=== PATIENT | male | born 1940 | race Caucasian/White ===

== ENCOUNTER → 2017-10-23 15:32 | Outpatient (CLI) | payer MEDICARE, SELFPAY ==
--- NOTE | 2017-10-23 15:35 | MRI_ITS ---
STUDY: MRI RIGHT FOREFOOT WITHOUT CONTRAST REASON FOR EXAM: Male, 77 years old. Pain. TECHNIQUE: Standardized fat and water weighted pulse sequences were obtained in all 3 orthogonal planes. COMPARISON: None. FINDINGS: There is degenerative arthrosis of the metatarsophalangeal joint of the hallux. Normal tibial and fibular sesamoids, with normal sesamoids-first metatarsal articulations. Normal interphalangeal joint of the hallux. Normal proximal and distal phalanges of the great toe. Normal medial and lateral heads of the flexor hallucis brevis tendons. Normal flexor and extensor hallucis longus tendons. Normal second through fifth metatarsophalangeal (MTP) joints. Normal interphalangeal joints of the second through fifth toes. Normal proximal, middle and distal phalanges of the second through fifth toes. Normal first through fourth intermetatarsal spaces. Normal flexor and extensor tendons of the second through fifth toes. Normal visualized metatarsi. Normal intrinsic muscles of the forefoot. There is no demonstrated soft tissue abnormality. There is no demonstrated fracture. MRI/Lower Ext/No Jt/w/o IMPRESSION: No fracture. Degenerative change at the first MTP joint. Electronically Signed: Sabino Carty MD at 10:00 EDT , Service support ,
--- NOTE | 2017-10-23 15:35 | MRI_ITS ---
STUDY: MRI LEFT FOREFOOT WITHOUT CONTRAST REASON FOR EXAM: Male, 77 years old. Pain. TECHNIQUE: Standardized fat and water weighted pulse sequences were obtained in all 3 orthogonal planes. COMPARISON: None. FINDINGS: There is mild degenerative arthrosis with a joint of effusion of the metatarsophalangeal joint of the hallux. Normal tibial and fibular sesamoids, with normal sesamoids-first metatarsal articulations. Normal interphalangeal joint of the hallux. Normal proximal and distal phalanges of the great toe. Normal medial and lateral heads of the flexor hallucis brevis tendons. Normal flexor and extensor hallucis longus tendons. Normal second through fifth metatarsophalangeal (MTP) joints. Normal interphalangeal joints of the second through fifth toes. Normal proximal, middle and distal phalanges of the second through fifth toes. Normal first through fourth intermetatarsal spaces. Normal flexor and extensor tendons of the second through fifth toes. Normal visualized metatarsi. Normal intrinsic muscles of the forefoot. There is no demonstrated soft tissue abnormality. There is no demonstrated fracture. 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 No fracture. Electronically Signed: Sabino Carty MD at 10:04 EDT , Service support ,
== END ==
PROVIDERS: Family Provider Family Medicine; PCP Family Medicine; Visit Provider Podiatrist
DX: M19.071 Primary osteoarthritis, right ankle and foot (principal); M19.072 Primary osteoarthritis, left ankle and foot; M20.5X1 Other deformities of toe(s) (acquired), right foot; M20.5X2 Other deformities of toe(s) (acquired), left foot; G57.83 Other specified mononeuropathies of bilateral lower limbs
CPT/HCPCS: 73718

== ENCOUNTER → 2017-12-01 11:48 | Outpatient (CLI) | payer MEDICARE, SELFPAY ==
--- NOTE | 2017-12-01 11:51 | RAD_ITS ---
STUDY: X-RAY - LUMBAR SPINE REASON FOR EXAM: Male, 77 years old. Lower back pain TECHNIQUE: 2 view(s) of the lumbar spine were obtained. COMPARISON: None FINDINGS: Normal lumbar lordosis. There is a mild levoscoliosis of the lumbar spine. There is a normal alignment of the vertebrae. Normal vertebral bodies and endplates. There is multi-level degenerative disc disease with multi-level disc space narrowing. There is posterior fusion at L3-4. There is atherosclerotic calcification of the abdominal aorta without a demonstrated aneurysm. RAD/Lumbar Spine 2 or 3 Views IMPRESSION: Degenerative changes of the spine, as detailed above. Electronically Signed: Armin Bonilla MD at 8:16 EDT Tel , Service support ,
== END ==
PROVIDERS: Family Provider Family Medicine; PCP Family Medicine
DX: M54.16 Radiculopathy, lumbar region (principal)
CPT/HCPCS: 72100

== ENCOUNTER 2018-05-18 10:00 | Outpatient (RCR) | payer MEDICARE, SELFPAY ==
--- NOTE | 2018-03-26 14:57 | HP.PTEVAL_ITS ---
Patient's Visit Information ADALBERTO SANCHEZ is a 77 year old M referred to Physical Therapy by Coy Barnard MD with a diagnosis of dysequilibrium. Date of Evaluation: 03/26/18 Physical Therapist: Hunter Torres DPT, OC - Visit Plan Frequency: 2x /Week Duration: 4-6 Weeks Plan: Neurocom balance test then 2x/week x 2-4 for ex for HEP of VOR, foam stance and general ex if patient wishes as well as per results of neurocom. - Subjective Subjective: Had had 3 back surgeries including L45 laminectomy, then pain returned adn had therapy which did not help and then had surgery Apr 2017 again L34 discectomy. Was doing well but shovelled snow a month later and got cyst in LB surgical site and had that removed this July. Pain went away and now has been healing 90% healed with slight LBP at times intermittently. Current problem is related more to balance being not good. Veers to side or LOB with bending over. No spinning, just off balance. Slowly worsening progressively. Doesn't need cane or walker yet but is noticeably worsening and causing concern. Does own property with trees and does climb ladder now and then, is very careful. No falls recently but may have come close a few times. Therefore, doctor ran some test to clear brain and blood pressure. Now sent for PT. Lying down is fine. Activity at home is normal for now as his back is still weak. Limited in what he can lift from that. Steps at home and he doesn' t need to use them much but can go up and down them. Has railing and uses it. Was at football game for grandson last night and climbing bleachers, stopping on bleachers was more challenging. People stared at him. - Objective Walks into PT and transfers I with firm flat surface. Sensation LE in feet diminished to gross light touch. reflexes 1/3 patella and achilles. Strength LE 4+/5, motor control for ankle ev/inv at deficit. coordination to reciprocal toe and heel tap at minimal deficit. felxibility gastroc and HS mild deficits. AROM ankles , knees WFL, hip ext to 10 degreees otherwise WFL. VOR walking is challenging as is foam stance with ec. - Balance Scores Functional Gait Assessment Score: 27 % Disability: 10.0000 CATSIB Score (Max score 120 seconds): 98 - Goals Goal 1:: PAtioent ambulate with VOR without deficits and score 30 on foam ec romberg stance. Goal Time Frame: 4-6 Weeks Goal 2:: Patient feel 75% improved balance overall Goal Time Frame: 4-6 Weeks Goal 3:: I approp HEP to minimize future problems. 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 For Medicare and Medicare HMO plans, please review the plan of care and approve it. It will need to be FAXED BACK to us at [phone] for Medicare purposes. Please let me know if there are questions or concerns regarding this plan of care. Physician Signature: Date:
--- NOTE | 2018-04-07 09:50 | HP.PTCOM ---
PT Communication Note 04/07/[address] Coy Barnard MD , Thank you for the referral of Dell to [facility] for balance assessment. I have enclosed a copy of the results for yur review. in summation, he scored well on the whole battery of tests. He only had some slight dificits on forward weight shift excursion on the Limtis of Stability Test. With these results in mind, I plan to see him 2x/week for 2-4 weeks to instruct in a HEP for VOR, forward weight shift and foam exercises as well as general lower extremity strengthening and progression. Sincerely, Hunter Torres, BARBARAT, OC Contact Information
--- NOTE | 2018-04-07 09:53 | HP.PTCOM_ITS ---
PT Communication Note 04/07/[address] Coy Barnard MD , Thank you for the referral of Dell to [facility] for balance assessment. I have enclosed a copy of the results for yur review. in summation, he scored well on the whole battery of tests. He only had some slight dificits on forward weight shift excursion on the Limtis of Stability Test. With these results in mind, I plan to see him 2x/week for 2-4 weeks to instruct in a HEP for VOR, forward weight shift and foam exercises as well as general lower extremity strengthening and progression. Sincerely, Hunter Torres, BARBARAT, OC Contact Information
--- NOTE | 2018-04-27 11:01 | HP.PTREVAL ---
Coy Barnard MD, It has been my pleasure to treat ADALBERTO SANCHEZ over the last 6 visits for dysequilibrium. Please see the progress note below for an update on the physical therapy plan of care! Subjective: Pt reports that he had a great trip to [place]. Still having the same trouble with balance but no worse. Objective/Function: Progressed exercises today with good tolerance. Some challenge and fatigue evident. CGA necessary for stability at times. Balance does improve with consecutive repitition though. Plan Plan: x1 more appt before f/u with supervising PT. 2x/week x 2 to teach VOR progression with balance, foam ex and FW weight shift as well as general LE sink ex with dumbbells and give list for HEP. Pt to vacation f[place] through, make sure he has some to do while gone as safety allows. Goals Goal 1:: PAtioent ambulate with VOR without deficits and score 30 on foam ec romberg stance. Goal Time Frame: 4-6 Weeks Goal 2:: Patient feel 75% improved balance overall Goal Time Frame: 4-6 Weeks Goal Progress: Not Progressing Goal 3:: I approp HEP to minimize future problems. 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 Goal Time Frame: 4-6 Weeks Anticipated Interventions Patient/Client Instruction: Educate patient on: Condition, Plan of Care For the Purpose of:: To improve safety with gait Therapeutic Exercise to Include: Strength training, Balance training For the Purpose of:: To improve ability of physical actions for home/community/work/leisure, To improve safety with gait, To improve safety Please do not hesitate to contact me at [phone] by phone or if you have questions or concerns regarding this new plan of care! Sincerely, Hunter Torres, BARBARAT, OC
--- NOTE | 2018-05-18 10:33 | HP.PTEVAL ---
Patient's Visit Information ADALBERTO SANCHEZ is a 77 year old M referred to Physical Therapy by Coy Barnard MD with a diagnosis of dysequilibrium. Date of Evaluation: 03/26/18 Physical Therapist: Hunter Torres DPT, OC - Visit Plan Frequency: 2x /Week Duration: 4-6 Weeks Plan: D/C - Subjective Subjective: Had had 3 back surgeries including L45 laminectomy, then pain returned adn had therapy which did not help and then had surgery Apr 2017 again L34 discectomy. Was doing well but shovelled snow a month later and got cyst in LB surgical site and had that removed this July. Pain went away and now has been healing 90% healed with slight LBP at times intermittently. Current problem is related more to balance being not good. Veers to side or LOB with bending over. No spinning, just off balance. Slowly worsening progressively. Doesn't need cane or walker yet but is noticeably worsening and causing concern. Does own property with trees and does climb ladder now and then, is very careful. No falls recently but may have come close a few times. Therefore, doctor ran some test to clear brain and blood pressure. Now sent for PT. Lying down is fine. Activity at home is normal for now as his back is still weak. Limited in what he can lift from that. Steps at home and he doesn't need to use them much but can go up and down them. Has railing and uses it. Was at football game for grandson last night and climbing bleachers, stopping on bleachers was more challenging. People stared at him. - Objective Walks into PT and transfers I with firm flat surface. Sensation LE in feet diminished to gross light touch. reflexes 1/3 patella and achilles. Strength LE 4+/5, motor control for ankle ev/inv at deficit. coordination to reciprocal toe and heel tap at minimal deficit. felxibility gastroc and HS mild deficits. AROM ankles , knees WFL, hip ext to 10 degreees otherwise WFL. VOR walking is challenging as is foam stance with ec. - Balance Scores Functional Gait Assessment Score: 28 % Disability: 6.6700 CATSIB Score (Max score 120 seconds): 100 - Goals Goal 1:: PAtioent ambulate with VOR without deficits and score 30 on foam ec romberg stance. Goal Time Frame: 4-6 Weeks Goal 2:: Patient feel 75% improved balance overall Goal Time Frame: 4-6 Weeks Goal 3:: I approp HEP to minimize future problems. 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 For Medicare and Medicare HMO plans, please review the plan of care and approve it. It will need to be FAXED BACK to us at [phone] for Medicare purposes. Please let me know if there are questions or concerns regarding this plan of care. Physician Signature: Date:
--- NOTE | 2018-05-18 10:34 | HP.PTDCSUM_ITS ---
HP - PT D/C Summary It has been my pleasure to treat ADALBERTO SANCHEZ under orders from Coy Barnard MD, for the diagnosis of dysequilibrium for a total of 7 visit(s). Discharge Date: Please see the following information for a summary of their discharge status. - Subjective Subjective: Doing pretty good. Exercised 4x/week, Skipped a few due to some mild back pain that he got from lifting something. That is good. Not seeing huge improvements in the balance, still staggers at times. felt uncomfortable on step ladder. - Overall Improvement % Improvement: 10 - Objective Objective/Function: FGA+3. romberg better. tandem walk real well but uses arms. Better Forward weight shift without overextending self. OVERALL TESTING BETTER BUT NOT FEELING BETTER FAR BALANCE GOES. REVIEWED REALISTIC EXPECTATIONS WITH PATIENT AND NEED TO USE CAUTION AND LOWER EXPECTATIONS WHILE CONTINUING EX. - Goals Goal 1:: PAtioent ambulate with VOR without deficits and score 30 on foam ec romberg stance. Goal Progress: Goal Met Goal 2:: Patient feel 75% improved balance overall Goal Progress: Goal Met Goal 3:: I approp HEP to minimize future problems. 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 Goal Progress: still a challenge. - Plan Plan: D/C - D/C Information If there are questions or concerns regarding this patient's physical therapy, please feel free to call me at [phone]. Thank you for the referral of this patient. Sincerely, Hunter Torres, DPT, OC
== END 2018-05-18 19:00 | disposition home or self-care (01) ==
LOC: PT 10:00
PROVIDERS: Family Provider Family Medicine; PCP Family Medicine; Visit Provider Family Medicine
DX: R42 Dizziness and giddiness (principal); G62.9 Polyneuropathy, unspecified; M51.9 Unspecified thoracic, thoracolumbar and lumbosacral intervertebral disc disorder; R26.89 Other abnormalities of gait and mobility; M48.00 Spinal stenosis, site unspecified
CPT/HCPCS: 97110; 97162; 97530; 97750

== ENCOUNTER → 2018-07-02 15:13 | Outpatient (CLI) | payer MEDICARE, SELFPAY ==
[2018-07-02 17:58] LABS: Rheumatoid Factor < 10.0 IU/mL (<15); Thyroid Stim Hormone (TSH) 0.89 uIU/mL (0.358-3.74); Uric Acid 5.8 mg/dL (3.5-7.2)
[2018-07-02 18:00] LABS: Hemoglobin A1c 5.5 % (4.2-6.3)
[2018-07-02 18:10] LABS: Erythrocyte Sedimentation Rate 5 mm/hr (0-20)
[2018-07-02 18:35] LABS: HIV - WCH Non-Reactive (Nonreactive); Vitamin B12 1835 pg/mL (211-911)
[2018-07-05 20:11] LABS: Immunoglobulin A 395 mg/dL (61-437); Immunoglobulin G 858 mg/dL (700-1600); PROEL- A/G Ratio 1.8 (0.7-1.7); PROEL- Albumin 4.2 g/dL (2.9-4.4); PROEL- Alpha-1 Globulin 0.2 g/dL (0.0-0.4); PROEL- Alpha-2 Globulin 0.5 g/dL (0.4-1.0); PROEL- Beta Globulin 1.1 g/dL (0.7-1.3); PROEL- Gamma Globulin 0.7 g/dL (0.4-1.8); PROEL- Globulin, Total 2.4 g/dL (2.2-3.9); PROEL- TOTAL PROTEIN 6.6 g/dL (6.0-8.5); RNP Ab <0.2 AI (0.0-0.9); Smith Ab <0.2 AI (0.0-0.9)
[2018-07-06 09:09] LABS: ANTINUCLEAR ANTIBODIES DIRECT Negative (Negative)
[2018-07-06 10:07] LABS: Immunoglobulin M 44 mg/dL (15-143)
== END ==
PROVIDERS: Family Provider Family Medicine; PCP Family Medicine; Visit Provider Psychiatry & Neurology Neurology
DX: R73.9 Hyperglycemia, unspecified (principal); G62.9 Polyneuropathy, unspecified; M10.9 Gout, unspecified; R53.83 Other fatigue
CPT/HCPCS: 36415; 82607; 82746; 82784; 83036; 84165; 84443; 84550; 85652; 86038; 86235; 86334; 86431; 86703

== ENCOUNTER → 2018-07-28 09:49 | Outpatient (CLI) | payer MEDICARE, SELFPAY ==
[2018-07-28 12:38] LABS: Absolute Lymphocyte Count 1.88 X10^3/ul (0.83-4.51); Absolute Neutrophil Count 5.2 X10^3/uL (2.0-7.7); Basophil# 0.07 X10^3/uL; Basophil% 0.8 % (0-1); Eosinophil# 0.56 X10^3/uL; Eosinophils% 6.6 % (0-5); Hematocrit 41.9 % (40-54); Hemoglobin 13.6 g/dl (13.0-16.5); Lymphocyte # 1.88 X10^3/ul (4.0); Lymphocyte % 22.1 % (19-41); Mean Corp Hgb Conc 32.5 g/gl (32-36); Mean Corpuscular Hgb 29.7 pg (27.0-32.0); Mean Corpuscular Volume 91.5 fL (80-94); Mean Platelet Vol. 10.5 fl (6.2-12.0); Monocyte# 0.74 X10^3/uL; Monocyte% 8.7 % (0-10); Neutrophil # 5.23 X10^3/uL (2.7-7.7); Neutrophil % 61.7 % (47-70); Platelet Count 188 K/mm3 (150-450); RBC Distribution Width CV 13.1 % (11.6-14.6); RBC Distribution Width SD 43.6 fl (35.1-43.9); Red Blood Count 4.58 M/mm3 (4.6-6.2); White Blood Count 8.5 K/mm3 (4.4-11.0)
[2018-07-28 12:41] LABS: POSITIVE COUNT NO; POSITIVE DIFFERENTIAL NO; POSITIVE MORPHOLOGY NO
[2018-07-28 12:56] LABS: Anion Gap 8 (5-15); BUN 15 mg/dL (7-18); Calcium,Total 8.3 mg/dL (8.5-10.1); Chloride 107 mmol/L (98-107); Creatinine, Serum 1.07 mg/dL (0.70-1.30); EST Glomerular Filtration Rate 72 mL/min (>60); Est Glom Filt Rate - Afr Amer 87 mL/min (>60); Glucose 95 mg/dL (74-106); Potassium 4.3 mmol/L (3.5-5.1); Sodium Level 142 mmol/L (136-145); Thyroid Stim Hormone (TSH) 1.99 uIU/mL (0.358-3.74)
== END ==
PROVIDERS: Family Provider Family Medicine; PCP Family Medicine; Visit Provider Family Medicine
DX: F41.9 Anxiety disorder, unspecified (principal); Z85.820 Personal history of malignant melanoma of skin
CPT/HCPCS: 36415; 80048; 84443; 85025

== ENCOUNTER → 2019-12-30 11:49 | Outpatient (CLI) | payer MEDICARE, SELFPAY ==
[2019-12-30 15:54] LABS: Absolute Lymphocyte Count 1.51 X10^3/uL (0.83-4.51); Absolute Neutrophil Count 4.2 X10^3/uL (2.0-7.7); Basophil# 0.07 X10^3/uL; Eosinophil# 0.43 X10^3/uL; Eosinophils% 6.4 % (0-5); Hematocrit 42.4 % (40-54); Hemoglobin 14.1 g/dL (13.0-16.5); Lymphocyte # 1.51 X10^3/ul (4.0); Lymphocyte % 22.3 % (19-41); Mean Corp Hgb Conc 33.3 g/dL (32-36); Mean Corpuscular Hgb 31.1 pg (27.0-32.0); Mean Corpuscular Volume 93.4 fL (80-94); Mean Platelet Vol. 11.4 fl (6.2-12.0); Monocyte% 7.4 % (0-10); NRBC Flagged by Analyzer 0 % (0-5); Neutrophil # 4.24 X10^3/uL (2.7-7.7); Neutrophil % 62.6 % (47-70); Platelet Count 177 K/mm3 (150-450); RBC Distribution Width CV 12.6 % (11.6-14.6); RBC Distribution Width SD 43.8 fl (35.1-43.9); Red Blood Count 4.54 M/mm3 (4.6-6.2); White Blood Count 6.8 K/mm3 (4.4-11.0)
[2019-12-30 16:21] LABS: Vitamin B12 646 pg/mL (211-911)
[2019-12-30 16:45] LABS: ALB/GLOB Ratio 1.1 RATIO (0.9-2.4); AST(SGOT) 17 U/L (15-37); Alanine Aminotransfer ALT/SGPT 21 U/L (16-61); Albumin, Serum 3.6 g/dL (3.2-5.0); Alkaline Phosphatase 53 U/L (45-117); Anion Gap 6 (5-15); BUN 16 mg/dL (7-18); BUN/Creat Ratio 15.2 RATIO (10-20); Calcium,Total 8.5 mg/dL (8.5-10.1); Chloride 106 mmol/L (98-107); Creatinine, Serum 1.05 mg/dL (0.70-1.30); EST Glomerular Filtration Rate 73 mL/min (>60); Est Glom Filt Rate - Afr Amer 88 mL/min (>60); Globulin 3.3 g/dL (2.2-4.2); Glucose 114 mg/dL (74-106); Potassium 3.9 mmol/L (3.5-5.1); Protein, Total 6.9 g/dL (6.4-8.2); Sodium Level 140 mmol/L (136-145); T4 Free Direct 1.07 ng/dL (0.76-1.46); Thyroid Stim Hormone (TSH) 1.42 uIU/mL (0.358-3.74)
== END ==
PROVIDERS: PCP Family Medicine; Visit Provider Family Medicine
DX: R20.2 Paresthesia of skin (principal); R53.83 Other fatigue
CPT/HCPCS: 36415; 80053; 82607; 84439; 84443; 85025

== ENCOUNTER 2020-01-23 16:40 | Observation (INO) | payer MEDICARE, SELFPAY ==
[2020-01-23] VITALS (12 sets, daily range): BP systolic 127–141; BP diastolic 64–77; PULSE 62–758; RESP 14–18; TEMP 36.4–37.2; O2SAT 96–99; BMI 17.9; BMI 29.7; BMI 29.8; BMI 29.4
--- NOTE | 2020-01-23 16:50 | CM.ED ---
SOCIAL WORK Responded to Stroke Alert. Patient out of room. This worker to remain available for needs/support.
[2020-01-23 16:51] LABS: Bedside Glucose 93 mg/dL (70-110)
--- NOTE | 2020-01-23 16:54 | CT_ITS ---
We are attempting to reach an attending provider to discuss findings. An addendum with communication details will be sent when the communication is complete. STUDY: CT BRAIN WITHOUT CONTRAST REASON FOR EXAM: Male, 79 years old. SPEECH RADIATION DOSAGE (If Supplied By Facility): CTDIvol = ( 60.81 ) mGy, DLP = ( 1067.08 ) mGycm TECHNIQUE: Transaxial CT imaging of the brain was performed without administration of intravenous contrast material. Individualized dose optimization techniques were used for this CT. COMPARISON: No relevant priors. FINDINGS: Normal soft tissue structures. Normal calvarium. Calcification of cavernous carotids Mild atrophy and moderate periventricular white matter ischemic changes.. 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 Normal brainstem. Normal cerebellum. There is no intracranial hemorrhage. There are no findings of an acute ischemic infarction. Moderate to severe bilateral maxillary and ethmoid sinus disease CT/Brain/Head without Contrast IMPRESSION: Atrophy and moderate periventricular white matter ischemic changes with 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 No evidence for acute bleed. If concern for acute infarct MRI recommended Electronically Signed: Lucian Jay MD at 17:10 EDT , Service support ,
--- NOTE | 2020-01-23 16:54 | EKG12_ITS ---
Test Reason : NEURO Blood Pressure : / mmHG Vent. Rate : 069 BPM Atrial Rate : 069 BPM P-R Int : 176 ms QRS Dur : 084 ms QT Int : 394 ms P-R-T Axes : 031 -19 021 degrees QTc Int : 422 ms Sinus rhythm with occasional Premature ventricular complexes Otherwise normal ECG When compared with ECG of 23-JAN-2020 17:26, MANUAL COMPARISON REQUIRED, DATA IS UNCONFIRMED Confirmed by MARLY JUSTIN ([id number]), rewrite editor VANESSA HALL ([id number]) on 01/26/2020 12:14:00 PM Referred By: MAURO Confirmed By:MARLY JUSTIN
--- NOTE | 2020-01-23 16:55 | CT_ITS ---
We are attempting to reach an attending provider to discuss findings. An addendum with communication details will be sent when the communication is complete. STUDY: CTA HEAD AND NECK WITH CONTRAST REASON FOR EXAM: Male, 79 years old. POSS STROKE RADIATION DOSAGE (If Supplied By Facility): CTDIvol = ( 15.16 ) mGy, DLP = ( 601.13 ) mGycm TECHNIQUE: CT angiography was performed with a multi-detector CT scanner. Data acquisition was obtained from the skull base through the vertex following intravenous administration of IV 100 ML ISOVUE 370. MIP images were reconstructed from the axial data set. Post-processing of the angiographic images was performed, with multiplanar reformation and 3D reconstruction. Individualized dose optimization techniques were used for this CT. COMPARISON: No relevant priors. FINDINGS: Normal bilateral petrous carotid arteries. Minor calcific plaquing of the right cavernous carotid artery with a normal supraclinoid bifurcation. Minor calcific plaquing of the left cavernous carotid artery with a normal supraclinoid bifurcation. Normal right A1 segments of the anterior cerebral artery. Normal left A1 segments of the anterior cerebral artery. Anterior communicating artery not visualized consistent with normal variant). Normal bilateral A2 segments of the anterior cerebral arteries. Normal right M1 and M2 segments of the middle cerebral arteries, with a normal M1 bifurcation. Normal left M1 and M2 segments of the middle cerebral arteries, with a normal M1 bifurcation. Normal right posterior communicating artery (PCOM). Normal left posterior communicating artery (PCOM). Normal bilateral vertebral arteries. Normal basilar artery with a normal basilar bifurcation. The visualized bilateral superior cerebellar (SCA) arteries are normal. Normal bilateral P1, P2 and visualized P3 segments of the posterior cerebral arteries. There is no demonstrated aneurysm of the [place]. There is no demonstrated abnormality of the visualized brain. AORTIC ARCH: Normal visualized aortic arch. Normal origins of the brachiocephalic, left common carotid, and left subclavian arteries. RIGHT CAROTID ARTERIES: Normal right common carotid artery (CCA). Minor calcific plaquing of the right common carotid bulb. Normal origin of the right internal carotid (ICA) artery without a hemodynamically significant stenosis. Normal visualized cervical portion of the right internal carotid artery. Normal origin of the right external carotid artery (ECA). LEFT CAROTID ARTERIES: Normal left common carotid artery (CCA). Minor calcific plaquing of the left common carotid bulb. Normal origin of the left internal carotid (ICA) artery without a hemodynamically significant stenosis. Normal visualized cervical portion of the left internal carotid artery. Normal origin of the left external carotid artery (ECA). VERTEBRAL ARTERIES: Normal bilateral vertebral arteries. CT/CTA Head AND Neck W/ Contrast IMPRESSION: Mild atherosclerotic disease. No evidence for hemodynamically significant stenosis or occlusive thrombus. Electronically Signed: Lucian Jay MD at 17:23 EDT , Service support ,
--- NOTE | 2020-01-23 16:59 | ED.VIS.STROK ---
History of Present Illness Chief Complaint: Neuro S/Sx Informant: Patient, Family Onset: Today Narrative: Patient presents the emergency department with his for the evaluation of expressive aphasia. The tells me that this morning he bought a new car when he was signed the paperwork he was shaking but explained that he was nervous about spending a lot of money. Seemed fine afterwards. About 2 hours prior to arrival he was trying to read some numbers on a piece of paper and states it seemed blurry to him. She states that that seemed to get better as well. They were in a store shopping he was on one side of the store and she was on the other when they met up to check out he had some difficulty putting the items in bags. When they got back in the car they needed to go get gas and she noticed he was having a significant difficulty finding appropriate words. (This Was approximately 20 to 30 minutes prior to evaluation.) He informed her that they needed to go fill up the shoe when they were trying to get gas. She states that his word choices seem better here in the department. He denies any arm or leg symptoms. No current visual changes. They state he is not on any blood thinners. Past Medical History - Allergies and Home Meds Allergies/Adverse Reactions: Allergies propoxyphene napsylate [From Darvocet-N 100] Adverse Reaction (Verified 05/28/13 15:53) Vomiting Primary Care Physician: Coy Barnard MD [Primary Care Provider] - Smoking Status: Never smoker Review of Systems General: Denies: Chills, Fever, Sweats Eyes: Reports: Blurred Vision - bilaterally. Denies: Visual changes - bilaterally, Diplopia ENT: Denies: Rhinorrhea, Sore throat Cardiovascular: Denies: Chest pain, Palpitations Respiratory: Denies: Dyspnea, Cough, Dyspnea on exertion Gastrointestinal: Denies: Abdominal pain, Nausea, Vomiting, Diarrhea, Melena, Hematochezia Genitourinary: Denies: Dysuria, Hematuria, Frequency Musculoskeletal: Denies: Back pain, Extremity Pain Skin: Denies: Rash, Wounds Neurological: Reports: - - Expressive aphasia. Denies: Headache, Weakness, Parasthesia, Numbness STROKE Vital Signs/Narrative: Vital Signs Temp Pulse Resp BP Pulse Ox 01/23/20 16:41 98.9 F 758 H 15 134/77 H 96 Inital Vital Signs reviewed: Yes - NIHSS Initial 1a Level of Consciousness: 0 1b LOC Questions (Score 2 if aphasic/stupor): 0 1c LOC Commands (Only score 1st attempt): 0 2 Best Gaze (If aphasic, use reflexive mvmts.): 0 3 Visual: 0 4 Facial Palsy: 0 5 Motor Arm Right (UN = amputation/fusion): 0 5 Motor Arm Left: 0 6 Motor Leg Right: 0 6 Motor Leg Left: 0 7 Limb ataxia (Only + if out of proportion): 0 8 Sensory (Aphasia/stupor=0 or 1, coma=2): 0 9 Best Language: 1 10 Dysarthria (mute, coma=2, intubated=UN): 0 11 Extinction and Inattention (only scored if +): 0 Total Score: 1 General: Well nourished, Well developed Head: Normocephalic, Atraumatic Eyes: Perrl, EOMI ENT: Moist mucous membranes, No rhinorrhea Neck: Supple, Nontender Cardiovascular: Regular rate, Regular rhythm, No murmurs Respiratory: No distress, CTA bilaterally, Chest nontender Abdomen: Soft, Nontender, Nondistended, Normal bowel sounds Back: Nontender, Normal Inspection Extremities: Nontender, No edema Skin: Normal color, No rash Neurological: Alert, Oriented x3, Cranial nerves II-XII grossly intact, Normal Strength, Normal Sensation Psychological: Normal affect Diagnostic/Tx/Re-eval Clinical Impression(s) from Imaging Studies Brain CT 01/23/20 16:54 IMPRESSION: Atrophy and moderate periventricular white matter ischemic changes with 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 No evidence for acute bleed. 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 No evidence for acute bleed. If concern for acute infarct MRI recommended N.B. : The above information has been verbally conveyed by Lucian Jay MD to Hiar Tao MD, on 01/23/2020 17:16:50 (ET). Electronically Signed: Lucian Jay MD at 17:10 EDT , Service support , Head/Neck CTA 01/23/20 16:55 IMPRESSION: Mild atherosclerotic disease. No evidence for hemodynamically significant stenosis or occlusive thrombus. Electronically Signed: Lucian Jay MD at 17:23 EDT , Service support , ADDENDUM: 01/23/20 1744 IMPRESSION: Mild atherosclerotic disease. No evidence for hemodynamically significant stenosis or occlusive thrombus. N.B. : The above information has been verbally conveyed by Lucian Jay MD to Hair Tao MD , , on 01/23/2020 17:37:04 (ET). Electronically Signed: Lucian Jay MD at 17:23 EDT , Service support , Chest X-Ray 01/23/20 17:15 IMPRESSION: Minimal left basilar scarring or discoid atelectasis Electronically Signed: Lucian Jay MD at 17:48 EDT , Service support , Laboratory Last Values WBC 8.2 K/mm3 (4.4-11.0) 01/23/20 17:35 Corrected WBC Cancelled 01/23/20 17:10 RBC 4.26 M/mm3 (4.6-6.2) L 01/23/20 17:35 Hgb 13.1 g/dL (13.0-16.5) 01/23/20 17:35 Hct 40.0 % (40-54) 01/23/20 17:35 MCV 93.9 fL (80-94) 01/23/20 17:35 MCH 30.8 pg (27.0-32.0) 01/23/20 17:35 MCHC 32.8 g/dL (32-36) 01/23/20 17:35 RDW Std Deviation 42.7 fl (35.1-43.9) 01/23/20 17:35 RDW Coeff of Boom 12.5 % (11.6-14.6) 01/23/20 17:35 Plt Count 166 K/mm3 (150-450) 01/23/20 17:35 MPV 10.5 fl (6.2-12.0) 01/23/20 17:35 Immature Gran % (Auto) 0.400 % (0.0-0.9) 01/23/20 17:35 Neut % (Auto) 64.7 % (47-70) 01/23/20 17:35 Lymph % (Auto) 21.4 % (19-41) 01/23/20 17:35 [place] % (Auto) 8.2 % (0-10) 01/23/20 17:35 Eos % (Auto) 4.3 % (0-5) 01/23/20 17:35 Baso % (Auto) 1.0 % (0-1) 01/23/20 17:35 Absolute Neuts (auto) 5.3 X10^3/uL (2.0-7.7) 01/23/20 17:35 Absolute Lymphs (auto) 1.75 X10^3/uL (0.83-4.51) 01/23/20 17:35 Total Counted Cancelled 01/23/20 17:10 Neutrophils % (Manual) Cancelled 01/23/20 17:10 Band Neutrophils % Cancelled 01/23/20 17:10 Lymphocytes % (Manual) Cancelled 01/23/20 17:10 Monocytes % (Manual) Cancelled 01/23/20 17:10 Eosinophils % (Manual) Cancelled 01/23/20 17:10 Basophils % (Manual) Cancelled 01/23/20 17:10 Metamyelocytes % Cancelled 01/23/20 17:10 Myelocytes % Cancelled 01/23/20 17:10 Promyelocytes % Cancelled 01/23/20 17:10 Blast Cells % Cancelled 01/23/20 17:10 Plasma Cell % (Manual) Cancelled 01/23/20 17:10 Other Cells % Cancelled 01/23/20 17:10 Nucleated RBC % 0 % (0-5) 01/23/20 17:35 Nucleated RBCs/100 WBC Cancelled 01/23/20 17:10 Differential Comment Cancelled 01/23/20 17:10 Diff Path Review Cancelled 01/23/20 17:10 Hypersegmented Neuts Cancelled 01/23/20 17:10 Atypical Lymphocytes Cancelled 01/23/20 17:10 Reactive Lymphocytes Cancelled 01/23/20 17:10 Smudge Cells Cancelled 01/23/20 17:10 Toxic Granulation Cancelled 01/23/20 17:10 Toxic Vacuolation Cancelled 01/23/20 17:10 Dohle Bodies Cancelled 01/23/20 17:10 Nora Rods Cancelled 01/23/20 17:10 Platelet Estimate Cancelled 01/23/20 17:10 Plt Morphology Comment Cancelled 01/23/20 17:10 RBC Morphology Cancelled 01/23/20 17:10 RBC Morphology Cancelled 01/23/20 17:10 Polychromasia Cancelled 01/23/20 17:10 Hypochromasia Cancelled 01/23/20 17:10 Poikilocytosis Cancelled 01/23/20 17:10 Basophilic Stippling Cancelled 01/23/20 17:10 Anisocytosis Cancelled 01/23/20 17:10 Microcytosis Cancelled 01/23/20 17:10 Macrocytosis Cancelled 01/23/20 17:10 Spherocytes Cancelled 01/23/20 17:10 Sickle Cells Cancelled 01/23/20 17:10 Target Cells Cancelled 01/23/20 17:10 Tear Drop Cells Cancelled 01/23/20 17:10 Ovalocytes Cancelled 01/23/20 17:10 Stomatocytes Cancelled 01/23/20 17:10 [place] Bodies Cancelled 01/23/20 17:10 Alexa Cells Cancelled 01/23/20 17:10 Bite Cells Cancelled 01/23/20 17:10 Crenated Cell Cancelled 01/23/20 17:10 Acanthocytes (Spur) Cancelled 01/23/20 17:10 Rouleaux Cancelled 01/23/20 17:10 Schistocytes Cancelled 01/23/20 17:10 PT 14.0 SECONDS (11.7-14.9) 01/23/20 17:10 INR 1.1 01/23/20 17:10 APTT 26.7 Seconds (24.1-36.2) 01/23/20 17:10 Sodium 138 mmol/L (136-145) 01/23/20 17:10 Potassium 5.2 mmol/L (3.5-5.1) H 01/23/20 17:10 Chloride 107 mmol/L (98-107) 01/23/20 17:10 Carbon Dioxide 26.0 mmol/L (21.0-32.0) 01/23/20 17:10 Anion Gap 5 (5-15) 01/23/20 17:10 BUN 21 mg/dL (7-18) H 01/23/20 17:10 Creatinine 0.99 mg/dL (0.70-1.30) 01/23/20 17:10 Estim Creat Clear Calc 68.59 ml/min 01/23/20 17:10 Est GFR (MDRD) Af Amer 94 mL/min (>60) 01/23/20 17:10 Est GFR (MDRD) Non-Af 78 mL/min (>60) 01/23/20 17:10 BUN/Creatinine Ratio 21.3 RATIO (10-20) H 01/23/20 17:10 Glucose 89 mg/dL (74-106) 01/23/20 17:10 Calcium 8.6 mg/dL (8.5-10.1) 01/23/20 17:10 Troponin I < 0.015 ng/mL (<0.045) 01/23/20 17:10 POC Glucose 93 mg/dL (70-110) 01/23/20 16:47 - EKG Initial EKG Interpretation: Sinus Rhythm - EKG shows a sinus rhythm with PVCs at a rate of 76. - Medical Decision Making Stroke Team Activated: Yes Reviewed Inclusion/Exclusion criteria: Yes Was Patient considered for Endovascular Intervention?: No IV Alteplase (t-PA) Administered: No No contraindications for IV Alteplase (t-PA) administration.: No Alteplase (t-PA) risks, benefits, alternative discussed: No Not given: Patient refusal: No Stroke team was called. Patient was interviewed by [facility] neurology. At the time of their evaluation his symptoms seem to have resolved. Patient will be admitted for TIA work-up. He received aspirin here in the department. Critical care time (excluding procedures): 30-74 minutes - 31 minutes ED Disposition - Plan for ED Patient: Disposition: Acute Care Hospital [facility] Diagnosis: TIA (transient ischemic attack), Expressive aphasia Referrals: Coy Barnard MD [Primary Care Provider] -
--- NOTE | 2020-01-23 17:15 | RAD_ITS ---
STUDY: X-RAY CHEST REASON FOR EXAM: Male, 79 years old. STROKE TECHNIQUE: AP portable COMPARISON: None. FINDINGS: There is minimal scarring or discoid atelectasis in left lower lobe. Lungs are otherwise clear. There is no demonstrated pleural abnormality. Normal size heart. Normal mediastinum and mello. Normal visualized pulmonary arteries. Normal visualized aortic arch and descending thoracic aorta. Normal visualized thoracic spine. Normal visualized ribs, clavicles, and shoulders. There is no demonstrated abnormality of the visualized soft tissue structures of the upper abdomen. RAD/Chest 1 View IMPRESSION: Minimal left basilar scarring or discoid atelectasis Electronically Signed: Lucian Jay MD at 17:48 EDT , Service support ,
--- NOTE | 2020-01-23 17:21 | NURSING ---
NO OLD EKGS
[2020-01-23 17:29] LABS: International Normalized Ratio 1.1; Partial Thromboplast Time 26.7 Seconds (24.1-36.2)
[2020-01-23 17:42] LABS: Anion Gap 5 (5-15); BUN 21 mg/dL (7-18); BUN/Creat Ratio 21.3 RATIO (10-20); Calcium,Total 8.6 mg/dL (8.5-10.1); Chloride 107 mmol/L (98-107); Creatinine, Serum 0.99 mg/dL (0.70-1.30); EST Glomerular Filtration Rate 78 mL/min (>60); Est Glom Filt Rate - Afr Amer 94 mL/min (>60); Estimated Creatinine Clearance 68.59 ml/min; Glucose 89 mg/dL (74-106); Potassium 5.2 mmol/L (3.5-5.1); Sodium Level 138 mmol/L (136-145)
[2020-01-23 17:44] LABS: Absolute Lymphocyte Count 1.75 X10^3/uL (0.83-4.51); Absolute Neutrophil Count 5.3 X10^3/uL (2.0-7.7); Basophil# 0.08 X10^3/uL; Eosinophil# 0.35 X10^3/uL; Eosinophils% 4.3 % (0-5); Hemoglobin 13.1 g/dL (13.0-16.5); Lymphocyte # 1.75 X10^3/ul (4.0); Lymphocyte % 21.4 % (19-41); Mean Corp Hgb Conc 32.8 g/dL (32-36); Mean Corpuscular Hgb 30.8 pg (27.0-32.0); Mean Corpuscular Volume 93.9 fL (80-94); Mean Platelet Vol. 10.5 fl (6.2-12.0); Monocyte# 0.67 X10^3/uL; Monocyte% 8.2 % (0-10); NRBC Flagged by Analyzer 0 % (0-5); Neutrophil # 5.31 X10^3/uL (2.7-7.7); Neutrophil % 64.7 % (47-70); Platelet Count 166 K/mm3 (150-450); RBC Distribution Width CV 12.5 % (11.6-14.6); RBC Distribution Width SD 42.7 fl (35.1-43.9); Red Blood Count 4.26 M/mm3 (4.6-6.2); White Blood Count 8.2 K/mm3 (4.4-11.0)
[2020-01-23] MEDS: Aspirin 81 MG TAB.CHEW 324 MG PO (17:54)
--- NOTE | 2020-01-23 17:57 | HP.PCM_ITS ---
Problem List (1) TIA (transient ischemic attack) Status: Acute (2) TIA (transient ischemic attack) Status: Acute History of Present Illness Date of Admission: 01/23/20 Chief Complaint: speech changes The patient is a 79 year old M with a PMH of allergic rhinitis, Lumbar DDD and BPH who presented to the ED today with concerns about new aphasia that developed today. His states that they bought a new car earlier today and reports that he seemed a bit shaky and nervous while signing the paperwork for this but this resolved. He had some visual changes later today while trying to read a bill but his though that it was just low lighting and then about 2 hrs prior to presentation they were shopping and he had word finding difficulties. Per him, he states that he knew what he was trying to say but couldn't get the words out to say them and then about 20-30 min prior to presentation his had asked him where to go to get gas and he could not come up with the words and per his was not making sense when he did talk. He states that he perfectly understood what was being asked of him but just couldn't come up with the correct words to communicate with. Per the ED he had a few word finding issues upon arrival but sx improved dramatically and both he and his feel that he is back to baseline. He denies HTN/HPL/DM/MOHINDER and has no h/o cardiac issues or arrhythmias. Lab work was overall unimpressive other than a K of 5.2 but the specimen had moderate hemolysis. VS were stable and BP was consistently in the 130's/70's. 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 A CTA of his head and neck showed only mild atherosclerotic disease and no evidence of stenosis or occlusive thrombus. Past Medical History Medical History: Medical History (Last Updated 01/23/20 @ 18:[address] Silvia Lewis, DO) BPH (benign prostatic hyperplasia) N40.0 Basal cell carcinoma C44.91 Insomnia G47.00 Sinus disease J34.9 Allergies propoxyphene napsylate [From Darvocet-N 100] Adverse Reaction (Verified 05/28/13 15:53) Vomiting Home Medications: Ambulatory Orders Medication Instructions Recorded Multivitamins,Therapeutic 1 tablet PO DAILY 05/28/13 [Multivitamin] Triamcinolone Acetonide [Nasacort 1 spray NASAL BID 05/28/13 Aq Nasal [place]] Surgical History: - - Skin cancer removal Upper back and Lumbar surgery Psychiatric History: No pertinent psych hx Lives: Spouse/ Significant Other Smoking Status: Never smoker Tobacco Use: Non-smoker Alcohol: Occasional - 2 glasses of wine daily Drugs: None - *Family History none History Items: No pertinent history Review of Systems Constitutional: Denies: Anorexia, Chills, Fever, Night Sweats, Malaise, Weakness, Weight Change, Fatigue Eyes: Reports: Blurred vision - now resolved. Denies: Cataracts, Conjunctivae Inflammation, Double vision, Drainage, Eyelid Inflammation, Pain, Redness, Vision Change HEENT: Reports: Post Nasal Drip, Sinus Congestion, Sinus Drainage, Visual Changes - resolved. Denies: Difficulty Hearing, Difficulty Swallowing, Dysphasia, Ear Pain, Eye Pain, Hard of Hearing, Head Aches, Hearing Changes, Nasal bleeding, Nasal Congestion, Sore Throat Cardiovascular: Denies: Chest Pain, Claudication, Chest Pressure, Chest Tightness, Edema, Heaviness, Light Headedness, Orthopnea, Palpitations, Paroxysmal Noc. Dyspnea, Syncope Respiratory: Denies: Cough, Hemoptysis, Pleuritic Pain, Shortness of Breath, Shortness of breath at rest, Shortness of breath upon exertion, Sputum production, Wheezing Gastrointestinal: Denies: Abdominal Pain, Constipation, Diarrhea, Dyspepsia, Hematemesis, Hematochezia, Nausea, Melena, Vomiting Genitourinary: Reports: Frequency, Nocturia. Denies: Dysuria, Hematuria, Hesitancy, Incontinence, Retention, Urgency Musculoskeletal: Reports: Back Pain. Denies: Arm Pain, Foot Pain, Hand Pain, Joint Pain, Joint stiffness, Joint swelling, Joint Tenderness, Leg Pain, Muscle pain, Neck Pain, Shoulder Pain Skin: Denies: Dryness, Jaundice, Lesions, Pruritis, Rash, Skin Changes, Wounds Neurological: Reports: Blurred vision, Change in Speech. Denies: Balance problems, Double vision, Slurred speech, Confusion, Difficulty swallowing, Focal weakness, Headaches, Incoordination, Numbness, Tingling, Tremor, Seizures Psychiatric: Denies: Anxiety, Depression Endocrine: Denies: Change in Body Habitus, Heat/ Cold Intolerance, Polydipsia, Polyuria Hematologic/ Lymphatic: Denies: Adenopathy, Anemia, Easy Bruising, Easy Bleeding, Petechiae, Purpura VTE Information - Inpt Only VTE Present on Admission: No VTE Mechan Device Prophylaxis: SCD's VTE Pharm Prophylaxis ordered?: No Patient Problems: Active and Suspected Problems (Last Updated 01/23/20 @ 18:[address] Silvia Lewis, DO) TIA (transient ischemic attack) (Acute) TIA (transient ischemic attack) (Acute) - Physical Exam Vitals/I&O's: Vital Signs Temp Pulse Resp BP Pulse Ox 98.9 F 70 17 134/75 H 98 01/23/20 16:41 01/23/20 17:55 01/23/20 17:55 01/23/20 17:55 01/23/20 17:55 Oxygen Delivery Method Room Air Weight: 99.5 kg Body Mass Index (BMI) 29.7 Finger Stick Blood Glucose 93 General: Alert, Oriented x3, Cooperative, No apparent distress, Well developed, Well nourished, - - Older WM, sitting up in bed, appears well and comfortable, at bedside HEENT: Atraumatic, PERRLA, EOMI, Normocephalic, EAC Clear Oral: Moist Mucosa, No Gingival or Mucosal Lesions/ Ulcerations, - - mallampati 2-3 Neck: Supple, No JVD, Negative Carotid Bruits, Negative Hepatojugular Reflux, No Nodes, No Nuchal Rigidity, Trachea Midline, Thyroid Normal Size and Texture Lungs: Clear to auscultation, Normal air movement, No rhonchi, No wheeze, No rales Cardiovascular: Regular rate, Regular Rhythm, Normal S1, Normal S2, No murmurs, No rub noted, No Gallop, - - few ectopic beats Abdomen: Bowel Sounds Present, Soft, Non Tender, Non-Distended, No Hepato- splenomegaly, No hernias noted Extremities: No clubbing, No cyanosis, No edema, Capillary Refill Less than 3 Seconds, No Calf Tenderness, Peripheral Pulses Normal Skin: No rashes, No breakdown Musculoskeletal: No Tenderness to Palpation of Joints or Extremities, No Muscle Wasting, Arthritic Changes Lymphatic: No Cervical, Supraclavicular, or Inguinal Adenopathy Neurological: Cranial nerves II-XII grossly intact, Deep Tendon Reflexes 2+/4 and Symmetrical, Neuro grossly intact, Motor Exam 5/5 strength throughout, Sensory exam intact to light touch and pain, Coordination normal Psych/Mental Status: Normal Affect, Appropriate, Alert and oriented to time, place, person, mood and affect Laboratory Results 01/23/20 16:47: POC Glucose 93 01/23/20 17:10: WBC Cancelled, Corrected WBC Cancelled, RBC Cancelled, Hgb Cancelled, Hct Cancelled, MCV Cancelled, MCH Cancelled, MCHC Cancelled, RDW Std Deviation Cancelled, RDW Coeff of Boom Cancelled, Plt Count Cancelled, MPV Cancelled, Immature Gran % (Auto) Cancelled, Neut % (Auto) Cancelled, Lymph % (Auto) Cancelled, Lynn % (Auto) Cancelled, Eos % (Auto) Cancelled, Baso % (Auto) Cancelled, Absolute Neuts (auto) Cancelled, Absolute Lymphs (auto) Cancelled, Total Counted Cancelled, Neutrophils % (Manual) Cancelled, Band Neutrophils % Cancelled, Lymphocytes % (Manual) Cancelled, Monocytes % (Manual) Cancelled, Eosinophils % (Manual) Cancelled, Basophils % (Manual) Cancelled, Metamyelocytes % Cancelled, Myelocytes % Cancelled, Promyelocytes % Cancelled, Blast Cells % Cancelled, Plasma Cell % (Manual) Cancelled, Other Cells % Cancelled, Nucleated RBC % Cancelled, Nucleated RBCs/100 WBC Cancelled, Differential Comment Cancelled, Diff Path Review Cancelled, Hypersegmented Neuts Cancelled, Atypical Lymphocytes Cancelled, Reactive Lymphocytes Cancelled, Smudge Cells Cancelled, Toxic Granulation Cancelled, Toxic Vacuolation Cancelled, Dohle Bodies Cancelled, Nora Rods Cancelled, Platelet Estimate Cancelled, Plt Morphology Comment Cancelled, RBC Morphology Cancelled, Polychromasia Cancelled, Hypochromasia Cancelled, Poikilocytosis Cancelled, Basophilic Stippling Cancelled, Anisocytosis Cancelled, Microcytosis Cancelled, Macrocytosis Cancelled, Spherocytes Cancelled, Sickle Cells Cancelled, Target Cells Cancelled, Tear Drop Cells Cancelled, Ovalocytes Cancelled, Stomatocytes Cancelled, Mendez-[place] Bodies Cancelled, [place] Cells Cancelled, Bite Cells Cancelled, Crenated Cell Cancelled, Acanthocytes (Spur) Cancelled, Rouleaux Cancelled, Schistocytes Cancelled 01/23/20 17:10: PT 14.0, INR 1.1, APTT 26.7 01/23/20 17:10: Sodium 138, Potassium 5.2 H, Chloride 107, Carbon Dioxide 26.0, Anion Gap 5, BUN 21 H, Creatinine 0.99, Estim Creat Clear Calc 68.59, Est GFR (MDRD) Af Amer 94, Est GFR (MDRD) Non-Af 78, BUN/Creatinine Ratio 21.3 H, Glucose 89, Calcium 8.6, Troponin I < 0.015 01/23/20 17:35: WBC 8.2, RBC 4.26 L, Hgb 13.1, Hct 40.0, MCV 93.9, MCH 30.8, MCHC 32.8, RDW Std Deviation 42.7, RDW Coeff of Boom 12.5, Plt Count 166, MPV 10.5, Immature Gran % (Auto) 0.400, Neut % (Auto) 64.7, Lymph % (Auto) 21.4, [place] % (Auto) 8.2, Eos % (Auto) 4.3, Baso % (Auto) 1.0, Absolute Neuts (auto) 5.3, Absolute Lymphs (auto) 1.75, Nucleated RBC % 0 Current Medications Labetalol HCl (Trandate) 20 mg IV X1 PRN PRN Reason: BLOOD PRESSURE Assessment/Plan All Active Problems (Last Updated 01/23/20 @ 18:[address] Silvia Lewis, DO) Hand laceration (Acute) TIA (transient ischemic attack) (Acute) TIA (transient ischemic attack) (Acute) Suspected TIA -Admit to PCU-Observation -Stroke orderset used -Neuro checks per protocol -ASA 81 mg daily with 325 today -ECHO in am -MRI in am -Check lipids -tele monitor -dysphagia screen--> cardiac diet if passes -Neuro consult Hyperkalemia -suspect pseudohyperkalemia -repeat in am -specimen is hemolyzed BPH -continue alpha laurel Chronic Sinusitis -continue Claritin -continue Flonase -CT shows sig sinusitis--> would recommend ENT f/u as outpt LBP -APAP prn DVT prophylaxis -SCD's Code status Full Inpatient E&M: 52618 Init Hosp L3
--- NOTE | 2020-01-23 17:59 | NURSING ---
PCU OBS TIA DR WADE
--- NOTE | 2020-01-23 18:53 | ECHOD_ITS ---
Reason For Study: TIA/CVA Procedure This was a 2D Doppler, Color Flow transthoracic echocardiogram. The study was technically difficult. Exam performed portable in patient room. Left Ventricle Normal LV size. Left ventricular systolic function is normal. The estimated ejection fraction is 55 %. No evidence for diastolic dysfunction. No regional wall motion abnormalities noted. Right Ventricle Normal RV size. Normal systolic function. Atria Normal left atrium. Normal right atrium. No doppler evidence for ASD. Mitral Valve There is no mitral annular calcification. Normal mitral valve. Trivial mitral valve insufficiency. Tricuspid Valve Normal tricuspid valve. Trivial tricuspid valve insufficiency. Right ventricular systolic pressure estimated to be 29 mmHg. Aortic Valve Trisinus/trileaflet aortic valve. Mild focal aortic valve calcification. Pulmonic Valve The pulmonic valve is not well visualized. Trivial pulmonic valve insufficiency. Great Vessels Normal sized aortic root. Pericardium/Pleural No pericardial effusion. Medication Performed a rapid injection of agitated mix of 9 cc saline and 1cc air to assess for atrial septal defect. MMode/2D Measurements & Calculations LVIDd: 4.8 cm IVSd: 0.99 cm Ao root diam: 3.1 cm LVIDs: 3.2 cm LVPWd: 0.96 cm RVDd: 3.4 cm FS: 32.2 % LAV(MOD-bp): 45.2 ml LA A4 area: 16.3 cm2 LA dimension(2D): 2.9 cm LAV(MOD-bp) Indexed: 20.5 ml/m2 LAV(MOD-sp2): 46.2 ml LAV(MOD-sp4): 41.5 ml RA A4 area: 17.1 cm2 Doppler Measurements & Calculations MV E max logan: 68.2 cm/sec Lat Peak E' Logan: 8.9 cm/sec Med Peak E' Logan: 9.4 cm/sec MV A max logan: 81.5 cm/sec E/E' lat: 7.6 E/E' med: 7.3 MV E/A: 0.84 Ao V2 max: 148.6 cm/sec LV V1 max: 95.4 cm/sec PA V2 max: 106.7 cm/sec Ao max P.8 mmHg LV V1 max P.6 mmHg TR max logan: 255.0 cm/sec TR max P.0 mmHg Interpretation Summary The study was technically difficult. Left ventricular systolic function is normal. The estimated ejection fraction is 55 %. Trivial mitral valve insufficiency. Trivial tricuspid valve insufficiency. Mild focal aortic valve calcification. Trivial pulmonic valve insufficiency. Right ventricular systolic pressure estimated to be 29 mmHg. No evidence for diastolic dysfunction. Ordering Physician: Silvia Lewis Referring Physician: Coy Barnard Performed By: Melody Duncan RDCS
[2020-01-23] MEDS: traZODone 50 MG Tablet PO (22:07)
[2020-01-23] MEDS: Doxazosin 1 MG Tablet 2 MG PO (22:07)
[2020-01-23] MEDS: Acetaminophen 325 MG Tablet 650 MG PO (22:08)
[2020-01-23] MEDS: guaiFENesin 600 MG Tablet PO (22:08)
[2020-01-24] VITALS (8 sets, daily range): BP systolic 103–120; BP diastolic 53–70; PULSE 63–80; RESP 14–16; TEMP 36.6–36.9; O2SAT 94–97; BMI 29.4
--- NOTE | 2020-01-24 05:55 | MRI_ITS ---
STUDY: MRI BRAIN WITHOUT CONTRAST REASON FOR EXAM: Male, 79 years old. TIA, aphasia TECHNIQUE: Standardized multiplanar fat and water weighted pulse sequences were obtained. COMPARISON: CT 01/23/2020 FINDINGS: There is moderate cerebral atrophy with widening of the extra-axial spaces and ventricular dilatation. There are multiple white matter hyperintensities, distributed throughout the deep white matter tracts of the cerebral hemispheres, consistent with moderate chronic white matter ischemic changes. There is no evidence for recent intracranial ischemia or other cause of cytotoxic edema on diffusion weighted imaging (DWI). Normal T2* images of the brain without demonstrated susceptibility artifact. There is no demonstrated hemosiderin stain. Normal bilateral basal ganglia. Normal thalami. There is no extra-axial fluid accumulation. Normal flow voids within the major intracranial circulation suggesting patency by spin echo criteria. Normal sella turcica, pituitary gland, infundibular stalk, optic chiasm and hypothalamus. Normal tectal plate and pineal gland. Normal midbrain, edwin and medulla. Normal cerebellum. Normal basal cisterns. Normal bilateral temporal bones. Normal bilateral internal auditory canals. No demonstrated orbital abnormality, within the constraints of a routine brain study. There is mucoperiosteal inflammatory disease of the paranasal sinuses consistent with moderate chronic sinusitis. Normal calvarium and skull base. Normal visualized soft tissue structures. Normal visualized upper cervical spine. MRI/Brain without Contrast IMPRESSION: Involutional changes of the brain, as described above. No acute infarct. Electronically Signed: Jameson Mcdonald MD at 9:12 EDT Tel , Service support ,
[2020-01-24 06:40] LABS: Absolute Lymphocyte Count 2.43 X10^3/uL (0.83-4.51); Absolute Neutrophil Count 4.7 X10^3/uL (2.0-7.7); Basophil# 0.09 X10^3/uL; Basophil% 1.1 % (0-1); Eosinophil# 0.54 X10^3/uL; Eosinophils% 6.4 % (0-5); Hematocrit 40.3 % (40-54); Hemoglobin 13.3 g/dL (13.0-16.5); Lymphocyte # 2.43 X10^3/ul (4.0); Lymphocyte % 28.7 % (19-41); Mean Corpuscular Hgb 30.6 pg (27.0-32.0); Mean Corpuscular Volume 92.6 fL (80-94); Mean Platelet Vol. 10.9 fl (6.2-12.0); Monocyte# 0.71 X10^3/uL; Monocyte% 8.4 % (0-10); NRBC Flagged by Analyzer 0 % (0-5); Neutrophil # 4.68 X10^3/uL (2.7-7.7); Platelet Count 175 K/mm3 (150-450); RBC Distribution Width CV 12.5 % (11.6-14.6); Red Blood Count 4.35 M/mm3 (4.6-6.2); White Blood Count 8.5 K/mm3 (4.4-11.0)
[2020-01-24 07:20] LABS: Anion Gap 3 (5-15); BUN 16 mg/dL (7-18); BUN/Creat Ratio 17.2 RATIO (10-20); Calcium,Total 7.9 mg/dL (8.5-10.1); Chloride 109 mmol/L (98-107); Cholesterol 156 mg/dL (200); Creatinine, Serum 0.93 mg/dL (0.70-1.30); EST Glomerular Filtration Rate 84 mL/min (>60); Est Glom Filt Rate - Afr Amer 102 mL/min (>60); Estimated Creatinine Clearance 73.01 ml/min; Glucose 89 mg/dL (74-106); High Density Lipoprotein 50 mg/dL; Magnesium 1.9 mg/dL (1.6-2.6); Potassium 3.9 mmol/L (3.5-5.1); Sodium Level 140 mmol/L (136-145); Triglycerides 61 mg/dL; Very Low Density Lipoprotein 12 mg/dL (5-40)
--- NOTE | 2020-01-24 09:20 | EKG12_ITS ---
Test Reason : STROKE Blood Pressure : / mmHG Vent. Rate : 076 BPM Atrial Rate : 076 BPM P-R Int : 172 ms QRS Dur : 086 ms QT Int : 388 ms P-R-T Axes : 024 -23 027 degrees QTc Int : 436 ms Sinus rhythm with frequent Premature ventricular complexes Low voltage QRS Borderline ECG Confirmed by MARLY JUSTIN ([id number]), mapping editor VANESSA HALL ([id number]) on 01/26/2020 11:39:05 AM Referred By: Confirmed By:MARLY JUSTIN
--- NOTE | 2020-01-24 10:18 | DCINST_ITS ---
- Discharge Diagnoses Current Active Problems: Current Active and Chronic Problems (Last Updated 01/23/20 @ 18:[address] Silvia Lewis, DO) TIA (transient ischemic attack) (Acute) TIA (transient ischemic attack) (Acute) You will use the following diet at home:: Cardiac Your food should be the consistency of: Regular Your liquids should be the consistency of: Regular/Thin Discharge Activity: Return to Normal Activity Allergies/Adverse Reactions: Allergies propoxyphene napsylate [From Darvocet-N 100] Adverse Reaction (Verified 05/28/13 15:53) Vomiting Medications to take at Discharge Acetaminophen [Tylenol Arthritis] 650 mg PO QHS 01/23/20 Doxazosin Mesylate [Cardura] 2 mg PO QHS 01/23/20 Fluticasone 0.05% [Flonase Nasal [place]] 2 spray NASAL DAILY 01/23/20 Guaifenesin [Mucinex] 600 mg PO BID 01/23/20 Loratadine [Claritin] 10 mg PO DAILY 01/23/20 traZODone [Desyrel] 50 mg PO QHS 01/23/20 Aspirin [Aspirin, Baby] 81 mg PO DAILY@0800 tab.chew 01/24/20 Atorvastatin Calcium [Lipitor] 40 mg PO QHS #30 tab 01/24/20 The following prescriptions were given: Atorvastatin Calcium [Lipitor] 40 mg PO QHS #30 tab Transmission Status: Pending to [facility] Primary Care Physician: Coy Barnard MD [Primary Care Provider] - Please follow up with your Primary Care Physician in: 1-2 weeks Test Results: Test results from this visit will be discussed in further detail at your follow- up appointment, if applicable. Please Follow Up With: Preet Charles MD When: 3-4 weeks Proposed Discharge Date: 01/24/20
--- NOTE | 2020-01-24 10:46 | CASEMGMT ---
SW completed a PHQ 9 with patient as he had a TIA per physician. He scored a 6 which indicates minimal depression. Patient declined any resources for counseling. Milady SPENCER MSW
[2020-01-24] MEDS: Fluticasone 0.05% 1 SPRAY NASAL.SRY NASAL (11:41)
[2020-01-24] MEDS: Loratadine 10 MG Tablet PO (11:42)
[2020-01-24] MEDS: guaiFENesin 600 MG Tablet PO (11:42)
[2020-01-24] MEDS: Aspirin 81 MG TAB.CHEW PO (11:42)
[2020-01-24] MEDS: Clopidogrel Bisulfate 75 MG Tablet PO (11:47)
--- NOTE | 2020-01-24 12:01 | PHA.DC.MC ---
Pharmacy Service has performed discharge medication reconciliation and counseling for this patient. 1. ATORVASTATIN 40MG PO QHS 2. ASPIRIN 81MG PO DAILYCM 3. CLOPIDOGREL 75MG PO DAILY The patient's discharge medication list was reviewed for discrepancies and discrepancies were resolved. Home Medications Acetaminophen [Tylenol Arthritis] 650 mg PO QHS 01/23/20 Doxazosin Mesylate [Cardura] 2 mg PO QHS 01/23/20 Fluticasone 0.05% [Flonase Nasal [place]] 2 spray NASAL DAILY 01/23/20 Guaifenesin [Mucinex] 600 mg PO BID 01/23/20 Loratadine [Claritin] 10 mg PO DAILY 01/23/20 traZODone [Desyrel] 50 mg PO QHS 01/23/20 Aspirin [Aspirin, Baby] 81 mg PO DAILY@0800 tab.chew 01/24/20 Atorvastatin Calcium [Lipitor] 40 mg PO QHS #30 tab 01/24/20 Clopidogrel Bisulfate [Plavix] 75 mg PO DAILY #30 tab 01/24/20 The patient was counseled on the following discharge medications and changes in medications for homegoing were reviewed. The Reason for Use, instructions for use, and potential side effects were reviewed for all new medications. The patient's questions regarding all of their medications were answered. The patient was able to verbally demonstrate an understanding of their discharge medications.
--- NOTE | 2020-01-24 13:34 | DS.PCM_ITS ---
<Esdras Fam - Last Filed: 01/24/20 13:34> Discharge Date and Diagnosis Date of Admission: 01/23/20 Date of Discharge: 01/24/20 - Primary Discharge Diagnosis Acute Problems: Active Problems (Last Updated 01/23/20 @ 18:[address] Silvia Lewis, DO) TIA (transient ischemic attack) (Acute) BPH Hx basal cell carcinoma Hospital Course and Treatment Imaging Results: IMAGIN01/24/20 05:55 Brain without Contrast [MRI] AM (NON MEDS) MRI/Brain without Contrast IMPRESSION: Involutional changes of the brain, as described above. No acute infarct. 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 No evidence for acute bleed. If concern for acute infarct MRI recommended CT/CTA Head AND Neck W/ Contrast IMPRESSION: Mild atherosclerotic disease. No evidence for hemodynamically significant stenosis or occlusive thrombus. RAD/Chest 1 View IMPRESSION: Minimal left basilar scarring or discoid atelectasis 2D TTE: Interpretation Summary The study was technically difficult. Left ventricular systolic function is normal. The estimated ejection fraction is 55 %. Trivial mitral valve insufficiency. Trivial tricuspid valve insufficiency. Mild focal aortic valve calcification. Trivial pulmonic valve insufficiency. Right ventricular systolic pressure estimated to be 29 mmHg. No evidence for diastolic dysfunction. Consults: Teleneuro - [facility]. Operations: None Procedures: 2-D Echocardiogram Summary of Care Provided: Hospital course: The patient is a 79 year old M with past medical history as above who presented to the emergency room with complaints of central vision loss and difficulty with word finding. This began the day of presentation almost 2 hours prior to presentation. Symptoms completely resolved later in the ER. He came to the emergency room and was found to have a negative CT of the brain for acute process, but did show atrophy and moderate periventricular white matter ischemic changes and probable old lacunar infarct in the left posterior thalamus. A CTA of the head and neck was obtained with no evidence of thrombus. Stroke alert was called but TPA was not indicated as his symptoms had resolved when evaluated by [facility]. The patient was admitted to the PCU on telemetry for stroke work-up. The following day he underwent an MRI of the brain which was negative. He continued to have no further symptoms. Echocardiogram was obtained with minimal findings as above, no ASD. Neuro consult was obtained, who felt that this was a TIA and recommended dual antiplatelet therapy for 3 weeks, followed by aspirin only therapy, ongoing statin therapy. The patient was discharged home in stable condition. He will need follow-up with neurology as an outpatient in 3 to 4 weeks, follow-up with PCP in 1 to 2 weeks. This patient was seen by Esdras Fam PA-C under the supervision of Doctor Isma. [] - Physical Exam Vitals/I&O's: Vital Signs Temp Pulse Resp BP Pulse Ox 98.4 F 79 16 120/61 97 01/24/20 09:45 01/24/20 09:45 01/24/20 09:45 01/24/20 09:45 01/24/20 09:45 Oxygen Delivery Method Room Air Weight: 216 lb 14.4 oz Body Mass Index (BMI) 29.4 Finger Stick Blood Glucose 93 Intake and Output for Last 24 Hours 01/22/20 01/23/20 01/24/20 23:59 23:59 23:59 Intake Total 480 / 480 100 / 100 Balance 480 / 480 100 / 100 General: Alert, Oriented x3, Cooperative HEENT: Atraumatic, PERRLA, EOMI, Normocephalic Neck: Supple, No JVD, Negative Carotid Bruits Lungs: Clear to auscultation, Normal air movement Cardiovascular: Regular rate, No murmurs Abdomen: Bowel Sounds Present, Soft, Non Tender Extremities: No edema, Capillary Refill Less than 3 Seconds Skin: No rashes, No breakdown Musculoskeletal: No Tenderness to Palpation of Joints or Extremities Neurological: Cranial nerves II-XII grossly intact Psych/Mental Status: Normal Affect, Appropriate Laboratory Results 01/23/20 16:47: POC Glucose 93 01/23/20 17:10: WBC Cancelled, Corrected WBC Cancelled, RBC Cancelled, Hgb Cancelled, Hct Cancelled, MCV Cancelled, MCH Cancelled, MCHC Cancelled, RDW Std Deviation Cancelled, RDW Coeff of Boom Cancelled, Plt Count Cancelled, MPV Cancelled, Immature Gran % (Auto) Cancelled, Neut % (Auto) Cancelled, Lymph % (Auto) Cancelled, [place] % (Auto) Cancelled, Eos % (Auto) Cancelled, Baso % (Auto) Cancelled, Absolute Neuts (auto) Cancelled, Absolute Lymphs (auto) Cancelled, Total Counted Cancelled, Neutrophils % (Manual) Cancelled, Band Neutrophils % Cancelled, Lymphocytes % (Manual) Cancelled, Monocytes % (Manual) Cancelled, Eosinophils % (Manual) Cancelled, Basophils % (Manual) Cancelled, Metamyelocytes % Cancelled, Myelocytes % Cancelled, Promyelocytes % Cancelled, Blast Cells % Cancelled, Plasma Cell % (Manual) Cancelled, Other Cells % Cancelled, Nucleated RBC % Cancelled, Nucleated RBCs/100 WBC Cancelled, Differential Comment Cancelled, Diff Path Review Cancelled, Hypersegmented Neuts Cancelled, Atypical Lymphocytes Cancelled, Reactive Lymphocytes Cancelled, Smudge Cells Cancelled, Toxic Granulation Cancelled, Toxic Vacuolation Cancelled, Dohle Bodies Cancelled, Nora Rods Cancelled, Platelet Estimate Cancelled, Plt Morphology Comment Cancelled, RBC Morphology Cancelled, Polychromasia Cancelled, Hypochromasia Cancelled, Poikilocytosis Cancelled, Basophilic Stippling Cancelle d, Anisocytosis Cancelled, Microcytosis Cancelled, Macrocytosis Cancelled, Spherocytes Cancelled, Sickle Cells Cancelled, Target Cells Cancelled, Tear Drop Cells Cancelled, Ovalocytes Cancelled, Stomatocytes Cancelled, Mendez-[place] Bodies Cancelled, [place] Cells Cancelled, Bite Cells Cancelled, Crenated Cell Cancelled, Acanthocytes (Spur) Cancelled, Rouleaux Cancelled, Schistocytes Cancelled 01/23/20 17:10: PT 14.0, INR 1.1, APTT 26.7 01/23/20 17:10: Sodium 138, Potassium 5.2 H, Chloride 107, Carbon Dioxide 26.0, Anion Gap 5, BUN 21 H, Creatinine 0.99, Estim Creat Clear Calc 68.59, Est GFR (MDRD) Af Amer 94, Est GFR (MDRD) Non-Af 78, BUN/Creatinine Ratio 21.3 H, Glucos e 89, Calcium 8.6, Troponin I < 0.015 01/23/20 17:35: WBC 8.2, RBC 4.26 L, Hgb 13.1, Hct 40.0, MCV 93.9, MCH 30.8, MCHC 32.8, RDW Std Deviation 42.7, RDW Coeff of Boom 12.5, Plt Count 166, MPV 10.5, Immature Gran % (Auto) 0.400, Neut % (Auto) 64.7, Lymph % (Auto) 21.4, [place] % (Auto) 8.2, Eos % (Auto) 4.3, Baso % (Auto) 1.0, Absolute Neuts (auto) 5.3, Absolute Lymphs (auto) 1.75, Nucleated RBC % 0 01/24/20 05:54: WBC 8.5, RBC 4.35 L, Hgb 13.3, Hct 40.3, MCV 92.6, MCH 30.6, MCHC 33.0, RDW Std Deviation 43.0, RDW Coeff of Boom 12.5, Plt Count 175, MPV 10.9, Immature Gran % (Auto) 0.400, Neut % (Auto) 55.0, Lymph % (Auto) 28.7, [place] % (Auto) 8.4, Eos % (Auto) 6.4 H, Baso % (Auto) 1.1 H, Absolute Neuts (auto) 4.7, Absolute Lymphs (auto) 2.43, Nucleated RBC % 0 01/24/20 05:54: Sodium 140, Potassium 3.9, Chloride 109 H, Carbon Dioxide 28.0, Anion Gap 3 L, BUN 16, Creatinine 0.93, Estim Creat Clear Calc 73.01, Est GFR (MDRD) Af Amer 102, Est GFR (MDRD) Non-Af 84, BUN/Creatinine Ratio 17.2, Glucose 89, Calcium 7.9 L, Magnesium 1.9, Triglycerides 61, Cholesterol 156, LDL Cholesterol 94, VLDL Cholesterol 12, HDL Cholesterol 50 Current Medications Acetaminophen (Tylenol) 650 mg PO Q4H PRN PRN PRN Reason: Headache/Temp>99.6F Acetaminophen (Tylenol) 650 mg PO QHS [facility] Last Admin: 01/23/20 22:08 Dose: 650 mg Documented by: Aspirin (Aspirin, Baby) 81 mg PO DAILY@0800 [facility] Last Admin: 01/24/20 11:42 Dose: 81 mg Documented by: Atorvastatin Calcium (Lipitor) 40 mg PO QHS [facility] Doxazosin Mesylate (Cardura) 2 mg PO DAILY@2100 [facility] Last Admin: 01/23/20 22:07 Dose: 2 mg Documented by: Fluticasone Propionate (Flonase Nasal [place]) 1 spray NASAL DAILY [facility] Last Admin: 01/24/20 11:41 Dose: 1 spray Documented by: Guaifenesin (Mucinex) 600 mg PO BID [facility] Last Admin: 01/24/20 11:42 Dose: 600 mg Documented by: Hydralazine HCl (Apresoline Iv) 5 mg IV Q30M PRN PRN Reason: to maintain BP goals Labetalol HCl (Trandate) 10 - 20 mg IV Q10M PRN PRN PRN Reason: to maintain BP goals Loratadine (Claritin) 10 mg PO DAILY [facility] Last Admin: 01/24/20 11:42 Dose: 10 mg Documented by: Nutritional Formula (Lactose Free) (Ensure Enlive) 120 ml PO 4X/DAY [facility] Last Admin: 01/24/20 11:39 Dose: Not Given Documented by: Sodium Chloride () 10 - 40 ml IV UD PRN PRN Reason: SALINE FLUSH Trazodone HCl (Desyrel) 50 mg PO QHS [facility] Last Admin: 01/23/20 22:07 Dose: 50 mg Documented by: Discharge Diet: Low fat/ Low Cholesterol, 2000 mg Sodium Diet Discharge Activity: Return to Normal Activity Home Medications: Medications to take at Discharge Acetaminophen [Tylenol Arthritis] 650 mg PO QHS 01/23/20 Doxazosin Mesylate [Cardura] 2 mg PO QHS 01/23/20 Fluticasone 0.05% [Flonase Nasal [place]] 2 spray NASAL DAILY 01/23/20 Guaifenesin [Mucinex] 600 mg PO BID 01/23/20 Loratadine [Claritin] 10 mg PO DAILY 01/23/20 traZODone [Desyrel] 50 mg PO QHS 01/23/20 Aspirin [Aspirin, Baby] 81 mg PO DAILY@0800 tab.chew 01/24/20 Atorvastatin Calcium [Lipitor] 40 mg PO QHS #30 tab 01/24/20 Clopidogrel Bisulfate [Plavix] 75 mg PO DAILY #30 tab 01/24/20 Following Prescrptions Were Given to Patient: Atorvastatin Calcium [Lipitor] 40 mg PO QHS #30 tab Transmission Status: Received by [facility] Clopidogrel Bisulfate [Plavix] 75 mg PO DAILY #30 tab Transmission Status: Received by [facility] Other Amb Orders: 30-Day Event Recorder [[facility]] Location: None Selected Primary Care Physician: Coy Barnard MD [Primary Care Provider] - Please follow up with your Primary Care Physician in: 1-2 weeks Please Follow Up With: Preet Charles MD When: 3-4 weeks Please Follow Up With: Coy Barnard MD Disposition: Home Minutes spent on discharge:: 35 Patient Condition:: Stable Medical Necessity - Tobacco Use Smoking Status: Never smoker Tobacco Use: Non-smoker Meaningful Use Info Meaningful Use Diagnoses (Choose all that apply): None applicable <Rohit Ashby - Last Filed: 01/24/20 16:39> Hospital Course and Treatment Summary of Care Provided: This patient was seen in conjunction with Esdras WEISS. I have independently interviewed and examined the patient and reviewed pertinent history, examination findings, laboratory and plan of management. I have reviewed the note and agree with the documented findings with the few additional points. In brief, patient is 79-year-old gentleman with no prior history of stroke was admitted with central visual loss and blurry vision for a few minutes and mild language deficit lasting for about 1 to 2 hours mainly word finding difficulty and unable to read books and communicate. Patient was admitted in PCU after stroke alert and [facility] consult in ER. Not candidate for TPA. Stroke protocol was followed. 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 CTA head and neck shows mild atherosclerotic plaque but no hemodynamically significant stenosis or occlusion. Patient echo shows no Doppler evidence of ASD, normal left atrium. EF 55%. Further, [facility] neurology was consulted. Recommended dual antiplatelet agent aspirin and Plavix for 3 weeks and then continue aspirin indefinitely. High intensity statin. Follow-up neurology as an outpatient in 3 to 4 weeks. EKG shows normal sinus rhythm at 69 bpm with occasional PVCs. traffic monitor specialist sinus rhythms with occasional PVCs. 30-day event monitor prescription was given to follow-up with business law teacher Dr. clemons. Fasting profile LDL 94, HDL 50. Glucose 89. No diabetes mellitus. Discharge medication reconciliation done. Discharge follow-up instructions completed. Discharge process discussed with the patient and all questions were answered to patient's satisfaction. Total time spent, exact 35 minutes on discharge meds reconciliation, examination, coordination of care with nurses and ancillary staff, review of imaging and blood test and discussion with the patient on follow-up instructions I have discussed my assessment with Esdras WEISS and orders have been reviewed. 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 No evidence for acute bleed. 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 No evidence for acute bleed. If concern for acute infarct MRI recommended N.B. : The above information has been verbally conveyed by Lucian Jay MD to Hair Tao MD, on 01/23/2020 17:16:50 (ET). Electronically Signed: Lucian Jay MD at 17:10 EDT , Service support , Head/Neck CTA 01/23/20 16:55 IMPRESSION: Mild atherosclerotic disease. No evidence for hemodynamically significant stenosis or occlusive thrombus. Electronically Signed: Lucian Jay MD at 17:23 EDT , Service support , ADDENDUM: 01/23/20 1744 IMPRESSION: Mild atherosclerotic disease. No evidence for hemodynamically significant stenosis or occlusive thrombus. N.B. : The above information has been verbally conveyed by Lucian Jay MD to Hair Tao MD , MD, on 01/23/2020 17:37:04 (ET). Electronically Signed: Lucian Jay MD at 17:23 EDT , Service support , Chest X-Ray 01/23/20 17:15 IMPRESSION: Minimal left basilar scarring or discoid atelectasis Electronically Signed: Lucian Jay MD at 17:48 EDT , Service support , Brain MRI 01/24/20 05:55 IMPRESSION: Involutional changes of the brain, as described above. No acute infarct. E [] Subjective: Seen and examined. Patient has transient blurry vision/central vision loss lasting for a few minutes. Patient also has language deficit, could not find words or unable to read words from the book for 1 to 2 hours. Currently asymptomatic. No weakness no numbness or tingling. NIH stroke scale 0 - Physical Exam Vitals/I&O's: Vital Signs Temp Pulse Resp BP Pulse Ox 98 F 69 16 113/70 94 01/24/20 13:49 01/24/20 13:49 01/24/20 13:49 01/24/20 13:49 01/24/20 13:49 Oxygen Delivery Method Room Air Weight: 216 lb 14.4 oz Body Mass Index (BMI) 29.4 Finger Stick Blood Glucose 93 Intake and Output for Last 24 Hours 01/22/20 01/23/20 01/24/20 23:59 23:59 23:59 Intake Total 480 / 480 520 / 520 Balance 480 / 480 520 / 520 General: Alert, Oriented x3, Cooperative HEENT: Atraumatic, PERRLA, EOMI, Normocephalic, - - On visual confrontation test, no gross peripheral loss of vision. Neck: Supple, No JVD, Negative Carotid Bruits Lungs: Clear to auscultation, Normal air movement Cardiovascular: Regular rate, Regular Rhythm, Normal S1, Normal S2, No murmurs, - - traffic monitor specialist shows normal sinus rhythm Abdomen: Bowel Sounds Present, Soft, Non Tender, Non-Distended Extremities: No edema, Capillary Refill Less than 3 Seconds Skin: No rashes, No breakdown Musculoskeletal: No Tenderness to Palpation of Joints or Extremities Neurological: Cranial nerves II-XII grossly intact, Deep Tendon Reflexes 2+/4 and Symmetrical, Neuro grossly intact, Motor Exam 5/5 strength throughout Psych/Mental Status: Normal Affect, Appropriate Laboratory Results 01/23/20 16:47: POC Glucose 93 01/23/20 17:10: WBC Cancelled, Corrected WBC Cancelled, RBC Cancelled, Hgb Cancelled, Hct Cancelled, MCV Cancelled, MCH Cancelled, MCHC Cancelled, RDW Std Deviation Cancelled, RDW Coeff of Boom Cancelled, Plt Count Cancelled, MPV Cancelled, Immature Gran % (Auto) Cancelled, Neut % (Auto) Cancelled, Lymph % (Auto) Cancelled, [place] % (Auto) Cancelled, Eos % (Auto) Cancelled, Baso % (Auto) Cancelled, Absolute Neuts (auto) Cancelled, Absolute Lymphs (auto) Cancelled, Total Counted Cancelled, Neutrophils % (Manual) Cancelled, Band Neutrophils % Cancelled, Lymphocytes % (Manual) Cancelled, Monocytes % (Manual) Cancelled, Eosinophils % (Manual) Cancelled, Basophils % (Manual) Cancelled, Metamyelocytes % Cancelled, Myelocytes % Cancelled, Promyelocytes % Cancelled, Blast Cells % Cancelled, Plasma Cell % (Manual) Cancelled, Other Cells % Cancelled, Nucleated RBC % Cancelled, Nucleated RBCs/100 WBC Cancelled, Differential Comment Cancelled, Diff Path Review Cancelled, Hypersegmented Neuts Cancelled, Atypical Lymphocytes Cancelled, Reactive Lymphocytes Cancelled, Smudge Cells Cancelled, Toxic Granulation Cancelled, Toxic Vacuolation Cancelled, Dohle Bodies Cancelled, Nora Rods Cancelled, Platelet Estimate Cancelled, Plt Morphology C omment Cancelled, RBC Morphology Cancelled, Polychromasia Cancelled, Hypochromasia Cancelled, Poikilocytosis Cancelled, Basophilic Stippling Cancelled, Anisocytosis Cancelled, Microcytosis Cancelled, Macrocytosis Cancelled, Spherocytes Cancelled, Sickle Cells Cancelled, Target Cells Cancelled, Tear Drop Cells Cancelled, Ovalocytes Cancelled, Stomatocytes Cancelled, Mendez-[place] Bodies Cancelled, [place] Cells Cancelled, Bite Cells Cancelled, Crenated Cell Cancelled, Acanthocytes (Spur) Cancelled, Rouleaux Cancelled, Schistocytes Cancelled 01/23/20 17:10: PT 14.0, INR 1.1, APTT 26.7 01/23/20 17:10: Sodium 138, Potassium 5.2 H, Chloride 107, Carbon Dioxide 26.0, Anion Gap 5, BUN 21 H, Creatinine 0.99, Estim Creat Clear Calc 68.59, Est GFR (MDRD) Af Amer 94, Est GFR (MDRD) Non-Af 78, BUN/Creatinine Ratio 21.3 H, Glucose 89, Calcium 8.6, Troponin I < 0.015 01/23/20 17:35: WBC 8.2, RBC 4.26 L, Hgb 13.1, Hct 40.0, MCV 93.9, MCH 30.8, MCHC 32.8, RDW Std Deviation 42.7, RDW Coeff of Boom 12.5, Plt Count 166, MPV 10.5, Immature Gran % (Auto) 0.400, Neut % (Auto) 64.7, Lymph % (Auto) 21.4, [place] % (Auto) 8.2, Eos % (Auto) 4.3, Baso % (Auto) 1.0, Absolute Neuts (auto) 5.3, Absolute Lymphs (auto) 1.75, Nucleated RBC % 0 01/24/20 05:54: WBC 8.5, RBC 4.35 L, Hgb 13.3, Hct 40.3, MCV 92.6, MCH 30.6, MCHC 33.0, RDW Std Deviation 43.0, RDW Coeff of [place]om 12.5, Plt Count 175, MPV 10.9, Immature Gran % (Auto) 0.400, Neut % (Auto) 55.0, Lymph % (Auto) 28.7, [place] % (Auto) 8.4, Eos % (Auto) 6.4 H, Baso % (Auto) 1.1 H, Absolute Neuts (auto) 4.7, Absolute Lymphs (auto) 2.43, Nucleated RBC % 0 01/24/20 05:54: Sodium 140, Potassium 3.9, Chloride 109 H, Carbon Dioxide 28.0, Anion Gap 3 L, BUN 16, Creatinine 0.93, Estim Creat Clear Calc 73.01, Est GFR (MDRD) Af Amer 102, Est GFR (MDRD) Non-Af 84, BUN/Creatinine Ratio 17.2, Glucose 89, Calcium 7.9 L, Magnesium 1.9, Triglycerides 61, Cholesterol 156, LDL Cholesterol 94, VLDL Cholesterol 12, HDL Cholesterol 50 OBSV E&M: [id number] Observation care discharge
== END 2020-01-24 10:19 | disposition home or self-care (01) ==
LOC: ED 17:59 → PCU 18:29
PROVIDERS: Admitting Provider Internal Medicine; Emergency Provider Emergency Medicine; PCP Family Medicine; Visit Provider Internal Medicine
DX: G45.9 Transient cerebral ischemic attack, unspecified (principal); N40.0 Benign prostatic hyperplasia without lower urinary tract symptoms; R47.01 Aphasia; R29.701 NIHSS score 1; M51.36 Other intervertebral disc degeneration, lumbar region; E87.5 Hyperkalemia; J32.9 Chronic sinusitis, unspecified; I08.3 Combined rheumatic disorders of mitral, aortic and tricuspid valves; Z79.899 Other long term (current) drug therapy; Z79.51 Long term (current) use of inhaled steroids; H53.8 Other visual disturbances
CPT/HCPCS: 36415; 70450; 70496; 70498; 70551; 71045; 80048; 80061; 82962; 83735; 84484; 85025; 85610; 85730; 93005; 93306; 94762; 99218; 99285; Q9957; Q9967; A4216; G0378

== ENCOUNTER → 2020-03-15 14:06 | Outpatient (CLI) | payer MEDICARE, SELFPAY ==
[2020-02-22 15:45] VITALS: BMI 29.2
[2020-03-15 15:57] LABS: Erythrocyte Sedimentation Rate 6 mm/hr (0-20)
[2020-03-15 16:32] LABS: Vitamin B12 691 pg/mL (211-911)
[2020-03-15 16:33] LABS: CPK Total, Creatine Kinase 105 U/L (39-308); CRP < 2.90 mg/L (0.0-3.0)
[2020-03-20 13:28] LABS: Arsenic 7245 6 ug/L (2-23); Lead, Blood 1 ug/dL (0-4)
== END ==
LOC: BFHLAB 14:07 → LAB 14:33
PROVIDERS: PCP Family Medicine; Referring Provider Psychiatry & Neurology Neurology; Visit Provider Psychiatry & Neurology Neurology
DX: G62.9 Polyneuropathy, unspecified (principal)
CPT/HCPCS: 36415; 82175; 82550; 82607; 83655; 83825; 85652; 86140

== ENCOUNTER → 2020-09-25 19:33 | Outpatient (CLI) | payer MEDICARE, SELFPAY ==
[2020-02-22 15:45] VITALS: BMI 29.2
[2020-09-28 16:31] LABS: Giardia Lamblia, Stool EIA Negative (Negative)
== END ==
PROVIDERS: PCP Family Medicine; Referring Provider Family Medicine; Visit Provider Family Medicine
DX: R19.7 Diarrhea, unspecified (principal)
CPT/HCPCS: 83630; 87329; 87493; 87506

== ENCOUNTER → 2020-09-26 16:38 | Outpatient (CLI) | payer MEDICARE, SELFPAY ==
[2020-02-22 15:45] VITALS: BMI 29.2
== END ==
PROVIDERS: PCP Family Medicine; Visit Provider Family Medicine
DX: Z20.828 Contact with and (suspected) exposure to other viral communicable diseases (principal)
CPT/HCPCS: 87635; U0005; U0003

== ENCOUNTER → 2021-04-15 12:35 | Outpatient (CLI) | payer MEDICARE, SELFPAY ==
--- NOTE | 2021-04-15 12:50 | RAD_ITS ---
STUDY: X-RAY - LUMBAR SPINE REASON FOR EXAM: Male, 80 years old. LBP,L RADICULOPATHY TECHNIQUE: 5 view(s) of the lumbar spine were obtained including oblique views. COMPARISON: Comparison is made with prior study dated 12/01/2017. FINDINGS: Normal lumbar lordosis. There is a mild levoscoliosis of the lumbar spine. Grade 1 anterior listhesis of L4 on L5. There is multilevel endplate spondylosis of the lumbar vertebrae. There is multi-level degenerative disc disease with multi-level disc space narrowing. The patient is status post laminectomy and interpedicular screw fixation at the L3-L4 level. Prior laminectomy at the L5 level as well. There is atherosclerotic calcification of the abdominal aorta without a demonstrated aneurysm. RAD/L/S Spine Min 4 Views IMPRESSION: Degenerative changes of the spine, as detailed above. Postoperative changes. There has been no change. Electronically Signed: Torito Wright MD at 15:23 EDT , Service support ,
== END ==
LOC: MTRAD 12:37 → RAD 12:38
PROVIDERS: PCP Family Medicine; Referring Provider Family Medicine; Visit Provider Family Medicine
DX: M54.16 Radiculopathy, lumbar region (principal); M51.36 Other intervertebral disc degeneration, lumbar region
CPT/HCPCS: 72110

== ENCOUNTER 2021-09-17 11:28 | Outpatient (CLI) | payer MEDICARE, SELFPAY ==
[2021-09-17 12:51] LABS: PSA,Total- Diagnostic 1.07 ng/mL (0.0-4.0)
== END 2021-09-17 23:59 | disposition home or self-care (01) ==
LOC: LAB 11:30
PROVIDERS: PCP Family Medicine; Visit Provider Urology
DX: N40.0 Benign prostatic hyperplasia without lower urinary tract symptoms (principal)
CPT/HCPCS: 36415; 84153

== ENCOUNTER 2022-01-01 13:00 | Outpatient (RCR) | payer MEDICARE, SELFPAY ==
--- NOTE | 2021-12-10 13:55 | HP.PTEVAL_ITS ---
Patient's Visit Information ADALBERTO SANCHEZ Jr. is a 81 year old M referred to Physical Therapy by Dr. Jatinder Ramirez MD with a diagnosis of Parkinson's Disease.. Date of Evaluation: 12/10/21 Physical Therapist: HERBERT Landry - Visit Plan Frequency: 2x /Week Duration: 4 Weeks Plan: Pt would like to work up to using his TM at home when we feel it is safe and practice here in the clinic. 2X/ week for 8 weeks for sit to stand transfers, balance activities, dual tasking (including stand opp arm and leg), increasing TUG time, squaring up to the chair to sit down, HEP - Subjective Pt was diagnosed with PD about 1 year ago. He feel it started awhile back. He quit golfing cause he would fall picking up his ball off the green. He also has neuropathy in his feet. The pain does bother him every night in his feet but not much during the day. He is Lyrica (generic version) and does work well for him. They did a nerve conduction to Dx neuropathy. He is not DM. He struggles with his balance all the time time with walking and that is why he carries the cane. Somedays he is better than others. He falls once or twice a week by tripping over something or he turns to quick. He feels that his feet can not keep up with what he is thinking he wants to do. Dr Antoine is his neurologist. Stairs: he has steps from basement (has a rail to hold onto) but tired as he gets to the last 2 steps. He seems to run out of breath and has to stop and catch his breath even with talking. He struggles occ and gets stuck in the middle of his mattress. Sit to stand: struggles at times if he does not shift his weight FW. Pt has not noticed one side worse than the other side. - Objective Gait: Walks with wider YOVANNY, decreased heel to toe gait pattern and increase veering. Back nolan walking: pt takes short steps bw and almost loses balance bw. CATSIB: 90/120. FGA: 12. standing heel and toe raises.. able but not good balance or full ROM. TUG 13.18. 4 square: 12:52 seconds. standing opp arm an d leg. LE MMT: B hip abd 4+/5, B hip flex 4+/5, B knee flex 4+/5, B knee ext 4+/5. Rolling R: slow but able to do. Rollling L: slow but able to do. Sit to stand: able to stand up if concentrates on shifting weight FW with arms outstretched forward. backing up to the chair to sit, pt misses the chair several times and is not square up to the chair. - Balance/Special Test Scores Functional Gait Assessment Score: 12 % Disability: 60.0000 CATSIB Score (Max score 120 seconds): 90 Lower Extremity Functional Score: 30 - Goals Goal 1:: I HEP/ PD class/ work out 3 X/ week Goal Time Frame: 6-8 Weeks Goal 2:: Be able to sit down on the chair square and reaching for the chair rail to make sure the chair is there 5/5 times Goal Time Frame: 6-8 Weeks Goal 3:: Increase FGA by 5 points to decrease fall risk (score at eval 12) Goal Time Frame: 6-8 Weeks Goal 4:: Be able to complete opp arm and leg exercise X 10 on each leg in a row without losing balance or messing up sequence Goal Time Frame: 6-8 Weeks Goal 5:: Decrease TUG time by 3 seconds (time at eval 13.18) Goal Time Frame: 6-8 Weeks Goal 6:: Be able to get up out of the chair 10/10 times on first attempt with standing up with good posture each time Goal Time Frame: 6-8 Weeks - Rehabilitation Potential Rehabilitation Potential: Good - Anticipated Interventions Patient/Client Instruction: Educate patient on: Condition, Plan of Care For the Purpose of:: To improve nutrient delivery to tissue, To improve muscle performance and motor function, To improve ability to perform ADL's, To increase tolerance to activity/condition/position, To improve performance and independence with ADL's, To decrease level of supervision to perform tasks, To improve ability of physical actions for home/community/work/leisure, To improve gait and locomotor functions, To improve endurance, To improve balance, To impr ove safety with gait Therapeutic Exercise to Include: Strength training, Balance training, Coordination, Body mechanics, Postural training, Flexibilty training, Gait and locomotor training, Neuromotor development, Active ROM, Dynamic Lumbar Stabilization For the Purpose of:: To increase tolerance to activity/condition/position, To improve performance and independence with ADL's, To decrease level of supervision to perform tasks, To improve ability of physical actions for home/community/work/leisure, To improve gait and locomotor functions, To improve health of tissue, To decrease soft tissue restriction, To increase flexibility/ROM, To improve balance, To improve safety with gait Functional Training to Include: Gait training For the Purpose of:: To improve muscle performance and motor function, To improve ability to perform ADL's, To increase tolerance to activity/condition/position, To improve performance and independence with ADL's, To decrease level of supervision to perform tasks, To improve ability of physical actions for home/community/work/leisure, To improve gait and locomotor functions, To improve health of tissue, To decrease soft tissue restriction, To improve endurance, To improve balance, To improve safety with gait Thank you for the opportunity to evaluate your patient. For Medicare and Medicare HMO plans, please review the plan of care and approve it. It will need to be FAXED BACK to us at [phone] for Medicare purposes. For Medicare only, by signing this I certify the plan of care. Please let me know if there are questions or concerns regarding this plan of care. Physician Signature: Date:
--- NOTE | 2022-04-14 09:21 | HP.PT.NRP ---
ADALBERTO BELLE LAURA Bush was seen in my office for initial evaluation on 12/10/21. The following Plan of Care was established for this patient: Initial Frequency: 2x /Week Initial Duration: 4 Weeks Patient/Client Instruction: Educate patient on: Condition, Plan of Care For the Purpose of:: To improve nutrient delivery to tissue, To improve muscle performance and motor function, To improve ability to perform ADL's, To increase tolerance to activity/condition/position, To improve performance and independence with ADL's, To decrease level of supervision to perform tasks, To improve ability of physical actions for home/community/work/leisure, To improve gait and locomotor functions, To improve endurance, To improve balance, To improve safety with gait Therapeutic Exercise to Include: Strength training, Balance training, Coordination, Body mechanics, Postural training, Flexibilty training, Gait and locomotor training, Neuromotor development, Active ROM, Dynamic Lumbar Stabilization For the Purpose of:: To increase tolerance to activity/condition/position, To improve performance and independence with ADL's, To decrease level of supervision to perform tasks, To improve ability of physical actions for home/community/work/leisure, To improve gait and locomotor functions, To improve health of tissue, To decrease soft tissue restriction, To increase flexibility/ROM, To improve balance, To improve safety with gait Functional Training to Include: Gait training For the Purpose of:: To improve muscle performance and motor function, To improve ability to perform ADL's, To increase tolerance to activity/condition/position, To improve performance and independence with ADL's, To decrease level of supervision to perform tasks, To improve ability of physical actions for home/community/work/leisure, To improve gait and locomotor functions, To improve health of tissue, To decrease soft tissue restriction, To improve endurance, To improve balance, To improve safety with gait This patient was last seen in our office 01/01/22. Pertinent comments regarding their Physical therapy will appear below: DC PT as pt was having other health issues. At this point I will be discontinuing this patient from physical therapy. I would be happy to see this patient again in the future if found appropriate by the physician. Thank you! Viri Persaud, MPT Balance/Gait/Functional tests - Balance/Special Test Scores Functional Gait Assessment Score: 12 % Disability: 60.0000 CATSIB Score (Max score 120 seconds): 90 Lower Extremity Functional Score: 30
== END 2022-01-01 19:00 | disposition home or self-care (01) ==
LOC: PT 13:00
PROVIDERS: PCP Family Medicine; Referring Provider Psychiatry & Neurology Neurology; Visit Provider Psychiatry & Neurology Neurology
DX: G20 Parkinson's disease (principal)
CPT/HCPCS: 97110; 97161

== ENCOUNTER 2022-01-09 11:30 | Emergency (ER) | payer MEDICARE, SELFPAY ==
[2022-01-09 11:32] VITALS: BP 140/64; PULSE 83; RESP 14; TEMP 36.8; O2SAT 96; BMI 31.1
--- NOTE | 2022-01-09 12:03 | ED.VIS.BACK ---
HPI History of Present Illness Chief Complaint: Back Informant: patient Onset/Context/Timing Onset: Today Context: Gradual Onset Injury: fall Timing: Continuous Quality: Aching and Burning Location: Lumbar and Buttock Worsened by: improves with Ambulation Relieved by: Sitting and Remaining Still Associated Symptoms Associated Symptoms: Radiation to Left Leg; Negative for Numbness, Tingling, Radiation to Right Leg, Fever, Abdominal Pain, Dysuria, Unable to Ambulate, Unable to Transfer, Urinary Retention, Urinary Incontinence, Constipation or Fecal Incontinence Narrative Narrative: Patient presents with low back pain that has gotten worse after frequent falls. Patient states he has a history of Parkinson's disease and has been falling frequently. Patient describes his pain as aching. Patient states it is over the lumbar area and left gluteal area. Patient admits to some intermittent radiation of the pain to his lateral left thigh and knee area. Patient denies any bowel or bladder changes. Patient denies any saddle anesthesia. Patient states his pain is worse with any weightbearing. Patient states it is better with sitting and remaining still. [facility] Medical History (Updated 01/09/22 @ 13:[address] Hunter Thornton, ) Anxiety Basal cell carcinoma BPH (benign prostatic hyperplasia) Hyperlipidemia Impotence of non-organic origin Insomnia Sinus disease TIA (transient ischemic attack) (01/23/20) Home Medications fluticasone propionate 50 mcg/actuation nasal spray,suspension 2 spray NASAL DAILY allergies 01/23/20 [History Last Taken 01/23/20 10:00 2 sprays] guaifenesin 600 mg tablet, extended release 12 hr 600 mg PO BID nasal congestion 01/23/20 [History Last Taken 01/23/20 10:00 600 mg] loratadine 10 mg tablet 10 mg PO DAILY allergies 01/23/20 [History Last Taken 01/23/20 10:00 10 mg] trazodone 50 mg tablet 50 mg PO QHS sleep 01/23/20 [History Last Taken 01/22/20 22:00 50 mg] aspirin 81 mg chewable tablet 81 mg PO DAILY@0800 01/24/20 [Rx Last Taken Unknown] doxazosin 4 mg tablet 4 mg PO QHS 02/22/20 [History Last Taken Unknown] gabapentin 400 mg capsule 400 mg PO QHS 02/22/20 [History Last Taken Unknown] Allergy/AdvReac Type Severity Reaction Status Date / Time propoxyphene napsylate AdvReac Vomiting Verified 01/09/22 11:32 [From Darvocet-N 100] Family History Brother Heart disease Father Heart disease Surgical History History of back surgery Social History Smoking Status: Former smoker quit date: 07/27/82 alcohol intake: current alcohol intake frequency: 0-2 drinks per day Alcohol type: wine ROS ROS ED Constitutional Constitutional ED: Denies chills or fever(s) Eyes Eyes: Denies blurry vision or change in vision ENT ENT ED: Denies rhinorrhea or sore throat Cardiovascular Cardiovascular: Denies chest pain or palpitations Respiratory/Chest Respiratory/Chest: Reports cough; Denies dyspnea Gastrointestinal Gastrointestinal: Denies nausea or vomiting Genitourinary Genitourinary ED: Denies dysuria or hematuria Musculoskeletal Musculoskeletal: Reports back pain; Denies neck pain Integumentary Denies abscess or rash Neurologic Neurologic: Denies headache(s) or weakness Allergic/Immunologic Allergic/Immunologic ED: Denies mouth swelling or urticaria EXAM Physical Exam Const Vital Signs: 01/09/22 11:32 Temperature 98.3 F Temperature Source Temporal Pulse Rate 83 Respiratory Rate 14 Blood Pressure 140/64 H Blood Pressure Mean 89 Pulse Ox 96 Oxygen Delivery Method Room Air Positive well nourished and well developed General Appearance ED: well developed and NAD HEENT Reports moist mucous membranes Neck supple and no JVD Back/Spine Back/Spine Narrative: There is tenderness to palpation over the left lower lumbar paraspinal muscles. There is no midline tenderness. There is no bony crepitance or step-off. There is also tenderness over the left sacroiliac joint and posterior aspect of the left hip. There is no deformity noted. Range of motion was slightly limited in all motions of the lumbar spine secondary to pain. Strength 5/5 bilaterally in lower extremities. There are no sensory deficits noted. Straight leg raises were negative bilaterally. Lumbar Spine / Lower Back: ROM limited and straight leg raise negative bilaterally Extremity normal to inspection Neuro oriented x3 and no sensory deficits noted Sensorium / Orientation: alert Motor Exam: strength 5/5 throughout Skin no rashes or lesions noted MDM MDM MDM Narrative Medical decision making narrative: X-rays of the left hip were obtained. There are 3 views. On my interpretation, there is no acute fracture. There is no dislocation. There are some mild degenerative changes. Radiologist also interpreted the x-rays and agrees. X-rays of the lumbar spine were obtained. There are 3 views. On my interpretation, there is no acute fracture or spondylolisthesis. There are degenerative changes. The prior screws are in place. There is no displacement. Radiologist also interpreted the x-rays and agrees. Patient was advised of his findings. Patient was instructed use ice to the area. Patient states he has a walker, Rollator, cane, and wheelchair at home. Patient was instructed to use these as needed. Patient was instructed to take Tylenol as needed for pain. Patient understood and was agreeable with the plan. Patient was instructed to follow-up with his primary care physician in 3 to 5 days. All questions were answered. Radiography Diagnostic Testing: Clinical Impression(s) from Imaging Studies Lumbar Spine X-Ray 01/09/22 12:16 IMPRESSION: Status post fusion at the L3-L4 level with disc space narrowing and disc degeneration. Electronically Signed: Torito Wright MD at 13:18 EDT , Hip/Pelvis X-Ray 01/09/22 12:30 IMPRESSION: Degenerative changes of the hip. Electronically Signed: Torito Wright MD at 13:01 EDT , Discharge Plan Triage Chief Complaint: Back ED Provider: Hunter Thornton Dx/Rx/DC Orders Clinical Impression: Lumbosacral strain, Contusion of left hip, Parkinson's disease Instructions: ED Back Sprain/Strain, ED Hip Contusion Prescriptions: No Action doxazosin 4 mg tablet 4 mg PO QHS gabapentin 400 mg capsule 400 mg PO QHS fluticasone propionate 1 SPRAY spray,suspension 2 spray NASAL DAILY loratadine 10 MG tablet 10 mg PO DAILY guaifenesin 600 MG tablet 600 mg PO BID trazodone 50 MG tablet 50 mg PO QHS aspirin 81 MG tablet,chewable 81 mg PO DAILY@0800 0RF Primary Care Provider: oCy Barnard Referrals: Coy Barnard MD [Primary Care Provider] - 3-5 Days Disposition Disposition: Home, Self Care
--- NOTE | 2022-01-09 12:16 | RAD_ITS ---
STUDY: X-RAY - LUMBAR SPINE REASON FOR EXAM: Male, 81 years old. Back pain and left hip pain following a fall. TECHNIQUE: 3 view(s) of the lumbar spine were obtained. COMPARISON: Comparison is made with prior study 07/15/2021. FINDINGS: Normal lumbar lordosis. There is a minimal levoscoliosis of the lumbar spine. There is a normal alignment of the vertebrae. The patient is status post laminectomy and fusion at the L3-L4 levels. There is multi-level degenerative disc disease with multi-level disc space narrowing. All nondisplaced fracture of the left L3 transverse process. The soft tissue structures are unremarkable. RAD/Lumbar Spine 2 or 3 Views IMPRESSION: Status post fusion at the L3-L4 level with disc space narrowing and disc degeneration. Electronically Signed: Torito Wright MD at 13:18 EDT ,
--- NOTE | 2022-01-09 12:30 | RAD_ITS ---
STUDY: X-RAY - left HIP Injury/Pain REASON FOR EXAM: 81-year-old male patient with history of left hip pain following a recent fall. TECHNIQUE: 3 views of the hip. COMPARISON: None. FINDINGS: Normal femoral head, neck, intertrochanteric region and visualized proximal femur. There is osteoarthritic spur formation of the acetabular rim. There is mild articular joint space narrowing. Normal visualized superior and inferior pubic rami and ischial tuberosities. RAD/HIP, UNI W/ Pelvis 2-3 Views IMPRESSION: Degenerative changes of the hip. Electronically Signed: Torito Wright MD at 13:01 EDT ,
== END 2022-01-09 13:48 | disposition home or self-care (01) ==
PROVIDERS: Emergency Provider Emergency Medicine; PCP Family Medicine; Visit Provider Emergency Medicine
DX: S39.012A Strain of muscle, fascia and tendon of lower back, initial encounter (principal); G20 Parkinson's disease; S70.02XA Contusion of left hip, initial encounter; W19.XXXA Unspecified fall, initial encounter; Z87.891 Personal history of nicotine dependence; M79.652 Pain in left thigh; E78.5 Hyperlipidemia, unspecified; R29.6 Repeated falls
CPT/HCPCS: 72100; 73502; 99282

== ENCOUNTER 2022-03-14 15:16 | Inpatient (IN) | payer MEDICARE, SELFPAY ==
[2022-03-14] VITALS (7 sets, daily range): BP systolic 128–145; BP diastolic 64–74; PULSE 74–87; RESP 16–24; TEMP 36.4–37.3; O2SAT 95–99; BMI 32.1; BMI 31.0
--- NOTE | 2022-03-14 15:24 | CT_ITS ---
STUDY: CT BRAIN WITHOUT CONTRAST REASON FOR EXAM: Male, 81 years old. confusion, tia Technologist Notes SLURRED SPEECH, LKW. DIFFICULTY WALKING. H/O PARKINSON''S. TECHNIQUE: Transaxial CT imaging of the brain was performed without administration of intravenous contrast material. Individualized dose optimization techniques were used for this CT. COMPARISON: 01.23.20 FINDINGS: Normal calvarium. Normal soft tissues. 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 There is mild cerebral atrophy with widening of the extra-axial spaces and ventricular dilatation. There are areas of decreased attenuation within the white matter tracts of the supratentorial brain, consistent with microvascular disease changes. Normal brainstem. Normal cerebellum. There is no intracranial hemorrhage. There are no findings of an acute ischemic infarction. There is sinus disease. ASPECTS 10 CT/Brain/Head without Contrast IMPRESSION: There are no acute intracranial findings. There is sinus disease. Electronically Signed: Matt Green MD at 16:06 EDT ,
--- NOTE | 2022-03-14 15:25 | EKG12_ITS ---
Test Reason : STROKE Blood Pressure : / mmHG Vent. Rate : 078 BPM Atrial Rate : 078 BPM P-R Int : 164 ms QRS Dur : 082 ms QT Int : 358 ms P-R-T Axes : 063 -27 089 degrees QTc Int : 408 ms Normal sinus rhythm Anterior infarct , age undetermined ,cannot be excluded Abnormal ECG Confirmed by DEMETRIUS VALADEZ, SANKET ([id number]), mapping editor BAILEY CENTENO ([id number]) on 03/18/2022 7:48:27 AM Referred By: IMAN Confirmed By:SANKET ROMO MD
--- NOTE | 2022-03-14 15:25 | EX.ED.DYSGE1 ---
HPI History of Present Illness Chief Complaint: Neuro S/Sx Informant: patient and family Narrative Narrative: Patient is a 81-year-old male with history of TIA, hyperlipidemia, Parkinson's disease and BPH presenting for increased confusion, cough and slurred speech. Family noticed that his speech was more slurred. In the car he would seem to almost fall asleep and then speak with slurred speech at the end become less responsive again. Family thinks he was acting speaking normal around 10 or 11 AM. Patient has been globally more weak and had more falls lately. No report of any head injury. Patient is not on any blood thinners but does take 81 mg aspirin daily. He has had a worsening cough and the family was concerned that maybe he had pneumonia. No urinary symptoms reported. Patient denies chest pain but does have some chest congestion. No report of any fevers. Patient's is at the bedside as well as his daughter who is visiting from out of town. They both agree on my examination that he is returned to his baseline and does not currently have any speech changes. [facility] Medical History (Updated 03/14/22 @ 17:[address] Hunter Lee, ) Alcohol abuse Anxiety Basal cell carcinoma BPH (benign prostatic hyperplasia) Hyperlipidemia Impotence of non-organic origin Insomnia Sinus disease TIA (transient ischemic attack) (01/23/20) Home Medications fluticasone propionate 50 mcg/actuation nasal spray,suspension 2 spray NASAL DAILY allergies 01/23/20 [History Last Taken 03/14/22] guaifenesin 600 mg tablet, extended release 12 hr 600 mg PO BID nasal congestion 01/23/20 [History Last Taken 03/14/22] loratadine 10 mg tablet 10 mg PO DAILY allergies 01/23/20 [History Last Taken 03/14/22] trazodone 50 mg tablet 50 mg PO QHS sleep 01/23/20 [History Last Taken 03/13/22] aspirin 81 mg chewable tablet 81 mg PO DAILY@0800 01/24/20 [Rx Last Taken 03/14/22] doxazosin 4 mg tablet 4 mg PO QHS 02/22/20 [History Last Taken 03/13/22] acetaminophen 650 mg tablet,extended release 650 mg PO DAILY arthritis 03/14/22 [History Last Taken 03/14/22] carbidopa ER 23.75 mg-levodopa 95 mg capsule,extended release (Rytary) 4 cap PO TID 03/14/22 [History Last Taken 03/14/22] duloxetine 20 mg capsule,delayed release 20 mg PO BID 03/14/22 [History Last Taken 03/14/22] multivitamin 1 tab PO DAILY supplement 03/14/22 [History Last Taken 03/14/22] pregabalin 25 mg capsule 25 mg PO QHS 03/14/22 [History Last Taken 03/13/22] pregabalin 50 mg capsule 50 mg PO QHS 03/14/22 [History Last Taken 03/13/22] ropinirole 1 mg tablet 1 mg PO BID 03/14/22 [History Last Taken 03/14/22] Allergy/AdvReac Type Severity Reaction Status Date / Time propoxyphene napsylate AdvReac Vomiting Verified 03/14/22 15:26 [From Darmitracet-N 100] Family History (Updated 03/14/22 @ 17:[address] Hunter Lee DO) Brother Heart disease Father Heart disease Surgical History History of back surgery Social History Smoking Status: Former smoker quit date: 07/27/82 alcohol intake: current alcohol intake frequency: 0-2 drinks per day Alcohol type: wine ROS ROS ED Constitutional Constitutional ED: Denies chills or fever(s) Eyes Eyes: Denies change in vision ENT ENT ED: Denies rhinorrhea or sore throat Cardiovascular Cardiovascular: Denies chest pain or palpitations Respiratory/Chest Respiratory/Chest: Reports cough; Denies dyspnea Gastrointestinal Gastrointestinal: Denies abdominal pain, nausea or vomiting Genitourinary Genitourinary ED: Denies dysuria Musculoskeletal Musculoskeletal: Denies arthralgias or myalgias Integumentary Denies rash Neurologic Neurologic: Reports weakness and other Details: speech changes ; Denies headache(s) or paresthesias Psychiatric Psychiatric: Denies anxiety Hematologic/Lymphatic Hematologic/Lymphatic: Denies easy bleeding or easy bruising EXAM Physical Exam Const Vital Signs: 03/14/22 15:17 03/14/22 15:22 03/14/22 16:35 Temperature 98.6 F 97.6 F L Temperature Source Temporal Temporal Pulse Rate 87 87 79 Respiratory Rate 18 18 18 Blood Pressure 132/66 H 132/66 H 128/69 H Blood Pressure Mean 88 88 88 Pulse Ox 97 97 97 Oxygen Delivery Method Room Air Room Air Room Air 03/14/22 16:56 Temperature 97.6 F L Temperature Source Temporal Pulse Rate 79 Respiratory Rate 18 Blood Pressure 128/69 H Blood Pressure Mean 88 Pulse Ox 97 Oxygen Delivery Method Room Air Positive well nourished and well developed General Appearance ED: well developed and NAD HEENT Reports TM's clear and moist mucous membranes Tympanic Membrane ED: Yes TM's clear Eyes PERRL and EOMs intact bilaterally Neck supple and no JVD Chest Wall inspection of chest normal and palpation of chest normal Resp normal respiratory effort Resp Narrative: bibasilar crackles Auscultation: diminished lung sounds left Cardio regular rate, regular rhythm and no murmurs GI normal to inspection, nondistended, normoactive bowel sounds, non-tender and non-distended Back/Spine no CVA tenderness Extremity normal to inspection Neuro oriented x3, CN's II-XII intact bilaterally and no sensory deficits noted Neuro Narrative: Speech is clear with no slurring. NIH is 0. Normal coordination. Sensorium / Orientation: alert Motor Exam: strength 5/5 throughout Psych mental status grossly normal Skin no rashes or lesions noted and no wounds MDM MDM MDM Narrative Medical decision making narrative: Patient is evaluated for generalized weakness and what sounds like an episode of slurred speech. Patient has been having a cough for couple days and was actually so weak last night that he had to sleep on the floor because he fell and could not get himself back up. On evaluation patient is ANO x4 and has an NIH of 0. Initially a stroke alert was called because family was reporting slurred speech however this was canceled as he does not in fact have slurred speech. He is found to have COVID. I suspect patient has weakness and a possible slight intermittent encephalopathy associated with his infection. Patient and do not feel comfortable with him going home because of his weakness and falls. This is compounded by his Parkinson's disease. Patient will be observed in the hospital and evaluated to see if he needs placement or some type of home health. Lab Data Attestation: I reviewed the patient's lab results. Labs: Laboratory Results - last 24 hr 03/14/22 03/14/22 03/14/22 15:19 15:21 15:21 WBC 9.5 RBC 4.34 L Hgb 13.6 Hct 40.6 MCV 93.5 MCH 31.3 MCHC 33.5 RDW Std Deviation 44.2 H RDW Coeff of Boom 12.8 Plt Count 177 MPV 10.1 Immature Gran % (Auto) 0.400 Neut % (Auto) 74.4 H Lymph % (Auto) 9.2 L George % (Auto) 10.9 H Eos % (Auto) 4.0 Baso % (Auto) 1.1 H Absolute Neuts (auto) 7.1 Absolute Lymphs (auto) 0.88 Nucleated RBC % 0 Sodium 141 Potassium 4.0 Chloride 106 Carbon Dioxide 30.0 Anion Gap 5 BUN 21 H Creatinine 1.03 Estim Creat Clear Calc 63.83 Est GFR (MDRD) Af Amer 90 Est GFR (MDRD) Non-Af 74 BUN/Creatinine Ratio 20.4 H Glucose 104 Calcium 9.2 Total Creatine Kinase Troponin I High Sens 6 POC Glucose 96 03/14/22 15:21 WBC RBC Hgb Hct MCV MCH MCHC RDW Std Deviation RDW Coeff of Boom Plt Count MPV Immature Gran % (Auto) Neut % (Auto) Lymph % (Auto) George % (Auto) Eos % (Auto) Baso % (Auto) Absolute Neuts (auto) Absolute Lymphs (auto) Nucleated RBC % Sodium Potassium Chloride Carbon Dioxide Anion Gap BUN Creatinine Estim Creat Clear Calc Est GFR (MDRD) Af Amer Est GFR (MDRD) Non-Af BUN/Creatinine Ratio Glucose Calcium Total Creatine Kinase 297 Troponin I High Sens POC Glucose Radiography Chest X-Ray - ED: 2 View, Read by ED Physician, Read by Radiologist and No Acute Disease Diagnostic Testing: Clinical Impression(s) from Imaging Studies Brain CT 03/14/22 15:24 IMPRESSION: There are no acute intracranial findings. There is sinus disease. Electronically Signed: Matt Green MD at 16:06 EDT , Chest X-Ray 03/14/22 16:00 IMPRESSION: There are no acute findings. Electronically Signed: Matt Green MD at 16:19 EDT , Rhythm Strip Rhythm Strip: Sinus Rhythm Rate: 78 Ectopy: None EKG Initial EKG: Attestation: I personally reviewed and interpreted this EKG as follows: Interpretation: Sinus Rhythm Comments: Normal sinus rhythm at a rate of 78 Normal axis Normal intervals Normal ST segments Compared to prior EKG on 02/23/2028, no acute changes Discharge Plan Dx/Rx/DC Orders Clinical Impression: Fatigue, COVID-19 virus infection, Falls, Parkinson disease Disposition Disposition: Acute Care Hospital [facility]
--- NOTE | 2022-03-14 15:28 | CM.ED ---
Social Work Note Reason for Referral: STROKE team called SW responded to Stroke team. Pt's and daughter present in room. SW introduced self and role at [facility]. Stroke team alert was then cancelled. Emotional support provided. SW to remain available should additional needs or concerns arise. Maya Jenkins COMMUNICATIONS TOWER TECHNICIAN, [employer]
[2022-03-14 15:31] LABS: Absolute Lymphocyte Count 0.88 X10^3/uL (0.83-4.51); Absolute Neutrophil Count 7.1 X10^3/uL (2.0-7.7); Basophil% 1.1 % (0-1); Eosinophil# 0.38 X10^3/uL; Hematocrit 40.6 % (40-54); Hemoglobin 13.6 g/dL (13.0-16.5); Lymphocyte # 0.88 X10^3/ul (0.83-4.51); Lymphocyte % 9.2 % (19-41); Mean Corp Hgb Conc 33.5 g/dL (32-36); Mean Corpuscular Hgb 31.3 pg (27.0-32.0); Mean Corpuscular Volume 93.5 fL (80-94); Mean Platelet Vol. 10.1 fl (6.2-12.0); Monocyte# 1.04 X10^3/uL; Monocyte% 10.9 % (0-10); NRBC Flagged by Analyzer 0 % (0-5); Neutrophil # 7.08 X10^3/uL (2.7-7.7); Neutrophil % 74.4 % (47-70); Platelet Count 177 K/mm3 (150-450); RBC Distribution Width CV 12.8 % (11.6-14.6); RBC Distribution Width SD 44.2 fl (35.1-43.9); Red Blood Count 4.34 M/mm3 (4.6-6.2); White Blood Count 9.5 K/mm3 (4.4-11.0)
[2022-03-14 15:40] LABS: Bedside Glucose 96 mg/dL (74-106)
[2022-03-14 15:50] LABS: Anion Gap 5 (5-15); BUN 21 mg/dL (7-18); BUN/Creat Ratio 20.4 RATIO (10-20); Calcium,Total 9.2 mg/dL (8.5-10.1); Chloride 106 mmol/L (98-107); Creatinine, Serum 1.03 mg/dL (0.70-1.30); EST Glomerular Filtration Rate 74 mL/min (>60); Est Glom Filt Rate - Afr Amer 90 mL/min (>60); Estimated Creatinine Clearance 63.83 ml/min; Glucose 104 mg/dL (74-106); Sodium Level 141 mmol/L (136-145); Troponin-I HS 6 pg/mL (3.0-78.0)
--- NOTE | 2022-03-14 16:00 | RAD_ITS ---
STUDY: XR Chest 2 Views 03/14/2022 4:01 PM REASON FOR EXAM: Male, 81 years old. CHEST PAIN cough COMPARISON: 01/23/2020 TECHNIQUE: XR Chest 2 Views FINDINGS: There is no demonstrated pleural abnormality. Normal heart size. Normal mediastinum. Normal mello. Prominent appearing increased interstitial lung markings. Normal visualized pulmonary arteries. There is atherosclerotic calcification of the aortic arch with tortuosity. There are diffuse degenerative changes of the visualized thoracic spine. There is degenerative osteoarthritis of the bilateral shoulders. There is no demonstrated abnormality of the visualized soft tissue structures of the upper abdomen. RAD/Chest PA and Lateral IMPRESSION: There are no acute findings. Electronically Signed: Matt Green MD at 16:19 EDT ,
[2022-03-14 16:57] LABS: CPK Total, Creatine Kinase 297 U/L (39-308)
--- NOTE | 2022-03-14 17:15 | HP.PCM.HOS_ITS ---
[facility] - General General Date of Admission: 03/14/22 Date of Service: 03/14/22 Chief Complaint: debility. falls. HPI Narrative ADALBEROT SANCHEZ, is a 81 M who presents with falls. Patient has known history of Parkinson's and uses a walker at baseline and does fall but over the past couple days he has felt weaker and has fallen more often and when he does fall on good days his is able to get him back up but she has been unable to do so and had to call her son to help. Given his worsening condition they present presented him to the emergency room for evaluation. Patient was also noted to have some dysarthria but that that has resolved. Patient was positive for COVID-19. Patient has been vaccinated and boosted. His onset of illness was the . States that he does feel short of breath and is fatigued. [facility] Medical History (Updated 03/14/22 @ 17:[address] Hunter Lee, DO) Anxiety Basal cell carcinoma BPH (benign prostatic hyperplasia) Hyperlipidemia Impotence of non-organic origin Insomnia Sinus disease TIA (transient ischemic attack) (01/23/20) Home Medications fluticasone propionate 50 mcg/actuation nasal spray,suspension 2 spray NASAL DAILY allergies 01/23/20 [History Last Taken 03/14/22] guaifenesin 600 mg tablet, extended release 12 hr 600 mg PO BID nasal congestion 01/23/20 [History Last Taken 03/14/22] loratadine 10 mg tablet 10 mg PO DAILY allergies 01/23/20 [History Last Taken 03/14/22] trazodone 50 mg tablet 50 mg PO QHS sleep 01/23/20 [History Last Taken 03/13/22] aspirin 81 mg chewable tablet 81 mg PO DAILY@0800 01/24/20 [Rx Last Taken 03/14/22] doxazosin 4 mg tablet 4 mg PO QHS 02/22/20 [History Last Taken 03/13/22] acetaminophen 650 mg tablet,extended release 650 mg PO DAILY arthritis 03/14/22 [History Last Taken 03/14/22] carbidopa ER 23.75 mg-levodopa 95 mg capsule,extended release (Rytary) 4 cap PO TID 03/14/22 [History Last Taken 03/14/22] duloxetine 20 mg capsule,delayed release 20 mg PO BID 03/14/22 [History Last Taken 03/14/22] multivitamin 1 tab PO DAILY supplement 03/14/22 [History Last Taken 03/14/22] pregabalin 25 mg capsule 25 mg PO QHS 03/14/22 [History Last Taken 03/13/22] pregabalin 50 mg capsule 50 mg PO QHS 03/14/22 [History Last Taken 03/13/22] ropinirole 1 mg tablet 1 mg PO BID 03/14/22 [History Last Taken 03/14/22] Allergy/AdvReac Type Severity Reaction Status Date / Time propoxyphene napsylate AdvReac Vomiting Verified 03/14/22 15:26 [From Darvocet-N 100] Family History (Updated 03/14/22 @ 17:[address] Hunter Lee DO) Brother Heart disease Father Heart disease Surgical History History of back surgery Social History Smoking Status: Former smoker quit date: 07/27/82 alcohol intake: current alcohol intake frequency: 0-2 drinks per day Alcohol type: wine ROS ROS Narrative No anosmia nor dysgeusia. No sore throat. All review of systems were negative except as mentioned above in the history of present illness and the other review of systems. Vital Signs Vital Signs Vital Signs: 03/14/22 15:17 03/14/22 15:22 03/14/22 16:35 Temperature 37.0 C 36.4 C L Temperature Source Temporal Temporal Pulse Rate 87 87 79 Respiratory Rate 18 18 18 Blood Pressure 132/66 H 132/66 H 128/69 H Blood Pressure Mean 88 88 88 Pulse Ox 97 97 97 Oxygen Delivery Method Room Air Room Air Room Air 03/14/22 16:56 Temperature 36.4 C L Temperature Source Temporal Pulse Rate 79 Respiratory Rate 18 Blood Pressure 128/69 H Blood Pressure Mean 88 Pulse Ox 97 Oxygen Delivery Method Room Air Weight Weight: 107.4 kg Body Mass Index (BMI) 32.1 Physical Exam Const alert and no apparent distress Constitutional Narrative: Speech is coherent clear and coherent. HEENT normocephalic and head/scalp atraumatic Eyes PERRL Eyes Narrative: Impaired vertical saccades of his eyes. Resp normal respiratory effort, no retractions, no use of accessory muscles and clear to auscultation bilaterally Cardio regular rate, regular rhythm, S1 normal heart sound and S2 normal heart sound GI normal to inspection, nondistended, normoactive bowel sounds, soft to palpation, non-tender and non-distended Extremity normal to inspection Neuro oriented x3 Sensorium / Orientation: awake and alert Psych affect normal Results Lab / Micro Data Attestation: I reviewed the patient's lab results. Result Diagrams: 03/14/22 15:21 03/14/22 15:21 Labs: Laboratory Results - last 24 hr 03/14/22 15:19: POC Glucose 96 03/14/22 15:21: WBC 9.5, RBC 4.34 L, Hgb 13.6, Hct 40.6, MCV 93.5, MCH 31.3, MCHC 33.5, RDW Std Deviation 44.2 H, RDW Coeff of Boom 12.8, Plt Count 177, MPV 10.1, Immature Gran % (Auto) 0.400, Neut % (Auto) 74.4 H, Lymph % (Auto) 9.2 L, [place] % (Auto) 10.9 H, Eos % (Auto) 4.0, Baso % (Auto) 1.1 H, Absolute Neuts (auto) 7.1, Absolute Lymphs (auto) 0.88, Nucleated RBC % 0 03/14/22 15:21: Sodium 141, Potassium 4.0, Chloride 106, Carbon Dioxide 30.0, Anion Gap 5, BUN 21 H, Creatinine 1.03, Estim Creat Clear Calc 63.83, Est GFR (MDRD) Af Amer 90, Est GFR (MDRD) Non-Af 74, BUN/Creatinine Ratio 20.4 H, Glucose 104, Calcium 9.2, Troponin I High Sens 6 03/14/22 15:21: Total Creatine Kinase 297 Micro: Microbiology 03/14/22 15:30 Nasal Secretion SARS-CoV-2 Antigen (Rapid) - Final SARS-CoV-2 (COVID 19) Rhythm Strip Rhythm Strip: Sinus Rhythm Rate: 78 Ectopy: None EKG Initial EKG: Attestation: I personally reviewed and interpreted this EKG as follows: Prior EKG tracings: available for review EKG Rhythm Intrepretation: Sinus Rhythm (Anterior Q waves. Unchanged from January 23, 2020.) Radiology Impression Brain CT 03/14/22 15:24 IMPRESSION: There are no acute intracranial findings. There is sinus disease. Electronically Signed: Matt Green MD at 16:06 EDT , Chest X-Ray 03/14/22 16:00 IMPRESSION: There are no acute findings. Electronically Signed: Matt Green MD at 16:19 EDT , Assessment & Plan Assessment/Plan (1) Debility: PLAN: Patient has a poor baseline status due to his Parkinson's disease. Ryne the COVID has made him far weaker and he is currently unsafe to return home. Plan: * PT OT evaluate and treat * Case management evaluation for placement * Anticipate detention facility early next week * Patient currently medically stable but waiting on insurance authorization will likely not happen until next week (2) COVID-19 virus infection: PLAN: Medically stable Not hypoxic Discussed with pharmacy and Paxlovid is not available on the inpatient side. Patient and family made aware of this. Otherwise no treatment at this time unless patient's condition changes. PLAN: Plan Parkinson's disease: Continue with carbidopa/levodopa VTE prophylaxis with enoxaparin Charges/Coding Visit Charges Inpatient E&M: 35372 Init Hosp L2
[2022-03-14 19:52] LABS: Mucous, Urine 0 SEEN /hpf (<or=2+); Red Blood Cells-Urine 0 SEEN /hpf (0-5); Squamous Epithelial Cells - UA 0 SEEN /hpf (0-5); White Blood Cells 0 SEEN /hpf (0-5)
[2022-03-14 19:57] LABS: Color, Urine Yellow (Yellow); Glucose, Dipstick Normal (Normal); Ketone-Dipstick 5 mg/dl (Negative); Leukocyte Esterase-Dipstick Negative /ul (Negative); Nitrite-Dipstick Negative (Negative); Occult Blood-Urine 10 /ul (Negative); Protein-Dipstick Negative (Negative); Specific Gravity, Urine 1.015 (1.002-1.030); Urine Bilirubin Dipstick Negative (Negative); Urine Clarity Clear (Clear); Urine Urobilinogen Normal (Normal)
[2022-03-14 20:09] LABS: Bacteria RARE /hpf (None Seen)
[2022-03-14] MEDS: traZODone 50 MG Tablet PO (21:50)
[2022-03-14] MEDS: Pregabalin 75 MG Capsule PO (21:50)
[2022-03-14] MEDS: guaiFENesin 600 MG Tablet PO (21:50)
[2022-03-14] MEDS: DULoxetine Hcl 20 MG Capsule PO (21:50)
[2022-03-14] MEDS: Pramipexole Di-HCl 0.5 MG Tablet PO (21:50)
[2022-03-14] MEDS: Doxazosin 4 MG Tablet PO (21:50)
[2022-03-15 02:53] VITALS: BP 137/63; PULSE 83; RESP 16; TEMP 37.1; O2SAT 93
[2022-03-15] MEDS: 0.9% Saline Lock 10 ML Syringe IV (02:57)
--- NOTE | 2022-03-15 07:08 | PN.HOSP_ITS ---
Subjective Subjective Very weak with therapy today. No shortness of breath. Objective Data Objective Data Vital Signs: Vital Signs Temp Pulse Resp BP Pulse Ox O2 Del Method 37.1 C 83 16 137/63 H 93 Room Air 03/15/22 02:53 03/15/22 02:53 03/15/22 02:53 03/15/22 02:53 03/15/22 02:53 03/15/22 02:53 Oxygen Delivery Method Room Air Weight: 103.873 kg Body Mass Index (BMI) 31.0 Intake & Output: Intake and Output for Last 24 Hours 03/13/22 03/14/22 03/15/22 23:59 23:59 23:59 Intake Total 450 / 450 Output Total 200 / 200 Balance -200 / 0 450 / 450 Lab / Micro Data Result Diagrams: 03/14/22 15:21 03/14/22 15:21 Labs: Laboratory Results - last 24 hr 03/14/22 15:19: POC Glucose 96 03/14/22 15:21: WBC 9.5, RBC 4.34 L, Hgb 13.6, Hct 40.6, MCV 93.5, MCH 31.3, MCHC 33.5, RDW Std Deviation 44.2 H, RDW Coeff of Boom 12.8, Plt Count 177, MPV 10.1, Immature Gran % (Auto) 0.400, Neut % (Auto) 74.4 H, Lymph % (Auto) 9.2 L, [place] % (Auto) 10.9 H, Eos % (Auto) 4.0, Baso % (Auto) 1.1 H, Absolute Neuts (auto) 7.1, Absolute Lymphs (auto) 0.88, Nucleated RBC % 0 03/14/22 15:21: Sodium 141, Potassium 4.0, Chloride 106, Carbon Dioxide 30.0, Anion Gap 5, BUN 21 H, Creatinine 1.03, Estim Creat Clear Calc 63.83, Est GFR (MDRD) Af Amer 90, Est GFR (MDRD) Non-Af 74, BUN/Creatinine Ratio 20.4 H, Glucose 104, Calcium 9.2, Troponin I High Sens 6 03/14/22 15:21: Total Creatine Kinase 297 03/14/22 19:30: Urine Color Yellow, Urine Clarity Clear, Urine pH 6.0, Ur Specific [place] 1.015, Urine Protein Negative, Urine Glucose (UA) Normal, Urine Ketones 5 H, Urine Occult Blood 10 H, Urine Nitrite Negative, Urine Bilirubin Negative, Urine Urobilinogen Normal, Ur Leukocyte Esterase Negative, Urine RBC 0 SEEN, Urine WBC 0 SEEN, Ur Squamous Epith Cells 0 SEEN, Urine Bacteria RARE, Urine Mucus 0 SEEN Micro: Microbiology 03/14/22 15:30 Nasal Secretion SARS-CoV-2 Antigen (Rapid) - Final SARS-CoV-2 (COVID 19) Radiography Diagnostic Testing: Radiology Impression Brain CT 03/14/22 15:24 IMPRESSION: There are no acute intracranial findings. There is sinus disease. Electronically Signed: Matt Green MD at 16:06 EDT , Chest X-Ray 03/14/22 16:00 IMPRESSION: There are no acute findings. Electronically Signed: Matt Green MD at 16:19 EDT , Rhythm Strip Rhythm Strip: Sinus Rhythm Rate: 78 Ectopy: None Physical Exam Const alert and no apparent distress Neck no lymphadenopathy Resp normal respiratory effort, no retractions, no use of accessory muscles and clear to auscultation bilaterally Cardio regular rate, regular rhythm, S1 normal heart sound and S2 normal heart sound GI normal to inspection, nondistended, normoactive bowel sounds, soft to palpation, non-tender and non-distended Extremity normal to inspection Assessment & Plan Assessment/Plan (1) Debility: PLAN: Patient has a poor baseline status due to his Parkinson's disease. Ryne the COVID has made him far weaker and he is currently unsafe to return home. Plan: * PT OT evaluate and treat * Case management evaluation for placement * Anticipate long-term facility early next week * Patient currently medically stable but waiting on insurance authorization will likely not happen until next week (2) COVID-19 virus infection: PLAN: Medically stable. Patient vaccinated and boosted. Not hypoxic Discussed with pharmacy and Paxlovid is not available on the inpatient side. Patient and family made aware of this. Otherwise no treatment at this time unless patient's condition changes. Onset was 03/13: Quarantine to be lifted on the . PLAN: Plan Parkinson's disease: Continue with carbidopa/levodopa. Follow-up with neurology as outpatient VTE prophylaxis with enoxaparin Charges/Coding Visit Charges Inpatient E&M: 23330 Subs Hosp L2
[2022-03-15 09:19] VITALS: BP 149/69; PULSE 80; RESP 16; TEMP 37.4; O2SAT 92
[2022-03-15] MEDS: Aspirin 81 MG TAB.CHEW PO (09:24)
[2022-03-15] MEDS: Acetaminophen 500 MG Tablet PO (09:24)
[2022-03-15] MEDS: Multivitamins,Therapeutic Tablet 1 TABLET PO (09:24)
[2022-03-15] MEDS: Enoxaparin 40 MG/0.4 ML Syringe SC (09:24)
[2022-03-15] MEDS: Loratadine 10 MG Tablet PO (09:24)
[2022-03-15] MEDS: DULoxetine Hcl 20 MG Capsule PO ×2 (09:24→21:30)
[2022-03-15] MEDS: Pramipexole Di-HCl 0.5 MG Tablet PO ×2 (09:24→21:30)
[2022-03-15] MEDS: guaiFENesin 600 MG Tablet PO ×2 (09:24→21:30)
[2022-03-15 14:21] VITALS: BP 133/63; PULSE 71; RESP 16; TEMP 36.8; O2SAT 94
[2022-03-15] MEDS: CARBIDOPA/LEVODOPA 1 EACH CAPSULE.ER 4 EACH PO ×2 (14:22→19:33)
--- NOTE | 2022-03-15 17:00 | CASEMGMT ---
CHARLENE TIDWELL Assessment: Face to Face with pt for initial transition planning/care coordination assessment. CHARLENE TIDWELL introduced self and role at [facility], pt voices understanding and consents to assessment. Pt is A/O x4 and answers all questions appropriately at this time. Pt sitting up in bed on RA in no distress. Care providers, pharmacy, and demographics verified/updated. Admitting Dx: weakness, COVID PCP:Evon Specialists:navneet Ramirez Pharmacy: [facility] Insurance: [facility] Prescription Benefit: yes LW/HPOA: Pt has LW/DPOA on file at [facility]. His DPOA is his Jenni Ziegler. LNOK: Jenni Ziegler, ; Trinh Castillo, dtr Living Arrangements: Pt lives with in a two story house with 2 steps to enter. Pt states he needs occasional help with bathing and dressing. Transportation: Pt does not drive. Pt transports him to medical appts. DME/HHC/SNF: Pt has a FWW, rollator, w/c, 4 prong and single point cane. Pt states he mostly uses the rollator. Pt denies hx of HHC or SNF stays. Pt reports that he has fallen 8-10x in the last week. He states he likely needs to consider SNF for s/t therapy. Therapy has not worked with patient yet. Pt would like to see how he does with therapy before he decides. Pt states no further concerns/needs. CM to follow. Advised pt to ask CM if any further question/concerns/needs arise, voices understanding. Pt Goal: TBD pending therapy eval Plan: TBD pending therapy eval
--- NOTE | 2022-03-15 18:35 | CM.ED ---
Addendum entered by Keyona Vilchis 03/15/22 19:02: ALONDRA did not provide patient with list of SNF in network due to his COVID diagnosis. Keyona Deng ALEXANDRA Addendum entered by Keyona Vilchis 03/15/22 18:38: ALONDRA did provide patient with list of SNF's that are in network. Patient has [employer] insurance. In network is [facility] and [facility]. Keyona ALEXANDRA Original Note: ALONDRA was advised by CM that patient wants to see how he does in regards to PT/OT evaluation before he picks out a SNF. Since PT/OT is not completed and the discharge recommendation is pending this rfp writer did not see patient. Keyona ALEXANDRA
[2022-03-15 21:00] VITALS: BP 141/64; PULSE 84; RESP 18; TEMP 37.6; O2SAT 93
[2022-03-15] MEDS: Doxazosin 4 MG Tablet PO (21:30)
[2022-03-15] MEDS: Pregabalin 75 MG Capsule PO (21:30)
[2022-03-15] MEDS: traZODone 50 MG Tablet PO (21:30)
[2022-03-16] VITALS (19 sets, daily range): BP systolic 118–153; BP diastolic 36–77; PULSE 83–102; RESP 18–32; TEMP 36.7–38.3; O2SAT 84–96
[2022-03-16] MEDS: Acetaminophen 325 MG Tablet 650 MG PO ×2 (06:33→18:13)
[2022-03-16] MEDS: dexAMETHasone 4 MG Tablet 6 MG PO (06:33)
--- NOTE | 2022-03-16 07:01 | CT_ITS ---
STUDY: CTA CHEST REASON FOR EXAM: Male, 81 years old. covid RADIATION DOSAGE (If Supplied By Facility): CTDIvol = ( 12.57 ) mGy, DLP = ( 535.10 ) mGycm TECHNIQUE: The examination was performed with the intravenous administration of IV 100mL Isovue-370. Post-processing of the angiographic images was performed, with multiplanar reformation and 3D reconstruction. Individualized dose optimization techniques were used for this CT. COMPARISON: Chest x-ray earlier today FINDINGS: Normal enhancement of the main pulmonary artery and right and left pulmonary arteries. Normal enhancement of the bilateral peripheral pulmonary arteries. There is no demonstrated pulmonary embolism. Normal thoracic aorta and visualized great vessels. There is no demonstrated aortic dissection. Normal heart and pericardium. Normal mediastinum. Normal hilar regions. Normal visualized trachea and bronchi. The lungs are well expanded. Normal pulmonary parenchyma. Tiny bilateral pleural effusions with some bibasilar atelectasis. Normal chest wall structures. Normal osseous structures. Normal visualized upper abdomen. CT/CTA Chest W/WO Contrast IMPRESSION: Normal CTA chest examination, without a demonstrated pulmonary embolism or arterial dissection. Electronically Signed: Jameson Mcdonald MD at 8:54 EDT ,
[2022-03-16 07:20] LABS: Absolute Neutrophil Count 9.8 X10^3/uL (2.0-7.7); Basophil# 0.05 X10^3/uL; Basophil% 0.4 % (0-1); Eosinophil# 0.02 X10^3/uL; Eosinophils% 0.2 % (0-5); Lymphocyte % 6.7 % (19-41); Mean Corp Hgb Conc 33.3 g/dL (32-36); Mean Corpuscular Hgb 30.4 pg (27.0-32.0); Mean Corpuscular Volume 91.3 fL (80-94); Mean Platelet Vol. 10.4 fl (6.2-12.0); Monocyte# 1.17 X10^3/uL; Monocyte% 9.8 % (0-10); NRBC Flagged by Analyzer 0 % (0-5); Neutrophil # 9.84 X10^3/uL (2.7-7.7); Neutrophil % 82.4 % (47-70); Platelet Count 152 K/mm3 (150-450); RBC Distribution Width CV 12.4 % (11.6-14.6); RBC Distribution Width SD 41.9 fl (35.1-43.9); Red Blood Count 4.93 M/mm3 (4.6-6.2); White Blood Count 11.9 K/mm3 (4.4-11.0)
--- NOTE | 2022-03-16 07:28 | PN.HOSP_ITS ---
Subjective Subjective Decreased oxygenation earlier this morning. Patient went from room air to requiring oxygen. Patient was very weak and has been made n.p.o. due to concern for aspiration. Objective Data Objective Data Vital Signs: Vital Signs Temp Pulse Resp BP Pulse Ox O2 Del Method O2 Flow Rate 38.2 C H 102 H 26 H 152/65 H 92 Nasal Cannula 4 03/16/22 05:42 03/16/22 05:42 03/16/22 05:42 03/16/22 05:42 03/16/22 05:42 03/16/22 05:42 03/16/22 05:42 Oxygen Flow Rate (L/min) 4 Oxygen Delivery Method Nasal Cannula Weight: 103.873 kg Body Mass Index (BMI) 31.0 Intake & Output: Intake and Output for Last 24 Hours 03/14/22 03/15/22 03/16/22 23:59 23:59 23:59 Intake Total 1050 / 1350 300 / 300 Output Total 200 / 200 450 / 450 Balance -200 / 0 1050 / 1350 -150 / -150 Lab / Micro Data Result Diagrams: 03/16/22 06:59 03/16/22 06:59 Labs: Laboratory Results - last 24 hr 03/16/22 06:59: WBC 11.9 H, RBC 4.93, Hgb 15.0, Hct 45.0, MCV 91.3, MCH 30.4, MCHC 33.3, RDW Std Deviation 41.9, RDW Coeff of Boom 12.4, Plt Count 152, MPV 10.4, Immature Gran % (Auto) 0.500, Neut % (Auto) 82.4 H, Lymph % (Auto) 6.7 L, [place] % (Auto) 9.8, Eos % (Auto) 0.2, Baso % (Auto) 0.4, Absolute Neuts (auto) 9.8 H, Absolute Lymphs (auto) 0.80 L, Nucleated RBC % 0 Micro: Microbiology 03/14/22 15:30 Nasal Secretion SARS-CoV-2 Antigen (Rapid) - Final SARS-CoV-2 (COVID 19) Rhythm Strip Rhythm Strip: Sinus Rhythm Rate: 78 Ectopy: None Physical Exam Const Constitutional Narrative: Sleeping. Was on high flow nasal cannula oxygen but appears to be more of a mouth breather. Oxygenation is around 88 to 89%. Hypophonic. No respiratory distress. Resp Resp Narrative: Coarse breath sounds bilaterally Cardio regular rate, regular rhythm, S1 normal heart sound and S2 normal heart sound GI normal to inspection, nondistended, normoactive bowel sounds, soft to palpation, non-tender and non-distended Extremity normal to inspection Neuro oriented x3 Assessment & Plan Assessment/Plan (1) Debility: PLAN: Patient has a poor baseline status due to his Parkinson's disease. Ryne the COVID has made him far weaker and he is currently unsafe to return home. Plan: * PT OT evaluate and treat * Case management evaluation for placement * Anticipate alf facility early next week * Patient currently medically stable but waiting on insurance authorization will likely not happen until next week (2) COVID-19 virus infection: PLAN: Medically stable. Patient vaccinated and boosted. Not hypoxic Discussed with pharmacy and Paxlovid is not available on the inpatient side. Patient and family made aware of this. Otherwise no treatment at this time unless patient's condition changes. Onset was 03/13: Quarantine to be lifted on the . Patient became acutely hypoxic. Patient's CTA of the chest was negative for PE and did not show diffuse patchy infiltrates. Did show some pneumonia in left lower lobe. Feels prior more aspiration but given his medical comorbidities we will also treat him with treatment for COVID with dexamethasone and remdesivir. (3) Acute respiratory failure with hypoxia: PLAN: More likely due to aspiration rather than COVID Current high flow nasal cannula oxygen. Wean as tolerated. Patient has been made n.p.o. and awaiting speech therapy evaluation. (4) Pneumonia: QUALIFIERS: Pneumonia type: aspiration pneumonia Aspiration pneumonia type: unspecified Laterality: left Lung location: lower lobe of lung Qualified Code(s): J69.0 - Pneumonitis due to inhalation of food and vomit PLAN: Pulmonary toilet. Unasyn (5) Dysphagia: PLAN: Due to the patient's underlying Parkinson's but exacerbated by his acute illness. N.p.o. Speech therapy eval Suction as needed Avoid sedating medications and will DC the pregabalin. PLAN: Plan Parkinson's disease: Continue with carbidopa/levodopa. Follow-up with neurology as outpatient VTE prophylaxis with enoxaparin I called the patient's to update her on his deterioration of his status. She did not answer and immediately went to [employer] and I left a message. Charges/Coding Visit Charges Inpatient E&M: 35394 Subs Hosp L2
[2022-03-16 07:33] LABS: ALB/GLOB Ratio 0.9 RATIO (0.9-2.4); AST(SGOT) 26 U/L (15-37); Alanine Aminotransfer ALT/SGPT 14 U/L (16-61); Albumin, Serum 3.7 g/dL (3.2-5.0); Alkaline Phosphatase 61 U/L (45-117); Anion Gap 6 (5-15); BUN 17 mg/dL (7-18); BUN/Creat Ratio 16.8 RATIO (10-20); Calcium,Total 8.7 mg/dL (8.5-10.1); Chloride 98 mmol/L (98-107); Creatinine, Serum 1.01 mg/dL (0.70-1.30); EST Glomerular Filtration Rate 76 mL/min (>60); Est Glom Filt Rate - Afr Amer 92 mL/min (>60); Estimated Creatinine Clearance 65.09 ml/min; Glucose 128 mg/dL (74-106); Potassium 3.9 mmol/L (3.5-5.1); Protein, Total 7.7 g/dL (6.4-8.2); Sodium Level 133 mmol/L (136-145)
--- NOTE | 2022-03-16 07:33 | RAD_ITS ---
STUDY: X-RAY CHEST REASON FOR EXAM: Male, 81 years old. hypoxia. COVID 19 TECHNIQUE: Single AP portable view of the chest. COMPARISON: 03/14/2022 FINDINGS: Poor inspiration with some bibasilar atelectasis. There is no demonstrated pleural abnormality. Normal size heart. Normal mediastinum and mello. Normal visualized pulmonary arteries. Normal visualized aortic arch and descending thoracic aorta. Normal visualized thoracic spine. Normal visualized ribs, clavicles, and shoulders. There is no demonstrated abnormality of the visualized soft tissue structures of the upper abdomen. RAD/Chest 1 View (Portable) IMPRESSION: Poor inspiration with some bibasilar atelectasis. Electronically Signed: Jameson Mcdonald MD at 8:04 EDT ,
[2022-03-16 07:39] LABS: Procalcitonin 0.31 ng/mL (0.00-0.09)
[2022-03-16] MEDS: Aspirin 81 MG TAB.CHEW PO (08:41)
[2022-03-16] MEDS: Multivitamins,Therapeutic Tablet 1 TABLET PO (08:49)
[2022-03-16] MEDS: Enoxaparin 40 MG/0.4 ML Syringe SC (11:08)
[2022-03-16 11:33] LABS: Alkaline Phosphatase 61 U/L (45-117)
[2022-03-16] MEDS: CARBIDOPA/LEVODOPA 1 EACH CAPSULE.ER 4 EACH PO ×2 (12:06→19:28)
[2022-03-16] MEDS: 0.9% Saline Lock 10 ML Syringe IV (12:07)
[2022-03-16] MEDS: Pramipexole Di-HCl 0.5 MG Tablet PO ×2 (12:15→21:54)
[2022-03-16] MEDS: Loratadine 10 MG Tablet PO (12:15)
[2022-03-16] MEDS: traZODone 50 MG Tablet PO (21:54)
[2022-03-16] MEDS: guaiFENesin 600 MG Tablet PO (21:54)
[2022-03-16] MEDS: Doxazosin 4 MG Tablet PO (21:54)
[2022-03-17] VITALS (10 sets, daily range): BP systolic 127–152; BP diastolic 59–68; PULSE 71–98; RESP 15–24; TEMP 36.8–38.1; O2SAT 90–98
[2022-03-17 06:19] LABS: Hemoglobin 13.9 g/dL (13.0-16.5); Mean Corp Hgb Conc 33.9 g/dL (32-36); Mean Corpuscular Hgb 30.3 pg (27.0-32.0); Mean Corpuscular Volume 89.3 fL (80-94); Mean Platelet Vol. 10.3 fl (6.2-12.0); Platelet Count 150 K/mm3 (150-450); RBC Distribution Width CV 12.7 % (11.6-14.6); RBC Distribution Width SD 41.8 fl (35.1-43.9); Red Blood Count 4.59 M/mm3 (4.6-6.2); White Blood Count 14.3 K/mm3 (4.4-11.0)
[2022-03-17 06:49] LABS: ALB/GLOB Ratio 0.9 RATIO (0.9-2.4); AST(SGOT) 23 U/L (15-37); Alanine Aminotransfer ALT/SGPT 14 U/L (16-61); Albumin, Serum 3.2 g/dL (3.2-5.0); Alkaline Phosphatase 48 U/L (45-117); Anion Gap 6 (5-15); BUN 26 mg/dL (7-18); BUN/Creat Ratio 24.5 RATIO (10-20); Calcium,Total 8.7 mg/dL (8.5-10.1); Chloride 102 mmol/L (98-107); Creatinine, Serum 1.06 mg/dL (0.70-1.30); EST Glomerular Filtration Rate 72 mL/min (>60); Est Glom Filt Rate - Afr Amer 87 mL/min (>60); Estimated Creatinine Clearance 62.02 ml/min; Globulin 3.6 g/dL (2.2-4.2); Glucose 115 mg/dL (74-106); Potassium 3.8 mmol/L (3.5-5.1); Protein, Total 6.8 g/dL (6.4-8.2); Sodium Level 135 mmol/L (136-145)
--- NOTE | 2022-03-17 07:34 | PN.HOSP_ITS ---
Subjective Subjective Patient is a 81-year-old gentleman admitted with progressive generalized weakness. Diagnosed with COVID 19. Admitted to regular nursing floor where patient has since been managed. Patient clinical condition worsen resulting in patient being placed on supplemental oxygen. Assessment was that patient had possibly aspirated Objective Data Objective Data Vital Signs: Vital Signs Temp Pulse Resp BP Pulse Ox O2 Del Method O2 Flow Rate 99.7 F H 87 20 H 133/62 H 95 Airvo 55 03/17/22 06:26 03/17/22 06:26 03/17/22 06:26 03/17/22 06:26 03/17/22 06:26 03/17/22 06:26 03/17/22 06:26 FiO2 55 03/17/22 06:26 Oxygen Flow Rate (L/min) 55 Oxygen Delivery Method Airvo Weight: 103.873 kg Body Mass Index (BMI) 31.0 Intake & Output: Intake and Output for Last 24 Hours 03/15/22 03/16/22 03/17/22 23:59 23:59 23:59 Intake Total 1050 / 1350 1042.25 / 1042.25 264.25 / 264.25 Output Total 850 / 950 425 / 425 Balance 1050 / 1350 192.25 / 92.25 -160.75 / -160.75 Lab / Micro Data Result Diagrams: 03/17/22 06:00 03/17/22 06:00 Labs: Laboratory Results - last 24 hr 03/16/22 06:29: Alkaline Phosphatase 61 03/16/22 06:59: Procalcitonin 0.31 H 03/17/22 06:00: WBC 14.3 H, RBC 4.59 L, Hgb 13.9, Hct 41.0, MCV 89.3, MCH 30.3, MCHC 33.9, RDW Std Deviation 41.8, RDW Coeff of Boom 12.7, Plt Count 150, MPV 10.3 03/17/22 06:00: Sodium 135 L, Potassium 3.8, Chloride 102, Carbon Dioxide 27.0, Anion Gap 6, BUN 26 H, Creatinine 1.06, Estim Creat Clear Calc 62.02, Est GFR (MDRD) Af Amer 87, Est GFR (MDRD) Non-Af 72, BUN/Creatinine Ratio 24.5 H, Glucose 115 H, Calcium 8.7, Total Bilirubin 0.80, AST 23, ALT 14 L, Alkaline Phosphatase 48, Total Protein 6.8, Albumin 3.2, Globulin 3.6, Albumin/Globulin Ratio 0.9 Micro: Microbiology 03/14/22 15:30 Nasal Secretion SARS-CoV-2 Antigen (Rapid) - Final SARS-CoV-2 (COVID 19) Radiography Diagnostic Testing: Radiology Impression Chest CTA 03/16/22 07:01 IMPRESSION: Normal CTA chest examination, without a demonstrated pulmonary embolism or arterial dissection. Electronically Signed: Jameson Mcdonald MD at 8:54 EDT Reading Location ID and State: [id number] / [employer] , Service support , Chest X-Ray 03/16/22 07:33 IMPRESSION: Poor inspiration with some bibasilar atelectasis. Electronically Signed: Jameson Mcdonald MD at 8:04 EDT Reading Location ID and State: [employer] / [employer] , Service support , Rhythm Strip Rhythm Strip: Sinus Rhythm Rate: 78 Ectopy: None Physical Exam Narrative GENERAL: cooperative, ON AIRVO HEENT: Atraumatic; EYES; Anicteric, Normal Conjunctiva NECK; supple, normal thyroid, RESPIRATORY: Diminished to auscultation CARDIOVASCULAR: Regular S1 S2, GI: soft, normoactive bowel sounds, : No Renal angle tenderness; EXTREMITIES: No edema, no clubbing, MUSCULOSKELETAL: no muscle wasting NEURO: Awake; no lateralizing signs. SKIN: No Rash PSYCH; Flat affect Assessment & Plan Assessment/Plan (1) Debility: (2) COVID-19 virus infection: (3) Acute respiratory failure with hypoxia: (4) Pneumonia: QUALIFIERS: Aspiration pneumonia type: unspecified Laterality: left Lung location: lower lobe of lung Pneumonia type: aspiration pneumonia Qualified Code(s): J69.0 - Pneumonitis due to inhalation of food and vomit (5) Dysphagia: PLAN: Plan Patient is a 81-year-old gentleman admitted with progressive generalized weakness. Diagnosed with COVID 19. Admitted to regular nursing floor where patient has since been managed. Patient clinical condition worsen resulting in patient being placed on supplemental oxygen. Assessment was that patient had possibly aspirated 1. Acute hypoxic respiratory failure ? Secondary to COVID-19 pneumonia with superimposed aspiration pneumonia. Patient currently being managed with air Vo with flow rate of 55 L/min with FiO2 of 55. 2. COVID 19 pneumonia ? Patient is on remdesivir in addition to Decadron. Patient symptoms started on 03/13/2022. Given the fact that patient is requiring high flow oxygen patient is to be in isolation for total of 21 days 3. Aspiration pneumonia ? Patient started on Unasyn 4. Parkinson's disease ? Patient is on carbidopa/levodopa discontinued 5. DVT prophylaxis ? enoxaparin Charges/Coding Visit Charges Inpatient E&M: 30694 Subs Hosp L2
[2022-03-17] MEDS: Pramipexole Di-HCl 0.5 MG Tablet PO ×2 (08:34→20:32)
[2022-03-17] MEDS: Aspirin 81 MG TAB.CHEW PO (08:34)
[2022-03-17] MEDS: guaiFENesin 600 MG Tablet PO ×2 (08:34→20:31)
[2022-03-17] MEDS: CARBIDOPA/LEVODOPA 1 EACH CAPSULE.ER 4 EACH PO ×3 (08:34→18:29)
[2022-03-17] MEDS: Multivitamins,Therapeutic Tablet 1 TABLET PO (08:34)
[2022-03-17] MEDS: dexAMETHasone 4 MG Tablet 6 MG PO (08:34)
[2022-03-17] MEDS: DULoxetine Hcl 20 MG Capsule PO ×2 (08:34→20:31)
[2022-03-17] MEDS: Loratadine 10 MG Tablet PO (08:34)
[2022-03-17] MEDS: Enoxaparin 40 MG/0.4 ML Syringe SC (08:35)
[2022-03-17] MEDS: Acetaminophen 500 MG Tablet PO (08:35)
--- NOTE | 2022-03-17 15:37 | CASEMGMT ---
POA for Healthcare are scanned under summary tab in echart, pt's Jenni Maddox is named as pt's Healthcare POA . There is not a separate living will, but the living will provision in the POA for Healthcare is initialed. GEORGE Monreal
[2022-03-17] MEDS: traZODone 50 MG Tablet PO (20:32)
[2022-03-17] MEDS: Doxazosin 4 MG Tablet PO (20:32)
[2022-03-18] VITALS (11 sets, daily range): BP systolic 116–166; BP diastolic 60–72; PULSE 65–85; RESP 18–22; TEMP 36.4–36.8; O2SAT 92–96
--- NOTE | 2022-03-18 00:45 | CPS ---
replaced water bag on AirVo
--- NOTE | 2022-03-18 07:23 | PCM.PN.HOSP ---
Subjective Subjective Patient seen remains on on arrival however he admits to significant improvement in his clinical condition. Plan is to try to wean off patient level down to nasal cannula Objective Data Objective Data Vital Signs: Vital Signs Temp Pulse Resp BP Pulse Ox O2 Del Method O2 Flow Rate 97.8 F 70 21 H 143/71 H 92 Airvo 45 03/18/22 02:33 03/18/22 07:12 03/18/22 07:12 03/18/22 02:33 03/18/22 07:12 03/18/22 02:33 03/18/22 02:33 FiO2 40 03/18/22 07:12 Oxygen Flow Rate (L/min) 45 Oxygen Delivery Method Airvo Weight: 103.9 kg Body Mass Index (BMI) 31.0 Intake & Output: Intake and Output for Last 24 Hours 03/16/22 03/17/22 03/18/22 23:59 23:59 23:59 Intake Total 1042.25 / 1042.25 1069.50 / 1069.50 472.75 / 472.75 Output Total 850 / 950 625 / 625 400 / 400 Balance 192.25 / 92.25 444.50 / 444.50 72.75 / 72.75 Lab / Micro Data Result Diagrams: 03/17/22 06:00 03/17/22 06:00 Micro: Microbiology 03/14/22 15:30 Nasal Secretion SARS-CoV-2 Antigen (Rapid) - Final SARS-CoV-2 (COVID 19) Rhythm Strip Rhythm Strip: Sinus Rhythm Rate: 78 Ectopy: None Physical Exam Narrative GENERAL: cooperative, ON AIRVO HEENT: Atraumatic; EYES; Anicteric, Normal Conjunctiva NECK; supple, normal thyroid, RESPIRATORY: Diminished to auscultation CARDIOVASCULAR: Regular S1 S2, GI: soft, normoactive bowel sounds, : No Renal angle tenderness; EXTREMITIES: No edema, no clubbing, MUSCULOSKELETAL: no muscle wasting NEURO: Awake; no lateralizing signs. SKIN: No Rash PSYCH; Flat affect Assessment & Plan Assessment/Plan (1) Debility: (2) COVID-19 virus infection: (3) Acute respiratory failure with hypoxia: (4) Pneumonia: QUALIFIERS: Aspiration pneumonia type: unspecified Laterality: left Lung location: lower lobe of lung Pneumonia type: aspiration pneumonia Qualified Code(s): J69.0 - Pneumonitis due to inhalation of food and vomit (5) Dysphagia: PLAN: Plan Patient is a 81-year-old gentleman admitted with progressive generalized weakness. Diagnosed with COVID 19. Admitted to regular nursing floor where patient has since been managed. Patient clinical condition worsen resulting in patient being placed on supplemental oxygen. Assessment was that patient had possibly aspirated 1. Acute hypoxic respiratory failure ? Secondary to COVID-19 pneumonia with superimposed aspiration pneumonia. Patient currently being managed with air Vo with flow rate of 55 L/min with FiO2 of 55. - 03/18/2022;Patient seen remains on on arrival however he admits to significant improvement in his clinical condition. Plan is to try to wean off patient level down to nasal cannula 2. COVID 19 pneumonia ? Patient is on remdesivir in addition to Decadron. Patient symptoms started on 03/13/2022. Given the fact that patient is requiring high flow oxygen patient is to be in isolation for total of 21 days 3. Aspiration pneumonia ? Patient started on Unasyn 4. Parkinson's disease ? Patient is on carbidopa/levodopa discontinued 5. DVT prophylaxis ? enoxaparin Charges/Coding Visit Charges Inpatient E&M: 97523 Subs Hosp L2
[2022-03-18] MEDS: Enoxaparin 40 MG/0.4 ML Syringe SC (09:51)
[2022-03-18] MEDS: Acetaminophen 500 MG Tablet PO (09:51)
[2022-03-18] MEDS: Loratadine 10 MG Tablet PO (09:51)
[2022-03-18] MEDS: Aspirin 81 MG TAB.CHEW PO (09:51)
[2022-03-18] MEDS: Multivitamins,Therapeutic Tablet 1 TABLET PO (09:51)
[2022-03-18] MEDS: Pramipexole Di-HCl 0.5 MG Tablet PO ×2 (09:51→20:11)
[2022-03-18] MEDS: DULoxetine Hcl 20 MG Capsule PO ×2 (09:51→20:12)
[2022-03-18] MEDS: dexAMETHasone 4 MG Tablet 6 MG PO ×2 (09:51→09:52)
[2022-03-18] MEDS: CARBIDOPA/LEVODOPA 1 EACH CAPSULE.ER 4 EACH PO ×3 (09:53→20:10)
[2022-03-18] MEDS: guaiFENesin 600 MG Tablet PO ×2 (09:56→20:11)
--- NOTE | 2022-03-18 15:38 | CASEMGMT ---
Social Work SW in to met with pt. Sw introduced self and role at the hospital. SW discussed discharge options with pt and explained options. Patient was provided a list of?SNF and RU providers, including quality and resource use data that is consistent with the patient?s preferred geographic region, medical needs, and insurance network. SW explained that due to his positive Covid 19 status that his options were limited as many facilities are not taking Covid pt's at this time. Pt voiced disappointment but discussed options of [facility] in [place] and [facility] in [place]. Pt asked this SW to call his to discuss the options with her and go with whatever choice she makes. SW called pt's and she voiced understanding of limited options. Pt's , Jenni, shared she [facility] the [facility] vs[facility] in [place]. [facility] as her first choice. Jenni also stated if [facility] unable to take pt that he can go to [facility]. SW notified Discharge Computer Technology Trainer Rajwinder Wolf, who will send referral to [facility] in [place]. AYLIN Wolfe
--- NOTE | 2022-03-18 15:56 | CASEMGMT ---
Discharge Muck Operator Rajwinder hull/donavon assistant chief nursing officer sent referral to Jolanta at [facility]. Will follow up. Plan: [facility] Rajwinder Wolf Discharge Muck Operator
[2022-03-18] MEDS: 0.9% Saline Lock 10 ML Syringe IV (16:56)
--- NOTE | 2022-03-18 19:10 | CPS ---
Decreased O2 to 3 lpm
[2022-03-18] MEDS: Doxazosin 4 MG Tablet PO (20:10)
[2022-03-18] MEDS: traZODone 50 MG Tablet PO (20:11)
[2022-03-19 02:01] VITALS: BP 148/74; PULSE 78; RESP 20; TEMP 36.8; O2SAT 95
[2022-03-19] MEDS: Enoxaparin 40 MG/0.4 ML Syringe SC (09:37)
[2022-03-19] MEDS: Loratadine 10 MG Tablet PO (09:38)
[2022-03-19] MEDS: Pramipexole Di-HCl 0.5 MG Tablet PO ×2 (09:38→22:35)
[2022-03-19] MEDS: DULoxetine Hcl 20 MG Capsule PO ×2 (09:38→22:35)
[2022-03-19] MEDS: guaiFENesin 600 MG Tablet PO ×2 (09:38→22:35)
[2022-03-19] MEDS: Acetaminophen 500 MG Tablet PO (09:38)
[2022-03-19] MEDS: Aspirin 81 MG TAB.CHEW PO (09:38)
[2022-03-19] MEDS: Multivitamins,Therapeutic Tablet 1 TABLET PO (09:38)
[2022-03-19] MEDS: CARBIDOPA/LEVODOPA 1 EACH CAPSULE.ER 4 EACH PO ×3 (09:39→22:34)
[2022-03-19 09:52] VITALS: BP 137/57; PULSE 80; RESP 20; TEMP 36.6; O2SAT 95
--- NOTE | 2022-03-19 09:53 | CASEMGMT ---
Discharge Community Relations Director Noa from [facility] reached out. Noa is requesting PT, New Dr note, labs and vitals. All of these has been sent to Noa at [facility]. Will follow up. Plan: [facility], Waiting Acceptance Rajwinder Wolf Discharge Community Relations Director
[2022-03-19 10:00] VITALS: RESP 20
--- NOTE | 2022-03-19 10:19 | CASEMGMT ---
Discharge Kier Drier Noa from [facility] reached out. Patient has been accepted at [facility]. Noa from [facility] is starting pre-cert. ALONDRA Fenton notified. Plan: [facility], Waiting Pre-cert. Rajwinder Wolf Discharge Kier Drier
[2022-03-19 10:20] VITALS: O2SAT 95
--- NOTE | 2022-03-19 10:58 | CASEMGMT ---
Social Work SW called pt to inform him of acceptance to [facility]. Pt was happy. SW explained we still have to wait for insurance precert. Pt voiced understanding. SW asked pt if he would like this worker to call his to update her. Pt was agreeable to this. SW called pt's to inform her and explained that precert is pending and that this worker will update her with any new information. , Jenni, stated she just test positive for Covid herself and has been overwhelmed. SW offered support. Jenni expressed gratitude. AYLIN Wolfe
--- NOTE | 2022-03-19 14:39 | SP.MBSS_ITS ---
Modified Barium Swallow - Patient Information Study Date: 03/19/22 Study Time: 13:45 Direct Billable Minutes: 105 Total Minutes procedure & reportin Diagnosis: Dysphagia (R13.12), Parkinson's disease (G20) Referring Physician: Lee Dill Reason for Referral: Objectively assess swallow function, risk for aspiration, and determine recommendations for least restrictive diet textures and compensatory strategies to improve safety of swallow. Medical History: Dell Ziegler is a 81-year-old male who presented to [facility] ED with falls. PMH incl udes Parkinson's disease, anxiety, Basal cell carcinoma, BPH (benign prostatic hyperplasia), Hyperlipidemia, Impotence of non-organic origin, Insomnia, Sinus disease, TIA (transient ischemic attack) (01/23/20). The patient had a fall but over the past couple days he had felt weaker and had fallen more often. On day of admission, could not help him get up. They took him to ED given his worsening condition. Patient was also noted to have some dysarthria but that that has resolved. Patient was positive for COVID-19. Patient has been vaccinated and boosted. Speech therapy was consulted for reported concerns for swallowing difficulty. Pt initially was recommended for regular textures / thin liquids after BSE 03/15/2022. His stay was complicated by a suspected aspiration event on the morning of 03/16/2022. He became hypoxic after taking medications. He required increased supplemental O2 (Airvo), had decreased alertness, and worsened lung sounds after the event. Since, the patient has weaned to 3L O2/min via nasal cannula and has been upgraded to Easy to Chew textures / Thin liquids, 1:1 supervision, and meds whole in applesauce. Recommended MBSS to objectively assess swallow function and aspiration risk following suspected aspiration event described above. Current Diet Ordered: Easy to Chew textures / Thin liquids Dentition: Missing Teeth Mental Status: WNL Respiratory Status: Oxygenating on 3L/M nasal cannula - Penetration-Aspiration Scale Penetration-Aspiration Scale: OBJECTIVE ASSESSMENT OF SWALLOW FUNCTION (QUANTITATIVE ? PER TRIAL): PENETRATION / ASPIRATION SCALE (OTOOLE): 1 = does not enter airway 2 = enters airway/above vocal folds/ejected 3 = enters airway/above vocal folds/not ejected 4 = enters airway/contacts vocal folds/ejected 5 = enters airway/contacts vocal folds/not ejected 6 = enters airway/below vocal folds/ejected 7 = enters airway/below vocal folds/not ejected despite effort 8 = enters airway/below vocal folds/no effort VIDEOFLOROSCOPIC SCALE SCORE (OTOOLE): Grade I = aspiration of material that has penetrated into the laryngeal vestibule, intact cough reflex Grade II = aspiration < 10 % of the bolus, intact cough reflex Grade III = aspiration of < 10 % of the bolus, reduced cough reflex or aspiration of > 10 % of the bolus, intact cough reflex Grade IV = aspiration of > 10 % of the bolus, reduced cough reflex - Penetration-Aspiration Scale Score Thin Liquid via teaspoon Result: 1= does not enter airway Thin Liquid via teaspoon Trial 2 Result: 1= does not enter airway Thin Liquid via large single sip from cup Result: 1= does not enter airway Thin Liquid via sequential sips from cup Result: 2= enter airway/above vocal folds/ejected [place] Thick Liquid via small single sip from cup Result: 1= does not enter airway Honey Thick Liquid via small single sip from cup Result: 1= does not enter airway Pudding via teaspoon with esophageal screen Result: 1= does not enter airway Whole Cookie Result: 1= does not enter airway Thin Liquid via single sip from straw Result: 1= does not enter airway Thin Liquid via sequential sips from straw Result: 2= enter airway/above vocal folds/ejected - Oral Phase Labial Seal: No Labial Escape Tongue Control During Bolus Hold: Posterior escape of greater than half of bolus Bolus Preparation/Mastication: Slow prolonged chewing/mashing with complete recollection Bolus Transport/Lingual Motion: Delayed initiation of tongue motion Oral Residue: Trace residue lining oral structures - Pharyngeal Phase Initiation of Pharyngeal Swallow: Bolus head in pyriforms Soft Palate Elevation: Trace column of contrast/air between soft palate and pharyngeal wall Laryngeal Elevation: Partial superior movement thyroid cart/partial apprx aryt- epig petiole Anterior Hyoid Excursion: Complete anterior movement Epiglottic Movement: Complete inversion Laryngeal Vestibule Closure at Height of Swallow: Incomplete; narrow column of air/contrast in laryngeal vestibule Pharyngeal Stripping Wave: Present - complete Pharyngoesophageal Segment Opening: Complete distension and complete duration; no obstruction of flow Tongue Base Retraction: Narrow column of contrast between tongue base & post. pharyngeal wall Pharyngeal Residue: Trace residue within or on pharyngeal structures - Esophageal Phase Esophageal Clearance: Complete clearance - Diagnosis/Impression Diagnosis: Mild oropharyngeal phase dysphagia (R13.12) Impression: The oral phase is primarily marked by... -Prolonged, but adequate mastication of cookie. -Decreased bolus control with posterior loss of liquid consistencies to the pyriforms prior to swallow onset. -Mildly delayed tongue movement for A-P transport. -Trace oral residue. The pharyngeal phase is primarily marked by... -Delayed initiation of the pharyngeal swallow. -Mildly decreased laryngeal elevation during the swallow with trace laryngeal penetration observed with sequential sips of thin liquids. Penetrated contrast fully ejected from the laryngeal vestibule after the swallow. No aspiration observed. -Trace pharyngeal residue. - Recommendations Diet: Regular Textures - meat cut bite size, Thin Liquids Comment: Medications whole in puree (applesauce/yogurt/pudding). Would NOT recommend advancing the patient to medications whole with liquids due to the severity of aspiration event during this hospitalization. Compensatory Strategies: Small Bites, Small Sips, Slow Rate, Sitting upright, Remain sitting upright for 30 minutes after PO intake Supervision: Distant Supervision Recommend Repeat Modified Barium Swallow: TBD Need for Skilled Speech Therapy Services: Yes Comment: Will recommend the patient for continued dysphagia therapy to address mild deficits in oropharyngeal swallow function. Would consider the patient for oropharyngeal strengthening to improve lingual strength/coordination and laryngeal elevation (lingual resistance, CTAR, Oksana). The patient would benefit from thorough education regarding diet recommendations and recommended compensatory strategies. Education Completed: 1. Described result of evaluation., 7. Pt requires further education on strategies & risks. - Status Active ST Patient: Active - Contact Information [facility] Speech Therapy:: Janette Porter M.A. [facility] [employer] F[employer] Speech-Language Pathologist [facility] [address] [place] [address] [email or web address] [phone] 03/19/22 14:59
[2022-03-19 16:00] VITALS: BP 104/71; PULSE 70; RESP 18; TEMP 36.7; O2SAT 97
--- NOTE | 2022-03-19 18:32 | PN.HOSP_ITS ---
Subjective Subjective Patient was seen and examined today, we are awaiting confirmation of acceptance into a rehab facility at [facility] from his insurance carrier, patient is currently on oxygen at 2 L/min. Objective Data Objective Data Vital Signs: Vital Signs Temp Pulse Resp BP Pulse Ox O2 Del Method O2 Flow Rate 98.0 F 70 18 104/71 97 Nasal Cannula 2 03/19/22 16:00 03/19/22 16:00 03/19/22 16:00 03/19/22 16:00 03/19/22 16:00 03/19/22 16:00 03/19/22 16:00 FiO2 45 03/18/22 10:06 Oxygen Flow Rate (L/min) 2 Oxygen Delivery Method Nasal Cannula Weight: 103.9 kg Body Mass Index (BMI) 31.0 Intake & Output: Intake and Output for Last 24 Hours 03/17/22 03/18/22 03/19/22 23:59 23:59 23:59 Intake Total 1069.50 / 1069.50 1310.00 / 1310.00 1296 / 1296 Output Total 625 / 625 900 / 900 1500 / 1500 Balance 444.50 / 444.50 410.00 / 410.00 -204 / -204 Lab / Micro Data Result Diagrams: 03/17/22 06:00 03/17/22 06:00 Micro: Microbiology 03/14/22 15:30 Nasal Secretion SARS-CoV-2 Antigen (Rapid) - Final SARS-CoV-2 (COVID 19) Rhythm Strip Rhythm Strip: Sinus Rhythm Rate: 78 Ectopy: None Physical Exam Const alert, oriented x3 and no apparent distress General Appearance: cooperative, well kempt and well developed Orientation / Consciousness: awake, oriented to person, oriented to place and oriented to time HEENT normocephalic and moist oral mucous membranes Eyes PERRL, EOMs intact bilaterally and conjunctivae normal Neck supple, no JVD, thyroid normal and no carotid bruits General: trachea midline Resp normal respiratory effort, no retractions, no use of accessory muscles and clear to auscultation bilaterally Auscultation: Negative for rales, rhonchi or wheezes Cardio regular rate, regular rhythm, S1 normal heart sound, S2 normal heart sound, no murmurs, no rub and no gallops GI normal to inspection, nondistended, normoactive bowel sounds, soft to palpation, non-tender and non-distended Extremity no clubbing, cyanosis or edema Skin no rashes or lesions noted General Skin Exam: no breakdown Neuro oriented x3, CN's II-XII intact bilaterally, no focal motor deficits and no sensory deficits noted Sensorium / Orientation: awake and alert Speech: speech normal Psych affect normal Assessment & Plan Assessment/Plan (1) COVID-19 virus infection: PLAN: Plan 1. Acute hypoxic respiratory failure secondary to COVID-19 pneumonia-patient's oxygen will be monitored, he is currently on nasal cannula oxygen #2 COVID-19 pneumonia-patient will remain on Decadron, patient finished his remdesivir today #3 suspected aspiration pneumonia-patient is currently on Unasyn #4 Parkinson's disease-complicates care, management, recovery, and prognosis, PT and OT are seeing patient, we are waiting to hear whether he is a candidate to go to a rehab facility. #5 Acute on chronic debility(secondary to Parkinson's disease)-continue PT and OT, await possible transfer to rehab unit Charges/Coding Visit Charges Inpatient E&M: 75894 Subs Hosp L2
[2022-03-19 22:29] VITALS: BP 152/65; PULSE 68; RESP 18; TEMP 37.2; O2SAT 97
[2022-03-19] MEDS: traZODone 50 MG Tablet PO (22:35)
[2022-03-19] MEDS: Doxazosin 4 MG Tablet PO (22:35)
[2022-03-20] VITALS (7 sets, daily range): BP systolic 128–157; BP diastolic 58–67; PULSE 70–82; RESP 16–18; TEMP 36.8–37; O2SAT 93–97
--- NOTE | 2022-03-20 09:45 | CASEMGMT ---
Discharge Central Office Installer Noa from [facility] reached out. [facility] Insurance has denied patient. Patient has the option to be able to do an expedited appeal. An expedited appeal is a letter that is generated by our corporate and sent to [facility]. Rajwinder understood and forwarded email and called ALONDRA Fenton so SW can talk with patient and make a choice and help get this process figured out. Rajwinder Wolf Discharge Central Office Installer
[2022-03-20] MEDS: dexAMETHasone 4 MG Tablet 6 MG PO (10:14)
[2022-03-20] MEDS: DULoxetine Hcl 20 MG Capsule PO ×2 (10:15→22:02)
[2022-03-20] MEDS: Loratadine 10 MG Tablet PO ×2 (10:15)
[2022-03-20] MEDS: Aspirin 81 MG TAB.CHEW PO (10:15)
[2022-03-20] MEDS: Multivitamins,Therapeutic Tablet 1 TABLET PO (10:15)
[2022-03-20] MEDS: Acetaminophen 500 MG Tablet PO (10:15)
[2022-03-20] MEDS: CARBIDOPA/LEVODOPA 1 EACH CAPSULE.ER 4 EACH PO ×3 (10:16→19:48)
[2022-03-20] MEDS: Enoxaparin 40 MG/0.4 ML Syringe SC (10:16)
[2022-03-20] MEDS: guaiFENesin 600 MG Tablet PO ×2 (10:16→22:02)
[2022-03-20] MEDS: Pramipexole Di-HCl 0.5 MG Tablet PO ×2 (10:18→22:02)
--- NOTE | 2022-03-20 11:31 | CASEMGMT ---
Social Work SW called pt to discuss RU denial. SW explained pt's is in agreement with insurance company that pt should not be placed at Rehab Unit and is more appropriate for SNF. Pt's , Jenni, voiced understanding. This SW informed Jenni that phone calls were in to [facility], [facility], as well as [facility] and this worker is waiting on calls back to see if they will accept pt with Covid. SW shared with Jenni that the only facility to answer and that is willing to accept Covid positive pt's is [facility]. Jenni inquired about [facility] and this SW agreeable to calling and checking if they accept Covid pts. SW Called [facility] and spoke with Matt, who stated no covid pt's are being accepted there at this time. SW called pt's , Jenni, back and Jenni now agreeable to a referral being sent to [facility]. This SW updating Discharge Director Of Outreach Rajwinder Wolf, who will send referral to [facility]. PLAN: [facility], pending acceptance and precert AYLIN Wolfe
--- NOTE | 2022-03-20 11:42 | CASEMGMT ---
Discharge Mobile Developer Rajwinder lewis pathologist assistant sent referral to [facility] via [facility]. Plan: [facility], Waiting Acceptance Rajwinder Wolf Discharge Mobile Developer
--- NOTE | 2022-03-20 13:15 | CASEMGMT ---
Addendum entered by Rajwinder Wolf 03/20/22 14:52: Rajwinder [place]wn has started pre-cert @ 13:15 on 03/20/22 Plan: Anand Najera Pre-cert Rajwinder Wolf Discharge Linux Kernel Developer Original Note: Discharge Linux Kernel Developer [facility] reached out. Patient has been accepted. ALONDRA Blake notified. Plan: [facility] Discharge Linux Kernel Developer
--- NOTE | 2022-03-20 16:03 | CASEMGMT ---
Social Work - [facility] 3 Handoff from Maya FARR regarding discharge planning update and note left for social work that may not want for patient to go to [facility]. This typewriter mechanic called patient's Jenni ([phone]). Introduced to self and social work role. Reviewed discharge planning status including insurance denial of rehab unit level of care, with next level of care to look at being half-way facility. expressed questions about [facility] in [place] versus [facility]. shared that foster care social worker Jossy reviewed list of nursing facilities earlier this date which are in patient's insurance network, but the only ones thus far accepting COVID diagnosis are [facility] and [facility]. This typewriter mechanic pulled up Medicare star ratings and reviewed ratings with the . Allowed the time to express thoughts and feelings, offering emotional support including acknowledgment that this decision for SNF is often not easy for people to make. After much discussion the expressed desire to continue with placement at [facility]. Educated the that placement at the half-way facility and is dependent on insurance authorization, which would be worked on by the nursing facility. Agreed to update the when insurance update is known. Discussed with the about updating the patient. This typewriter mechanic agreed to update the patient so as to allow the patient an opportunity to directly ask questions to the foster care social worker. expressed appreciation. Spoke with Rajwinder, discharge transportation planning engineer, who confirms that [facility] has indicated will be starting pre-CERT process. Donning proper PPE this typewriter mechanic met with the patient, introducing to self and social work role. Reviewed discharge planning. Patient acknowledges that would like to return home, but understanding of potential benefit to go to a half-way facility for short-term rehab. Reviewed options, and that decided on [facility]. Patient voiced agreement with this facility. Patient voiced had not wanted to [facility]. Allowed patient time to ask questions. Educated that insurance must provide authorization before any type of moved to a half-way facility can be arranged. Offered emotional support and encouragement. Patient also expressed gratitude for the update and time given this date. Convalescent exemption form in [facility] initiated. PLAN: [facility], skilled level of care, pending precertification by the insurance. -GEORGE Norton, RN OCCUPATIONAL
--- NOTE | 2022-03-20 16:26 | CASEMGMT ---
Social Work - MS3 CM Transfer to extended care facility intervention completed. Convalescent/0700 form in [facility] has been initiated. Refer to prior social work documentation for further details. Plan: [facility], skilled level of care pending insurance precert. 0700 to be completed at time of discharge to SNF. /patient request updates when updates are known. -GEORGE Norton, [employer] CONSULTANT
--- NOTE | 2022-03-20 16:53 | PN.HOSP_ITS ---
Subjective Subjective Patient was seen and examined today, he is currently on room air, he was denied approval for [facility]. We have resubmitted information for approval at a [facility] at this time. Patient continues to receive PT and OT. I have elected to change the patient's antibiotics today to oral antibiotics. He remains on Decadron at this time, his remdesivir finished today. Patient has no complaints of any shortness of breath. Objective Data Objective Data Vital Signs: Vital Signs Temp Pulse Resp BP Pulse Ox O2 Del Method O2 Flow Rate 98.2 F 78 18 136/65 H 94 Room Air 2 03/20/22 16:44 03/20/22 16:44 03/20/22 16:44 03/20/22 16:44 03/20/22 16:44 03/20/22 16:44 03/20/22 03:00 FiO2 45 03/18/22 10:06 Oxygen Flow Rate (L/min) 2 Oxygen Delivery Method Room Air Weight: 103.9 kg Body Mass Index (BMI) 31.0 Intake & Output: Intake and Output for Last 24 Hours 03/18/22 03/19/22 03/20/22 23:59 23:59 23:59 Intake Total 1310.00 / 1310.00 1408 / 1708 1658.5 / 1658.5 Output Total 900 / 900 1500 / 1950 1100 / 1100 Balance 410.00 / 410.00 -92 / -242 558.5 / 558.5 Lab / Micro Data Result Diagrams: 03/17/22 06:00 03/17/22 06:00 Micro: Microbiology 03/14/22 15:30 Nasal Secretion SARS-CoV-2 Antigen (Rapid) - Final SARS-CoV-2 (COVID 19) Rhythm Strip Rhythm Strip: Sinus Rhythm Rate: 78 Ectopy: None Physical Exam Narrative GENERAL: cooperative, ON AIRVO HEENT: Atraumatic; EYES; Anicteric, Normal Conjunctiva NECK; supple, normal thyroid, RESPIRATORY: Diminished to auscultation CARDIOVASCULAR: Regular S1 S2, GI: soft, normoactive bowel sounds, : No Renal angle tenderness; EXTREMITIES: No edema, no clubbing, MUSCULOSKELETAL: no muscle wasting NEURO: Awake; no lateralizing signs. SKIN: No Rash PSYCH; Flat affect Const alert, oriented x3, no apparent distress and healthy appearing Constitutional Narrative: Sleeping. Was on high flow nasal cannula oxygen but appears to be more of a mouth breather. Oxygenation is around 88 to 89%. Hypophonic. No respiratory distress. General Appearance: cooperative, well kempt and well developed Orientation / Consciousness: awake, oriented to person, oriented to place and oriented to time HEENT normocephalic and moist oral mucous membranes Eyes PERRL, EOMs intact bilaterally and conjunctivae normal Eyes Narrative: Impaired vertical saccades of his eyes. Neck supple, no JVD and thyroid normal General: trachea midline Resp normal respiratory effort and clear to auscultation bilaterally Resp Narrative: Coarse breath sounds bilaterally Auscultation: Negative for rales, rhonchi or wheezes Cardio regular rate, regular rhythm, no murmurs, no rub and no gallops GI normal to inspection, nondistended, normoactive bowel sounds, soft to palpation, non-tender and non-distended Extremity no clubbing, cyanosis or edema Skin no rashes or lesions noted General Skin Exam: no breakdown Neuro oriented x3, CN's II-XII intact bilaterally, moves all extremities, no focal motor deficits and no sensory deficits noted Sensorium / Orientation: awake and alert Speech: speech normal Psych affect normal Assessment & Plan Assessment/Plan (1) Acute respiratory failure with hypoxia: (2) COVID-19 virus infection: PLAN: Plan 1. Acute hypoxic respiratory failure secondary to COVID-19 pneumonia-patient's oxygen will be monitored, he is currently on room air #2 COVID-19 pneumonia-patient will remain on Decadron, patient's remdesivir regimen is finished #3 suspected aspiration pneumonia-patient will be switched to Augmentin 500 mg 3 times a day with food to total 7 days of treatment on antibiotics #4 Parkinson's disease-complicates care, management, recovery, and prognosis, PT and OT are seeing patient, we are waiting to hear whether he is a candidate to go to a rehab facility. #5 Acute on chronic debility(secondary to Parkinson's disease)-continue PT and OT, await possible transfer to a halfway facility in [facility] Charges/Coding Visit Charges Inpatient E&M: 03922 Subs Hosp L2
[2022-03-20] MEDS: Amox/Clavulanate 500 MG Tablet PO (18:23)
[2022-03-20] MEDS: Doxazosin 4 MG Tablet PO (22:02)
[2022-03-20] MEDS: traZODone 50 MG Tablet PO (22:02)
[2022-03-21] VITALS (8 sets, daily range): BP systolic 137–160; BP diastolic 66–86; PULSE 60–80; RESP 16–18; TEMP 36.6–36.7; O2SAT 93–97
[2022-03-21] MEDS: Multivitamins,Therapeutic Tablet 1 TABLET PO (08:13)
[2022-03-21] MEDS: Enoxaparin 40 MG/0.4 ML Syringe SC (08:13)
[2022-03-21] MEDS: dexAMETHasone 4 MG Tablet 6 MG PO (08:13)
[2022-03-21] MEDS: Acetaminophen 500 MG Tablet PO (08:14)
[2022-03-21] MEDS: Aspirin 81 MG TAB.CHEW PO (08:14)
[2022-03-21] MEDS: Amox/Clavulanate 500 MG Tablet PO ×2 (08:14→12:39)
[2022-03-21] MEDS: Pramipexole Di-HCl 0.5 MG Tablet PO (08:14)
[2022-03-21] MEDS: guaiFENesin 600 MG Tablet PO (08:14)
[2022-03-21] MEDS: DULoxetine Hcl 20 MG Capsule PO (08:14)
[2022-03-21] MEDS: CARBIDOPA/LEVODOPA 1 EACH CAPSULE.ER 4 EACH PO ×2 (08:19→12:40)
[2022-03-21] MEDS: Loratadine 10 MG Tablet PO (09:00)
--- NOTE | 2022-03-21 09:59 | CASEMGMT ---
Discharge Staff Development Educator Rajwinder hull/donavon interior design assistant received a phone call from patients . was worried about SNF placement because states she has not heard from anyone thus morning. Rajwinder stated to the that patient has been accepted and we are waiting on insurance pre-cert in order for patient to be able to go to [place]. understood and stated she will try to have some patience. stated she is just worried and wants everything taken care of because she has Covid now to. asked about transportation as she can't transport him to SNF. Rajwinder reassured that as soon as pre-cert is received someone here will notify her. Plan: [place], Waiting pre-cert Rajwinder Wolf Discharge Staff Development Educator
--- NOTE | 2022-03-21 13:18 | CASEMGMT ---
Social Work SW called pt's to discuss discharge information. Pt's asking questions about pt being discharged and going to the SNF. SW explained that the hospital has no way to hurry the process and insurance is pending. SW explained it could take several days sometimes for an answer. Pt's , Jenni, stated her is getting upset and restless due to his isolation and would like to leave. SW explained due to his Covid status even if pt goes to SNF he would remain in isolation until he has 2 negative Covid tests. Jenni expressed frustration and SW validated her feelings while offering support. Discussed options of pt waiting at hospital until he hears determination from insurance company or discharging home, which Dr. Hobbs feels would be appropriate based on PT/OT notes. Jenni stated struggles due to worry about caring for pt while she herself has covid. SW offered option of referral to [facility] and explained his would also need to be approved by insurance. Jenni stated intention to call children to discuss options and then calling this SW back after she has thought more on this situation. SW provided Jenni with contact number and encouraged her to reach this worker, rather than discharge fws faculty assistant, Rajwinder. Jenni voiced understanding. Jenni called back shortly after. Stated willing to bring pt home but still has concerns. ALONDRA again inquired about C and stated RNCM will discuss the options with pt. Jenni agreeable. SW informed will call Jenni back later today when is ready to discharge pt. Jenni voiced understanding. PLAN: Home with [facility] AYLIN Wolfe
--- NOTE | 2022-03-21 13:50 | CASEMGMT ---
Addendum entered by Sharon Brooke 03/21/22 14:38: Received a call back [facility] that pt does not have a copay. TC to pt , they are agreeable to having the [facility] then. TC to Luna, she is aware to continue with the referral. Addendum entered by Sharon Brooke 03/21/22 14:29: Received tc from Luna at [facility], pt has a $50/visit copay. TC to pt . She states that they will not pay for this. She states they will go to [facility] and patient already has a script for this. Denies further needs. Original Note: CHARLENE TIDWELL spoke with patient, pt is agreeable to [facility] therapy. Pt asks CHARLENE TIDWELL to call his to provide list to and he is agreeable to whichever agency she chooses. TC to , patient was provided a list of [facility] providers including quality and resource use data and consistent with the patient?s preferred geographic region, medical needs, and insurance network. The patient?s preferred provider is [facility]. TC to Luna at [facility], pt accepted. Pt aware.
--- NOTE | 2022-03-21 13:59 | CASEMGMT ---
Discharge Waste Transportation Technician Rajwinder called Rajwinder at [facility] and canceled referral. Patient is now going home with . Rajwinder Wolf Discharge Waste Transportation Technician
--- NOTE | 2022-03-21 14:32 | DCINST_ITS ---
Discharge Instructions Diet Discharge Diet: No restrictions Activity Discharge Activity: Return to Normal Activity Weight Bearing Status: Full weight bearing Follow Up Care Test Results: Test results from this visit will be discussed in further detail at your follow- up appointment, if applicable. Discharge Plan Admission Admit Date/Time: 03/14/22 17:11 Primary Reason for Your Visit: COVID-19 Attending Provider: Reji Hobbs Primary Care Provider: Coy Barnard Consulting Providers: Hunter Lee ; Lee Dill Discharge Orders/Prescriptions Prescriptions: New amoxicillin-pot clavulanate 500-125 mg Tablet 500 mg PO TIDCM Qty: 5 0RF Rx Instructions: start on 03/21/22-take two doses on the first day(dinner and bedtime) dexamethasone 2 mg tablet 6 mg PO DAILY Qty: 6 0RF Rx Instructions: start on 03/22/22 Continued doxazosin 4 mg tablet 4 mg PO QHS fluticasone propionate 1 SPRAY spray,suspension 2 spray NASAL DAILY loratadine 10 MG tablet 10 mg PO DAILY guaifenesin 600 MG tablet 600 mg PO BID trazodone 50 MG tablet 50 mg PO QHS aspirin 81 MG tablet,chewable 81 mg PO DAILY@0800 0RF multivitamin Tablet 1 tab PO DAILY Label Comments: 1 tablet by mouth as directed ropinirole 1 mg tablet 1 mg PO BID duloxetine 20 mg capsule,delayed release(DR/EC) 20 mg PO BID pregabalin 25 mg capsule 25 mg PO QHS pregabalin 50 mg capsule 50 mg PO QHS Rytary 23.75-95 mg capsule, extended release 4 cap PO TID acetaminophen 650 mg Tablet Extended Release 650 mg PO DAILY Systane (PF) 0.4-0.3 % Dropperette 1 drp EACH EYE Q8H Referrals / Follow Up: Coy Barnard MD [Primary Care Provider] - Within 2 Weeks Disposition Disposition (needs filled in before D/C Order can be placed): Home, Self Care
--- NOTE | 2022-03-21 14:38 | DS.PCM_ITS ---
Providers Date of Admission: 03/14/22 Date of Discharge: 03/21/22 Primary Care Physician: Dr. Coy Barnard MD Reason For Visit: DEBILITY / COVID 19 Diagnosis Discharge Diagnosis (1) Acute respiratory failure with hypoxia: Status: Acute Code(s): J96.01 - Acute respiratory failure with hypoxia (2) COVID-19 virus infection: Status: Acute Code(s): U07.1 - COVID-19 Plan 1. Acute hypoxic respiratory failure secondary to COVID-19 pneumonia-patient's oxygen will be monitored, he is currently on room air #2 COVID-19 pneumonia-patient will remain on Decadron, patient's remdesivir regimen is finished #3 suspected aspiration pneumonia-patient will be switched to Augmentin 500 mg 3 times a day with food to total 7 days of treatment on antibiotics #4 Parkinson's disease-complicates care, management, recovery, and prognosis, PT and OT are seeing patient, we are waiting to hear whether he is a candidate to go to a rehab facility. #5 Acute on chronic debility(secondary to Parkinson's disease)-continue PT and OT, await possible transfer to a detention facility in [facility] Medications at Discharge Home Medications fluticasone propionate 50 mcg/actuation nasal spray,suspension 2 spray NASAL DAILY allergies 01/23/20 guaifenesin 600 mg tablet, extended release 12 hr 600 mg PO BID nasal congestion 01/23/20 loratadine 10 mg tablet 10 mg PO DAILY allergies 01/23/20 trazodone 50 mg tablet 50 mg PO QHS sleep 01/23/20 aspirin 81 mg chewable tablet 81 mg PO DAILY@0800 01/24/20 doxazosin 4 mg tablet 4 mg PO QHS 02/22/20 acetaminophen 650 mg tablet,extended release 650 mg PO DAILY arthritis 03/14/22 carbidopa ER 23.75 mg-levodopa 95 mg capsule,extended release (Rytary) 4 cap PO TID 03/14/22 duloxetine 20 mg capsule,delayed release 20 mg PO BID 03/14/22 multivitamin 1 tab PO DAILY supplement 03/14/22 pregabalin 25 mg capsule 25 mg PO QHS 03/14/22 pregabalin 50 mg capsule 50 mg PO QHS 03/14/22 ropinirole 1 mg tablet 1 mg PO BID 03/14/22 peg 400-propylene glycol (PF) 0.4 %-0.3 % eye drops in a dropperette (Systane (PF)) 1 drp EACH EYE Q8H 03/17/22 amoxicillin 500 mg-potassium clavulanate 125 mg tablet 500 mg PO TIDCM #5 tabs 03/21/22 dexamethasone 2 mg tablet 6 mg PO DAILY #6 tabs 03/21/22 Weight / BMI Weight Weight: 103.9 kg Body Mass Index (BMI) 31.0 ABG / Lab / Microbiology Data Result Diagrams: 03/17/22 06:00 03/17/22 06:00 Microbiology: Microbiology 03/14/22 15:30 Nasal Secretion SARS-CoV-2 Antigen (Rapid) - Final SARS-CoV-2 (COVID 19) D/C Instructions Discharge Diet: No restrictions Weight Bearing Status: Full weight bearing Meaningful Use Info Meaningful Use Diagnoses (Choose all that apply): None applicable Discharge Plan Admission Admit Date/Time: 03/14/22 17:11 Primary Reason for Your Visit: COVID-19 Attending Provider: Reji Hobbs Primary Care Provider: Coy Barnard Consulting Providers: Hunter Lee ; Lee Dill Discharge Orders/Prescriptions Prescriptions: New amoxicillin-pot clavulanate 500-125 mg Tablet 500 mg PO TIDCM Qty: 5 0RF Rx Instructions: start on 03/21/22-take two doses on the first day(dinner and bedtime) dexamethasone 2 mg tablet 6 mg PO DAILY Qty: 6 0RF Rx Instructions: start on 03/22/22 Continued doxazosin 4 mg tablet 4 mg PO QHS fluticasone propionate 1 SPRAY spray,suspension 2 spray NASAL DAILY loratadine 10 MG tablet 10 mg PO DAILY guaifenesin 600 MG tablet 600 mg PO BID trazodone 50 MG tablet 50 mg PO QHS aspirin 81 MG tablet,chewable 81 mg PO DAILY@0800 0RF multivitamin Tablet 1 tab PO DAILY Label Comments: 1 tablet by mouth as directed ropinirole 1 mg tablet 1 mg PO BID duloxetine 20 mg capsule,delayed release(DR/EC) 20 mg PO BID pregabalin 25 mg capsule 25 mg PO QHS pregabalin 50 mg capsule 50 mg PO QHS Rytary 23.75-95 mg capsule, extended release 4 cap PO TID acetaminophen 650 mg Tablet Extended Release 650 mg PO DAILY Systane (PF) 0.4-0.3 % Dropperette 1 drp EACH EYE Q8H Referrals / Follow Up: Coy Barnard MD [Primary Care Provider] - Within 2 Weeks Disposition Disposition (needs filled in before D/C Order can be placed): Home, Self Care
--- NOTE | 2022-03-21 16:19 | CASEMGMT ---
Social Work SW received pc from pt's Daughter, Megan Ziegler, who expressed concern with pt discharging. ALONDRA explained the situation to Megan regarding insurance, how the pt was ambulating well according to PT/OT notes, and how most insurance companies based determination for approval to SNFs on PT/OT reports. SW explained pt was walking more than 400ft on his own with minimal assist. SW also shared pt and pt's , Jenni, were offered the opportunity for pt to continue waiting at the hospital for insurance approval but they declined. Megan reported she felt much better gaining clarity on the situation as her information from her parents was confusing. Megan reported she would work to check in on her father following discharge. AYLIN Wolfe
== END 2022-03-21 16:15 | disposition home health service (06) | DRG 177 ==
LOC: ED 16:36 → MS3 17:19
PROVIDERS: Hospitalist; Emergency Provider Emergency Medicine; PCP Family Medicine; Visit Provider Internal Medicine
DX: U07.1 COVID-19 (principal); J96.01 Acute respiratory failure with hypoxia; J69.0 Pneumonitis due to inhalation of food and vomit; J12.82 Pneumonia due to coronavirus disease 2019; G20 Parkinson's disease; E78.5 Hyperlipidemia, unspecified; R53.81 Other malaise; R13.10 Dysphagia, unspecified; Z87.891 Personal history of nicotine dependence; Z86.73 Personal history of transient ischemic attack (TIA), and cerebral infarction without residual deficits
CPT/HCPCS: 36415; 70450; 71045; 71046; 71275; 74230; 80048; 80053; 81001; 82550; 82962; 84075; 84145; 84484; 85025; 85027; 87811; 92526; 92610; 92611; 93005; 94002; 94660; 94667; 94668; 97162; 97166; 97530; 97535; 99285; J7050; Q9967; A4216; J0248; J0295

== ENCOUNTER 2022-07-07 17:04 | Inpatient (IN) | payer MEDICARE, SELFPAY ==
[2022-07-07 17:08] VITALS: BP 143/69; PULSE 64; RESP 18; TEMP 36.9; O2SAT 96; BMI 31.4
--- NOTE | 2022-07-07 17:37 | ED.RN ---
max Tsang from [place] called. C/O pt falling all the time, per daughter approx 10 times a day. daughter fells pt needs to be placed in an ecf. max Trinh,
--- NOTE | 2022-07-07 18:28 | CT_ITS ---
STUDY: CT BRAIN WITHOUT CONTRAST REASON FOR EXAM: Male, 81 years old. Weakness RADIATION DOSAGE (If Supplied By Facility): CTDIvol = ( 47.06 ) mGy, DLP = ( 925.62 ) mGycm TECHNIQUE: Transaxial CT imaging of the brain was performed without administration of intravenous contrast material. Individualized dose optimization techniques were used for this CT. COMPARISON: March 14, 2022. FINDINGS: Normal soft tissue structures. Normal calvarium. There is moderate cerebral atrophy with widening of the extra-axial spaces and ventricular dilatation. There are areas of decreased attenuation within the white matter tracts of the supratentorial brain, consistent with microvascular disease changes. There is lacunar infarct of the right basal ganglia. Normal brainstem. Normal cerebellum. There is no intracranial hemorrhage. There are no findings of an acute ischemic infarction. There is mucoperiosteal inflammatory disease of the paranasal sinuses consistent with moderate chronic sinusitis. CT/Brain/Head without Contrast IMPRESSION: Chronic involutional changes of the brain. Electronically Signed: Sabino Carty MD at 19:24 EST ,
--- NOTE | 2022-07-07 18:28 | EKG12_ITS ---
Test Reason : fall Blood Pressure : / mmHG Vent. Rate : 075 BPM Atrial Rate : 075 BPM P-R Int : 172 ms QRS Dur : 084 ms QT Int : 370 ms P-R-T Axes : 021 -24 072 degrees QTc Int : 413 ms Normal sinus rhythm Minimal voltage criteria for LVH, may be normal variant ( R in aVL ) Anterior infarct , age undetermined Abnormal ECG Confirmed by MAK VALADEZ, SANDER ([id number]), slot editor VANESSA HALL ([id number]) on 07/09/2022 11:54:19 AM Referred By: Confirmed By:SANDER CORADO MD
[2022-07-07 18:40] LABS: Absolute Lymphocyte Count 1.72 X10^3/uL (0.83-4.51); Absolute Neutrophil Count 5.2 X10^3/uL (2.0-7.7); Basophil# 0.11 X10^3/uL; Basophil% 1.3 % (0-1); Eosinophil# 0.68 X10^3/uL; Hematocrit 42.3 % (40-54); Hemoglobin 13.6 g/dL (13.0-16.5); Lymphocyte # 1.72 X10^3/ul (0.83-4.51); Lymphocyte % 20.3 % (19-41); Mean Corp Hgb Conc 32.2 g/dL (32-36); Mean Corpuscular Hgb 30.2 pg (27.0-32.0); Mean Platelet Vol. 10.2 fl (6.2-12.0); Monocyte% 8.3 % (0-10); NRBC Flagged by Analyzer 0 % (0-5); Neutrophil # 5.24 X10^3/uL (2.7-7.7); Neutrophil % 61.9 % (47-70); Platelet Count 205 K/mm3 (150-450); RBC Distribution Width CV 12.4 % (11.6-14.6); RBC Distribution Width SD 43.2 fl (35.1-43.9); White Blood Count 8.5 K/mm3 (4.4-11.0)
--- NOTE | 2022-07-07 18:50 | RAD_ITS ---
STUDY: X-RAY CHEST REASON FOR EXAM: Male, 81 years old. Weakness, cough TECHNIQUE: Single AP portable view of the chest. COMPARISON: March 16, 2022 FINDINGS: There is left lower lung linear scarring or atelectasis There is no demonstrated pleural abnormality. Normal size heart. Normal mediastinum and mello. Normal visualized pulmonary arteries. Normal visualized aortic arch and descending thoracic aorta. Normal visualized thoracic spine. Normal visualized ribs, clavicles, and shoulders. There is no demonstrated abnormality of the visualized soft tissue structures of the upper abdomen. RAD/Chest 1 View (Portable) IMPRESSION: Left lower lung scarring or atelectasis. Electronically Signed: Sabino Carty MD at 19:26 EST ,
[2022-07-07 18:58] LABS: ALB/GLOB Ratio 1.1 RATIO (0.9-2.4); AST(SGOT) 20 U/L (15-37); Alanine Aminotransfer ALT/SGPT 9 U/L (16-61); Albumin, Serum 3.7 g/dL (3.2-5.0); Alkaline Phosphatase 60 U/L (45-117); Anion Gap 4 (5-15); BUN 25 mg/dL (7-18); BUN/Creat Ratio 23.1 RATIO (10-20); Calcium,Total 8.9 mg/dL (8.5-10.1); Chloride 108 mmol/L (98-107); Creatinine, Serum 1.08 mg/dL (0.70-1.30); EST Glomerular Filtration Rate 70 mL/min (>60); Est Glom Filt Rate - Afr Amer 85 mL/min (>60); Estimated Creatinine Clearance 60.87 ml/min; Globulin 3.4 g/dL (2.2-4.2); Glucose 109 mg/dL (74-106); Potassium 4.1 mmol/L (3.5-5.1); Protein, Total 7.1 g/dL (6.4-8.2); Sodium Level 141 mmol/L (136-145); Troponin-I HS 5 pg/mL (3.0-78.0)
[2022-07-07 20:00] VITALS: PULSE 73; RESP 18; O2SAT 94
[2022-07-07 20:15] LABS: Bacteria 0 SEEN /hpf (None Seen); Mucous, Urine 0 SEEN /hpf (<or=2+); Red Blood Cells-Urine 0 SEEN /hpf (0-5); Squamous Epithelial Cells - UA 0 SEEN /hpf (0-5); White Blood Cells 0 SEEN /hpf (0-5)
[2022-07-07 20:18] LABS: Color, Urine Yellow (Yellow); Glucose, Dipstick Normal (Normal); Ketone-Dipstick 5 mg/dl (Negative); Leukocyte Esterase-Dipstick 25 /ul (Negative); Nitrite-Dipstick Negative (Negative); Occult Blood-Urine Negative /ul (Negative); Protein-Dipstick 15 mg/dl (Negative); Specific Gravity, Urine 1.025 (1.002-1.030); Urine Bilirubin Dipstick Negative (Negative); Urine Clarity Clear (Clear); Urine Urobilinogen Normal (Normal)
--- NOTE | 2022-07-07 20:55 | EDS_ITS ---
HPI HPI - Fall History of Present Illness Chief Complaint: Fall Informant: patient Narrative Narrative: Patient is a 81-year-old male with history of Parkinson's disease presenting with increased falls. Over the past week to week and a half patient has had multiple falls each day. When he walks seems to be leaning to the left more. In the past when he has had increased falls he has had some type of infection. Today patient fell into the bathtub. He has had a mild cough as well as a mild headache that is been intermittent. Today is left I seems swollen however his applied ice and Systane eyedrops and that seemed to resolve. No report of any fevers. No urinary symptoms. No GI symptoms. No other complaints at this time. Patient is on any blood thinners. He does take a daily 81 mg aspirin. Does have a history of TIA. [facility] Medical History Alcohol abuse Anxiety Basal cell carcinoma BPH (benign prostatic hyperplasia) Debility Hyperlipidemia Impotence of non-organic origin Insomnia Sinus disease TIA (transient ischemic attack) (01/23/20) Home Medications fluticasone propionate 50 mcg/actuation nasal spray,suspension 2 spray NASAL DAILY allergies 01/23/20 [History Last Taken 07/07/22] guaifenesin 600 mg tablet, extended release 12 hr 600 mg PO 0100,1300 nasal congestion 01/23/20 [History Last Taken 07/07/22] trazodone 50 mg tablet 50 mg PO QHS sleep 01/23/20 [History Last Taken 07/06/22] doxazosin 4 mg tablet 4 mg PO QHS blood pressure 02/22/20 [History Last Taken 07/06/22] acetaminophen 650 mg tablet,extended release 650 mg PO DAILY arthritis 03/14/22 [History Last Taken 07/07/22] carbidopa ER 23.75 mg-levodopa 95 mg capsule,extended release (Rytary) 4 cap PO TID parkinsons 03/14/22 [History Last Taken 07/07/22] multivitamin 1 tab PO DAILY supplement 03/14/22 [History Last Taken 07/07/22] pregabalin 25 mg capsule 25 mg PO QHS pain 03/14/22 [History Last Taken 07/06/22] pregabalin 50 mg capsule 50 mg PO QHS pain 03/14/22 [History Last Taken 07/06/22] ropinirole 1 mg tablet 1 mg PO BID parkinsons 03/14/22 [History Last Taken 07/07/22] peg 400-propylene glycol (PF) 0.4 %-0.3 % eye drops in a dropperette (Systane (PF)) 1 drp EACH EYE TID dry eyes 03/17/22 [History Last Taken 07/07/22] acetaminophen 500 mg tablet 500 mg PO QPM arthritis 07/07/22 [History Last Taken 07/06/22] aspirin 81 mg tablet,delayed release 81 mg PO DAILY heart health 07/07/22 [History Last Taken 07/07/22] duloxetine 30 mg capsule,delayed release 30 mg PO 0100,1300 depression 07/07/22 [History Last Taken 07/07/22] Allergy/AdvReac Type Severity Reaction Status Date / Time propoxyphene napsylate AdvReac Vomiting Verified 03/14/22 15:26 [From Darvocet-N 100] Family History Brother Heart disease Father Heart disease Surgical History History of back surgery Social History Smoking Status: Former smoker quit date: 07/27/82 alcohol intake: current alcohol intake frequency: 0-2 drinks per day Alcohol type: wine ROS ROS ED Constitutional Constitutional ED: Denies chills or fever(s) Eyes Eyes: Reports other Details: Left eye swelling?resolved ; Denies change in vision ENT ENT ED: Denies rhinorrhea or sore throat Cardiovascular Cardiovascular: Denies chest pain or palpitations Respiratory/Chest Respiratory/Chest: Reports cough; Denies dyspnea Gastrointestinal Gastrointestinal: Denies abdominal pain, nausea or vomiting Genitourinary Genitourinary ED: Denies dysuria Musculoskeletal Musculoskeletal: Denies arthralgias or myalgias Integumentary Denies rash Neurologic Neurologic: Reports headache(s), weakness and other Details: Frequent falls ; Denies paresthesias Psychiatric Psychiatric: Denies anxiety or depression Hematologic/Lymphatic Hematologic/Lymphatic: Denies easy bleeding or easy bruising EXAM Physical Exam Const Vital Signs: 07/07/22 17:08 07/07/22 20:00 Temperature 98.4 F Temperature Source Temporal Pulse Rate 64 73 Respiratory Rate 18 18 Blood Pressure 143/69 H Blood Pressure Mean 93 Pulse Ox 96 94 Oxygen Delivery Method Room Air Room Air Positive well nourished General Appearance ED: NAD HEENT Reports normocephalic and TM's normal bilaterally atraumatic Eyes PERRL and EOMs intact bilaterally Eyes Narrative: No periorbital edema noted. Neck full ROM and supple General: Negative for tenderness Chest Wall inspection of chest normal and palpation of chest normal Resp normal respiratory effort and clear to auscultation bilaterally Effort and Inspection: Negative for pain with movement Cardio regular rate, regular rhythm and no murmurs GI non-tender, non-distended and no masses Palpation: soft; Negative for guarding Back/Spine no CVA tenderness Cervical Spine: Negative for cervical spine tenderness Lumbar Spine / Lower Back: Negative for lumbar spinal tenderness or paraspinal muscle tenderness Neuro oriented x3, CN's II-XII intact bilaterally, moves all extremities, no focal motor deficits and no sensory deficits noted Motor Exam: general weakness Psych mental status grossly normal and thought process normal Skin Lesions: no lesions Rashes: no rashes Trauma: Negative for abrasion MDM MDM MDM Narrative Medical decision making narrative: Patient is evaluated for increased falls. Patient has a normal neurologic exam. Metabolic work-up performed looking for reason for increased fall such as infection or lecture abnormalities. Work-up largely unremarkable. CT of the brain does not show any acute process. Chest x-ray interpreted by myself as well as radiology does not show any acute infiltrate. I will speak with the hospitalist med admission for PT OT evaluation given the patient's frequent falls. Lab Data Attestation: I reviewed the patient's lab results. Labs: Laboratory Results - last 24 hr 07/07/22 07/07/22 07/07/22 18:30 18:30 19:50 WBC 8.5 RBC 4.50 L Hgb 13.6 Hct 42.3 MCV 94.0 MCH 30.2 MCHC 32.2 RDW Std Deviation 43.2 RDW Coeff of Boom 12.4 Plt Count 205 MPV 10.2 Immature Gran % (Auto) 0.200 Neut % (Auto) 61.9 Lymph % (Auto) 20.3 [place] % (Auto) 8.3 Eos % (Auto) 8.0 H Baso % (Auto) 1.3 H Absolute Neuts (auto) 5.2 Absolute Lymphs (auto) 1.72 Nucleated RBC % 0 Sodium 141 Potassium 4.1 Chloride 108 H Carbon Dioxide 29.0 Anion Gap 4 L BUN 25 H Creatinine 1.08 Estim Creat Clear Calc 60.87 Est GFR (MDRD) Af Amer 85 Est GFR (MDRD) Non-Af 70 BUN/Creatinine Ratio 23.1 H Glucose 109 H Calcium 8.9 Total Bilirubin 0.40 AST 20 ALT 9 L Alkaline Phosphatase 60 Troponin I High Sens 5 Total Protein 7.1 Albumin 3.7 Globulin 3.4 Albumin/Globulin Ratio 1.1 Urine Color Yellow Urine Clarity Clear Urine pH 6.0 Ur Specific [place] 1.025 Urine Protein 15 H Urine Glucose (UA) Normal Urine Ketones 5 H Urine Occult Blood Negative Urine Nitrite Negative Urine Bilirubin Negative Urine Urobilinogen Normal Ur Leukocyte Esterase 25 H Urine RBC 0 SEEN Urine WBC 0 SEEN Ur Squamous Epith Cells 0 SEEN Urine Bacteria 0 SEEN Urine Mucus 0 SEEN Radiography Diagnostic Testing: Clinical Impression(s) from Imaging Studies Brain CT 07/07/22 18:28 IMPRESSION: Chronic involutional changes of the brain. Electronically Signed: Sabino Carty MD at 19:24 EST , Chest X-Ray 07/07/22 18:50 IMPRESSION: Left lower lung scarring or atelectasis. Electronically Signed: Sabino Carty MD at 19:26 EST , Rhythm Strip Rhythm Strip: Sinus Rhythm Rate: 75 Ectopy: None EKG Initial EKG: Attestation: I personally reviewed and interpreted this EKG as follows: Interpretation: Sinus Rhythm Comments: Normal sinus rhythm at a rate of 75 bpm Normal axis Minimal voltage criteria for LVH Normal intervals Normal ST segments Discharge Plan Dx/Rx/DC Orders Clinical Impression: Loss of balance, Parkinson disease, Frequent falls Disposition Disposition: Acute Care [facility] Discharge Date/Time: 07/07/22 23:02
--- NOTE | 2022-07-07 21:39 | PCM.HP.STD ---
HPI - General General Date of Admission: 07/07/22 Date of Service: 07/07/22 Chief Complaint: Frequent falls HPI Narrative ADALBERTO SANCHEZ, is a 81 M who presents to the emergency room after a fall at home. Patient has significant past medical history of Parkinson's disease diagnosed 4 years ago. He is status post COVID 4 months ago and has had progressive debility and weakness at home. His is done primary caregiving up to this point and over the last 2 to 3 weeks he has fallen more than 3 times per day. He sees Dr. Ramirez for his neurology but has been given care by his physician geological survey field assistant and has not responded to recent medication changes according to the spouse. They are concerned that there is more to his diagnosis than Parkinson's. He has progressive imbalance and feels as though he is leaning toward his left. There are no other neurologic findings no slurring speech no headaches no change in vision and no increase in tremor. CT scan is unremarkable. He does not know the last time he had an MRI but denies having any metal implants in his body. He will be admitted to the progressive care unit for neurologic checks through the night along with physical therapy evaluation and treatment in the morning and suspect he will need placement in rehab facility for physical rehab. We will get an MRI of the brain in the morning to rule out other etiologies. [facility], [facility] Medical History Alcohol abuse Anxiety Basal cell carcinoma BPH (benign prostatic hyperplasia) Debility Hyperlipidemia Impotence of non-organic origin Insomnia Sinus disease TIA (transient ischemic attack) (01/23/20) Home Medications fluticasone propionate 50 mcg/actuation nasal spray,suspension 2 spray NASAL DAILY allergies 01/23/20 [History Last Taken 07/07/22] guaifenesin 600 mg tablet, extended release 12 hr 600 mg PO 0100,1300 nasal congestion 01/23/20 [History Last Taken 07/07/22] trazodone 50 mg tablet 50 mg PO QHS sleep 01/23/20 [History Last Taken 07/06/22] doxazosin 4 mg tablet 4 mg PO QHS blood pressure 02/22/20 [History Last Taken 07/06/22] acetaminophen 650 mg tablet,extended release 650 mg PO DAILY arthritis 03/14/22 [History Last Taken 07/07/22] carbidopa ER 23.75 mg-levodopa 95 mg capsule,extended release (Rytary) 4 cap PO TID parkinsons 03/14/22 [History Last Taken 07/07/22] multivitamin 1 tab PO DAILY supplement 03/14/22 [History Last Taken 07/07/22] pregabalin 25 mg capsule 25 mg PO QHS pain 03/14/22 [History Last Taken 07/06/22] pregabalin 50 mg capsule 50 mg PO QHS pain 03/14/22 [History Last Taken 07/06/22] ropinirole 1 mg tablet 1 mg PO BID parkinsons 03/14/22 [History Last Taken 07/07/22] peg 400-propylene glycol (PF) 0.4 %-0.3 % eye drops in a dropperette (Systane (PF)) 1 drp EACH EYE TID dry eyes 03/17/22 [History Last Taken 07/07/22] acetaminophen 500 mg tablet 500 mg PO QPM arthritis 07/07/22 [History Last Taken 07/06/22] aspirin 81 mg tablet,delayed release 81 mg PO DAILY heart health 07/07/22 [History Last Taken 07/07/22] duloxetine 30 mg capsule,delayed release 30 mg PO 0100,1300 depression 07/07/22 [History Last Taken 07/07/22] Allergy/AdvReac Type Severity Reaction Status Date / Time propoxyphene napsylate AdvReac Vomiting Verified 03/14/22 15:26 [From Darvocet-N 100] Family History Brother Heart disease Father Heart disease Surgical History History of back surgery Social History Smoking Status: Former smoker quit date: 07/27/82 alcohol intake: current alcohol intake frequency: 0-2 drinks per day Alcohol type: wine ROS Constitutional Constitutional: Reports weakness; Denies change in weight, chills or fever(s) Eyes Eyes: Denies change in vision ENT HEENT: Denies abnormal hearing Cardiovascular Cardiovascular: Denies chest pain or edema Respiratory/Chest Respiratory/Chest: Denies cough or shortness of breath at rest Gastrointestinal Gastrointestinal: Denies abdominal pain Genitourinary Genitourinary: Denies dysuria Musculoskeletal Musculoskeletal: Reports joint stiffness and muscle weakness; Denies back pain Integumentary Integumentary: Denies jaundice Neurologic Neurologic: Reports lack of coordination and tremor(s) Psychiatric Psychiatric: Denies anxiety Endocrine Endocrinology: Denies change in body appearance Vital Signs Vital Signs Vital Signs: 07/07/22 17:08 Temperature 98.4 F Temperature Source Temporal Pulse Rate 64 Respiratory Rate 18 Blood Pressure 143/69 H Blood Pressure Mean 93 Pulse Ox 96 Oxygen Delivery Method Room Air Weight Weight: 232 lb Body Mass Index (BMI) 31.4 Physical Exam Const oriented x3 General Appearance: cooperative and well developed HEENT normocephalic and head/scalp atraumatic Eyes PERRL and EOMs intact bilaterally Neck no lymphadenopathy Lymph Lymphatic: no lymphadenopathy noted Resp normal respiratory effort, normal air movement and clear to auscultation bilaterally Cardio regular rate, regular rhythm, S1 normal heart sound, S2 normal heart sound and no murmurs GI normal to inspection, nondistended, normoactive bowel sounds, soft to palpation, non-tender and non-distended Extremity no clubbing, cyanosis or edema Skin General Skin Exam: no breakdown Neuro CN's II-XII intact bilaterally, no focal motor deficits and no sensory deficits noted Neuro Narrative: resting tremor present Coordination / Balance: [id number] test normal Speech: speech normal Motor Exam: strength 5/5 throughout Psych cooperative and affect normal Appearance: appropriate Results Lab / Micro Data Result Diagrams: 07/07/22 18:30 07/07/22 18:30 Labs: Laboratory Results - last 24 hr 07/07/22 18:30: WBC 8.5, RBC 4.50 L, Hgb 13.6, Hct 42.3, MCV 94.0, MCH 30.2, MCHC 32.2, RDW Std Deviation 43.2, RDW Coeff of Boom 12.4, Plt Count 205, MPV 10.2, Immature Gran % (Auto) 0.200, Neut % (Auto) 61.9, Lymph % (Auto) 20.3, [place] % (Auto) 8.3, Eos % (Auto) 8.0 H, Baso % (Auto) 1.3 H, Absolute Neuts (auto) 5.2, Absolute Lymphs (auto) 1.72, Nucleated RBC % 0 07/07/22 18:30: Sodium 141, Potassium 4.1, Chloride 108 H, Carbon Dioxide 29.0, Anion Gap 4 L, BUN 25 H, Creatinine 1.08, Estim Creat Clear Calc 60.87, Est GFR (MDRD) Af Amer 85, Est GFR (MDRD) Non-Af 70, BUN/Creatinine Ratio 23.1 H, Glucose 109 H, Calcium 8.9, Total Bilirubin 0.40, AST 20, ALT 9 L, Alkaline Phosphatase 60, Troponin I High Sens 5, Total Protein 7.1, Albumin 3.7, Globulin 3.4, Albumin/Globulin Ratio 1.1 07/07/22 19:50: Urine Color Yellow, Urine Clarity Clear, Urine pH 6.0, Ur Specific [place] 1.025, Urine Protein 15 H, Urine Glucose (UA) Normal, Urine Ketones 5 H, Urine Occult Blood Negative, Urine Nitrite Negative, Urine Bilirubin Negative, Urine Urobilinogen Normal, Ur Leukocyte Esterase 25 H, Urine RBC 0 SEEN, Urine WBC 0 SEEN, Ur Squamous Epith Cells 0 SEEN, Urine Bacteria 0 SEEN, Urine Mucus 0 SEEN Micro: Microbiology 07/07/22 18:35 Nasal Secretion SARS-CoV-2 & FLU Antigen (Rapid) - Final Rhythm Strip Rhythm Strip: Sinus Rhythm Rate: 75 Ectopy: None Radiology Impression Brain CT 07/07/22 18:28 IMPRESSION: Chronic involutional changes of the brain. Electronically Signed: Sabino Carty MD at 19:24 EST , Chest X-Ray 07/07/22 18:50 IMPRESSION: Left lower lung scarring or atelectasis. Electronically Signed: Sabino Carty MD at 19:26 EST , Assessment & Plan Assessment/Plan (1) Parkinson disease: (2) Hyperlipidemia: (3) Frequent falls: (4) Loss of balance: PLAN: Plan 1. Loss of balance and frequent falls.?Admit patient to progressive care unit, neuro checks every 4 hour overnight. Get MRI brain in the morning. Consult physical therapy to evaluate and treat patient for activities of daily living. Consult manager of case management to work on placement to rehab center for short-term rehab goal ultimately wishes to go home but at this time this is unrealistic. 2. Hyperlipidemia?continue statin 3. Parkinson's disease?we will continue routine home medications 4. DVT prophylaxis?low molecular weight heparin Charges/Coding Visit Charges Inpatient E&M: 84778 Init Hosp L3
[2022-07-07 21:55] VITALS: BP 134/74; PULSE 72; RESP 19; O2SAT 95
[2022-07-07 22:14] VITALS: BP 134/74; PULSE 72; RESP 19; TEMP 36.7; O2SAT 95
[2022-07-07 23:16] VITALS: BMI 31.0
[2022-07-08] VITALS (11 sets, daily range): BP systolic 117–144; BP diastolic 57–71; PULSE 68–100; RESP 16–20; TEMP 36.4–37; O2SAT 91–96; BMI 31.0
[2022-07-08] MEDS: Pregabalin 50 MG Capsule PO ×2 (00:01→21:18)
[2022-07-08] MEDS: guaiFENesin 600 MG Tablet PO ×3 (00:01→22:21)
[2022-07-08] MEDS: DULoxetine Hcl 30 MG Capsule PO ×3 (00:01→22:21)
[2022-07-08] MEDS: Glycerin/Hypromellose/PEG400 15 ml Bottle 1 DRP EACH EYE ×4 (00:02→21:18)
[2022-07-08] MEDS: Doxazosin 4 MG Tablet PO ×2 (00:02→21:18)
[2022-07-08] MEDS: traZODone 50 MG Tablet PO ×2 (00:02→21:18)
[2022-07-08] MEDS: Pramipexole Di-HCl 0.5 MG Tablet PO ×2 (00:02→21:18)
[2022-07-08 06:34] LABS: Anion Gap 5 (5-15); BUN 24 mg/dL (7-18); BUN/Creat Ratio 25.2 RATIO (10-20); Calcium,Total 8.8 mg/dL (8.5-10.1); Chloride 106 mmol/L (98-107); Creatinine, Serum 0.95 mg/dL (0.70-1.30); EST Glomerular Filtration Rate 81 mL/min (>60); Est Glom Filt Rate - Afr Amer 98 mL/min (>60); Glucose 97 mg/dL (74-106); Potassium 3.7 mmol/L (3.5-5.1); Sodium Level 140 mmol/L (136-145)
[2022-07-08] MEDS: Fluticasone 0.05% 1 SPRAY NASAL.SRY 2 SPRAY NASAL (08:24)
[2022-07-08] MEDS: Aspirin E.C. 81 MG Tablet PO (08:25)
[2022-07-08] MEDS: Enoxaparin 40 MG/0.4 ML Syringe SC (08:25)
[2022-07-08] MEDS: Multivitamins,Therapeutic Tablet 1 TABLET PO (08:25)
--- NOTE | 2022-07-08 09:00 | MRI_ITS ---
EXAM: MR HEAD WITHOUT INTRAVENOUS CONTRAST CLINICAL INDICATION: multiple falls, L leaning when walking, tia, headache , h/o parkinson''s TECHNIQUE: Multiplanar and multisequence MR images of the brain were obtained without intravenous contrast. This report was created using [employer] report generation technology. COMPARISON: MRI brain without contrast 01/24/2020. FINDINGS: BRAIN AND EXTRA-AXIAL SPACES: No diffusion restriction to suspect acute or subacute ischemic infarct. 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 Periventricular white matter T2 FLAIR hyperintensity foci in both cerebral hemispheres are chronic white matter ischemic changes. No intra- or extra-axial hemorrhage. No intracranial mass or mass effect. Posterior fossa structures are unremarkable. No hydrocephalus. Basal cisterns are patent. SELLA: Unremarkable. Normal sella turcica, pituitary gland, infundibular stalk, optic chiasm and hypothalamus. AUDITORY SYSTEM: Unremarkable. The internal auditory canals are patent. BONES/JOINTS: Unremarkable. No discrete lytic or blastic abnormalities. SINUSES: Mucosal thickening in the maxillary sinuses and ethmoid sinuses due to chronic sinusitis are unchanged. MASTOID AIR CELLS: Unremarkable as visualized. Clear. ORBITS: Unremarkable as visualized. Both globes, extraocular muscles, optic nerves and retrobulbar fat appear unremarkable. VASCULATURE: Unremarkable as visualized. Normal flow voids in the major intracranial circulation. MRI/Brain without Contrast IMPRESSION: 1. No MRI evidence of acute or subacute ischemic infarct, intracranial bleeding or acute intracranial abnormality. 2. 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 This was not present on MRI brain of 01/24/2020. 3. Chronic white matter ischemic changes in both cerebral hemispheres are unchanged. 4. Pronounced chronic sinusitis in the maxillary sinuses and ethmoid sinuses are unchanged. Electronically Signed: Wil Gutierrez MD at 10:35 EST ,
--- NOTE | 2022-07-08 11:47 | CASEMGMT ---
SW spoke with patient's . SW introduced self and role at [facility]. Patient's said she was hoping to get patient into rehab here at [facility]. SW asked patient's if she would like a list of facility options and she declined stating she wants [facility]. SW let patient's know SW will work on this referral. SW did explain that it is ultimately up to patient's insurance and how patient does with therapy as to whether or not this would be approved. Patient's verbalized understanding. SW made referral to [facility] for Inpatient Rehab vs TCU. Milady Gordon SENIOR SUPPLY CHAIN ANALYST TJ
[2022-07-08] MEDS: CARBIDOPA/LEVODOPA 1 EACH CAPSULE.ER 4 EACH PO ×2 (11:57→21:18)
--- NOTE | 2022-07-08 12:38 | TELEMED_ITS ---
[facility] has confirmed receipt of a request for visit. This document confirms receipt of the order initiating the consult. To find the results of the consultation, please view the patient's reports for the scanned Telemed Consult.
--- NOTE | 2022-07-08 15:11 | PN.HOSP_ITS ---
Subjective Subjective Patient seen and examined. He had no active complaints. HE was admitted due to frequent falls. He complains of weakness and falls at home. HE was diagnosed with Parkinson's disease 4 years ago. He denies any tremors, shakes, fever, chills, review of systems is otherwise negative. Objective Data Objective Data Vital Signs: Vital Signs Temp Pulse Resp BP Pulse Ox O2 Del Method 97.6 F L 75 20 H 128/65 H 96 Room Air 07/08/22 15:02 07/08/22 15:02 07/08/22 15:02 07/08/22 15:02 07/08/22 15:02 07/08/22 15:02 Oxygen Delivery Method Room Air Weight: 229 lb 0.964 oz Body Mass Index (BMI) 31.0 Intake & Output: Intake and Output for Last 24 Hours 07/06/22 07/07/22 07/08/22 23:59 23:59 23:59 Intake Total 490 / 490 Balance 490 / 490 Lab / Micro Data Result Diagrams: 07/07/22 18:30 07/08/22 04:14 Labs: Laboratory Results - last 24 hr 07/07/22 18:30: WBC 8.5, RBC 4.50 L, Hgb 13.6, Hct 42.3, MCV 94.0, MCH 30.2, MCHC 32.2, RDW Std Deviation 43.2, RDW Coeff of Boom 12.4, Plt Count 205, MPV 10.2, Immature Gran % (Auto) 0.200, Neut % (Auto) 61.9, Lymph % (Auto) 20.3, [place] % (Auto) 8.3, Eos % (Auto) 8.0 H, Baso % (Auto) 1.3 H, Absolute Neuts (auto) 5.2, Absolute Lymphs (auto) 1.72, Nucleated RBC % 0 07/07/22 18:30: Sodium 141, Potassium 4.1, Chloride 108 H, Carbon Dioxide 29.0, Anion Gap 4 L, BUN 25 H, Creatinine 1.08, Estim Creat Clear Calc 60.87, Est GFR (MDRD) Af Amer 85, Est GFR (MDRD) Non-Af 70, BUN/Creatinine Ratio 23.1 H, Glucose 109 H, Calcium 8.9, Total Bilirubin 0.40, AST 20, ALT 9 L, Alkaline Phosphatase 60, Troponin I High Sens 5, Total Protein 7.1, Albumin 3.7, Globulin 3.4, Albumin/Globulin Ratio 1.1 07/07/22 19:50: Urine Color Yellow, Urine Clarity Clear, Urine pH 6.0, Ur Specific [place] 1.025, Urine Protein 15 H, Urine Glucose (UA) Normal, Urine Ketones 5 H, Urine Occult Blood Negative, Urine Nitrite Negative, Urine Bilirubin Negative, Urine Urobilinogen Normal, Ur Leukocyte Esterase 25 H, Urine RBC 0 SEEN, Urine WBC 0 SEEN, Ur Squamous Epith Cells 0 SEEN, Urine Bacteria 0 SEEN, Urine Mucus 0 SEEN 07/08/22 04:14: Sodium 140, Potassium 3.7, Chloride 106, Carbon Dioxide 29.0, Anion Gap 5, BUN 24 H, Creatinine 0.95, Estim Creat Clear Calc 69.20, Est GFR (MDRD) Af Amer 98, Est GFR (MDRD) Non-Af 81, BUN/Creatinine Ratio 25.2 H, Glucose 97, Calcium 8.8 Micro: Microbiology 07/07/22 18:35 Nasal Secretion SARS-CoV-2 & FLU Antigen (Rapid) - Final Radiography Diagnostic Testing: Radiology Impression Brain CT 07/07/22 18:28 IMPRESSION: Chronic involutional changes of the brain. Electronically Signed: Sabino Carty MD at 19:24 EST , Chest X-Ray 07/07/22 18:50 IMPRESSION: Left lower lung scarring or atelectasis. Electronically Signed: Sabino Carty MD at 19:26 EST , Brain MRI 07/08/22 09:00 IMPRESSION: 1. No MRI evidence of acute or subacute ischemic infarct, intracranial bleeding or acute intracranial abnormality. 2. 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 This was not present on MRI brain of 01/24/2020. 3. Chronic white matter ischemic changes in both cerebral hemispheres are unchanged. 4. Pronounced chronic sinusitis in the maxillary sinuses and ethmoid sinuses are unchanged. Electronically Signed: Wil Gutierrez MD at 10:35 EST , Rhythm Strip Rhythm Strip: Sinus Rhythm Rate: 75 Ectopy: None Physical Exam Const alert, oriented x3 and no apparent distress HEENT head/scalp atraumatic, moist oral mucous membranes and oropharynx normal Head and Scalp: normocephalic Mouth: oral and palatal mucosa normal Eyes PERRL, EOMs intact bilaterally and conjunctivae normal Neck no lymphadenopathy, supple and no JVD Resp normal respiratory effort, no retractions, no use of accessory muscles and clear to auscultation bilaterally Cardio regular rate, regular rhythm, S1 normal heart sound, S2 normal heart sound and no murmurs GI normal to inspection, nondistended, normoactive bowel sounds, soft to palpation, non-tender and non-distended Extremity normal to inspection, full ROM and no clubbing, cyanosis or edema Neuro oriented x3, CN's II-XII intact bilaterally, moves all extremities and no focal motor deficits Sensorium / Orientation: awake and alert Motor Exam: strength 5/5 throughout Psych affect normal Assessment & Plan Assessment/Plan (1) Frequent falls: (2) Loss of balance: PLAN: Plan #Debility due to frequent falls * MRI of brain showed on acute intracranial pathology * PT/OT on board. * may be due to worsening of his Parkinson's disease * fall precautions * #Hyperlipidemia: on statin #Parkinson's disease: on Rytary and Ropinirole DVT prophylaxis: lovenox Charges/Coding Visit Charges Inpatient E&M: 01700 Subs Hosp L2
--- NOTE | 2022-07-08 15:39 | CASEMGMT ---
Patient was accepted in the Inpatient Rehab Unit pending insurance approval. SW called patient's and left her a voice mail letting her know this information. Plan: [facility] 4th floor Rehab Unit pending insurance approval. Milady SPENCER
[2022-07-08] MEDS: Acetaminophen 500 MG Tablet PO (21:18)
[2022-07-08] MEDS: 0.9% Saline Lock 10 ML Syringe IV (21:19)
[2022-07-09] VITALS (9 sets, daily range): BP systolic 120–145; BP diastolic 62–68; PULSE 75–106; RESP 18–20; TEMP 36.4–37; O2SAT 93–96; BMI 31.0
[2022-07-09] MEDS: Pregabalin 25 MG Capsule PO (04:38)
[2022-07-09] MEDS: Glycerin/Hypromellose/PEG400 15 ml Bottle 1 DRP EACH EYE ×3 (06:56→21:18)
[2022-07-09] MEDS: CARBIDOPA/LEVODOPA 1 EACH CAPSULE.ER 4 EACH PO ×3 (06:57→21:19)
[2022-07-09] MEDS: Fluticasone 0.05% 1 SPRAY NASAL.SRY 2 SPRAY NASAL (09:00)
[2022-07-09] MEDS: guaiFENesin 600 MG Tablet PO ×2 (09:00→21:19)
[2022-07-09] MEDS: Enoxaparin 40 MG/0.4 ML Syringe SC (09:00)
[2022-07-09] MEDS: Pramipexole Di-HCl 0.5 MG Tablet PO ×2 (09:00→21:19)
[2022-07-09] MEDS: Aspirin E.C. 81 MG Tablet PO (09:00)
[2022-07-09] MEDS: Multivitamins,Therapeutic Tablet 1 TABLET PO (09:00)
[2022-07-09] MEDS: DULoxetine Hcl 30 MG Capsule PO ×2 (11:10→21:19)
--- NOTE | 2022-07-09 14:50 | PN.HOSP_ITS ---
Subjective Subjective Patient seen and examined. He has no complaints today and had an uneventful night. Review of systems is otherwise negative. He is awaiting placement. Objective Data Objective Data Vital Signs: Vital Signs Temp Pulse Resp BP Pulse Ox O2 Del Method 98.2 F 77 18 129/68 H 96 Room Air 07/09/22 09:41 07/09/22 09:41 07/09/22 09:41 07/09/22 09:41 07/09/22 09:41 07/09/22 09:45 Oxygen Delivery Method Room Air Weight: 229 lb 0.964 oz Body Mass Index (BMI) 31.0 Intake & Output: Intake and Output for Last 24 Hours 07/07/22 07/08/22 07/09/22 23:59 23:59 23:59 Intake Total 740 / 740 350 / 350 Balance 740 / 740 350 / 350 Lab / Micro Data Result Diagrams: 07/07/22 18:30 07/08/22 04:14 Micro: Microbiology 07/07/22 18:35 Nasal Secretion SARS-CoV-2 & FLU Antigen (Rapid) - Final Rhythm Strip Rhythm Strip: Sinus Rhythm Rate: 75 Ectopy: None Physical Exam Const alert, oriented x3 and no apparent distress General Appearance: cooperative and well developed HEENT normocephalic, head/scalp atraumatic, moist oral mucous membranes and oropharynx normal Eyes PERRL, EOMs intact bilaterally and conjunctivae normal Neck no lymphadenopathy, supple and no JVD Lymph Lymphatic: no lymphadenopathy noted Resp normal respiratory effort, normal air movement, no retractions, no use of accessory muscles and clear to auscultation bilaterally Cardio regular rate, regular rhythm, S1 normal heart sound, S2 normal heart sound and no murmurs GI normal to inspection, nondistended, normoactive bowel sounds, soft to palpation, non-tender and non-distended Extremity normal to inspection, full ROM and no clubbing, cyanosis or edema Skin General Skin Exam: no breakdown Neuro oriented x3, CN's II-XII intact bilaterally, moves all extremities, no focal motor deficits and no sensory deficits noted Neuro Narrative: resting tremor present Sensorium / Orientation: awake and alert Coordination / Balance: [id number] test normal Speech: speech normal Motor Exam: strength 5/5 throughout Psych cooperative and affect normal Appearance: appropriate Assessment & Plan Assessment/Plan (1) Frequent falls: (2) Loss of balance: PLAN: Plan #Debility due to frequent falls * MRI of brain showed on acute intracranial pathology * PT/OT on board. * may be due to worsening of his Parkinson's disease * fall precautions * #Hyperlipidemia: on statin #Parkinson's disease: on Rytary and Ropinirole DVT prophylaxis: lovenox Disposition: awaiting placement Charges/Coding Visit Charges Inpatient E&M: 65632 Subs Hosp L2
--- NOTE | 2022-07-09 15:34 | EKG12_ITS ---
Test Reason : DYSRHYTHMIA Blood Pressure : / mmHG Vent. Rate : 080 BPM Atrial Rate : 080 BPM P-R Int : 124 ms QRS Dur : 080 ms QT Int : 364 ms P-R-T Axes : 017 -29 086 degrees QTc Int : 419 ms Sinus rhythm with Fusion complexes Nonspecific T wave abnormality Abnormal ECG When compared with ECG of 07-JUL-2022 18:39, Fusion complexes are now Present Confirmed by CA VALADEZ, ALFRED ([id number]), editorial manager VANESSA HALL ([id number]) on 07/11/2022 10:51:37 AM Referred By: LISA Confirmed By:ELOY PENALOZA MD
[2022-07-09] MEDS: 0.9% Saline Lock 10 ML Syringe IV (19:40)
[2022-07-09] MEDS: traZODone 50 MG Tablet PO (21:19)
[2022-07-09] MEDS: Acetaminophen 500 MG Tablet PO (21:19)
[2022-07-09] MEDS: Doxazosin 4 MG Tablet PO (21:19)
[2022-07-09] MEDS: Pregabalin 50 MG Capsule PO (21:19)
[2022-07-10 03:24] VITALS: PULSE 73
[2022-07-10 03:28] VITALS: BP 117/71; PULSE 74; RESP 16; TEMP 36.3; O2SAT 96
[2022-07-10 06:00] LABS: Anion Gap 4 (5-15); BUN 22 mg/dL (7-18); BUN/Creat Ratio 23.6 RATIO (10-20); Calcium,Total 8.6 mg/dL (8.5-10.1); Chloride 108 mmol/L (98-107); Creatinine, Serum 0.93 mg/dL (0.70-1.30); EST Glomerular Filtration Rate 83 mL/min (>60); Est Glom Filt Rate - Afr Amer 100 mL/min (>60); Estimated Creatinine Clearance 70.69 ml/min; Glucose 100 mg/dL (74-106); Magnesium 2.4 mg/dL (1.6-2.6); Potassium 3.9 mmol/L (3.5-5.1); Sodium Level 140 mmol/L (136-145)
[2022-07-10] MEDS: Glycerin/Hypromellose/PEG400 15 ml Bottle 1 DRP EACH EYE (06:15)
[2022-07-10] MEDS: CARBIDOPA/LEVODOPA 1 EACH CAPSULE.ER 4 EACH PO (06:15)
[2022-07-10 07:00] VITALS: PULSE 67
[2022-07-10 07:28] VITALS: O2SAT 94
[2022-07-10] MEDS: Fluticasone 0.05% 1 SPRAY NASAL.SRY 2 SPRAY NASAL (09:09)
[2022-07-10] MEDS: Enoxaparin 40 MG/0.4 ML Syringe SC (09:11)
[2022-07-10] MEDS: Aspirin E.C. 81 MG Tablet PO (09:12)
[2022-07-10] MEDS: Pramipexole Di-HCl 0.5 MG Tablet PO (09:12)
[2022-07-10] MEDS: DULoxetine Hcl 30 MG Capsule PO (09:12)
[2022-07-10] MEDS: Multivitamins,Therapeutic Tablet 1 TABLET PO (09:12)
[2022-07-10] MEDS: guaiFENesin 600 MG Tablet PO (09:12)
[2022-07-10] MEDS: 0.9% Saline Lock 10 ML Syringe IV (09:16)
[2022-07-10 09:25] VITALS: BP 121/71; PULSE 81; RESP 16; TEMP 36.3; O2SAT 94
--- NOTE | 2022-07-10 10:10 | CASEMGMT ---
Patient was approved for the Inpatient Rehab Unit. ALONDRA notified physician, RN, and physician. ALONDRA called patient's Jenni and let her know patient was approved for the 4th floor Rehab Unit and he will go today. ALONDRA went over visiting hours in the Rehab Unit and what to bring patient. Jenni thanked ALONDRA for the update. Plan: [facility] 4th floor Inpatient Rehab Unit. Milady SPENCER
--- NOTE | 2022-07-10 11:12 | PCM.DC.SUM ---
Providers Date of Admission: 07/07/22 Date of Discharge: 07/10/22 Primary Care Physician: Dr. Coy Barnard MD Reason For Visit: FREQUENT FALLS & CHANGE IN BALANCE Diagnosis Discharge Diagnosis (1) Frequent falls: Status: Acute Code(s): R29.6 - Repeated falls (2) Loss of balance: Status: Acute Code(s): R26.89 - Other abnormalities of gait and mobility Medications at Discharge Home Medications fluticasone propionate 50 mcg/actuation nasal spray,suspension 2 spray NASAL DAILY allergies 01/23/20 guaifenesin 600 mg tablet, extended release 12 hr 600 mg PO BID nasal congestion 01/23/20 trazodone 50 mg tablet 50 mg PO QHS sleep 01/23/20 doxazosin 4 mg tablet 4 mg PO QHS blood pressure 02/22/20 acetaminophen 650 mg tablet,extended release 500 mg PO DAILY arthritis 03/14/22 carbidopa ER 23.75 mg-levodopa 95 mg capsule,extended release (Rytary) 4 cap PO TID parkinsons 03/14/22 multivitamin 1 tab PO DAILY supplement 03/14/22 pregabalin 25 mg capsule 25 mg PO QHS PRN Pain 03/14/22 pregabalin 50 mg capsule 50 mg PO QHS pain 03/14/22 ropinirole 1 mg tablet 1 mg PO BID parkinsons 03/14/22 peg 400-propylene glycol (PF) 0.4 %-0.3 % eye drops in a dropperette (Systane (PF)) 1 drp EACH EYE TID dry eyes 03/17/22 acetaminophen 500 mg tablet 500 mg PO QPM arthritis 07/07/22 aspirin 81 mg tablet,delayed release 81 mg PO DAILY heart health 07/07/22 duloxetine 30 mg capsule,delayed release 30 mg PO BID depression 07/07/22 Hospital Course Operations None Summary of Care Provided Minutes Spent on Discharge: 45 Hospital Course: Patient is a 81-year-old male with past medical history was admitted through the ED after he fell at home. Patient has a history of Parkinson's disease and has been getting weak and falling more at home. His medications have been recently changed by his neurologist. He also had progressive imbalance and was leaning more towards the left. CT of the brain showed no acute intracranial pathology. MRI of the brain also showed no acute intracranial pathology. Was admitted and managed for debility due to frequent mechanical falls. Neurology reviewed patient and felt that his increased falls correlated with the timing of change in medications from Sinemet to ropinirole. 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 Patient remained stable and [facility]. He is to follow-up with his primary care doctor and with his neurologist within the next 2 to 3 weeks. Patient seen and examined prior to discharge. He had no complaints and had an uneventful night. Review of systems otherwise negative. Labs and vitals reviewed. Medication reviewed and reconciled.. Physical Exam Const alert, oriented x3 and no apparent distress General Appearance: cooperative, comfortable, well kempt and well developed Exam Limitations: no limitations HEENT normocephalic, head/scalp atraumatic, hearing grossly normal bilaterally, moist oral mucous membranes and oropharynx normal Eyes PERRL, EOMs intact bilaterally and conjunctivae normal Neck no lymphadenopathy, supple and no JVD Lymph Lymphatic: no lymphadenopathy noted Resp normal respiratory effort, normal air movement, no retractions, no use of accessory muscles and clear to auscultation bilaterally Cardio regular rate, regular rhythm, S1 normal heart sound, S2 normal heart sound and no murmurs GI normal to inspection, nondistended, normoactive bowel sounds, soft to palpation, non-tender and non-distended Extremity normal to inspection, full ROM and no clubbing, cyanosis or edema Skin General Skin Exam: no breakdown Neuro oriented x3, CN's II-XII intact bilaterally, moves all extremities, no focal motor deficits and no sensory deficits noted Neuro Narrative: resting tremor present Sensorium / Orientation: awake and alert Speech: speech normal Motor Exam: strength 5/5 throughout Psych cooperative and affect normal Appearance: appropriate Weight / BMI Weight Weight: 229 lb 0.964 oz Body Mass Index (BMI) 31.0 ABG / Lab / Microbiology Data Result Diagrams: 07/07/22 18:30 07/10/22 04:00 Laboratory: Laboratory Results - last 24 hr 07/10/22 04:00: Sodium 140, Potassium 3.9, Chloride 108 H, Carbon Dioxide 28.0, Anion Gap 4 L, BUN 22 H, Creatinine 0.93, Estim Creat Clear Calc 70.69, Est GFR (MDRD) Af Amer 100, Est GFR (MDRD) Non-Af 83, BUN/Creatinine Ratio 23.6 H, Glucose 100, Calcium 8.6, Magnesium 2.4 Microbiology: Microbiology 07/07/22 18:35 Nasal Secretion SARS-CoV-2 & FLU Antigen (Rapid) - Final D/C Instructions Discharge Diet: Low fat / Low cholesterol Discharge Activity: Return to Normal Activity Weight Bearing Status: Weight bearing as tolerated Call your doctor if you observe: Fever of 101 or Higher, Shortness of breath, Dizziness, Swelling in the ankles, Chest pain and Increased palpitations (irregular heartbeat) Meaningful Use Info Meaningful Use Diagnoses (Choose all that apply): None applicable Discharge Plan Admission Admit Date/Time: 07/07/22 21:49 Primary Reason for Your Visit: debility Attending Provider: Ami Escobar Primary Care Provider: Coy Barnard Consulting Providers: Jairo Paul Discharge Orders/Prescriptions Prescriptions: Continued doxazosin 4 mg tablet 4 mg PO QHS fluticasone propionate 1 SPRAY spray,suspension 2 spray NASAL DAILY guaifenesin 600 MG tablet 600 mg PO BID trazodone 50 MG tablet 50 mg PO QHS multivitamin Tablet 1 tab PO DAILY ropinirole 1 mg tablet 1 mg PO BID pregabalin 25 mg capsule 25 mg PO QHS PRN (Reason: Pain) pregabalin 50 mg capsule 50 mg PO QHS Rytary 23.75-95 mg capsule, extended release 4 cap PO TID acetaminophen 650 mg Tablet Extended Release 500 mg PO DAILY Systane (PF) 0.4-0.3 % Dropperette 1 drp EACH EYE TID aspirin 81 mg Tablet,Delayed Release (Dr/Ec) 81 mg PO DAILY acetaminophen 500 mg Tablet 500 mg PO QPM duloxetine 30 mg capsule,delayed release(DR/EC) 30 mg PO BID Referrals / Follow Up: Coy Barnard MD [Primary Care Provider] - Within 2 Weeks Disposition Disposition (needs filled in before D/C Order can be placed): Home, Self Care Charges/Coding Visit Charges Inpatient E&M: 17120 Disch Hosp
== END 2022-07-10 12:20 | DRG 93 ==
LOC: ED 21:41 → PCU 22:30
PROVIDERS: Admitting Provider Family Medicine; Emergency Provider Emergency Medicine; PCP Family Medicine; Visit Provider Student in an Organized Health Care Education/Training Program
DX: R29.6 Repeated falls (principal); E78.5 Hyperlipidemia, unspecified; G20 Parkinson's disease; R26.89 Other abnormalities of gait and mobility; R53.81 Other malaise; Z87.891 Personal history of nicotine dependence; Z86.73 Personal history of transient ischemic attack (TIA), and cerebral infarction without residual deficits; Z86.16 Personal history of COVID-19
CPT/HCPCS: 36415; 70450; 70551; 71045; 80048; 80053; 81001; 83735; 84484; 85025; 87428; 93005; 97162; 97166; 97530; 97535; 99283; A4216

== ENCOUNTER 2022-07-10 12:20 | Inpatient (IN) | payer MEDICARE, SELFPAY ==
[2022-07-10 13:00] VITALS: BP 144/68; PULSE 86; RESP 17; TEMP 36.8; O2SAT 94; BMI 31.4
[2022-07-10] MEDS: Glycerin/Hypromellose/PEG400 15 ml Bottle 1 DRP EACH EYE ×2 (17:27→21:19)
[2022-07-10 18:47] VITALS: PULSE 81; O2SAT 95
[2022-07-10 19:08] VITALS: BP 129/70; PULSE 82; RESP 16; TEMP 36.8; O2SAT 95
--- NOTE | 2022-07-10 20:06 | HP.PCM_ITS ---
HPI - General General Date of Admission: 07/10/22 Date of Service: 07/10/22 Chief Complaint: Here for 3 hours daily rehabilitation, strengthening. HPI Narrative 07/07/2022 ADALBERTO SANCHEZ, is a 81 Male who presents to [facility] with fall. 07/07/2022 EKG normal sinus rhythm, minimal voltage criteria for LVH, anterior infarct, age undetermined. Parkinsonian patient, increasing falls. Multiple daily falls for 1.5 weeks. Fell into bathtub, mild cough, mild headache. Concern for other cause of fall besides Parkinson Disease. CT brain okay, Chest x-ray okay, Evaluation negative. 07/07/2022 Admit to Hospital. Covid19 [address] Ramirez for Parkinson Disease. MRI brain, PT/OT for increasing falls. 07/08/2022 MRI brain negative for stroke. 07/09/2022 No complaints. Increasing falls thought secondary to worsening Parkinson Disease. 07/10/2022 Admit to for 3 hours daily rehabilitation, strengthening, prior to discharge home with . [facility] Medical History Alcohol abuse Anxiety Basal cell carcinoma BPH (benign prostatic hyperplasia) Debility Former smoker GERD (gastroesophageal reflux disease) Hyperlipidemia Impotence of non-organic origin Insomnia Sinus disease TIA (transient ischemic attack) (01/23/20) Home Medications fluticasone propionate 50 mcg/actuation nasal spray,suspension 2 spray NASAL DAILY allergies 01/23/20 [History Last Taken 07/07/22] guaifenesin 600 mg tablet, extended release 12 hr 600 mg PO BID nasal congestion 01/23/20 [History Last Taken 07/07/22] trazodone 50 mg tablet 50 mg PO QHS sleep 01/23/20 [History Last Taken 07/06/22] doxazosin 4 mg tablet 4 mg PO QHS blood pressure 02/22/20 [History Last Taken 07/06/22] acetaminophen 650 mg tablet,extended release 500 mg PO DAILY arthritis 03/14/22 [History Last Taken 07/07/22] carbidopa ER 23.75 mg-levodopa 95 mg capsule,extended release (Rytary) 4 cap PO TID parkinsons 03/14/22 [History Last Taken 07/07/22] multivitamin 1 tab PO DAILY supplement 03/14/22 [History Last Taken 07/07/22] pregabalin 25 mg capsule 25 mg PO QHS PRN Pain 03/14/22 [History Last Taken 07/06/22] pregabalin 50 mg capsule 50 mg PO QHS pain 03/14/22 [History Last Taken 07/06/22] ropinirole 1 mg tablet 1 mg PO BID parkinsons 03/14/22 [History Last Taken 07/07/22] peg 400-propylene glycol (PF) 0.4 %-0.3 % eye drops in a dropperette (Systane (PF)) 1 drp EACH EYE TID dry eyes 03/17/22 [History Last Taken 07/07/22] acetaminophen 500 mg tablet 500 mg PO QPM arthritis 07/07/22 [History Last Taken 07/06/22] aspirin 81 mg tablet,delayed release 81 mg PO DAILY heart health 07/07/22 [History Last Taken 07/07/22] duloxetine 30 mg capsule,delayed release 30 mg PO BID depression 07/07/22 [History Last Taken 07/07/22] Allergy/AdvReac Type Severity Reaction Status Date / Time propoxyphene napsylate AdvReac Vomiting Verified 03/14/22 15:26 [From Darvocet-N 100] Family History Brother Heart disease Father Heart disease Surgical History History of back surgery Social History (Updated 07/10/22 @ 20:[address] Jose Izquierdo MD) household members: spouse Smoking Status: Former smoker quit date: 07/27/82 alcohol intake: current alcohol intake frequency: 0-2 drinks per day Alcohol type: wine substance use type: does not use ROS Constitutional Constitutional: Denies chills, fever(s) or weight gain ENT HEENT: Denies headache(s), nasal congestion or nasal discharge Cardiovascular Cardiovascular: Denies chest pain or palpitations Respiratory/Chest Respiratory/Chest: Denies cough, excessive phlegm production or shortness of breath with exertion Gastrointestinal Gastrointestinal: Denies abdominal pain, nausea or vomiting Genitourinary Genitourinary: Denies dysuria Musculoskeletal Musculoskeletal: Denies joint pain or joint swelling Integumentary Integumentary: Denies rash or wounds Neurologic Neurologic: Denies focal weakness, numbness or tingling Psychiatric Psychiatric: Denies anxiety, auditory hallucinations, depression, homicidal ideation or suicidal ideation Vital Signs Vital Signs Vital Signs: 07/10/22 13:00 07/10/22 16:15 07/10/22 18:47 Temperature 98.3 F Temperature Source Temporal Pulse Rate 86 81 Respiratory Rate 17 Respiratory Effort Normal Non-Labored Respiratory Depth Normal Respiratory Pattern Normal Blood Pressure 144/68 H Blood Pressure Mean 93 Blood Pressure Source Monitor Blood Pressure Position Sitting Blood Pressure Location Left Arm Pulse Ox 94 95 Oxygen Delivery Method Room Air Room Air Room Air 07/10/22 19:08 Temperature 98.3 F Temperature Source Temporal Pulse Rate 82 Respiratory Rate 16 Respiratory Effort Respiratory Depth Respiratory Pattern Blood Pressure 129/70 H Blood Pressure Mean 89 Blood Pressure Source Monitor Blood Pressure Position Sitting Blood Pressure Location Left Arm Pulse Ox 95 Oxygen Delivery Method Room Air Weight Weight: 104.9 kg Body Mass Index (BMI) 31.4 Indicators for Scoring Admitted with or Primary Diagnosis of CVA/Stroke: No Hx of CVA/Stroke: Yes (TIA 2019) Modified Brad Score MRS Score at time of Evaluation: 3-Moderate disability Physical Exam Const alert General Appearance: cooperative HEENT normocephalic Eyes PERRL and EOMs intact bilaterally Neck supple, no JVD and no carotid bruits Resp normal respiratory effort, normal air movement and clear to auscultation bilaterally Cardio regular rate and regular rhythm GI normal to inspection, nondistended, normoactive bowel sounds, non-tender and non-distended Extremity normal capillary refill General Extremity: Negative for edema Skin no rashes or lesions noted General Skin Exam: no breakdown Psych affect normal Appearance: appropriate Assessment & Plan Assessment/Plan (1) Debility: (2) Frequent falls: (3) Parkinson disease: (4) Late effect of lacunar infarction: (5) Allergic rhinitis: (6) Insomnia: (7) BPH (benign prostatic hyperplasia): (8) Depression: (9) Neuropathic pain: PLAN: Plan 81 year old male with below past medical history significant for Parkinson Disease, hospitalized for worsening falls, stroke ruled out, admitted to for 3 hours daily rehabilitation, strengthening, prior to discharge home with . * Debility - PT/OT. * Pain - Tylenol 500mg bid. * Bowel - senna/colace 2 tablets bid, Dulcolax 10mg pr prn, MOM 30ml daily prn. * Stroke - Aspirin 81mg daily. * Parkinson Disease - Rytary ER 4 tablets tid, Mirapex 0.5mg bid. * BPH - Doxazosin 4mg qhs. * Depression - Duloxetine 30mg bid. * Allergic rhinitis - Flonase 2 spray daily. * Congestion - Mucinex 600mg bid. * Nutrition - MVI daily. * Dry eyes - Artificial tears 1gtt ou tid. * Neuropathy - Lyrica 50mg qhs, 25mg qhs prn. * Insomnia - Trazodone 50mg qhs.
[2022-07-10] MEDS: Acetaminophen 500 MG Tablet PO (21:19)
[2022-07-10] MEDS: Doxazosin 4 MG Tablet PO (21:19)
[2022-07-10] MEDS: DULoxetine Hcl 30 MG Capsule PO (21:19)
[2022-07-10] MEDS: guaiFENesin 600 MG Tablet PO (21:20)
[2022-07-10] MEDS: traZODone 50 MG Tablet PO (21:20)
[2022-07-10] MEDS: Pramipexole Di-HCl 0.5 MG Tablet PO (21:20)
[2022-07-10] MEDS: CARBIDOPA/LEVODOPA 1 EACH CAPSULE.ER 4 EACH PO (21:20)
[2022-07-10] MEDS: Pregabalin 50 MG Capsule PO (21:25)
[2022-07-10 22:50] VITALS: RESP 16; O2SAT 98
[2022-07-11] MEDS: Glycerin/Hypromellose/PEG400 15 ml Bottle 1 DRP EACH EYE ×3 (05:37→22:47)
[2022-07-11] MEDS: CARBIDOPA/LEVODOPA 1 EACH CAPSULE.ER 4 EACH PO ×3 (05:37→22:45)
[2022-07-11 05:42] LABS: Hematocrit 42.5 % (40-54); Hemoglobin 13.4 g/dL (13.0-16.5); Mean Corp Hgb Conc 31.5 g/dL (32-36); Mean Corpuscular Hgb 29.6 pg (27.0-32.0); Mean Platelet Vol. 10.2 fl (6.2-12.0); Platelet Count 195 K/mm3 (150-450); RBC Distribution Width CV 12.2 % (11.6-14.6); RBC Distribution Width SD 42.3 fl (35.1-43.9); Red Blood Count 4.52 M/mm3 (4.6-6.2); White Blood Count 8.7 K/mm3 (4.4-11.0)
[2022-07-11] MEDS: 0.9% Saline Lock 10 ML Syringe IV ×2 (05:45→23:42)
[2022-07-11 05:59] LABS: ALB/GLOB Ratio 1.1 RATIO (0.9-2.4); AST(SGOT) 11 U/L (15-37); Alanine Aminotransfer ALT/SGPT 13 U/L (16-61); Albumin, Serum 3.4 g/dL (3.2-5.0); Alkaline Phosphatase 55 U/L (45-117); Anion Gap 3 (5-15); BUN 23 mg/dL (7-18); BUN/Creat Ratio 20.5 RATIO (10-20); Calcium,Total 8.7 mg/dL (8.5-10.1); Chloride 106 mmol/L (98-107); Creatinine, Serum 1.12 mg/dL (0.70-1.30); EST Glomerular Filtration Rate 67 mL/min (>60); Est Glom Filt Rate - Afr Amer 81 mL/min (>60); Globulin 3.2 g/dL (2.2-4.2); Glucose 105 mg/dL (74-106); Magnesium 2.1 mg/dL (1.6-2.6); Phosphorus 3.1 mg/dL (2.5-4.9); Potassium 4.1 mmol/L (3.5-5.1); Protein, Total 6.6 g/dL (6.4-8.2); Sodium Level 141 mmol/L (136-145)
[2022-07-11 07:22] VITALS: O2SAT 95
[2022-07-11 07:55] VITALS: BP 141/77; PULSE 72; RESP 18; TEMP 36.2; O2SAT 97
[2022-07-11] MEDS: Senna/Docusate Sodium 1 Tablet 2 TABLET PO ×2 (08:58→22:45)
[2022-07-11] MEDS: Aspirin E.C. 81 MG Tablet PO (08:58)
[2022-07-11] MEDS: Multivitamins,Therapeutic Tablet 1 TABLET PO (08:58)
[2022-07-11] MEDS: guaiFENesin 600 MG Tablet PO ×2 (08:58→22:46)
[2022-07-11] MEDS: Pramipexole Di-HCl 0.5 MG Tablet PO ×2 (08:58→22:46)
[2022-07-11] MEDS: Acetaminophen 500 MG Tablet PO ×2 (08:58→22:47)
[2022-07-11] MEDS: DULoxetine Hcl 30 MG Capsule PO ×2 (08:58→22:46)
[2022-07-11] MEDS: Fluticasone 0.05% 1 SPRAY NASAL.SRY 2 SPRAY NASAL (09:00)
--- NOTE | 2022-07-11 14:54 | CHAPLAIN ---
Type of Pastoral Visit _x__ Initial Visit ___ Follow-up Visit ___ On-call Visit ___ General Patient Visit ___ Spiritual Assessment ___ Family Conference ___ Bereavement ___ Rapid Response ___ Code Blue ___ Other (describe below) Pastoral Care Referral From _x__ Patient ___ Family ___ Nurse ___ Physician ___ Swing Driver ___ Hall Manager ___ Other (describe below) Sacrament/Intervention _x__ Active listening ___ Anointing ___ Adventist ___ Bereavement ___ Communion ___ Vy exploration ___ _x__ Life review ___ Prayer ___ Reconciliation ___ Sacrament of Sick ___ Supportive presence ___ Wedding ___ Other (describe below) Pastoral Comments patient was willing to give life review and current situation; pt then had to go to therapy; pt welcomes a follow up visit later
--- NOTE | 2022-07-11 15:31 | PCM.RU.PYE ---
Admission Information Primary Diagnosis:: Parkinson Disease, Frequent falls. Status Changes from Prescreening?: No changes Identified Actual Problem List:: Falls, Mobility Impaired, Self Care Deficit, Ineffective Communication and Alteration-Leisure Activ. Potential Problem List:: DVT, Bleeding, Infection, UTI, Aspiration, Falls, Skin Integrity and Depression Risk of Complications DVT: KISHOR Palma Bleeding: Monitor Lab Values and Nursing to Teach Precautions for anti-coagulation therapy. Infection: Clinical Staff to Monitor for S/S of infection: and S/S of infection include fever, redness, warmth, etc. Urinary Tract Infection: Monitor for frequency, burning, discomfort, or incontinence. and Nursing will obtain urine sample for urinalysis and C&S when ordered. Aspiration: Clinical staff will monitor for coughing, drooling, congestion., Speech will evaluate swallowing and dsyphasia. and Nursing will monitor patient swallowing during meals. Falls: Patient will be evaluated for Fall Precautions and Patient will be placed on Fall Precautions as indicated per protocol. Skin Breakdown: Nursing will assess skin daily using assessment tool. and Nursing will place on Skin Breakdown Precautions as indicated. Pain: Clinical staff will assess patient's pain level per protocol., Medications will be given, if needed, and the pain level reassessed. and Other methods: Massage, distraction, decrease stimulus, etc. used PRN. Plan of Care Patient requires physician specializing in physical medicine and rehab oversight to provide close medical supervision of rehab issues including: Pain Management, Sleep Problems, Bowel and Bladder, Medical and co-morbidity Management, DVT prophylaxis, Rehabilitation Leadership and Coordination of treatment team Patient needs Physical Therapy: For a minimum of 1.5 hrs Patient needs Physical Therapy to improve:: Mobility, Strengthening, Transfers, Stretching, Endurance, Stairs, Gait and Balance Patient needs Occupational Therapy: For a minimum of 1.5 hrs Patient needs Occupational Therapy to improve ADL's incl.: Eating, Grooming, Bathing, Dressing, Toileting, Toilet transfers, Community Reintegration, Higher functioning activities, Household tasks, Adaptive Equipment and Other activities as determined Patient requires 24/7 Rehabilitation Nursing for: Pain Issues, Identifying and preventing risk factors, Monitoring and reporting current medical conditions, Assisting with ambulation, transfer, and all ADL's, Teaching patients about disease process and medications, Family teaching, Providing safe environment, Bowel and Bladder Issues, Skin integrity and Medication Management Patient needs Welding Equipment Repairer Supervisor/ Case Management for: Discharge Planning, Arranging Home Equipment or Services and Family Interventions Patient needs Dietary and Nutrition Services for: Adequate Nutrition, Nutritional Supplements and Nutritional Education Goals Patient will remain: free from falls and or injury at time of discharge. Patient will perform bed mobility at: Standby Assist. Patient will complete transfers from bed to chair at: Standby Assist. Patient will ambulate: with standby assist Patient will propel wheelchair: with standby assist Patient will complete upper body dressing at: Standby Assist. Patient will complete lower body dressing at: Standby Assist. Patient will complete toileting at: Standby Assist. Patient will perform bathing at: Standby Assist. Patient will complete grooming at: Standby Assist. Patient will complete home management skills at: Standby Assist. Patient will achieve: 12 stairs and with standby assist Patient's skin will: remain intact and free from infection. Patient will receive: adequate nutrition. Discharge Planning Pt Prognosis for Sig. Practical Improv. w/in Reasonable Time: Fair Estimated Length of stay (days): 21 Anticipated D/C Destination: Home with Home Health Was Preadmission Assessment Accurate?: Yes
[2022-07-11 19:39] VITALS: BP 150/66; PULSE 77; RESP 16; TEMP 36.4; O2SAT 95
[2022-07-11 22:44] VITALS: BP 99/63; PULSE 74
[2022-07-11] MEDS: traZODone 50 MG Tablet PO (22:46)
[2022-07-11] MEDS: Pregabalin 50 MG Capsule PO (22:46)
[2022-07-11] MEDS: Doxazosin 4 MG Tablet PO (22:46)
[2022-07-12] MEDS: CARBIDOPA/LEVODOPA 1 EACH CAPSULE.ER 4 EACH PO ×3 (06:05→21:21)
[2022-07-12] MEDS: Glycerin/Hypromellose/PEG400 15 ml Bottle 1 DRP EACH EYE ×3 (06:06→21:23)
[2022-07-12 07:38] VITALS: BP 129/68; PULSE 74; RESP 16; TEMP 36.5; O2SAT 95
[2022-07-12] MEDS: Aspirin E.C. 81 MG Tablet PO (09:13)
[2022-07-12] MEDS: Multivitamins,Therapeutic Tablet 1 TABLET PO (09:13)
[2022-07-12] MEDS: Pramipexole Di-HCl 0.5 MG Tablet PO ×2 (09:14→21:20)
[2022-07-12] MEDS: Fluticasone 0.05% 1 SPRAY NASAL.SRY 2 SPRAY NASAL (09:14)
[2022-07-12] MEDS: DULoxetine Hcl 30 MG Capsule PO ×2 (09:14→21:21)
[2022-07-12] MEDS: Acetaminophen 500 MG Tablet PO ×2 (09:15→21:21)
[2022-07-12] MEDS: guaiFENesin 600 MG Tablet PO ×2 (09:15→21:20)
[2022-07-12] MEDS: Senna/Docusate Sodium 1 Tablet 2 TABLET PO ×2 (09:15→21:20)
[2022-07-12 19:45] VITALS: O2SAT 94
[2022-07-12 19:48] VITALS: BP 129/63; PULSE 89; RESP 18; TEMP 36.6; O2SAT 94
[2022-07-12] MEDS: traZODone 50 MG Tablet PO (21:20)
[2022-07-12] MEDS: Pregabalin 50 MG Capsule PO (21:20)
[2022-07-12] MEDS: Doxazosin 4 MG Tablet PO (21:21)
[2022-07-13] MEDS: Glycerin/Hypromellose/PEG400 15 ml Bottle 1 DRP EACH EYE ×3 (05:09→21:05)
[2022-07-13] MEDS: CARBIDOPA/LEVODOPA 1 EACH CAPSULE.ER 4 EACH PO ×3 (05:09→21:47)
[2022-07-13 08:25] VITALS: BP 119/50; PULSE 82; RESP 17; TEMP 36.5; O2SAT 94
[2022-07-13] MEDS: DULoxetine Hcl 30 MG Capsule PO ×2 (09:12→21:04)
[2022-07-13] MEDS: Multivitamins,Therapeutic Tablet 1 TABLET PO (09:12)
[2022-07-13] MEDS: Aspirin E.C. 81 MG Tablet PO (09:12)
[2022-07-13] MEDS: Pramipexole Di-HCl 0.5 MG Tablet PO ×2 (09:13→21:03)
[2022-07-13] MEDS: Fluticasone 0.05% 1 SPRAY NASAL.SRY 2 SPRAY NASAL (09:13)
[2022-07-13] MEDS: Senna/Docusate Sodium 1 Tablet 2 TABLET PO (09:14)
[2022-07-13] MEDS: guaiFENesin 600 MG Tablet PO ×2 (09:14→21:03)
[2022-07-13] MEDS: Acetaminophen 500 MG Tablet PO ×2 (09:16→21:05)
[2022-07-13 10:15] VITALS: O2SAT 94
[2022-07-13 19:53] VITALS: BP 134/66; PULSE 79; RESP 18; TEMP 36.6; O2SAT 95
[2022-07-13] MEDS: Calcium Carbonate 500 MG Tablet PO (21:02)
[2022-07-13] MEDS: traZODone 50 MG Tablet PO (21:04)
[2022-07-13] MEDS: Doxazosin 4 MG Tablet PO (21:04)
[2022-07-13] MEDS: Pregabalin 50 MG Capsule PO (21:04)
[2022-07-14] MEDS: Glycerin/Hypromellose/PEG400 15 ml Bottle 1 DRP EACH EYE ×3 (06:41→20:59)
[2022-07-14] MEDS: CARBIDOPA/LEVODOPA 1 EACH CAPSULE.ER 4 EACH PO ×3 (06:41→20:59)
[2022-07-14 07:57] VITALS: BP 121/76; PULSE 78; RESP 16; TEMP 36.2; O2SAT 95
[2022-07-14] MEDS: Multivitamins,Therapeutic Tablet 1 TABLET PO (08:05)
[2022-07-14] MEDS: Aspirin E.C. 81 MG Tablet PO (08:05)
[2022-07-14] MEDS: Acetaminophen 500 MG Tablet PO ×2 (09:15→20:59)
[2022-07-14] MEDS: Fluticasone 0.05% 1 SPRAY NASAL.SRY 2 SPRAY NASAL (09:15)
[2022-07-14] MEDS: Pramipexole Di-HCl 0.5 MG Tablet PO ×2 (09:15→20:58)
[2022-07-14] MEDS: guaiFENesin 600 MG Tablet PO ×2 (09:15→20:58)
[2022-07-14] MEDS: DULoxetine Hcl 30 MG Capsule PO ×2 (09:15→20:58)
--- NOTE | 2022-07-14 09:54 | CASEMGMT ---
Social Work IDT met with patient and for Team meeting. Discussed patient's progress in PT/OT/SN. Educated to [facility] insurance with [employer] 07/17 and continued stay is not guaranteed. Pt has been making improvement, however, IDT, pt/ still agree pt could benefit from continued therapy as the numbers do not show that pt still needs assistance with ambulation and ADLs. The goal is for pt to require less physical assistance, strengthen trunk, reduce lateral and retrolean to reduce caregiver burden on and dtr. SW offered therapy training to and dtr - scheduled for 07/16. Provided resources for Parkinson's support groups and classes. Therapy recommending outpatient therapy at time of DC however, expressed concern with pt's poor activity tolerance when getting out of the house and the difficulty with car transfers. SW to coordinate HHC at time of DC if those tasks have not improved. Will ReTeam next week. SW to continue to follow for DC planning. Stephanie Casas, [employer]
[2022-07-14 19:19] VITALS: BP 133/68; PULSE 85; RESP 18; TEMP 36.9; O2SAT 95
--- NOTE | 2022-07-14 19:50 | PN_ITS ---
Subjective Subjective Patient seen, examined on Team rounds. His Jenni was present. Nursing staff, social work noted depression. Patient is already on Duloxetine 30mg bid, I asked him about depression, and he states he is not depressed, but just feeling a little down about his situation, he is unable to help around the house any more due to progression of his Parkinson Disease. Objective Data Objective Data Vital Signs: Vital Signs Temp Pulse Resp BP Pulse Ox O2 Del Method 98.5 F 85 18 133/68 H 95 Room Air 07/14/22 19:19 07/14/22 19:19 07/14/22 19:19 07/14/22 19:19 07/14/22 19:19 07/14/22 19:19 Oxygen Delivery Method Room Air Weight: 104.9 kg Body Mass Index (BMI) 31.4 Intake & Output: Intake and Output for Last 24 Hours 07/12/22 07/13/22 07/14/22 23:59 23:59 23:59 Intake Total 400 / 400 Output Total 850 / 850 150 / 150 250 / 250 Balance -450 / -450 -150 / -150 -250 / -250 Lab / Micro Data Result Diagrams: 07/11/22 05:35 07/11/22 05:35 Physical Exam Const alert General Appearance: cooperative HEENT normocephalic Eyes PERRL and EOMs intact bilaterally Neck supple, no JVD and no carotid bruits Resp normal respiratory effort, normal air movement and clear to auscultation bilaterally Cardio regular rate and regular rhythm GI normal to inspection, nondistended, normoactive bowel sounds, non-tender and non-distended Extremity normal capillary refill General Extremity: Negative for edema Skin no rashes or lesions noted General Skin Exam: no breakdown Psych affect normal Appearance: appropriate Assessment & Plan Assessment/Plan (1) Debility: (2) Frequent falls: (3) Parkinson disease: (4) Late effect of lacunar infarction: (5) Allergic rhinitis: (6) Insomnia: (7) BPH (benign prostatic hyperplasia): (8) Depression: (9) Neuropathic pain: PLAN: Plan 81 year old male with below past medical history significant for Parkinson Disease, hospitalized for worsening falls, stroke ruled out, admitted to for 3 hours daily rehabilitation, strengthening, prior to discharge home with . * Debility - PT/OT. * Pain - Tylenol 500mg bid. * Bowel - senna/colace 2 tablets bid, Dulcolax 10mg pr prn, MOM 30ml daily prn. * Stroke - Aspirin 81mg daily. * Parkinson Disease - Rytary ER 4 tablets tid, Mirapex 0.5mg bid. * BPH - Doxazosin 4mg qhs. * Depression - Duloxetine 30mg bid. * Allergic rhinitis - Flonase 2 spray daily. * Congestion - Mucinex 600mg bid. * Nutrition - MVI daily. * Dry eyes - Artificial tears 1gtt ou tid. * Neuropathy - Lyrica 50mg qhs, 25mg qhs prn. * Insomnia - Trazodone 50mg qhs. * Indigestion - Calcium carbonate 500mg q6h prn. Capacity Capacity Assessment Tool Can the patient make a choice & communicate that choice?: Yes Can the patient understand benefits, risks and alternatives?: Yes Can the patient make a logical, rational choice?: Yes Is the choice the patient makes consistent w/ their values?: Yes Is there an impending, emergent risk to the patient?: No Does the patient have an Advance Directive?: Yes Is there a Surrogate Available?: Yes i.e. HCPOA: Yes i.e. close relative (spouse, child, parent, sibling)?: Yes
[2022-07-14 20:05] VITALS: O2SAT 95
[2022-07-14] MEDS: Calcium Carbonate 500 MG Tablet PO (20:57)
[2022-07-14] MEDS: Senna/Docusate Sodium 1 Tablet 2 TABLET PO (20:57)
[2022-07-14] MEDS: Pregabalin 50 MG Capsule PO (20:57)
[2022-07-14] MEDS: Doxazosin 4 MG Tablet PO (20:58)
[2022-07-14] MEDS: traZODone 50 MG Tablet PO (20:58)
[2022-07-15] MEDS: Glycerin/Hypromellose/PEG400 15 ml Bottle 1 DRP EACH EYE ×3 (05:38→21:31)
[2022-07-15] MEDS: CARBIDOPA/LEVODOPA 1 EACH CAPSULE.ER 4 EACH PO ×3 (05:38→21:32)
[2022-07-15 07:48] VITALS: BP 130/62; PULSE 76; RESP 16; TEMP 36.6; O2SAT 98
[2022-07-15] MEDS: Senna/Docusate Sodium 1 Tablet 2 TABLET PO ×2 (08:19→21:32)
[2022-07-15] MEDS: Pramipexole Di-HCl 0.5 MG Tablet PO ×2 (08:20→21:32)
[2022-07-15] MEDS: guaiFENesin 600 MG Tablet PO ×2 (08:20→21:32)
[2022-07-15] MEDS: Multivitamins,Therapeutic Tablet 1 TABLET PO (08:20)
[2022-07-15] MEDS: DULoxetine Hcl 30 MG Capsule PO ×2 (08:20→21:32)
[2022-07-15] MEDS: Acetaminophen 500 MG Tablet PO ×2 (08:20→21:32)
[2022-07-15] MEDS: Aspirin E.C. 81 MG Tablet PO (08:20)
[2022-07-15] MEDS: Fluticasone 0.05% 1 SPRAY NASAL.SRY 2 SPRAY NASAL (08:23)
--- NOTE | 2022-07-15 10:40 | PN_ITS ---
Subjective Subjective Afebrile VSS-blood pressures well controlled. Heart rate is within normal limits. Maintaining appropriate oxygen saturation on RA Oral intake is not being recorded. Ate 75 to 100% of his breakfast today and 75 to 100% of his supper last evening. Post void residuals x3 were all under 125. Discussed with nursing - no problems that need addressed Reviewed the PT/OT/ST notes-today with OT he required moderate assistance with toileting. He was able to transition to the edge of bed at a standby assist level and demonstrate the ability seated at the edge of the bed to doff slipper socks and don his shoes had a close standby assist level. He went from sitting to standing off the bed at a contact-guard level with cues for hand placement on the walker and ambulated 10 feet into the bathroom with the use of a front wheel walker at contact-guard assist. He did the NuStep for 10 minutes. Ambulated 120 feet x 2 yesterday with a front wheel walker with increased shuffling gait towards the end of the session. Requiring a lot of cueing for hand placement on the walker, longer steps, staying in the base of the FWW and not letting the walker get ahead of him. Medication list reviewed. All lab from 07/11/2022 was reviewed and is unremarkable. BUN/creatinine ratio is mildly increased. I reviewed Dr. Izquierdo's H&P. Patient is admitted to inpatient rehab on 07/10/2022 for 3 hours of therapy daily. Patient had presented to the [facility] emergency department complaining of increasing falls recently. He has been declining since having COVID 4 months prior to his recent presentation to [facility] ED. He has PD and follows with Dr. Ramirez. He was diagnosed with Parkinson's disease in December 2019 and started on Sinemet. A few months prior to coming to the emergency room with increased falls he started ropinirole. The falls usually occur when he starts to walk or turn. He had been using a cane for ambulation and then progressed to a rolling walker which lead to falls from the rollator getting to far out in front of his. Sometimes he does not use an AD and he falls. W/U for stroke was negative. His dtr tells me that her mother has taken him to [facility] in the past for the Parkinson's exercise program but, she is no longer able to manage and he has not been exercising at home. He is c/o SOB with exertion and lightheadedness with standing and walking. He has noticed a change in his voice and that he is no longer able to take a deep enough breath to project well. His voice is breathy. He has had multiple falls recently. when I pointed out that the decline in his abilities has likely occurred gradually over the past 4 months he agreed. I told him that improvement will take nearly as long and he must be uatsdin at home about maintaining a daily exercise routine if he is going to stay living independently. He queried me about when he can go home. I told him I can not keep him here if he does not want to stay but, I encouraged him to stay as long as Medicare allots because this will maximize his potential for returning home at [place] and not going to a SNF from rehab. Objective Data Objective Data Vital Signs: Vital Signs Temp Pulse Resp BP Pulse Ox O2 Del Method 97.8 F 76 16 130/62 H 98 Room Air 07/15/22 07:48 07/15/22 07:48 07/15/22 07:48 07/15/22 07:48 07/15/22 07:48 07/15/22 07:48 Oxygen Delivery Method Room Air Weight: 231 lb 4.238 oz Body Mass Index (BMI) 31.4 Intake & Output: Intake and Output for Last 24 Hours 07/13/22 07/14/22 07/15/22 23:59 23:59 23:59 Intake Total 540 / 540 Output Total 150 / 150 250 / 250 Balance -150 / -150 -250 / -250 540 / 540 Lab / Micro Data Result Diagrams: 07/11/22 05:35 07/11/22 05:35 Physical Exam Const alert, oriented x3 and no apparent distress Constitutional Narrative: breathy voice and not projecting well. General Appearance: cooperative and well developed HEENT Mouth: dry mucous membranes Eyes PERRL and EOMs intact bilaterally Neck supple Resp Resp Narrative: CTA with fair exchange in the upper lobes but, markedly diminished in both bases. No crackles appreciated. No wheezes. He has been doing the IS once a day and I explained what the intention of the IS is and encouraged him to do 10 breaths each hour, spaced out 5 and 5. He tells me that he coughs when he does the IS and I told him that is what it is supposed to do to mobilize secretions. Effort and Inspection: Negative for tachypneic or uses accessory muscles Cardio regular rate, regular rhythm, no murmurs, no rub and no gallops GI normal to inspection, nondistended, normoactive bowel sounds, soft to palpation, non-tender and non-distended GI Narrative: No guarding with palpation Extremity no calf tenderness General Extremity: Negative for clubbing or edema Skin General Skin Exam: no breakdown Rashes: no rashes Neuro Neuro Narrative: No tremors observed. Tells me that he leans to the left and is weaker on the left side. This is not new. Psych thought process normal, cooperative and affect normal Appearance: appropriate Assessment & Plan Assessment/Plan (1) Debility: PLAN: Due to gradual decline in function since COVID infection with PNA 4 months ago and lack of an exercise program leading to muscle atrophy and deconditioning. Improvement will likely be slow due to severe deconditioning. Encouraged him to stay as long as Medicare will allow to maximize the possibility of going home from rehab rather than moving on to an SNF. Told him that regular exercise if paramount in preventing decline in Parkinson's patients and will increase the time he is still able to live independently. (2) Generalized weakness: (3) Frequent falls: (4) Dysphagia: (5) Parkinson disease: (6) Dyspnea on exertion: (7) Depression: (8) Lightheadedness: PLAN: Plan 1. Continue therapy. 2. taking Lyrica at HS - 50 mg +/-and additional 25 mg PRN, Trazodone, Doxazocin and Duloxetine. Why is he taking the Duloxetine BID? 3. check orthostatics. 4. No changes to the medication regimen at this time. Charges/Coding Visit Charges Inpatient E&M: 18855 Subs Hosp L2
[2022-07-15 11:02] VITALS: BP 116/61; BP 118/70; BP 120/65; PULSE 81; PULSE 89; PULSE 90
[2022-07-15 20:45] VITALS: O2SAT 95
[2022-07-15] MEDS: Doxazosin 4 MG Tablet PO (21:32)
[2022-07-15] MEDS: traZODone 50 MG Tablet PO (21:32)
[2022-07-15] MEDS: Pregabalin 50 MG Capsule PO (21:35)
[2022-07-15 22:00] VITALS: BP 145/78; PULSE 86; RESP 16; TEMP 36.7; O2SAT 95
[2022-07-16] MEDS: Glycerin/Hypromellose/PEG400 15 ml Bottle 1 DRP EACH EYE ×3 (06:07→21:32)
[2022-07-16] MEDS: CARBIDOPA/LEVODOPA 1 EACH CAPSULE.ER 4 EACH PO ×3 (06:07→21:34)
[2022-07-16 06:11] VITALS: BP 106/54; BP 114/64; BP 120/62; PULSE 81; PULSE 88; PULSE 90
[2022-07-16 07:41] VITALS: BP 114/64; PULSE 81; RESP 16; TEMP 36.6; O2SAT 93
[2022-07-16] MEDS: Acetaminophen 500 MG Tablet PO ×2 (08:48→21:32)
[2022-07-16] MEDS: DULoxetine Hcl 30 MG Capsule PO ×2 (08:49→21:33)
[2022-07-16] MEDS: Fluticasone 0.05% 1 SPRAY NASAL.SRY 2 SPRAY NASAL (08:49)
[2022-07-16] MEDS: Pramipexole Di-HCl 0.5 MG Tablet PO ×2 (08:49→21:34)
[2022-07-16] MEDS: Aspirin E.C. 81 MG Tablet PO (08:49)
[2022-07-16] MEDS: Multivitamins,Therapeutic Tablet 1 TABLET PO (08:49)
[2022-07-16] MEDS: guaiFENesin 600 MG Tablet PO ×2 (08:49→21:34)
[2022-07-16] MEDS: Senna/Docusate Sodium 1 Tablet 2 TABLET PO ×2 (08:50→21:35)
--- NOTE | 2022-07-16 11:18 | PN_ITS ---
Subjective Subjective Afebrile VSS - I reviewed the orthostatics done this AM. The pulse went from 81 lying down to 90 standing up. Blood pressure lying down was 114/64 and when standing was 106/54. Maintaining appropriate oxygen saturation on RA Oral intake is good for food, not quite as good for fluids. Discussed with nursing - no problems that need addressed Reviewed the PT/OT/ST notes Medication list reviewed. He tells me that he has some lightheadedness mostly when standing. We discussed the many factors that contribute to this, including medications, dehydration and PD itself. She is realizing that he was keeping the walker to far in front of him.......a elastic band was used to fasten the walker around his waist so that he could sports activities foul judge how close he should be walking to the walker and staying within the base of the WW. This was enlightening and when he walked back to his room from therapy with the band on he felt better about ambulating. We discussed the fact that as you age you use your sense of thirst and you have to become more aware of how much you take in fluids a day and make sure that you are staying well hydrated, laney when you are taking multiple medications that can lead to orthostasis and lightheadedness. He told me his dtr who is a nurse is always trying to get him to increase his fluid intake. Objective Data Objective Data Vital Signs: Vital Signs Temp Pulse Resp BP Pulse Ox O2 Del Method 97.9 F 81 16 114/64 93 Room Air 07/16/22 07:41 07/16/22 07:41 07/16/22 07:41 07/16/22 07:41 07/16/22 07:41 07/16/22 07:41 Oxygen Delivery Method Room Air Weight: 231 lb 4.238 oz Body Mass Index (BMI) 31.4 Intake & Output: Intake and Output for Last 24 Hours 07/14/22 07/15/22 07/16/22 23:59 23:59 23:59 Intake Total 660 / 660 Output Total 250 / 250 Balance -250 / -250 660 / 660 Lab / Micro Data Result Diagrams: 07/11/22 05:35 07/11/22 05:35 Physical Exam Const alert and no apparent distress Constitutional Narrative: getting ready to eat his lunch. HEENT Mouth: dry mucous membranes Resp clear to auscultation bilaterally Resp Narrative: He is using the IS more regularly after out talk last night and he is getting the float the whole way to the top at times, > 2,000. He has an occasional HEEL REDUCER cough. No conversational dyspnea. Effort and Inspection: Negative for tachypneic Cardio regular rate, regular rhythm and no gallops GI normal to inspection, nondistended, normoactive bowel sounds, soft to palpation and non-tender Extremity no calf tenderness General Extremity: Negative for edema Assessment & Plan Assessment/Plan (1) Debility: (2) Generalized weakness: (3) Insomnia: (4) Loss of balance: (5) Dyspnea on exertion: (6) Parkinson disease: (7) Frequent falls: PLAN: Plan 1. Continue therapy 2. Continue to urge increased fluid intake - not orthostatic today but, clearly somewhat dehyrdrated. He will be trying to be more aware of increasing fluids with meals and in between meals. 3. Order intake and output Daily 4. He c/o some lightheadedness with standing. taking multiple medications at HS that can contribute to lightheadedness and falls and these include Lyrica 50 to 75 mg nightly, trazodone 50 mg nightly, doxazosin 4 mg p.o. nightly and possibly duloxetine contributing also. Will discuss with him whether he is willing to try to simplify this regimen. He started taking the Trazodone long before he was ever placed on Lyrica. He takes the Lyrica for Neuropathic pain and he always takes 75 mg at night and sometimes if he wakes up with pain he will take another 25 mg. He sometimes also takes a PRN dose of 25 mg during the day if he has pain. He has never tried to stop the Trazodone because he has been sleeping OK at home and does not want to risk not sleeping well again. I explained that the Lyrica can be very sedating but, it does not really kick in for 1-2 hours after the medication is ingested. He is willing to try decreasing the dose of the Trazodone. this may help with urine retention if we could get rid of the Trazodone and he may not need to take as much of the Doxazocin. Charges/Coding Visit Charges Inpatient E&M: 70200 Subs Hosp L2
--- NOTE | 2022-07-16 16:02 | CHAPLAIN ---
Type of Pastoral Visit ___ Initial Visit _x__ Follow-up Visit ___ On-call Visit ___ General Patient Visit ___ Spiritual Assessment ___ Family Conference ___ Bereavement ___ Rapid Response ___ Code Blue ___ Other (describe below) Pastoral Care Referral From _x__ Patient ___ Family ___ Nurse ___ Physician ___ Index Editor ___ Slope Hoist Operator ___ Other (describe below) Sacrament/Intervention _x__ Active listening ___ Anointing ___ Uatsdin ___ Bereavement ___ Communion ___ Vy exploration ___ _x__ Life review _x__ Prayer ___ Reconciliation ___ Sacrament of Sick _x__ Supportive presence ___ Wedding ___ Other (describe below) Pastoral Comments initial visit had been interrupted by therapy earlier this week; pt found sitting up in chair and welcoming; casual conversation; talk about family; pt gives some insights into previous episcopalian relationship; pt welcomes prayer and time to talk
[2022-07-16 19:38] VITALS: BP 132/69; PULSE 97; RESP 18; TEMP 36.3; O2SAT 96
[2022-07-16] MEDS: Doxazosin 4 MG Tablet PO (21:33)
[2022-07-16] MEDS: traZODone 50 MG Tablet 25 MG PO (21:33)
[2022-07-16] MEDS: Pregabalin 50 MG Capsule PO (21:50)
[2022-07-16 22:00] VITALS: PULSE 97; RESP 17; O2SAT 96
[2022-07-17] MEDS: Glycerin/Hypromellose/PEG400 15 ml Bottle 1 DRP EACH EYE ×3 (05:49→20:46)
[2022-07-17] MEDS: CARBIDOPA/LEVODOPA 1 EACH CAPSULE.ER 4 EACH PO ×3 (05:51→20:43)
[2022-07-17 07:23] VITALS: BP 109/60; PULSE 80; RESP 17; TEMP 36.1; O2SAT 95
[2022-07-17] MEDS: Aspirin E.C. 81 MG Tablet PO (09:05)
[2022-07-17] MEDS: Fluticasone 0.05% 1 SPRAY NASAL.SRY 2 SPRAY NASAL (09:05)
[2022-07-17] MEDS: Acetaminophen 500 MG Tablet PO ×3 (09:05→20:46)
[2022-07-17] MEDS: guaiFENesin 600 MG Tablet PO ×2 (09:06→20:45)
[2022-07-17] MEDS: Pramipexole Di-HCl 0.5 MG Tablet PO ×2 (09:06→20:45)
[2022-07-17] MEDS: DULoxetine Hcl 30 MG Capsule PO ×2 (09:06→20:45)
[2022-07-17] MEDS: Senna/Docusate Sodium 1 Tablet 2 TABLET PO ×2 (09:06→20:45)
[2022-07-17] MEDS: Multivitamins,Therapeutic Tablet 1 TABLET PO (09:06)
[2022-07-17 19:41] VITALS: BP 127/61; PULSE 83; RESP 18; TEMP 36.8; O2SAT 94
[2022-07-17] MEDS: traZODone 50 MG Tablet 25 MG PO (20:44)
[2022-07-17] MEDS: Doxazosin 4 MG Tablet PO (20:45)
[2022-07-17] MEDS: Pregabalin 50 MG Capsule PO (20:45)
[2022-07-17 21:26] VITALS: PULSE 94
--- NOTE | 2022-07-17 22:05 | NURSING ---
Medications requested as getting ready for bed
--- NOTE | 2022-07-18 02:23 | NURSING ---
Reviewed and agree with HAT MODEL documentation and assessment charting.
[2022-07-18] MEDS: Glycerin/Hypromellose/PEG400 15 ml Bottle 1 DRP EACH EYE ×3 (05:09→20:08)
[2022-07-18] MEDS: CARBIDOPA/LEVODOPA 1 EACH CAPSULE.ER 4 EACH PO ×3 (05:10→20:08)
[2022-07-18] MEDS: DULoxetine Hcl 30 MG Capsule PO (07:39)
[2022-07-18] MEDS: guaiFENesin 600 MG Tablet PO ×2 (07:39→20:08)
[2022-07-18] MEDS: Pramipexole Di-HCl 0.5 MG Tablet PO ×2 (07:39→20:09)
[2022-07-18] MEDS: Aspirin E.C. 81 MG Tablet PO (07:39)
[2022-07-18] MEDS: Senna/Docusate Sodium 1 Tablet 2 TABLET PO ×2 (07:39→20:08)
[2022-07-18] MEDS: Multivitamins,Therapeutic Tablet 1 TABLET PO (07:39)
[2022-07-18] MEDS: Fluticasone 0.05% 1 SPRAY NASAL.SRY 2 SPRAY NASAL (07:43)
[2022-07-18 07:45] VITALS: BP 115/57; PULSE 82; RESP 18; TEMP 36.3; O2SAT 92
--- NOTE | 2022-07-18 10:53 | PN_ITS ---
Subjective Subjective Afebrile VSS Maintaining appropriate oxygen saturation on RA Oral intake is good Discussed with nursing - no problems that need addressed Reviewed the PT/OT/ST notes Medication list reviewed. Dell wanted to discuss when he may be going home and I told him we are still waiting for the update from insurance. Since it is Thursday of a holiday weekend and Thursday is a holiday I told him I suspect we may not get an update until Thursday. We discussed depressions today. He admits to being mildly depressed but, he does not really know what the sx of depression are. He is feeling apathetic and not motivated. Having a hard time getting going. Some problems with memory have come up in the past 4-6 months. He sometimes has trouble staying asleep at night. He is irritable at times and he eats at times when he is not hungry for comfort. He feels badly about not being able to do more things around the hospital. He was started on Duloxetine 2-3 months ago and he has not really noticed any significant improvement. Has been taking the medication BID but, does not know why? Usually a once a day drug at this dose. Has not had any psychotherapy. I have to repeat things to him but, when I repeat what was said a few days ago he then seems to start to remember. I reiterated to him today that I feel his decline in function has been gradual over the past 4 months and he has not noticed how truly weak he has become. He laney notices the weakness with breathing and speaking/maintaining good breath support. 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 He is not feeling anxious. Had a major loss of balance this AM and almost fell. Continues to have some lightheadedness. He denies vertigo. He denies chest pain, palpitations. He has an occasional dry cough. No dysuria. No calf pain. Had multiple falls at home prior to admitting to the hospital. Family has been trying to encourage him to get more motivated to do things and get moving/exercising but, he is having trouble with motivation. Objective Data Objective Data Vital Signs: Vital Signs Temp Pulse Resp BP Pulse Ox O2 Del Method 97.4 F L 82 18 115/57 L 92 Room Air 07/18/22 07:45 07/18/22 07:45 07/18/22 07:45 07/18/22 07:45 07/18/22 07:45 07/18/22 07:45 Oxygen Delivery Method Room Air Weight: 229 lb 15.074 oz Body Mass Index (BMI) 31.4 Intake & Output: Intake and Output for Last 24 Hours 07/16/22 07/17/22 07/18/22 23:59 23:59 23:59 Intake Total 1080 / 1080 1650 / 1650 580 / 580 Output Total 1650 / 1650 900 / 900 Balance 1080 / 1080 0 / 0 -320 / -320 Lab / Micro Data Result Diagrams: 07/11/22 05:35 07/11/22 05:35 Physical Exam Const alert and no apparent distress Constitutional Narrative: sitting in the recliner at the bedside Having some trouble with short term me octavia HEENT normocephalic HEENT Narrative: Voice is still breathy at times. Mouth: dry mucous membranes Eyes PERRL and EOMs intact bilaterally Resp Resp Narrative: Initially with some crackles in the Left base posteriorly but, he did the IS and got the float to the top a few times in a row and the crackles resolved. BS's are still diminished in the bases but, better than at admission. Effort and Inspection: Negative for tachypneic or respiratory distress Cardio regular rate and no gallops GI normal to inspection, nondistended, normoactive bowel sounds, soft to palpation and non-tender GI Narrative: no guarding with palpation. Extremity no calf tenderness General Extremity: Negative for edema Skin General Skin Exam: no breakdown Rashes: no rashes Neuro Neuro Narrative: mild resting tremor Assessment & Plan Assessment/Plan (1) Debility: PLAN: Continue therapy. He is improving and I suspect he will be able to return to independently living at home with the assistance of his and dtr when he is discharged from acute rehab. He has had a slow decline over the past 4 months after having COVID and improvement has been compromised by undertreated depression. He has been resistant to psychotherapy and has been taking Duloxetine 30 mg BID without significant improvement. Will add Wellbutrin to see if we can get him more motivated. He is getting some insight into what is going to be necessary to keep him living at home rather than a SNF or ECF. (2) Parkinson disease: PLAN: Continue current medications (3) Depression: PLAN: I discussed this with his . I explained to both Dell and his that I think increasing the duloxetine since it has not been effective to the state will not be productive. I suspect side effects will simply increase with increasing the dose. I am going to add Wellbutrin 150 mg XL every morning and will start today. I also recommend that he follow-up with the behavioral health department post discharge for counseling/ongoing treatment for depression. (4) Generalized weakness: PLAN: Improving. Would definitely benefit from 10-14 more days of aggressive physical therapy to optimize his potential for returning to an independent living situation at home with the help of his and daughter. (5) Dyspnea on exertion: PLAN: Related to deconditioning. (6) Dysphagia: (7) Cognitive dysfunction: PLAN: I suspect his memory difficulties have a lot to do with undertreated depression and I expect this to improve over the course of the next 4 to 6 weeks with more aggressive treatment of depression. PLAN: Plan 1. Continue therapy 2. Change duloxetine to 60 mg p.o. every morning and rather than increase the dose to better treat depression will add Wellbutrin XL 150 mg p.o. every morning to hopefully increase his activity/motivation. 3. reinforced that it is going to take a concerted effort over a period of weakness to get strength back up to level prior to COVID infection. 4. I think he would benefit from some psychotherapy to teach him how to better deal with the challenges of a chronic illness with declining abilites and how to compensate to prolong the abilities he still has with regular exercise Charges/Coding Visit Charges Inpatient E&M: 89305 Subs Hosp L2
--- NOTE | 2022-07-18 11:30 | CASEMGMT ---
Addendum entered by Stephanie Casas 07/18/22 12:28: Received return phone call from . stated she spoke with the Dr this morning. Per and Dr's note, reiterated pt's decreased safety awareness, loss of balance, and consistently needing CGA or more. The goal is for to not have to provide constant CGA, for pt to be more independent and safe, which is pt's baseline. 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 ALONDRA spoke directly with dtr about conversation with and insurance. verbally reiterated from progress note, pt is still needing additional medical treatment and treatment for depression. is starting pt on additional interventions today and also agrees with continued intensive therapy and Dr monitoring, pt will be safe to return home in AT LEAST week. All information included in insurance review today. expressed appreciation for this worker's assistance with continued stay and DC plans. SW to continue to follow. Addendum entered by Stephanie Casas 07/18/22 11:45: ALONDRA noted ST is not active with pt. Order entered to evaluation. Original Note: Social Work Received forwarded voicemail from insurance reviewer, Susy, indicating MD only allowed additional time for discharge planning to SNF. ALONDRA returned call to Susy to clarify DC plans as pt's goal is to return home with . Also educated reviewer that NRD was set for 07/21, allowing only one day, today, to plan for DC, as staff is out of the office for the holiday through 07/21. ALONDRA educated to pt receiving next Team meeting with and IDT on 07/22 that will provide updated information from all staff and recommendations for DC plan. ALONDRA explained, per therapy notes, pt has not returned to PLOF, still needing assistance with ADLs, ambulation, having shuffled gait, decreased safety awareness, requiring cues for all tasks for safety. Reviewer stated it appeared pt was declining in therapy, thus not tolerating this level of therapy and would be more appropriate in a SNF. ALONDRA disputed that pt is making progress; this intensive therapy is the optimal environment for improvement, the goal is for pt to go home and not a SNF. IDT agrees that with another week of intensive therapy, pt should be safe to return home with . Verbally updated reviewer with therapy documentation that pt is walking 120 ft, taking 5 steps. Reviewer stated with that information, pt appears to be ready to DC home. SW disputed that readiness to return home is not indicative on the numbers of steps or distance; to look at the context of those numbers. Therapy noted, and this worker reiterated, that pt is having decreased cognition, poor safety awareness, requiring cues, physical assistance with ambulation, steps, and ADLs, shuffled gait, extra time to process requests and complete tasks - all of which are not pt's baseline. also needs to decide on comfortability with pt's current level of care to ensure she can care for pt at home. Reviewer suggested sending updated therapy notes and discharge planning note summarizing all information discussed on this phone call, to update the MD and request for continued stay. SW agreed and expressed appreciation for reconsideration. SW attempted to contact to discuss. Left messages on both cell and home phone. SW updated emergency management coordinator, Alicia, with above information/request. Will continue to follow. Stephanie Casas, [employer]
[2022-07-18] MEDS: buPROPion (XL) 150 MG TABLET.XL PO (12:01)
[2022-07-18 19:39] VITALS: BP 129/77; PULSE 75; RESP 14; TEMP 36.7; O2SAT 96
[2022-07-18] MEDS: Acetaminophen 500 MG Tablet PO (20:08)
[2022-07-18] MEDS: Pregabalin 50 MG Capsule PO (20:08)
[2022-07-18] MEDS: Doxazosin 4 MG Tablet PO (20:08)
[2022-07-18] MEDS: traZODone 50 MG Tablet 25 MG PO (20:09)
--- NOTE | 2022-07-18 20:30 | NURSING ---
Pt requested medication early during shift assessment to get ready for bed.
[2022-07-19] MEDS: Glycerin/Hypromellose/PEG400 15 ml Bottle 1 DRP EACH EYE ×3 (05:34→21:46)
[2022-07-19] MEDS: CARBIDOPA/LEVODOPA 1 EACH CAPSULE.ER 4 EACH PO ×3 (05:34→21:47)
[2022-07-19 07:22] VITALS: BP 121/56; PULSE 68; RESP 18; TEMP 36.1; O2SAT 95
[2022-07-19] MEDS: Multivitamins,Therapeutic Tablet 1 TABLET PO (08:03)
[2022-07-19] MEDS: Aspirin E.C. 81 MG Tablet PO (08:03)
[2022-07-19] MEDS: Fluticasone 0.05% 1 SPRAY NASAL.SRY 2 SPRAY NASAL (09:23)
[2022-07-19] MEDS: DULoxetine Hcl 60 MG Capsule PO (09:23)
[2022-07-19] MEDS: Senna/Docusate Sodium 1 Tablet 2 TABLET PO ×2 (09:23→21:48)
[2022-07-19] MEDS: Acetaminophen 500 MG Tablet PO ×2 (09:23→21:46)
[2022-07-19] MEDS: guaiFENesin 600 MG Tablet PO ×2 (09:23→21:46)
[2022-07-19] MEDS: Pramipexole Di-HCl 0.5 MG Tablet PO ×2 (09:23→21:46)
[2022-07-19] MEDS: buPROPion (XL) 150 MG TABLET.XL PO (09:24)
[2022-07-19 19:30] VITALS: BP 125/69; PULSE 90; RESP 16; TEMP 36.7; O2SAT 96
[2022-07-19 21:30] VITALS: PULSE 90; RESP 16; O2SAT 96
[2022-07-19] MEDS: Doxazosin 4 MG Tablet PO (21:46)
[2022-07-19] MEDS: Pregabalin 50 MG Capsule PO (21:47)
[2022-07-19] MEDS: traZODone 50 MG Tablet 25 MG PO (21:47)
--- NOTE | 2022-07-20 03:11 | NURSING ---
Reviewed and agree with Patrick DURAN's, documentation and assessment charting.
[2022-07-20] MEDS: CARBIDOPA/LEVODOPA 1 EACH CAPSULE.ER 4 EACH PO ×3 (05:40→21:23)
[2022-07-20] MEDS: Glycerin/Hypromellose/PEG400 15 ml Bottle 1 DRP EACH EYE ×3 (05:40→21:22)
[2022-07-20 07:07] VITALS: BP 111/72; PULSE 85; RESP 16; TEMP 36.8; O2SAT 94
[2022-07-20] MEDS: Pramipexole Di-HCl 0.5 MG Tablet PO ×2 (09:12→21:23)
[2022-07-20] MEDS: Aspirin E.C. 81 MG Tablet PO (09:12)
[2022-07-20] MEDS: guaiFENesin 600 MG Tablet PO ×2 (09:12→21:23)
[2022-07-20] MEDS: DULoxetine Hcl 60 MG Capsule PO (09:12)
[2022-07-20] MEDS: Senna/Docusate Sodium 1 Tablet 2 TABLET PO ×2 (09:12→21:21)
[2022-07-20] MEDS: Fluticasone 0.05% 1 SPRAY NASAL.SRY 2 SPRAY NASAL (09:12)
[2022-07-20] MEDS: Multivitamins,Therapeutic Tablet 1 TABLET PO (09:12)
[2022-07-20] MEDS: Acetaminophen 500 MG Tablet PO ×2 (09:13→21:22)
[2022-07-20] MEDS: buPROPion (XL) 150 MG TABLET.XL PO (09:13)
[2022-07-20 19:15] VITALS: BP 153/70; PULSE 76; RESP 18; TEMP 36.3; O2SAT 95
[2022-07-20] MEDS: traZODone 50 MG Tablet 25 MG PO (21:22)
[2022-07-20] MEDS: Pregabalin 50 MG Capsule PO (21:23)
[2022-07-20] MEDS: Doxazosin 4 MG Tablet PO (21:23)
[2022-07-20 22:00] VITALS: PULSE 93; RESP 16; O2SAT 95
[2022-07-21] MEDS: Glycerin/Hypromellose/PEG400 15 ml Bottle 1 DRP EACH EYE ×3 (05:39→21:16)
[2022-07-21] MEDS: CARBIDOPA/LEVODOPA 1 EACH CAPSULE.ER 4 EACH PO ×3 (05:43→21:17)
[2022-07-21 07:25] VITALS: BP 138/72; PULSE 78; RESP 16; TEMP 36.4; O2SAT 99
[2022-07-21] MEDS: Senna/Docusate Sodium 1 Tablet 2 TABLET PO ×2 (08:00→21:18)
[2022-07-21] MEDS: Aspirin E.C. 81 MG Tablet PO (08:01)
[2022-07-21] MEDS: Acetaminophen 500 MG Tablet PO ×2 (08:01→21:18)
[2022-07-21] MEDS: Fluticasone 0.05% 1 SPRAY NASAL.SRY 2 SPRAY NASAL (08:01)
[2022-07-21] MEDS: Multivitamins,Therapeutic Tablet 1 TABLET PO (08:01)
[2022-07-21] MEDS: guaiFENesin 600 MG Tablet PO ×2 (08:01→21:18)
[2022-07-21] MEDS: buPROPion (XL) 150 MG TABLET.XL PO (08:01)
[2022-07-21] MEDS: Pramipexole Di-HCl 0.5 MG Tablet PO ×2 (08:01→21:18)
[2022-07-21] MEDS: DULoxetine Hcl 60 MG Capsule PO (08:02)
--- NOTE | 2022-07-21 11:53 | PCM.PROGNOTE ---
Subjective Subjective Afebrile VSS Maintaining appropriate oxygen saturation on RA Oral intake is adequate Discussed with nursing - no problems that need addressed Reviewed the PT/OT/ST notes Medication list reviewed. Continues to sleep well despite decreasing the trazodone to 25 mg. He has not even needed to take the extra Lyrica 25 mg ordered PRN at HS. Tolerating the Wellbutrin with no Adverse SE's. Denies chest pain, shortness of breath, cough, nausea, abdominal pain, dysuria, calf pain and lightheadedness today. He is very alert. Seems to be in a better mood, affect is not as flat as it was at admission. Talkative, making good eye contact. Objective Data Objective Data Vital Signs: Vital Signs Temp Pulse Resp BP Pulse Ox O2 Del Method 97.6 F L 78 16 138/72 H 99 Room Air 07/21/22 07:25 07/21/22 07:25 07/21/22 07:25 07/21/22 07:25 07/21/22 07:25 07/21/22 07:25 Oxygen Delivery Method Room Air Weight: 229 lb 15.074 oz Body Mass Index (BMI) 31.4 Intake & Output: Intake and Output for Last 24 Hours 07/19/22 07/20/22 07/21/22 23:59 23:59 23:59 Intake Total 2650 / 2650 1080 / 1080 640 / 640 Output Total 2250 / 2250 650 / 650 775 / 775 Balance 400 / 400 430 / 430 -135 / -135 Lab / Micro Data Result Diagrams: 07/11/22 05:35 07/11/22 05:35 Physical Exam Const alert, oriented x3 and no apparent distress Resp normal respiratory effort and clear to auscultation bilaterally Resp Narrative: No cough with deep breathing. Not tachypneic, no conversational dyspnea. Voice gets a little breathy at times. Cardio regular rate, regular rhythm, no murmurs, no rub and no gallops GI normal to inspection, nondistended, normoactive bowel sounds and soft to palpation GI Narrative: no guarding with palpation. Extremity no calf tenderness General Extremity: Negative for edema Skin General Skin Exam: no breakdown Rashes: no rashes Assessment & Plan Assessment/Plan (1) Debility: (2) Generalized weakness: (3) Parkinson disease: (4) Cognitive dysfunction: PLAN: (5) Depression: (6) Dysphagia: (7) Neuropathic pain: (8) BPH (benign prostatic hyperplasia): PLAN: Plan 1. Continue therapy 2. CBC and BMP in the a.m. 3. Discontinue trazodone Charges/Coding Visit Charges Inpatient E&M: 69931 Subs Hosp L2
[2022-07-21 20:00] VITALS: BP 130/67; PULSE 81; RESP 18; TEMP 36.9; O2SAT 96
[2022-07-21 20:25] VITALS: O2SAT 96
[2022-07-21] MEDS: Doxazosin 4 MG Tablet PO (21:18)
[2022-07-21] MEDS: Pregabalin 25 MG Capsule PO (21:21)
[2022-07-21] MEDS: Pregabalin 50 MG Capsule PO (21:24)
[2022-07-22] MEDS: Glycerin/Hypromellose/PEG400 15 ml Bottle 1 DRP EACH EYE ×3 (05:57→21:09)
[2022-07-22] MEDS: CARBIDOPA/LEVODOPA 1 EACH CAPSULE.ER 4 EACH PO ×3 (05:57→21:07)
[2022-07-22 07:50] VITALS: BP 138/56; PULSE 79; RESP 18; TEMP 36.6; O2SAT 96
[2022-07-22] MEDS: Multivitamins,Therapeutic Tablet 1 TABLET PO (08:17)
[2022-07-22] MEDS: Aspirin E.C. 81 MG Tablet PO (08:17)
[2022-07-22] MEDS: guaiFENesin 600 MG Tablet PO ×2 (08:17→21:07)
[2022-07-22] MEDS: Fluticasone 0.05% 1 SPRAY NASAL.SRY 2 SPRAY NASAL (08:17)
[2022-07-22] MEDS: DULoxetine Hcl 60 MG Capsule PO (08:17)
[2022-07-22] MEDS: Senna/Docusate Sodium 1 Tablet 2 TABLET PO ×2 (08:18→21:07)
[2022-07-22] MEDS: Pramipexole Di-HCl 0.5 MG Tablet PO ×2 (08:18→21:08)
[2022-07-22] MEDS: Acetaminophen 500 MG Tablet PO ×2 (08:18→21:09)
[2022-07-22] MEDS: buPROPion (XL) 150 MG TABLET.XL PO (08:19)
--- NOTE | 2022-07-22 13:16 | CASEMGMT ---
Social Work Team meeting held. Patient present as well as patient family. No discharge date set at this time. This professor of social work communicating that next insurance update is due today, 07/22/2022 with no guarantee of continued stay approval. Patient plans to discharge to home with spouse and patient daughter to check in on patient 4 days a week. Therapy reporting that patient is progressing in therapy but would benefit from continued therapy services to increase independence and safety awareness. Patient and patient family also agree that patient is not ready for discharge. Patient to continue with further care and treatment on the Rehab Unit pending continued stay approval by insurance. Social Work to continue to follow. Nga Sarabia MSW, [employer]
--- NOTE | 2022-07-22 14:56 | PCM.PROGNOTE ---
Subjective Subjective Ross was seen on team rounds today. His and daughter were present in the room. Afebrile VSS Maintaining appropriate oxygen saturation on RA Oral intake is good Discussed with nursing - no problems that need addressed Reviewed the PT/OT/ST notes - still requiring a lot of cuing to stay within the WW base and don't let the walker get ahead of him. ST recommends LSVT at DC to strengthen the voice. Medication list reviewed. Sleeping well off Trazodone and with only 50 mg of Lyrica at night. Tolerating the Wellbutrin with no adverse SE's. Denies CP, SOB, cough, abd pain and dysuria. Objective Data Objective Data Vital Signs: Vital Signs Temp Pulse Resp BP Pulse Ox O2 Del Method 97.9 F 79 18 138/56 H 96 Room Air 07/22/22 07:50 07/22/22 07:50 07/22/22 07:50 07/22/22 07:50 07/22/22 07:50 07/22/22 07:50 Oxygen Delivery Method Room Air Weight: 229 lb 15.074 oz Body Mass Index (BMI) 31.4 Intake & Output: Intake and Output for Last 24 Hours 07/20/22 07/21/22 07/22/22 23:59 23:59 23:59 Intake Total 1080 / 1080 1650 / 1650 1230 / 1230 Output Total 650 / 650 1725 / 1725 900 / 900 Balance 430 / 430 -75 / -75 330 / 330 Lab / Micro Data Result Diagrams: 07/11/22 05:35 07/11/22 05:35 Physical Exam Const alert, oriented x3 and no apparent distress General Appearance: cooperative HEENT normocephalic HEENT Narrative: Moist mucous membranes Neck no JVD Resp normal respiratory effort and clear to auscultation bilaterally Resp Narrative: No cough with deep breathing. Not tachypneic, no conversational dyspnea. Voice gets a little breathy at times. Cardio regular rate, regular rhythm and no gallops GI normal to inspection, nondistended, normoactive bowel sounds, soft to palpation and non-tender Extremity no calf tenderness General Extremity: Negative for edema Skin General Skin Exam: no breakdown Rashes: no rashes Neuro Neuro Narrative: short term memory is not the greatest and he needs constant cuing at this time to maintain his positioning in the walker. I am hoping with more aggressive treatment of depression the memory will improve. Assessment & Plan Assessment/Plan (1) Debility: (2) Generalized weakness: (3) Parkinson disease: (4) Cognitive dysfunction: (5) Depression: PLAN: Plan 1. Continue therapy 2. We discussed referral to psychotherapy post discharge for counselling on how to deal with chronic illness without always focusing on the things he can not do rather than the abilities he still has and needs to maintain so he can remain living at home. He is willing to try and the SE is giving them a list of local providers. 3. Continue the current drug regimen. 4. CBC and a BMP on . 5. update today - waiting to hear from insurance about whether or not they are going to set a DC date. Charges/Coding Visit Charges Inpatient E&M: 13710 Subs Hosp L2
[2022-07-22 19:40] VITALS: BP 136/69; PULSE 93; RESP 18; TEMP 37; O2SAT 93
[2022-07-22] MEDS: Pregabalin 50 MG Capsule PO (21:08)
[2022-07-22] MEDS: Doxazosin 4 MG Tablet PO (21:09)
[2022-07-23] MEDS: Glycerin/Hypromellose/PEG400 15 ml Bottle 1 DRP EACH EYE ×3 (06:03→19:41)
[2022-07-23] MEDS: CARBIDOPA/LEVODOPA 1 EACH CAPSULE.ER 4 EACH PO ×3 (06:03→19:41)
[2022-07-23 07:17] VITALS: BP 131/67; PULSE 79; RESP 16; TEMP 36.4; O2SAT 93
[2022-07-23] MEDS: Senna/Docusate Sodium 1 Tablet 2 TABLET PO ×2 (07:38→19:41)
[2022-07-23] MEDS: Aspirin E.C. 81 MG Tablet PO (07:39)
[2022-07-23] MEDS: Acetaminophen 500 MG Tablet PO ×2 (07:39→19:42)
[2022-07-23] MEDS: Multivitamins,Therapeutic Tablet 1 TABLET PO (07:39)
[2022-07-23] MEDS: guaiFENesin 600 MG Tablet PO ×2 (07:39→19:42)
[2022-07-23] MEDS: DULoxetine Hcl 60 MG Capsule PO (07:39)
[2022-07-23] MEDS: Pramipexole Di-HCl 0.5 MG Tablet PO ×2 (07:39→19:42)
[2022-07-23] MEDS: buPROPion (XL) 150 MG TABLET.XL PO (07:39)
[2022-07-23] MEDS: Fluticasone 0.05% 1 SPRAY NASAL.SRY 2 SPRAY NASAL (07:40)
--- NOTE | 2022-07-23 14:40 | NURSING ---
Message left for Dr. Barnard's office requesting f/u appt
[2022-07-23 19:30] VITALS: BP 142/62; PULSE 79; RESP 18; TEMP 37.1; O2SAT 95
[2022-07-23] MEDS: Doxazosin 4 MG Tablet PO (19:41)
[2022-07-23] MEDS: Pregabalin 50 MG Capsule PO (19:41)
[2022-07-24] MEDS: CARBIDOPA/LEVODOPA 1 EACH CAPSULE.ER 4 EACH PO (06:18)
[2022-07-24] MEDS: Glycerin/Hypromellose/PEG400 15 ml Bottle 1 DRP EACH EYE (06:18)
[2022-07-24 07:05] VITALS: BP 115/80; PULSE 82; RESP 15; TEMP 36.5; O2SAT 92
[2022-07-24] MEDS: Aspirin E.C. 81 MG Tablet PO (08:02)
[2022-07-24] MEDS: buPROPion (XL) 150 MG TABLET.XL PO (08:02)
[2022-07-24] MEDS: Multivitamins,Therapeutic Tablet 1 TABLET PO (08:03)
[2022-07-24] MEDS: DULoxetine Hcl 60 MG Capsule PO (08:03)
[2022-07-24] MEDS: Fluticasone 0.05% 1 SPRAY NASAL.SRY 2 SPRAY NASAL (08:03)
[2022-07-24] MEDS: guaiFENesin 600 MG Tablet PO (08:03)
[2022-07-24] MEDS: Senna/Docusate Sodium 1 Tablet 2 TABLET PO (08:03)
[2022-07-24] MEDS: Pramipexole Di-HCl 0.5 MG Tablet PO (08:03)
[2022-07-24] MEDS: Acetaminophen 500 MG Tablet PO (10:42)
--- NOTE | 2022-07-24 10:56 | PCM.DC ---
Discharge Instructions Diet Discharge Diet: - (low salt and low fat.) Activity Discharge Activity: May Not Drive and May Shower Weight Bearing Status: Full weight bearing Dressing / Incision Call your doctor if you observe: Fever of 101 or Higher, Inability to urinate, Inability to have a bowel movement, Shortness of breath, Dizziness, Fainting spells, Chest pain, Increased palpitations (irregular heartbeat), Calf discomfort and Uncontrolled pain Follow Up Care Please Follow Up With: Coy Barnard MD When: within the next 2 weeks Test Results: Test results from this visit will be discussed in further detail at your follow-up appointment, if applicable. Pending Tests Upon Discharge: none Discharge Plan Admission Admit Date/Time: 07/10/22 12:20 Primary Reason for Your Visit: Debility due to generalized weakness. Attending Provider: Susy Moran Primary Care Provider: Coy Barnard Consulting Providers: Jose Izquierdo Chi Instructions Patient Instructions: Depression Affects Your Mind ..., Depression and the Brain's ..., Counseling for Depression, Exercise for Parkinson Disease, Parkinson Disease Day to Day, Parkinson Disease Emotions Additional Instructions / Restrictions: 1. You have worked hard in therapy and make some excellent progress. You are not done exercising yet! Having Parkinson's means exercise should be something you do at least 6 days a week. Yes, you have lost the ability to do some of the things you could do in the past.......we ALL lose the ability to do things we have done in the past as we age. Let's focus on the things you can still do and how to maintain the strength you have now so you do not deteriorate. Being able to still live in your home is a BIG DEAL and you do not want to lose this. By keeping yourself strong you can help your and dtr by being more independent. Your family is very supportive and they want you at home. \ 2. Being depressed is an awful way to feel and you can not just pick yourself up by your boot straps and make yourself happy. You need help. The Duloxetine did not seem to be helping with the lack of motivation. We added Wellbutrin to the Duloxetine and you have been very motivated with therapy to get better and go home. you have not had any adverse side effects. You are sleeping well at night on only Lyrica 50 mg at bedtime. You are off Trazodone. You are eating well. You have been smiling and talkative. I think with some counselling and the medications you will be much better. I think some of the problem with your short term memory are due to depression and not dementia. I suspect that in another 3 months you will be back to your baseline prior to COVID. Do things to stimulate your brain every day......read the paper, watch the news, talk about current events with your family, make plans for an outing, play games, do crossword puzzles. There is a great game on line called Ummitechle.....it is free and there is a new puzzle everyday. USE IT OR LOSE IT! 3. I has been a pleasure to meet you and your family Ross. I think you are going to be much more successful at home than you have been in the recent past. Make plans for what you are going to do with your days. Schedule exercise when you are going to be at your most alert. Exercising with a group of people is always more fun than exercising alone. Please consider checking out the Parkinson's exercise program they have at [facility].......it is designed to keep you functional. If you or your family has any questions after you leave rehab please do not hesitate to call me. Office: [phone] CELL: [phone] May you have a blessed, healthy, happy new year with a new attitude and a positive outlook on your life. Discharge Orders/Prescriptions Prescriptions: New pramipexole 0.5 mg Tablet 0.5 mg PO BID Qty: 60 0RF bupropion HCl 150 mg Tablet Extended Release 24 Hr 150 mg PO DAILY Qty: 30 0RF duloxetine 60 mg Capsule,Delayed Release(Dr/Ec) 60 mg PO DAILY Qty: 30 0RF sennosides-docusate sodium [Stool Softener-Stimulant Laxat] 8.6-50 mg Tablet 2 tab PO BID Qty: 120 0RF Continued doxazosin 4 mg tablet 4 mg PO QHS fluticasone propionate 1 SPRAY spray,suspension 2 spray NASAL DAILY guaifenesin 600 MG tablet 600 mg PO BID multivitamin Tablet 1 tab PO DAILY pregabalin 25 mg capsule 25 mg PO QHS PRN (Reason: Pain) pregabalin 50 mg capsule 50 mg PO QHS Rytary 23.75-95 mg capsule, extended release 4 cap PO TID acetaminophen 650 mg Tablet Extended Release 500 mg PO DAILY Systane (PF) 0.4-0.3 % Dropperette 1 drp EACH EYE TID aspirin 81 mg Tablet,Delayed Release (Dr/Ec) 81 mg PO DAILY acetaminophen 500 mg Tablet 500 mg PO QPM Discontinued trazodone 50 MG tablet 50 mg PO QHS ropinirole 1 mg tablet 1 mg PO BID duloxetine 30 mg capsule,delayed release(DR/EC) 30 mg PO BID Referrals / Follow Up: Coy Barnard MD [Primary Care Provider] - 08/06/22 8:40 am Disposition Disposition (needs filled in before D/C Order can be placed): Home Health Service
--- NOTE | 2022-07-24 11:53 | PCM.DC.SUM ---
Providers Date of Admission: 07/10/22 Date of Discharge: 07/24/22 Primary Care Physician: Dr. Coy Barnard MD Reason For Visit: DEBILITY DUE TO GENERALIZED WEAKNESS Diagnosis Discharge Diagnosis (1) Debility: Status: Acute Code(s): R53.81 - Other malaise (2) Generalized weakness: Status: Acute Code(s): R53.1 - Weakness (3) Parkinson disease: Status: Acute Code(s): G20 - Parkinson's disease (4) Cognitive dysfunction: Status: Acute Code(s): F09 - Unspecified mental disorder due to known physiological condition Plan: Poor short term memory.......may in part be due to depression. Wellbutrin was added to the drug regimen and he has been cooperative with therapy and never refuses to work with them. He is more alert during the day now and I think better motivated to continue a daily exercise regimen at home. Family is very supportive. (5) Depression: Status: Acute Code(s): F32.A - Depression, unspecified (6) Dysphagia: Status: Acute Code(s): R13.10 - Dysphagia, unspecified (7) Neuropathic pain: Status: Acute Code(s): M79.2 - Neuralgia and neuritis, unspecified (8) BPH (benign prostatic hyperplasia): Status: Acute Code(s): N40.0 - Benign prostatic hyperplasia without lower urinary tract symptoms Plan 1. DC home with family. 2. Will need continued PT/OT/ST post DC. 3. Encouraged him to check out the PD exercise program at [facility] and stressed that he will need to exercise at least 6 days a week if he wants to maintain his strength and continue to live independently at his home. His will not be able to lift him if he falls. Still has poor safety awareness.....some of this is because he has poor memory....hopefully will improve with addition of Wellbutrin to the drug regimen. 4. Follow up with Dr. Barnard and his neurologist post DC. Medications at Discharge Home Medications fluticasone propionate 50 mcg/actuation nasal spray,suspension 2 spray NASAL DAILY allergies 01/23/20 guaifenesin 600 mg tablet, extended release 12 hr 600 mg PO BID nasal congestion 01/23/20 doxazosin 4 mg tablet 4 mg PO QHS blood pressure 02/22/20 acetaminophen 650 mg tablet,extended release 500 mg PO DAILY arthritis 03/14/22 carbidopa ER 23.75 mg-levodopa 95 mg capsule,extended release (Rytary) 4 cap PO TID parkinsons 03/14/22 multivitamin 1 tab PO DAILY supplement 03/14/22 pregabalin 25 mg capsule 25 mg PO QHS PRN Pain 03/14/22 pregabalin 50 mg capsule 50 mg PO QHS pain 03/14/22 peg 400-propylene glycol (PF) 0.4 %-0.3 % eye drops in a dropperette (Systane (PF)) 1 drp EACH EYE TID dry eyes 03/17/22 acetaminophen 500 mg tablet 500 mg PO QPM arthritis 07/07/22 aspirin 81 mg tablet,delayed release 81 mg PO DAILY heart health 07/07/22 bupropion HCl 150 mg 24 hr tablet, extended release 150 mg PO DAILY #30 tabs 07/24/22 duloxetine 60 mg capsule,delayed release 60 mg PO DAILY #30 caps 07/24/22 pramipexole 0.5 mg tablet 0.5 mg PO BID #60 tabs 07/24/22 sennosides 8.6 mg-docusate sodium 50 mg tablet (Stool Softener-Stimulant Laxative) 2 tab PO BID #120 tabs 07/24/22 Hospital Course Operations None Procedures None Summary of Care Provided Minutes Spent on Discharge: 40 Hospital Course: Dell Ziegler is a 81-year-old male with a past medical history of Parkinson's disease, anxiety/depression, remote tobacco dependence, GERD, hyperlipidemia, BPH, chronic neuropathic pain, insomnia and a TIA in December 2019. Dell presented to the emergency department at [facility] on 07/07/2022 with a complaint of multiple falls at home recently. He had COVID approximately 4 months prior to the ED visit and he has gotten progressively weaker since that time. His also has noticed his memory is declining. He had not been exercising and hard poor motivation to get moving. He was using a rollator for ambulation but, sometimes he forgets to use the walker and then he falls. He was also more likely to fall with turning. Dell also complained of SOB with exertion and a breathy voice. A noncontrast brain CT showed chronic involutional changes of the brain in the emergency department. He had an MRI of his brain on 07/08/2022 and it showed no MRI evidence of acute or subacute ischemic infarct, intracranial bleeding or acute intracranial abnormality. 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 While in the hospital Dell was seen by PT/OT and admission to acute inpatient rehab for generalized weakness was recommended. He was transferred to the acute inpatient rehab unit at [facility] on 07/10/2022 for 3 hours of therapy daily to restore function/independence at or near his level prior to COVID infection. Dell was depressed when he came to rehab. He was taking Cymbalta 30 mg p.o. twice daily. He was complaining of insomnia and in some patients because of the norepinephrine reuptake inhibition Cymbalta can cause anxiety and insomnia. The Cymbalta was changed to 60 mg p.o. every morning. Wellbutrin XL 150 mg was added to the drug regimen to help keep him awake during the day and to help motivate him. He tolerated the Wellbutrin well and it did make him more alert during the day. He started to sleep better with changing the Cymbalta dosing to once a day in the AM and in fact we were able to discontinue the Trazodone which he was taking for many years. He was sleeping well prior to DC. He also had a good appetite and was more outgoing with staff. He always cooperated with the therapist and did everything asked of him. The hospital does not carry ropinirole and so he was switched to pramipexole and he told me that he felt much better so it was continued at discharge. At the time of discharge she was supervision/set up for eating and standby assistance for grooming. He was contact-guard assist for lower body dressing and supervision/set up for upper body dressing. He was standby assist for bathing. He was contact-guard assist for toilet transfer and standby assist with toileting. He was contact-guard assist for tub/shower transfer. When physical therapy initially started working with Dell he was not staying within the base of the walker and the walker was too far out in front of him leading to loss of balance. He could not remember to stay within the base and the therapist tied a bungee cord around the back of the walker that reminded him to stay within the base of the walker and this seemed to work well. Prior to discharge he was ambulating up to 500 feet with a wheeled walker at contact-guard assist with the band at the patient's hips to cue him to stay within the walker base. He was able to ambulate on various surfaces with no loss of balance. DME at discharge included a wheeled walker and he will no longer use the Rollator. He completed 20 steps with 2 handrails at min assist/contact-guard assist with moderate cues for safety. His voice quality improved and he was not as breathy at discharge. Dyspnea on exertion also improved and he was tolerating exercise much better. At the time of admission to rehab he was taking pregabalin 75 mg at at bedtime and sometimes took an extra dose when he woke up during the night. While he was in rehab he slept well and did not awaken pain with only 50 mg of pregabalin at night. He has memory issues and If he could continue with only 50 mg at HS I think it would be best. Pregablalin can cause depression and also in the elderly can cause drowsiness and confusion. He was doing well at [facility] and his felt that she could adequately manage what assistance he needed at home. One of her daughters comes to help a few times a week. Marily knows that if he is to maintain independence and continue to live at home he will need to keep up with an exercise routine 6-7 times a week. [facility] was arranged by the prior to [facility]. He has a follow up appt with Dr. Coy Barnard on 08/06/22 at 8:40 AM. He was given my office number and my cell number at the time of PR and will call if he has questions prior to his appt with Dr. Barnard. Physical Exam Const alert, oriented x3 and no apparent distress General Appearance: cooperative and well developed HEENT normocephalic Eyes PERRL and EOMs intact bilaterally Neck supple and no JVD Resp normal respiratory effort and clear to auscultation bilaterally Resp Narrative: No cough with deep breathing. Not tachypneic, no conversational dyspnea. Voice gets a little breathy at times. Effort and Inspection: Negative for tachypneic, respiratory distress or uses accessory muscles Cardio regular rate, regular rhythm, no murmurs, no rub and no gallops GI normal to inspection, nondistended, normoactive bowel sounds, soft to palpation, non-tender and non-distended GI Narrative: no guarding with palpation. Extremity no calf tenderness General Extremity: Negative for clubbing or edema Skin General Skin Exam: no breakdown Rashes: no rashes Neuro Neuro Narrative: Memory and level of alertness have improved since admission and his motivation to exercise has also improved. His voice is stronger and projects better and he is no longer coughing when taking deep breaths. He can get the IS up to the top (2500 cc's) He is stronger and is able to work with therapy without SOB at PR. Psych cooperative; Negative for thought process normal Psych Narrative: He will need additional memory work with ST at [facility]. He definitely has more motivation to exercise to maintain independence and he is asking therapy if he can do more weight with exercise. Mood is much more upbeat and he is more alert with better facial expression.He is sleeping well and has a good appetite. Appearance: appropriate Weight / BMI Weight Weight: 229 lb 3.2 oz Body Mass Index (BMI) 31.4 ABG / Lab / Microbiology Data Result Diagrams: 07/11/22 05:35 07/11/22 05:35 D/C Instructions Discharge Diet: - (low salt and low fat.) Weight Bearing Status: Full weight bearing Call your doctor if you observe: Fever of 101 or Higher, Inability to urinate, Inability to have a bowel movement, Shortness of breath, Dizziness, Fainting spells, Chest pain, Increased palpitations (irregular heartbeat), Calf discomfort and Uncontrolled pain Pending Tests Upon Discharge: none Please Follow Up With: Coy Barnard MD When: within the next 2 weeks Meaningful Use Info Meaningful Use Diagnoses (Choose all that apply): None applicable Discharge Plan Admission Admit Date/Time: 07/10/22 12:20 Primary Reason for Your Visit: Debility due to generalized weakness. Attending Provider: Susy Moran Primary Care Provider: Coy Barnard Consulting Providers: Jose Izquierdo Chi Instructions Patient Instructions: Depression Affects Your Mind ..., Depression and the Brain's ..., Counseling for Depression, Exercise for Parkinson Disease, Parkinson Disease Day to Day, Parkinson Disease Emotions Additional Instructions / Restrictions: 1. You have worked hard in therapy and make some excellent progress. You are not done exercising yet! Having Parkinson's means exercise should be something you do at least 6 days a week. Yes, you have lost the ability to do some of the things you could do in the past.......we ALL lose the ability to do things we have done in the past as we age. Let's focus on the things you can still do and how to maintain the strength you have now so you do not deteriorate. Being able to still live in your home is a BIG DEAL and you do not want to lose this. By keeping yourself strong you can help your and dtr by being more independent. Your family is very supportive and they want you at home. \ 2. Being depressed is an awful way to feel and you can not just pick yourself up by your boot straps and make yourself happy. You need help. The Duloxetine did not seem to be helping with the lack of motivation. We added Wellbutrin to the Duloxetine and you have been very motivated with therapy to get better and go home. you have not had any adverse side effects. You are sleeping well at night on only Lyrica 50 mg at bedtime. You are off Trazodone. You are eating well. You have been smiling and talkative. I think with some counselling and the medications you will be much better. I think some of the problem with your short term memory are due to depression and not dementia. I suspect that in another 3 months you will be back to your baseline prior to COVID. Do things to stimulate your brain every day......read the paper, watch the news, talk about current events with your family, make plans for an outing, play games, do crossword puzzles. There is a great game on line called [employer]kan[employer]ale[employer].....it is free and there is a new puzzle everyday. USE IT OR LOSE IT! 3. I has been a pleasure to meet you and your family Ross. I think you are going to be much more successful at home than you have been in the recent past. Make plans for what you are going to do with your days. Schedule exercise when you are going to be at your most alert. Exercising with a group of people is always more fun than exercising alone. Please consider checking out the Parkinson's exercise program they have at [facility].......it is designed to keep you functional. If you or your family has any questions after you leave rehab please do not hesitate to call me. Office: [phone] CELL: [phone] May you have a blessed, healthy, happy new year with a new attitude and a positive outlook on your life. Discharge Orders/Prescriptions Prescriptions: New pramipexole 0.5 mg Tablet 0.5 mg PO BID Qty: 60 0RF bupropion HCl 150 mg Tablet Extended Release 24 Hr 150 mg PO DAILY Qty: 30 0RF duloxetine 60 mg Capsule,Delayed Release(Dr/Ec) 60 mg PO DAILY Qty: 30 0RF sennosides-docusate sodium [Stool Softener-Stimulant Laxat] 8.6-50 mg Tablet 2 tab PO BID Qty: 120 0RF Continued doxazosin 4 mg tablet 4 mg PO QHS fluticasone propionate 1 SPRAY spray,suspension 2 spray NASAL DAILY guaifenesin 600 MG tablet 600 mg PO BID multivitamin Tablet 1 tab PO DAILY pregabalin 25 mg capsule 25 mg PO QHS PRN (Reason: Pain) pregabalin 50 mg capsule 50 mg PO QHS Rytary 23.75-95 mg capsule, extended release 4 cap PO TID acetaminophen 650 mg Tablet Extended Release 500 mg PO DAILY Systane (PF) 0.4-0.3 % Dropperette 1 drp EACH EYE TID aspirin 81 mg Tablet,Delayed Release (Dr/Ec) 81 mg PO DAILY acetaminophen 500 mg Tablet 500 mg PO QPM Discontinued trazodone 50 MG tablet 50 mg PO QHS ropinirole 1 mg tablet 1 mg PO BID duloxetine 30 mg capsule,delayed release(DR/EC) 30 mg PO BID Referrals / Follow Up: Coy Barnard MD [Primary Care Provider] - 08/06/22 8:40 am Disposition Disposition (needs filled in before D/C Order can be placed): Home Health Service Charges/Coding Visit Charges Inpatient E&M: 05545 Disch Hosp
[2022-07-24 14:00] VITALS: BP 115/80; PULSE 82; RESP 15; TEMP 36.5; O2SAT 92
--- NOTE | 2022-07-24 14:00 | NURSING ---
Discharge to home. Patient and aware of discharge instructions.
== END 2022-07-24 14:00 | disposition home health service (06) | DRG 57 ==
PROVIDERS: Admitting Provider Family Medicine Geriatric Medicine; PCP Family Medicine; Referring Provider Family Medicine Geriatric Medicine; Visit Provider Internal Medicine
DX: G20 Parkinson's disease (principal); E78.5 Hyperlipidemia, unspecified; J30.9 Allergic rhinitis, unspecified; G62.9 Polyneuropathy, unspecified; F41.9 Anxiety disorder, unspecified; K21.9 Gastro-esophageal reflux disease without esophagitis; F09 Unspecified mental disorder due to known physiological condition; F32.A Depression, unspecified; N40.0 Benign prostatic hyperplasia without lower urinary tract symptoms; Z87.891 Personal history of nicotine dependence; Z86.16 Personal history of COVID-19; Z79.899 Other long term (current) drug therapy; Z79.82 Long term (current) use of aspirin; R29.6 Repeated falls
CPT/HCPCS: 36415; 80053; 83735; 84100; 85027; 92507; 92523; 97110; 97112; 97116; 97162; 97166; 97530; 97535; 97803; 99251; A4216; G0463

== ENCOUNTER → 2022-09-22 | Outpatient (CLI) | payer MEDICARE, SELFPAY ==
[2022-09-22 16:07] LABS: PSA,Total - Annual Screen 1.45 ng/mL (0.00-4.00)
== END | disposition home or self-care (01) ==
LOC: LAB 14:48
PROVIDERS: PCP Family Medicine; Referring Provider Urology; Visit Provider Urology
DX: Z12.5 Encounter for screening for malignant neoplasm of prostate (principal)
CPT/HCPCS: 36415; 84153; G0103

== ENCOUNTER 2022-10-15 12:49 | Observation (INO) | payer MEDICARE, SELFPAY ==
[2022-10-15] VITALS (7 sets, daily range): BP systolic 120–155; BP diastolic 63–79; PULSE 67–81; RESP 16–18; TEMP 36.4–37; O2SAT 93–97; BMI 32.0; BMI 30.9
--- NOTE | 2022-10-15 14:11 | RAD_ITS ---
STUDY: X-RAY CHEST REASON FOR EXAM: Male, 82 years old. Weakness. TECHNIQUE: Single AP portable view of the chest. COMPARISON: Comparison is made with prior study dated July 07, 2020 FINDINGS: Progressive increased markings at the left lung base suggestive of atelectasis and/or early infiltrate superimposed on left basilar scarring. There is no demonstrated pleural abnormality. Normal size heart. Normal mediastinum and mello. Normal visualized pulmonary arteries. Normal visualized aortic arch and descending thoracic aorta. There are diffuse degenerative changes of the visualized thoracic spine. Normal visualized ribs, clavicles, and shoulders. There is no demonstrated abnormality of the visualized soft tissue structures of the upper abdomen. RAD/Chest 1 View (Portable) IMPRESSION: Progressive increased markings at the left lung base suggestive of a superimposed atelectasis and/or infiltrate on chronic scarring. Electronically Signed: Torito Wright MD at 14:31 EDT ,
[2022-10-15 14:35] LABS: Absolute Lymphocyte Count 1.75 X10^3/uL (0.83-4.51); Absolute Neutrophil Count 5.4 X10^3/uL (2.0-7.7); Basophil# 0.12 X10^3/uL; Basophil% 1.4 % (0-1); Eosinophil# 0.62 X10^3/uL; Eosinophils% 7.2 % (0-5); Hematocrit 42.3 % (40-54); Hemoglobin 13.7 g/dL (13.0-16.5); Lymphocyte # 1.75 X10^3/ul (0.83-4.51); Lymphocyte % 20.3 % (19-41); Mean Corp Hgb Conc 32.4 g/dL (32-36); Mean Corpuscular Hgb 30.9 pg (27.0-32.0); Mean Corpuscular Volume 95.3 fL (80-94); Mean Platelet Vol. 10.2 fl (6.2-12.0); Monocyte# 0.77 X10^3/uL; Monocyte% 8.9 % (0-10); NRBC Flagged by Analyzer 0 % (0-5); Neutrophil # 5.35 X10^3/uL (2.7-7.7); Platelet Count 206 K/mm3 (150-450); RBC Distribution Width CV 13.2 % (11.6-14.6); RBC Distribution Width SD 46.6 fl (35.1-43.9); Red Blood Count 4.44 M/mm3 (4.6-6.2); White Blood Count 8.6 K/mm3 (4.4-11.0)
[2022-10-15 14:51] LABS: Bacteria 0 SEEN /hpf (None Seen); Mucous, Urine 0 SEEN /hpf (<or=2+); Red Blood Cells-Urine 0 SEEN /hpf (0-5); Squamous Epithelial Cells - UA 0 SEEN /hpf (0-5); White Blood Cells 0 SEEN /hpf (0-5)
[2022-10-15 14:52] LABS: ALB/GLOB Ratio 1.1 RATIO (0.9-2.4); AST(SGOT) 27 U/L (15-37); Alanine Aminotransfer ALT/SGPT 8 U/L (16-61); Albumin, Serum 3.7 g/dL (3.2-5.0); Alkaline Phosphatase 64 U/L (45-117); Anion Gap 4 (5-15); BUN 24 mg/dL (7-18); BUN/Creat Ratio 22.2 RATIO (10-20); Chloride 107 mmol/L (98-107); Creatinine, Serum 1.08 mg/dL (0.70-1.30); EST Glomerular Filtration Rate 70 mL/min (>60); Est Glom Filt Rate - Afr Amer 85 mL/min (>60); Estimated Creatinine Clearance 59.88 ml/min; Globulin 3.5 g/dL (2.2-4.2); Glucose 108 mg/dL (74-106); Potassium 5.3 mmol/L (3.5-5.1); Protein, Total 7.2 g/dL (6.4-8.2); Sodium Level 138 mmol/L (136-145)
[2022-10-15 14:52] LABS: Color, Urine Yellow (Yellow); Glucose, Dipstick Normal (Normal); Ketone-Dipstick 5 mg/dl (Negative); Leukocyte Esterase-Dipstick 25 /ul (Negative); Nitrite-Dipstick Negative (Negative); Occult Blood-Urine Negative /ul (Negative); Protein-Dipstick 15 mg/dl (Negative); Urine Bilirubin Dipstick Negative (Negative); Urine Clarity Clear (Clear); Urine Urobilinogen Normal (Normal)
--- NOTE | 2022-10-15 15:13 | PCM.HP.STD ---
HPI - General General Date of Admission: 10/15/22 HPI Narrative ADALBERTO SANCHEZ, is a 82 M who presents to the hospital from home with weakness and debility and the inability to complete ADLs. According to the he was in our rehab on the fourth floor in June and he went home and was able to ambulate with an assistive device, he had home health and home physical therapy and was doing well. The services ended at the end of August and since that time he has gotten progressively weaker. There were some medication changes by new neurologist but this happened about a month and a half ago. He does have a history of Parkinson's and he does have a shuffling gait at baseline but during my examination he just received his Sinemet and was not having any significant Parkinson-like findings. He also endorses being fairly depressed and does not actively participate in his own health care. Chest x-ray and UA were negative for infections and it does appear that his weakness is potentially secondary to inactivity. He does endorse the fact that both his and daughter tried to encourage him to continue with the physical therapy after it was stopped and he did it for a few days but it slowly tapered off which is when he noticed he was getting weaker. [facility] Medical History Alcohol abuse Allergic rhinitis Anxiety Basal cell carcinoma BPH (benign prostatic hyperplasia) BPH (benign prostatic hyperplasia) Debility Depressive disorder due to another medical condition with depressive features Former smoker GERD (gastroesophageal reflux disease) Hyperlipidemia Impotence of non-organic origin Insomnia Late effect of lacunar infarction Lightheadedness Loss of balance Neuropathic pain Parkinson disease Sinus disease TIA (transient ischemic attack) (01/23/20) Home Medications fluticasone propionate 50 mcg/actuation nasal spray,suspension 2 spray NASAL DAILY allergies 01/23/20 [History Last Taken 10/15/22] guaifenesin 600 mg tablet, extended release 12 hr 600 mg PO BID nasal congestion 01/23/20 [History Last Taken 10/15/22] doxazosin 4 mg tablet 4 mg PO QHS blood pressure 02/22/20 [History Last Taken 10/14/22] acetaminophen 650 mg tablet,extended release 650 mg PO DAILY arthritis 03/14/22 [History Last Taken 10/15/22] carbidopa ER 23.75 mg-levodopa 95 mg capsule,extended release (Rytary) 4 cap PO TID@0900,1400,2100 parkinsons 03/14/22 [History Last Taken 10/15/22] multivitamin 1 tab PO DAILY supplement 03/14/22 [History Last Taken 10/15/22] pregabalin 50 mg capsule 50 mg PO DAILY pain 03/14/22 [History Last Taken 10/14/22] peg 400-propylene glycol (PF) 0.4 %-0.3 % eye drops in a dropperette (Systane (PF)) 1 drp EACH EYE TID dry eyes 03/17/22 [History Last Taken 10/14/22] acetaminophen 500 mg tablet 500 mg PO QPM arthritis 07/07/22 [History Last Taken 10/14/22] aspirin 81 mg tablet,delayed release 81 mg PO DAILY heart health 07/07/22 [History Last Taken 10/15/22] ropinirole 1 mg tablet 1 mg PO BID@0900,1400 09/04/22 [History Last Taken 10/15/22] bupropion HCl 300 mg 24 hr tablet, extended release 300 mg PO DAILY 30 days #30 tabs 09/17/22 [Rx Last Taken 10/15/22] pregabalin 25 mg capsule 25 mg PO QHS Pain 09/17/22 [History Last Taken 10/14/22] sennosides 8.6 mg-docusate sodium 50 mg tablet (Stool Softener-Stimulant Laxative) 2 tab-cap PO DAILY STOOL SOFTNER 09/17/22 [History Last Taken 10/15/22] duloxetine 60 mg capsule,delayed release 60 mg PO DAILY NERVE PAIN 10/15/22 [History Last Taken 10/15/22] sennosides 8.6 mg-docusate sodium 50 mg capsule (Senna Plus) 1 tab-cap PO QHS 10/15/22 [History Last Taken 10/14/22] Allergy/AdvReac Type Severity Reaction Status Date / Time propoxyphene napsylate AdvReac Vomiting Verified 09/17/22 13:01 [From Darvocet-N 100] Family History Brother Heart disease Father Heart disease Surgical History History of back surgery Social History household members: spouse Smoking Status: Former smoker quit date: 07/27/82 alcohol intake: current alcohol intake frequency: 0-2 drinks per day Alcohol type: wine substance use type: does not use ROS Constitutional Constitutional: Reports weakness; Denies chills, fatigue, fever(s) or malaise Eyes Eyes: Denies blurry vision ENT HEENT: Denies headache(s) or nasal discharge Cardiovascular Cardiovascular: Denies chest pain, dyspnea on exertion or syncope Respiratory/Chest Respiratory/Chest: Denies cough, shortness of breath at rest or shortness of breath with exertion Gastrointestinal Gastrointestinal: Denies constipation, diarrhea, nausea or vomiting Genitourinary Genitourinary: Denies dysuria Neurologic Neurologic: Denies focal weakness, numbness or tremor(s) Psychiatric Psychiatric: Denies anxiety or depression Vital Signs Vital Signs Vital Signs: 10/15/22 12:51 10/15/22 13:17 10/15/22 13:27 Temperature 98.6 F 97.9 F Temperature Source Temporal Temporal Pulse Rate 81 74 Respiratory Rate 18 18 Blood Pressure 130/76 H 132/68 H 132/68 H Blood Pressure Mean 94 89 89 Pulse Ox 93 95 Oxygen Delivery Method Room Air Room Air 10/15/22 14:49 Temperature 97.8 F Temperature Source Temporal Pulse Rate 69 Respiratory Rate 18 Blood Pressure 155/79 H Blood Pressure Mean 104 Pulse Ox 97 Oxygen Delivery Method Room Air Weight Weight: 235 lb 14.314 oz Body Mass Index (BMI) 32.0 Physical Exam Narrative General: Alert, Oriented x3, Cooperative, No apparent distress HEENT: Atraumatic, PERRLA, EOMI, Normocephalic Oral: Moist Mucosa Neck: Supple, No JVD Lungs: Diminished, Normal air movement, No rhonchi, No wheeze, No rales, mild crackles at the bases Cardiovascular: Regular rate, Regular Rhythm, Normal S1, Normal S2, No murmurs Abdomen: Soft, Non Tender, Non-Distended, No Hepato-splenomegaly Extremities: No edema, Capillary Refill Less than 3 Seconds Skin: No rashes, No breakdown Musculoskeletal: No Tenderness to Palpation of Joints or Extremities Neurological: Moves all extremities, sensation intact Psych/Mental Status: Normal Affect, Appropriate, depressed Results Lab / Micro Data Result Diagrams: 10/15/22 14:22 10/15/22 14:22 Labs: Laboratory Results - last 24 hr 10/15/22 14:22: WBC 8.6, RBC 4.44 L, Hgb 13.7, Hct 42.3, MCV 95.3 H, MCH 30.9, MCHC 32.4, RDW Std Deviation 46.6 H, RDW Coeff of Boom 13.2, Plt Count 206, MPV 10.2, Immature Gran % (Auto) 0.200, Neut % (Auto) 62.0, Lymph % (Auto) 20.3, [place] % (Auto) 8.9, Eos % (Auto) 7.2 H, Baso % (Auto) 1.4 H, Absolute Neuts (auto) 5.4, Absolute Lymphs (auto) 1.75, Nucleated RBC % 0 10/15/22 14:22: Sodium 138, Potassium 5.3 H, Chloride 107, Carbon Dioxide 27.0, Anion Gap 4 L, BUN 24 H, Creatinine 1.08, Estim Creat Clear Calc 59.88, Est GFR (MDRD) Af Amer 85, Est GFR (MDRD) Non-Af 70, BUN/Creatinine Ratio 22.2 H, Glucose 108 H, Calcium 9.0, Total Bilirubin 0.80, AST 27, ALT 8 L, Alkaline Phosphatase 64, Total Protein 7.2, Albumin 3.7, Globulin 3.5, Albumin/Globulin Ratio 1.1 10/15/22 14:40: Urine Color Yellow, Urine Clarity Clear, Urine pH 5.0, Ur Specific [place] 1.020, Urine Protein 15 H, Urine Glucose (UA) Normal, Urine Ketones 5 H, Urine Occult Blood Negative, Urine Nitrite Negative, Urine Bilirubin Negative, Urine Urobilinogen Normal, Ur Leukocyte Esterase 25 H Radiology Impression Chest X-Ray 10/15/22 14:11 IMPRESSION: Progressive increased markings at the left lung base suggestive of a superimposed atelectasis and/or infiltrate on chronic scarring. Electronically Signed: Torito Wright MD at 14:31 EDT , Assessment & Plan Assessment/Plan (1) Generalized weakness: (2) Debility: PLAN: Plan 1. Progressive generalized weakness and debility with an inability to complete ADLs/Parkinson's disease/major depression ? Both Parkinson's and the depression is playing into his continued weakness ? We will continue with his home heart medications as well as his depression medications ? Consult PT/OT for evaluation and possible placement ? He would like to go back to rehab if possible ? I did have a 20-minute discussion on advance care planning secondary to his prognosis due to his progressive Parkinson's which according to the is progressing faster than they had anticipated ? I did encourage him on an outpatient basis to seek therapy for his depression ? Continue with his Wellbutrin and his Cymbalta ? Continue with ropinirole ? We will encourage incentive spirometry, he does have some basilar crackles and chest x-ray demonstrates likely atelectasis secondary to the fact that he is afebrile without a leukocytosis 2. Chronic nerve pain ? Can continue with his Lyrica DVT: Lovenox 78 minutes was spent in direct patient care as well as chart review, documentation, discussion with other healthcare providers Charges/Coding Visit Charges Inpatient E&M: 33214 Init Hosp L3 Procedures Hospitalists Procedures: 28799 Advncd Care Plan 30 Min
--- NOTE | 2022-10-15 15:18 | NURSING ---
MED SURG OBS [place] DEBILITY
--- NOTE | 2022-10-15 15:46 | EDS_ITS ---
HPI History of Present Illness Chief Complaint: Complaint Narrative Narrative: 82-year-old male with a history of Parkinson's and debility presenting with multiple falls. reports that these are increasing. She states he is having trouble caring for her at home because he keeps falling and he is hard to get around. Patient also having some dysuria and concerned he might have a UTI which is causing some of the weakness. No fevers at home. No nausea or vomiting. PFSH PFS Medical History Alcohol abuse Allergic rhinitis Anxiety Basal cell carcinoma BPH (benign prostatic hyperplasia) BPH (benign prostatic hyperplasia) Debility Depressive disorder due to another medical condition with depressive features Former smoker GERD (gastroesophageal reflux disease) Hyperlipidemia Impotence of non-organic origin Insomnia Late effect of lacunar infarction Lightheadedness Loss of balance Neuropathic pain Parkinson disease Sinus disease TIA (transient ischemic attack) (01/23/20) Home Medications fluticasone propionate 50 mcg/actuation nasal spray,suspension 2 spray NASAL DAILY allergies 01/23/20 [History Last Taken 10/15/22] guaifenesin 600 mg tablet, extended release 12 hr 600 mg PO BID nasal congestion 01/23/20 [History Last Taken 10/15/22] doxazosin 4 mg tablet 4 mg PO QHS blood pressure 02/22/20 [History Last Taken 10/14/22] acetaminophen 650 mg tablet,extended release 650 mg PO DAILY arthritis 03/14/22 [History Last Taken 10/15/22] carbidopa ER 23.75 mg-levodopa 95 mg capsule,extended release (Rytary) 4 cap PO TID@0900,1400,2100 parkinsons 03/14/22 [History Last Taken 10/15/22] multivitamin 1 tab PO DAILY supplement 03/14/22 [History Last Taken 10/15/22] pregabalin 50 mg capsule 50 mg PO DAILY pain 03/14/22 [History Last Taken 10/14/22] peg 400-propylene glycol (PF) 0.4 %-0.3 % eye drops in a dropperette (Systane (PF)) 1 drp EACH EYE TID dry eyes 03/17/22 [History Last Taken 10/14/22] acetaminophen 500 mg tablet 500 mg PO QPM arthritis 07/07/22 [History Last Taken 10/14/22] aspirin 81 mg tablet,delayed release 81 mg PO DAILY heart health 07/07/22 [History Last Taken 10/15/22] ropinirole 1 mg tablet 1 mg PO BID@0900,1400 09/04/22 [History Last Taken 10/15/22] bupropion HCl 300 mg 24 hr tablet, extended release 300 mg PO DAILY 30 days #30 tabs 09/17/22 [Rx Last Taken 10/15/22] pregabalin 25 mg capsule 25 mg PO QHS Pain 09/17/22 [History Last Taken 10/14/22] sennosides 8.6 mg-docusate sodium 50 mg tablet (Stool Softener-Stimulant Laxative) 2 tab-cap PO DAILY STOOL SOFTNER 09/17/22 [History Last Taken 10/15/22] duloxetine 60 mg capsule,delayed release 60 mg PO DAILY NERVE PAIN 10/15/22 [History Last Taken 10/15/22] sennosides 8.6 mg-docusate sodium 50 mg capsule (Senna Plus) 1 tab-cap PO QHS 10/15/22 [History Last Taken 10/14/22] Allergy/AdvReac Type Severity Reaction Status Date / Time propoxyphene napsylate AdvReac Vomiting Verified 09/17/22 13:01 [From Darvocet-N 100] Family History Brother Heart disease Father Heart disease Surgical History History of back surgery Social History household members: spouse Smoking Status: Former smoker quit date: 07/27/82 alcohol intake: current alcohol intake frequency: 0-2 drinks per day Alcohol type: wine substance use type: does not use ROS ROS ED Constitutional Constitutional ED: Denies chills, fever(s) or sweats Eyes Eyes: Denies blurry vision or change in vision ENT ENT ED: Denies ear pain or sore throat Cardiovascular Cardiovascular: Denies chest pain, palpitations or racing heartbeat Respiratory/Chest Respiratory/Chest: Denies cough, dyspnea or sputum Gastrointestinal Gastrointestinal: Denies abdominal pain, constipation, diarrhea, nausea or vomiting Genitourinary Genitourinary ED: Reports dysuria and urinary frequency; Denies hematuria Musculoskeletal Musculoskeletal: Denies arthralgias, myalgias or neck pain Integumentary Denies abscess, Abrasions or rash Neurologic Neurologic: Denies headache(s), paresthesias or weakness Psychiatric Psychiatric: Denies anxiety, depression, suicidal ideation or suicidal thoughts Endocrine Endocrinology: Denies polydipsia or polyuria EXAM Physical Exam Const Vital Signs: 10/15/22 12:51 10/15/22 13:17 10/15/22 13:27 Temperature 98.6 F 97.9 F Temperature Source Temporal Temporal Pulse Rate 81 74 Respiratory Rate 18 18 Blood Pressure 130/76 H 132/68 H 132/68 H Blood Pressure Mean 94 89 89 Pulse Ox 93 95 Oxygen Delivery Method Room Air Room Air 10/15/22 14:49 10/15/22 15:34 Temperature 97.8 F 97.5 F L Temperature Source Temporal Temporal Pulse Rate 69 68 Respiratory Rate 18 16 Blood Pressure 155/79 H 120/63 Blood Pressure Mean 104 82 Pulse Ox 97 93 Oxygen Delivery Method Room Air Room Air Positive well nourished General Appearance ED: NAD; Negative for pallor HEENT Reports moist mucous membranes normocephalic and atraumatic Eyes PERRL and EOMs intact bilaterally Resp normal respiratory effort and clear to auscultation bilaterally Auscultation: Negative for rales, rhonchi or wheezes Cardio regular rate and regular rhythm GI non-tender Neuro oriented x3 and CN's II-XII intact bilaterally Sensorium / Orientation: alert Motor Exam: strength 5/5 throughout Psych mental status grossly normal Skin General Skin Exam: Negative for jaundice or pallor MDM MDM MDM Narrative Medical decision making narrative: Well-appearing 82-year-old male presenting for evaluation of generalized weakness. He has had multiple falls. He is complaining of dysuria. He wants to be placed too weak to get out of home. His agrees. CBC and CMP fairly unremarkable. His potassium is 5.3 with moderate hemolysis. LFTs are normal. Urinalysis negative for infection. Discussed patient with the hospitalist for admission. Impression: 1. Dysuria 2. Debility Lab Data Labs: Laboratory Results - last 24 hr 10/15/22 10/15/22 10/15/22 14:22 14:22 14:40 WBC 8.6 RBC 4.44 L Hgb 13.7 Hct 42.3 MCV 95.3 H MCH 30.9 MCHC 32.4 RDW Std Deviation 46.6 H RDW Coeff of Boom 13.2 Plt Count 206 MPV 10.2 Immature Gran % (Auto) 0.200 Neut % (Auto) 62.0 Lymph % (Auto) 20.3 [place] % (Auto) 8.9 Eos % (Auto) 7.2 H Baso % (Auto) 1.4 H Absolute Neuts (auto) 5.4 Absolute Lymphs (auto) 1.75 Nucleated RBC % 0 Sodium 138 Potassium 5.3 H Chloride 107 Carbon Dioxide 27.0 Anion Gap 4 L BUN 24 H Creatinine 1.08 Estim Creat Clear Calc 59.88 Est GFR (MDRD) Af Amer 85 Est GFR (MDRD) Non-Af 70 BUN/Creatinine Ratio 22.2 H Glucose 108 H Calcium 9.0 Total Bilirubin 0.80 AST 27 ALT 8 L Alkaline Phosphatase 64 Total Protein 7.2 Albumin 3.7 Globulin 3.5 Albumin/Globulin Ratio 1.1 Urine Color Yellow Urine Clarity Clear Urine pH 5.0 Ur Specific [place] 1.020 Urine Protein 15 H Urine Glucose (UA) Normal Urine Ketones 5 H Urine Occult Blood Negative Urine Nitrite Negative Urine Bilirubin Negative Urine Urobilinogen Normal Ur Leukocyte Esterase 25 H Urine RBC 0 SEEN Urine WBC 0 SEEN Ur Squamous Epith Cells 0 SEEN Urine Bacteria 0 SEEN Urine Mucus 0 SEEN Radiography Diagnostic Testing: Clinical Impression(s) from Imaging Studies Chest X-Ray 10/15/22 14:11 IMPRESSION: Progressive increased markings at the left lung base suggestive of a superimposed atelectasis and/or infiltrate on chronic scarring. Electronically Signed: Torito Wright MD at 14:31 EDT , Discharge Plan Triage Chief Complaint: Complaint ED Provider: Jace Whittington Dx/Rx/DC Orders Prescriptions: No Action doxazosin 4 mg tablet 4 mg PO QHS sennosides-docusate sodium [Stool Softener-Stimulant Laxat] 8.6-50 mg tablet 2 tab-cap PO DAILY bupropion HCl 300 mg tablet extended release 24 hr 300 mg PO DAILY 30 Days Qty: 30 2RF fluticasone propionate 1 SPRAY spray,suspension 2 spray NASAL DAILY guaifenesin 600 MG tablet 600 mg PO BID multivitamin Tablet 1 tab PO DAILY pregabalin 50 mg capsule 50 mg PO DAILY Rytary 23.75-95 mg capsule, extended release 4 cap PO TID@0900,1400,2100 acetaminophen 650 mg Tablet Extended Release 650 mg PO DAILY Systane (PF) 0.4-0.3 % Dropperette 1 drp EACH EYE TID pregabalin 25 mg capsule 25 mg PO QHS aspirin 81 mg Tablet,Delayed Release (Dr/Ec) 81 mg PO DAILY acetaminophen 500 mg Tablet 500 mg PO QPM ropinirole 1 mg Tablet 1 mg PO BID@0900,1400 Senna Plus 8.6-50 mg Capsule 1 tab-cap PO QHS duloxetine 60 mg capsule,delayed release(DR/EC) 60 mg PO DAILY Primary Care Provider: Reji Piper Referrals: Reji Piper [Primary Care Provider] -
[2022-10-15] MEDS: CARBIDOPA/LEVODOPA 1 EACH CAPSULE.ER 4 EACH PO (22:41)
[2022-10-15] MEDS: Acetaminophen 500 MG Tablet PO (22:42)
[2022-10-15] MEDS: Doxazosin 4 MG Tablet PO (22:43)
[2022-10-15] MEDS: guaiFENesin 600 MG Tablet PO (22:44)
[2022-10-15] MEDS: Pregabalin 25 MG Capsule PO (22:49)
[2022-10-16] MEDS: Glycerin/Hypromellose/PEG400 15 ml Bottle 1 DRP EACH EYE ×3 (05:05→22:31)
[2022-10-16 05:08] VITALS: BP 113/58; PULSE 79; RESP 16; RESP 18; TEMP 37; O2SAT 97
[2022-10-16 05:46] LABS: Absolute Lymphocyte Count 2.23 X10^3/uL (0.83-4.51); Absolute Neutrophil Count 5.4 X10^3/uL (2.0-7.7); Basophil# 0.14 X10^3/uL; Basophil% 1.5 % (0-1); Eosinophil# 0.61 X10^3/uL; Eosinophils% 6.7 % (0-5); Hematocrit 38.6 % (40-54); Hemoglobin 12.9 g/dL (13.0-16.5); Lymphocyte # 2.23 X10^3/ul (0.83-4.51); Lymphocyte % 24.3 % (19-41); Mean Corp Hgb Conc 33.4 g/dL (32-36); Mean Corpuscular Volume 92.8 fL (80-94); Mean Platelet Vol. 10.4 fl (6.2-12.0); Monocyte# 0.75 X10^3/uL; Monocyte% 8.2 % (0-10); NRBC Flagged by Analyzer 0 % (0-5); Neutrophil # 5.39 X10^3/uL (2.7-7.7); Neutrophil % 58.9 % (47-70); Platelet Count 207 K/mm3 (150-450); RBC Distribution Width CV 13.2 % (11.6-14.6); Red Blood Count 4.16 M/mm3 (4.6-6.2); White Blood Count 9.2 K/mm3 (4.4-11.0)
[2022-10-16 06:20] LABS: Anion Gap 6 (5-15); BUN 22 mg/dL (7-18); BUN/Creat Ratio 19.3 RATIO (10-20); Calcium,Total 8.7 mg/dL (8.5-10.1); Chloride 104 mmol/L (98-107); Creatinine, Serum 1.14 mg/dL (0.70-1.30); EST Glomerular Filtration Rate 66 mL/min (>60); Est Glom Filt Rate - Afr Amer 80 mL/min (>60); Estimated Creatinine Clearance 56.73 ml/min; Glucose 105 mg/dL (74-106); Potassium 4.1 mmol/L (3.5-5.1); Sodium Level 138 mmol/L (136-145)
[2022-10-16 08:43] VITALS: BP 125/56; PULSE 76; RESP 16; TEMP 36.6; O2SAT 92
[2022-10-16] MEDS: Fluticasone 0.05% 1 SPRAY NASAL.SRY 2 SPRAY NASAL (08:47)
[2022-10-16] MEDS: Enoxaparin 40 MG/0.4 ML Syringe SC (08:47)
[2022-10-16] MEDS: buPROPion (XL) 300 MG TABLET.XL PO (08:47)
[2022-10-16] MEDS: Acetaminophen 500 MG Tablet PO ×2 (08:47→20:34)
[2022-10-16] MEDS: guaiFENesin 600 MG Tablet PO ×2 (08:47→22:31)
[2022-10-16] MEDS: DULoxetine Hcl 60 MG Capsule PO (08:48)
[2022-10-16] MEDS: Pramipexole Di-HCl 0.5 MG Tablet PO ×2 (08:48→14:27)
[2022-10-16] MEDS: CARBIDOPA/LEVODOPA 1 EACH CAPSULE.ER 4 EACH PO ×3 (08:48→20:33)
[2022-10-16] MEDS: Aspirin E.C. 81 MG Tablet PO (08:48)
[2022-10-16] MEDS: Pregabalin 50 MG Capsule PO (08:51)
--- NOTE | 2022-10-16 08:55 | PN.HOSP_ITS ---
Reason for Visit Reason for Visit: Diagnoses Weakness (10/15/22) Other malaise (10/15/22) Subjective Subjective Patient is an 82-year-old gentleman with past medical history second for Parkinson's disease admitted with progressive generalized weakness and assessment of adult failure to thrive made admitted to a monitored bed for further management Objective Data Objective Data Vital Signs: Vital Signs Temp Pulse Resp BP Pulse Ox O2 Del Method 97.9 F 76 16 125/56 H 92 Room Air 10/16/22 08:43 10/16/22 08:43 10/16/22 08:43 10/16/22 08:43 10/16/22 08:43 10/16/22 08:43 Oxygen Delivery Method Room Air Weight: 103.6 kg Body Mass Index (BMI) 30.9 Intake & Output: Intake and Output for Last 24 Hours 10/14/22 10/15/22 10/16/22 23:59 23:59 23:59 Intake Total 240 / 240 Output Total 350 / 350 Balance -110 / -110 Lab / Micro Data Result Diagrams: 10/16/22 04:51 10/16/22 04:51 Labs: Laboratory Results - last 24 hr 10/15/22 14:22: WBC 8.6, RBC 4.44 L, Hgb 13.7, Hct 42.3, MCV 95.3 H, MCH 30.9, MCHC 32.4, RDW Std Deviation 46.6 H, RDW Coeff of Boom 13.2, Plt Count 206, MPV 10.2, Immature Gran % (Auto) 0.200, Neut % (Auto) 62.0, Lymph % (Auto) 20.3, [place] % (Auto) 8.9, Eos % (Auto) 7.2 H, Baso % (Auto) 1.4 H, Absolute Neuts (auto) 5.4, Absolute Lymphs (auto) 1.75, Nucleated RBC % 0 10/15/22 14:22: Sodium 138, Potassium 5.3 H, Chloride 107, Carbon Dioxide 27.0, Anion Gap 4 L, BUN 24 H, Creatinine 1.08, Estim Creat Clear Calc 59.88, Est GFR (MDRD) Af Amer 85, Est GFR (MDRD) Non-Af 70, BUN/Creatinine Ratio 22.2 H, Glucose 108 H, Calcium 9.0, Total Bilirubin 0.80, AST 27, ALT 8 L, Alkaline Phosphatase 64, Total Protein 7.2, Albumin 3.7, Globulin 3.5, Albumin/Globulin Ratio 1.1 10/15/22 14:40: Urine Color Yellow, Urine Clarity Clear, Urine pH 5.0, Ur Specific [place] 1.020, Urine Protein 15 H, Urine Glucose (UA) Normal, Urine Ketones 5 H, Urine Occult Blood Negative, Urine Nitrite Negative, Urine Bilirubin Negative, Urine Urobilinogen Normal, Ur Leukocyte Esterase 25 H, Urine RBC 0 SEEN, Urine WBC 0 SEEN, Ur Squamous Epith Cells 0 SEEN, Urine Bacteria 0 SEEN, Urine Mucus 0 SEEN 10/16/22 04:51: WBC 9.2, RBC 4.16 L, Hgb 12.9 L, Hct 38.6 L, MCV 92.8, MCH 31.0, MCHC 33.4, RDW Std Deviation 45.0 H, RDW Coeff of [place]om 13.2, Plt Count 207, MPV 10.4, Immature Gran % (Auto) 0.400, Neut % (Auto) 58.9, Lymph % (Auto) 24.3, [place] % (Auto) 8.2, Eos % (Auto) 6.7 H, Baso % (Auto) 1.5 H, Absolute Neuts (auto) 5.4, Absolute Lymphs (auto) 2.23, Nucleated RBC % 0 10/16/22 04:51: Sodium 138, Potassium 4.1, Chloride 104, Carbon Dioxide 28.0, Anion Gap 6, BUN 22 H, Creatinine 1.14, Estim Creat Clear Calc 56.73, Est GFR (MDRD) Af Amer 80, Est GFR (MDRD) Non-Af 66, BUN/Creatinine Ratio 19.3, Glucose 105, Calcium 8.7 Radiography Diagnostic Testing: Radiology Impression Chest X-Ray 10/15/22 14:11 IMPRESSION: Progressive increased markings at the left lung base suggestive of a superimposed atelectasis and/or infiltrate on chronic scarring. Electronically Signed: Torito Wright MD at 14:31 EDT , Physical Exam Narrative GENERAL: cooperative HEENT: Atraumatic; normocephalic EYES; Anicteric, Normal Conjunctiva NECK; supple, normal thyroid, RESPIRATORY: Diminished to auscultation CARDIOVASCULAR: Regular S1 S2, GI: soft, normoactive bowel sounds, : No Renal angle tenderness; EXTREMITIES: No edema, no clubbing, MUSCULOSKELETAL: no muscle wasting NEURO: Awake; no lateralizing signs. SKIN: No Rash PSYCH; Flat affect Assessment & Plan Assessment/Plan (1) Generalized weakness: (2) Debility: PLAN: Plan Patient is an 82-year-old gentleman with past medical history second for Parkinson's disease admitted with progressive generalized weakness and assessment of adult failure to thrive made admitted to a monitored bed for further management 1. Physical deconditioning - Requested for PT OT eval and licensed social worker to assist with discharge planning 1. Parkinson's disease ? Patient is on carbidopa/levodopa 3. Chronic pain syndrome ? Patient is on Lyrica as well as duloxetine continued 4. Depression with anxiety ? Did continue patient and Depressant therapy 5. DVT prophylaxis ? SC Lovenox Time spent in the patient's overall evaluation,decision-making process, review of diagnostic data, adjustment of management, discussion with other providers, nursing nursing and ancillary staff involved in patient's care documentation, 38 Minutes Charges/Coding Visit Charges Inpatient E&M: 52201 Subs Hosp L2
--- NOTE | 2022-10-16 10:25 | CASEMGMT ---
CHARLENE TIDWELL Face to Face with patient for initial transition planning/care coordination assessment. RN CM introduced self and role at [facility]. Patient lying in bed, alert and oriented. Patient willing to participate in assessment and is able to answer all questions appropriately. Care providers, pharmacy, and demographics verified. Patient wishes to discharge home but is willing to go to SNF for additional rehab if necessary. Patient states he has no further needs or concerns at this time. CM to follow for discharge planning needs that may arise. PCP: [facility]iz Specialists: [employer] health/safety job titles; [facility] neurologist [facility]erred [facility]acy: [facility] Insurance: Feliz Prescription Benefit: yes Living Will/HPOA: yes, Jenni Ziegler HPOA LNOK: Living Arrangements: Patient lives with in a single story home with 2 steps to enter the home. Per patient assists patient's with ADLs. Transportation: DME/HHC: Patient has shower chair, grab bars, walker, rollator, wheelchair at home. Patient has had [facility]HC in the past and Rehab Unit Disposition Plan: TBD, HHC vs SNF pending progress with therapy. Maya CHENG, RN, CM
--- NOTE | 2022-10-16 13:28 | CASEMGMT ---
Therapy informed SW that patient would be appropriate for the inpatient rehab unit. Patient was there in June. SW met with patient. Introduced self and role at [facility]. SW explained therapy's recommendation. Patient said he would like to go back to [facility] inpatient rehab unit. Patient declined a list of facilities. SW will check on bed availability. SW asked Alicia to please look at patient for inpatient rehab. Milady Gordon FIRE PRODUCTION OPERATOR TJ
[2022-10-16 14:34] VITALS: BP 135/70; PULSE 85; RESP 16; TEMP 36.9; O2SAT 92
--- NOTE | 2022-10-16 14:45 | CASEMGMT ---
CHARLENE TIDWELL: CHARLENE TIDWELL in to complete BAEZ form at this time.? CHARLENE TIDWELL explained BAEZ form to patient and his spouse, patient voiced understanding.? Patient requested his to sign the BAEZ Form which she did. BAEZ form filed in chart.?Patient provided with copy of signed BAEZ form.? Patient had no further questions or concerns. Navneet Barbour RN CM ??
--- NOTE | 2022-10-16 14:50 | CASEMGMT ---
ALONDRA spoke with patient and his letting them know a referral was made to Inpatient Rehab. SW is waiting on a response to see if they have availability. Milady Gordon MEDICAL RECORDS TECHNICIAN TJ
[2022-10-16 20:30] VITALS: BP 151/71; PULSE 81; RESP 16; TEMP 36.4; O2SAT 94
[2022-10-16 22:00] VITALS: O2SAT 94
[2022-10-16] MEDS: Doxazosin 4 MG Tablet PO (22:31)
[2022-10-16] MEDS: Pregabalin 25 MG Capsule PO (22:41)
[2022-10-17 02:30] VITALS: BP 136/70; PULSE 65; RESP 16; TEMP 36.4; O2SAT 97
[2022-10-17] MEDS: Glycerin/Hypromellose/PEG400 15 ml Bottle 1 DRP EACH EYE ×3 (05:35→22:04)
--- NOTE | 2022-10-17 08:38 | PCM.PN.HOSP ---
Reason for Visit Reason for Visit: Diagnoses Weakness (10/15/22) Other malaise (10/15/22) Subjective Subjective Patient had a relatively uneventful night. Plan is for patient to be assessed for transfer to the inpatient rehab unit Objective Data Objective Data Vital Signs: Vital Signs Temp Pulse Resp BP Pulse Ox O2 Del Method 97.5 F L 65 16 136/70 H 97 Room Air 10/17/22 02:30 10/17/22 02:30 10/17/22 02:30 10/17/22 02:30 10/17/22 02:30 10/17/22 02:30 Oxygen Delivery Method Room Air Weight: 103.6 kg Body Mass Index (BMI) 30.9 Intake & Output: Intake and Output for Last 24 Hours 10/15/22 10/16/22 10/17/22 23:59 23:59 23:59 Intake Total 240 / 240 120 / 120 Output Total 350 / 350 250 / 250 Balance -110 / -110 -130 / -130 Lab / Micro Data Result Diagrams: 10/16/22 04:51 10/16/22 04:51 Physical Exam Narrative GENERAL: cooperative HEENT: Atraumatic; normocephalic EYES; Anicteric, Normal Conjunctiva NECK; supple, normal thyroid, RESPIRATORY: Diminished to auscultation CARDIOVASCULAR: Regular S1 S2, GI: soft, normoactive bowel sounds, : No Renal angle tenderness; EXTREMITIES: No edema, no clubbing, MUSCULOSKELETAL: no muscle wasting NEURO: Awake; no lateralizing signs. SKIN: No Rash PSYCH; Flat affect Assessment & Plan Assessment/Plan (1) Generalized weakness: (2) Debility: PLAN: Plan Patient is an 82-year-old gentleman with past medical history second for Parkinson's disease admitted with progressive generalized weakness and assessment of adult failure to thrive made admitted to a monitored bed for further management 1. Physical deconditioning - Requested for PT OT eval and social media content specialist to assist with discharge planning -10/17/2022;Patient had a relatively uneventful night. Plan is for patient to be assessed for transfer to the inpatient rehab unit 1. Parkinson's disease ? Patient is on carbidopa/levodopa 3. Chronic pain syndrome ? Patient is on Lyrica as well as duloxetine continued 4. Depression with anxiety ? Did continue patient and Depressant therapy 5. DVT prophylaxis ? [place] Lovenox Time spent in the patient's overall evaluation,decision-making process, review of diagnostic data, adjustment of management, discussion with other providers, nursing nursing and ancillary staff involved in patient's care documentation, 38 Minutes Charges/Coding Visit Charges Inpatient E&M: 24888 Subs Hosp L2
[2022-10-17 08:55] VITALS: BP 123/68; PULSE 79; RESP 16; TEMP 36.3; O2SAT 95
[2022-10-17] MEDS: Acetaminophen 500 MG Tablet PO ×2 (09:05→22:01)
[2022-10-17] MEDS: Aspirin E.C. 81 MG Tablet PO (09:05)
[2022-10-17] MEDS: buPROPion (XL) 300 MG TABLET.XL PO (09:05)
[2022-10-17] MEDS: Pramipexole Di-HCl 0.5 MG Tablet PO ×2 (09:05→12:56)
[2022-10-17] MEDS: Fluticasone 0.05% 1 SPRAY NASAL.SRY 2 SPRAY NASAL (09:06)
[2022-10-17] MEDS: guaiFENesin 600 MG Tablet PO ×2 (09:06→22:02)
[2022-10-17] MEDS: CARBIDOPA/LEVODOPA 1 EACH CAPSULE.ER 4 EACH PO ×3 (09:06→22:00)
[2022-10-17] MEDS: DULoxetine Hcl 60 MG Capsule PO (09:06)
[2022-10-17] MEDS: Enoxaparin 40 MG/0.4 ML Syringe SC (09:06)
[2022-10-17] MEDS: Pregabalin 50 MG Capsule PO (09:12)
--- NOTE | 2022-10-17 10:02 | DS.PCM_ITS ---
Providers Date of Admission: 10/15/22 Date of Discharge: 10/17/22 Primary Care Physician: Dr. Reji Piper, Reason For Visit: DEBILITY AND WEAKNESS Diagnosis Discharge Diagnosis (1) Generalized weakness: Status: Acute Code(s): R53.1 - Weakness (2) Debility: Status: Acute Code(s): R53.81 - Other malaise Plan Patient is an 82-year-old gentleman with past medical history second for Parkinson's disease admitted with progressive generalized weakness and assessment of adult failure to thrive made admitted to a monitored bed for further management 1. Physical deconditioning - Requested for PT OT eval and director social service to assist with discharge planning -10/17/2022;Patient had a relatively uneventful night. Plan is for patient to be assessed for transfer to the inpatient rehab unit 1. Parkinson's disease ? Patient is on carbidopa/levodopa 3. Chronic pain syndrome ? Patient is on Lyrica as well as duloxetine continued 4. Depression with anxiety ? Did continue patient and Depressant therapy 5. DVT prophylaxis ? [facility] Time spent in the patient's overall evaluation,decision-making process, review of diagnostic data, adjustment of management, discussion with other providers, nursing nursing and ancillary staff involved in patient's care documentation, 38 Minutes Medications at Discharge Home Medications fluticasone propionate 50 mcg/actuation nasal spray,suspension 2 spray NASAL DAILY allergies 01/23/20 guaifenesin 600 mg tablet, extended release 12 hr 600 mg PO BID nasal congestion 01/23/20 doxazosin 4 mg tablet 4 mg PO QHS blood pressure 02/22/20 acetaminophen 650 mg tablet,extended release 650 mg PO DAILY arthritis 03/14/22 carbidopa ER 23.75 mg-levodopa 95 mg capsule,extended release (Rytary) 4 cap PO TID@0900,1400,2100 parkinsons 03/14/22 multivitamin 1 tab PO DAILY supplement 03/14/22 pregabalin 50 mg capsule 50 mg PO DAILY pain 03/14/22 peg 400-propylene glycol (PF) 0.4 %-0.3 % eye drops in a dropperette (Systane (PF)) 1 drp EACH EYE TID dry eyes 03/17/22 acetaminophen 500 mg tablet 500 mg PO QPM arthritis 07/07/22 aspirin 81 mg tablet,delayed release 81 mg PO DAILY heart health 07/07/22 ropinirole 1 mg tablet 1 mg PO BID@0900,1400 09/04/22 bupropion HCl 300 mg 24 hr tablet, extended release 300 mg PO DAILY 30 days #30 tabs 09/17/22 pregabalin 25 mg capsule 25 mg PO QHS Pain 09/17/22 sennosides 8.6 mg-docusate sodium 50 mg tablet (Stool Softener-Stimulant Laxative) 2 tab-cap PO DAILY STOOL SOFTNER 09/17/22 duloxetine 60 mg capsule,delayed release 60 mg PO DAILY NERVE PAIN 10/15/22 sennosides 8.6 mg-docusate sodium 50 mg capsule (Senna Plus) 1 tab-cap PO QHS 10/15/22 Hospital Course Summary of Care Provided Minutes Spent on Discharge: 38 Physical Exam Narrative GENERAL: cooperative HEENT: Atraumatic; normocephalic EYES; Anicteric, Normal Conjunctiva NECK; supple, normal thyroid, RESPIRATORY: Diminished to auscultation CARDIOVASCULAR: Regular S1 S2, GI: soft, normoactive bowel sounds, : No Renal angle tenderness; EXTREMITIES: No edema, no clubbing, MUSCULOSKELETAL: no muscle wasting NEURO: Awake; no lateralizing signs. SKIN: No Rash PSYCH; Flat affect Weight / BMI Weight Weight: 103.6 kg Body Mass Index (BMI) 30.9 ABG / Lab / Microbiology Data Result Diagrams: 10/16/22 04:51 10/16/22 04:51 D/C Instructions Discharge Diet: No restrictions Discharge Activity: Return to Normal Activity Call your doctor if you observe: Fever of 101 or Higher, Shortness of breath, Fainting spells and Chest pain Meaningful Use Info Meaningful Use Diagnoses (Choose all that apply): None applicable Discharge Plan Admission Admit Date/Time: 10/15/22 15:13 Attending Provider: Lee Dill Primary Care Provider: Reji Piper Consulting Providers: Homer Spann Discharge Orders/Prescriptions Prescriptions: Continued doxazosin 4 mg tablet 4 mg PO QHS sennosides-docusate sodium [Stool Softener-Stimulant Laxat] 8.6-50 mg tablet 2 tab-cap PO DAILY bupropion HCl 300 mg tablet extended release 24 hr 300 mg PO DAILY 30 Days Qty: 30 2RF fluticasone propionate 1 SPRAY spray,suspension 2 spray NASAL DAILY guaifenesin 600 MG tablet 600 mg PO BID multivitamin Tablet 1 tab PO DAILY pregabalin 50 mg capsule 50 mg PO DAILY Rytary 23.75-95 mg capsule, extended release 4 cap PO TID@0900,1400,2100 acetaminophen 650 mg Tablet Extended Release 650 mg PO DAILY Systane (PF) 0.4-0.3 % Dropperette 1 drp EACH EYE TID pregabalin 25 mg capsule 25 mg PO QHS aspirin 81 mg Tablet,Delayed Release (Dr/Ec) 81 mg PO DAILY acetaminophen 500 mg Tablet 500 mg PO QPM ropinirole 1 mg Tablet 1 mg PO BID@0900,1400 Senna Plus 8.6-50 mg Capsule 1 tab-cap PO QHS duloxetine 60 mg capsule,delayed release(DR/EC) 60 mg PO DAILY Referrals / Follow Up: Reji Piper DO [Primary Care Provider] - Within 2 Weeks Reji Piper [[facility]] - Disposition Disposition (needs filled in before D/C Order can be placed): Inpatient Rehab Unit/Facility Charges/Coding Visit Charges Inpatient E&M: 39334 Disch Hosp >30min
--- NOTE | 2022-10-17 10:14 | CASEMGMT ---
Patient to be accepted to Rehab unit pending insurance precert. Patient notified and SW attempted to call but there was no answer. Adelina Beltran AGILE JAVA DEVELOPER, EMBROIDERY SPECIALIST
[2022-10-17 14:55] VITALS: BP 127/70; PULSE 82; RESP 18; TEMP 36.5; O2SAT 98
--- NOTE | 2022-10-17 16:38 | CASEMGMT ---
Patient was denied by insurance to go to The Inpatient Rehab Unit. Insurance felt he was more appropriate for SNF level of care. Alicia said she could get patient in TCU on Thursday. SW spoke with patient and explained situation. Patient agreed to go to [facility] TCU instead. SW called patient's and explained situation. She also agreed to [facility] TCU instead. Both denied looking at lists of other SNF's. SW explained patient will be here until Thursday as insurance will have to approve it and there is no bed until Thursday. Plan: d/c to [facility] TCU pending insurance approval. Patient was denied for the 4th floor rehab unit by insurance. Milady SPENCER
[2022-10-17 21:56] VITALS: BP 143/67; PULSE 79; RESP 15; TEMP 36.4; O2SAT 95
[2022-10-17] MEDS: Doxazosin 4 MG Tablet PO (22:02)
[2022-10-17] MEDS: Pregabalin 25 MG Capsule PO (22:09)
[2022-10-18 03:41] VITALS: BP 137/68; PULSE 75; RESP 18; TEMP 36.4; O2SAT 96
--- NOTE | 2022-10-18 03:42 | NURSING ---
This RN entered the room and noted pt asleep and was snoring loudly. pt had period of apnea, followed by a gasp of air. pt asked if he has ever been diagnosed with sleep apnea and he states that he has not, but that his believes he has sleep apnea due to his loud snoring. Pt reports this is new in the past year and denies ever having a sleep study. Duarte
[2022-10-18] MEDS: Aspirin E.C. 81 MG Tablet PO (07:39)
[2022-10-18] MEDS: CARBIDOPA/LEVODOPA 1 EACH CAPSULE.ER 4 EACH PO ×3 (07:39→21:42)
[2022-10-18] MEDS: Pramipexole Di-HCl 0.5 MG Tablet PO ×2 (07:39→13:15)
[2022-10-18 09:45] VITALS: BP 142/75; PULSE 82; RESP 18; TEMP 36.7; O2SAT 95
[2022-10-18] MEDS: DULoxetine Hcl 60 MG Capsule PO (09:55)
[2022-10-18] MEDS: guaiFENesin 600 MG Tablet PO ×2 (09:55→21:43)
[2022-10-18] MEDS: Enoxaparin 40 MG/0.4 ML Syringe SC (09:55)
[2022-10-18] MEDS: buPROPion (XL) 300 MG TABLET.XL PO (09:55)
[2022-10-18] MEDS: Fluticasone 0.05% 1 SPRAY NASAL.SRY 2 SPRAY NASAL (09:55)
[2022-10-18] MEDS: Pregabalin 50 MG Capsule PO (09:56)
[2022-10-18] MEDS: Acetaminophen 500 MG Tablet PO ×2 (09:56→21:42)
[2022-10-18] MEDS: Glycerin/Hypromellose/PEG400 15 ml Bottle 1 DRP EACH EYE ×2 (13:16→21:42)
[2022-10-18 15:45] VITALS: BP 145/89; PULSE 90; RESP 18; TEMP 36.8; O2SAT 97
--- NOTE | 2022-10-18 16:43 | PCM.PN.HOSP ---
Reason for Visit Reason for Visit: Diagnoses Weakness (10/15/22) Other malaise (10/15/22) Subjective Subjective And examined today, we are currently awaiting approval for him to go to a residential facility for inpatient rehab services. Objective Data Objective Data Vital Signs: Vital Signs Temp Pulse Resp BP Pulse Ox O2 Del Method 98.2 F 90 18 145/89 H 97 Room Air 10/18/22 15:45 10/18/22 15:45 10/18/22 15:45 10/18/22 15:45 10/18/22 15:45 10/18/22 15:45 Oxygen Delivery Method Room Air Weight: 103.6 kg Body Mass Index (BMI) 30.9 Intake & Output: Intake and Output for Last 24 Hours 10/16/22 10/17/22 10/18/22 23:59 23:59 23:59 Intake Total 240 / 240 1170 / 1170 480 / 480 Output Total 350 / 350 250 / 450 400 / 400 Balance -110 / -110 920 / 720 80 / 80 Lab / Micro Data Result Diagrams: 10/16/22 04:51 10/16/22 04:51 Physical Exam Const alert, oriented x3 and no apparent distress HEENT head/scalp atraumatic and moist oral mucous membranes Eyes EOMs intact bilaterally and conjunctivae normal Neck supple and no JVD Resp normal respiratory effort, no retractions, no use of accessory muscles and clear to auscultation bilaterally Cardio regular rate, regular rhythm, S1 normal heart sound and S2 normal heart sound GI normal to inspection, nondistended, normoactive bowel sounds and soft to palpation Extremity no clubbing, cyanosis or edema Neuro oriented x3, CN's II-XII intact bilaterally and moves all extremities Psych affect normal Assessment & Plan Assessment/Plan (1) Debility: PLAN: Plan 1. Acute debility-PT and OT will continue to see the patient, we are awaiting approval for the patient to go to an extended care facility for short-term rehab services. #2 Parkinson's disease-complicates care, medical course, recovery, and prognosis, patient will remain on his current medications #3 chronic depression-patient remains on his current medications #4 cerebrovascular disease-patient is currently on 81 mg aspirin daily Total clinical time spent by myself addressing the patient's medical issues, reviewing all of the data, and collaborating with patient's care team: 35 minutes Charges/Coding Visit Charges Inpatient E&M: 06134 Subs Hosp L2
[2022-10-18] MEDS: Doxazosin 4 MG Tablet PO (21:43)
[2022-10-18 21:45] VITALS: BP 141/68; PULSE 87; RESP 18; TEMP 37.1; O2SAT 94
[2022-10-18] MEDS: Pregabalin 25 MG Capsule PO (21:50)
[2022-10-19 03:16] VITALS: BP 137/75; PULSE 78; RESP 19; TEMP 36.5; O2SAT 94
[2022-10-19] MEDS: Glycerin/Hypromellose/PEG400 15 ml Bottle 1 DRP EACH EYE ×3 (06:25→21:00)
[2022-10-19 09:10] VITALS: BP 121/57; PULSE 86; RESP 17; TEMP 36.6; O2SAT 94
[2022-10-19] MEDS: Fluticasone 0.05% 1 SPRAY NASAL.SRY 2 SPRAY NASAL (09:21)
[2022-10-19] MEDS: buPROPion (XL) 300 MG TABLET.XL PO (09:22)
[2022-10-19] MEDS: Acetaminophen 500 MG Tablet PO ×2 (09:22→20:59)
[2022-10-19] MEDS: guaiFENesin 600 MG Tablet PO ×2 (09:22→21:00)
[2022-10-19] MEDS: DULoxetine Hcl 60 MG Capsule PO (09:23)
[2022-10-19] MEDS: Pramipexole Di-HCl 0.5 MG Tablet PO ×2 (09:23→14:14)
[2022-10-19] MEDS: CARBIDOPA/LEVODOPA 1 EACH CAPSULE.ER 4 EACH PO ×3 (09:23→20:59)
[2022-10-19] MEDS: Aspirin E.C. 81 MG Tablet PO (09:23)
[2022-10-19] MEDS: Enoxaparin 40 MG/0.4 ML Syringe SC (09:24)
[2022-10-19] MEDS: Pregabalin 50 MG Capsule PO (09:24)
--- NOTE | 2022-10-19 13:58 | PCM.PN.HOSP ---
Reason for Visit Reason for Visit: Diagnoses Weakness (10/15/22) Other malaise (10/15/22) Subjective Subjective Patient was seen and examined today, he remains medically stable at this time. Objective Data Objective Data Vital Signs: Vital Signs Temp Pulse Resp BP Pulse Ox O2 Del Method 97.9 F 86 17 121/57 H 94 Room Air 10/19/22 09:10 10/19/22 09:10 10/19/22 09:10 10/19/22 09:10 10/19/22 09:10 10/19/22 09:15 Oxygen Delivery Method Room Air Weight: 103.6 kg Body Mass Index (BMI) 30.9 Intake & Output: Intake and Output for Last 24 Hours 10/17/22 10/18/22 10/19/22 23:59 23:59 23:59 Intake Total 1170 / 1170 980 / 980 Output Total 250 / 450 600 / 600 0 / 0 Balance 920 / 720 380 / 380 0 / 0 Lab / Micro Data Result Diagrams: 10/16/22 04:51 10/16/22 04:51 Physical Exam Narrative alert, oriented x3 and no apparent distress HEENT head/scalp atraumatic and moist oral mucous membranes Eyes EOMs intact bilaterally and conjunctivae normal Neck supple and no JVD Resp normal respiratory effort, no retractions, no use of accessory muscles and clear to auscultation bilaterally Cardio regular rate, regular rhythm, S1 normal heart sound and S2 normal heart sound GI normal to inspection, nondistended, normoactive bowel sounds and soft to palpation Extremity no clubbing, cyanosis or edema Neuro oriented x3, CN's II-XII intact bilaterally and moves all extremities Psych affect normal Assessment & Plan Assessment/Plan (1) Debility: PLAN: Plan 1. Acute debility-PT and OT will continue to see the patient, we are awaiting approval for the patient to go to an extended care facility for short-term rehab services. There are no changes in his medical care at this time. #2 Parkinson's disease-complicates care, medical course, recovery, and prognosis, patient will remain on his current medications #3 chronic depression-patient remains on his current medications #4 cerebrovascular disease-patient is currently on 81 mg aspirin daily Total clinical time spent by myself addressing the patient's medical issues, reviewing all of the data, and collaborating with patient's care team: 25 minutes Charges/Coding Visit Charges Inpatient E&M: 80317 Subs Hosp L1
[2022-10-19 15:29] VITALS: BP 138/71; PULSE 85; RESP 16; TEMP 36.7; O2SAT 94
--- NOTE | 2022-10-19 18:58 | NURSING ---
Report called to [facility] CHARLENE Cantu.
[2022-10-19 20:47] VITALS: BP 140/75; PULSE 83; RESP 20; TEMP 36.9; O2SAT 95
[2022-10-19] MEDS: Doxazosin 4 MG Tablet PO (21:00)
[2022-10-19] MEDS: 0.9% Saline Lock 10 ML Syringe IV (21:23)
[2022-10-19] MEDS: Pregabalin 25 MG Capsule PO (22:14)
[2022-10-20] VITALS (7 sets, daily range): BP systolic 118–144; BP diastolic 59–78; PULSE 78–90; RESP 16–20; TEMP 36.3–36.6; O2SAT 94–96
[2022-10-20] MEDS: Glycerin/Hypromellose/PEG400 15 ml Bottle 1 DRP EACH EYE ×3 (05:14→20:33)
[2022-10-20] MEDS: CARBIDOPA/LEVODOPA 1 EACH CAPSULE.ER 4 EACH PO ×3 (08:42→20:33)
[2022-10-20] MEDS: Pramipexole Di-HCl 0.5 MG Tablet PO ×2 (08:42→14:29)
[2022-10-20] MEDS: Aspirin E.C. 81 MG Tablet PO (08:42)
[2022-10-20] MEDS: DULoxetine Hcl 60 MG Capsule PO (08:43)
[2022-10-20] MEDS: Fluticasone 0.05% 1 SPRAY NASAL.SRY 2 SPRAY NASAL (08:43)
[2022-10-20] MEDS: Enoxaparin 40 MG/0.4 ML Syringe SC (08:43)
[2022-10-20] MEDS: Acetaminophen 500 MG Tablet PO ×2 (08:44→20:32)
[2022-10-20] MEDS: guaiFENesin 600 MG Tablet PO ×2 (08:44→20:34)
[2022-10-20] MEDS: buPROPion (XL) 300 MG TABLET.XL PO (08:44)
[2022-10-20] MEDS: Pregabalin 50 MG Capsule PO (08:46)
--- NOTE | 2022-10-20 13:57 | CASEMGMT ---
Social Work SW checked in with Alicia at [facility] at 8:28 am this day on pt precert. Alicia informed information was being faxed at that time for precert and Alicia would update ALONDRA when it is obtained. PLAN: [facility], pending precert AYLIN Wolfe
--- NOTE | 2022-10-20 16:18 | PN.HOSP_ITS ---
Reason for Visit Reason for Visit: Diagnoses Weakness (10/15/22) Other malaise (10/15/22) Subjective Subjective Patient was seen and examined today, I request for approval for the patient to go to a correction was not entered since the patient has been admitted to the hospital, this was placed today through his insurance company. Patient is alert and in no distress. Objective Data Objective Data Vital Signs: Vital Signs Temp Pulse Resp BP Pulse Ox O2 Del Method 97.7 F L 90 16 136/78 H 95 Room Air 10/20/22 15:41 10/20/22 15:41 10/20/22 15:41 10/20/22 15:41 10/20/22 15:41 10/20/22 15:41 Oxygen Delivery Method Room Air Weight: 103.6 kg Body Mass Index (BMI) 30.9 Intake & Output: Intake and Output for Last 24 Hours 10/18/22 10/19/22 10/20/22 23:59 23:59 23:59 Intake Total 980 / 980 550 / 550 350 / 350 Output Total 600 / 600 400 / 650 550 / 550 Balance 380 / 380 150 / -100 -200 / -200 Lab / Micro Data Result Diagrams: 10/16/22 04:51 10/16/22 04:51 Physical Exam Const alert, oriented x3, no apparent distress and healthy appearing General Appearance: cooperative, well kempt and well developed Orientation / Consciousness: awake, oriented to person, oriented to place and oriented to time HEENT normocephalic, head/scalp atraumatic and moist oral mucous membranes Eyes PERRL, EOMs intact bilaterally and conjunctivae normal Neck supple, no JVD, thyroid normal and no carotid bruits General: trachea midline Resp normal respiratory effort and clear to auscultation bilaterally Auscultation: Negative for rales, rhonchi or wheezes Cardio regular rate, regular rhythm, S1 normal heart sound, S2 normal heart sound, no murmurs, no rub and no gallops GI normal to inspection, nondistended, normoactive bowel sounds, soft to palpation, non-tender and non-distended Extremity no clubbing, cyanosis or edema Skin no rashes or lesions noted General Skin Exam: no breakdown Neuro oriented x3, CN's II-XII intact bilaterally, no focal motor deficits and no sensory deficits noted Sensorium / Orientation: awake and alert Speech: speech normal Psych affect normal Assessment & Plan Assessment/Plan (1) Debility: PLAN: Plan 1. Acute debility-PT and OT will continue to see the patient, we are awaiting approval for the patient to go to an extended care facility for short-term rehab services. There are no changes in his medical care including his medications at this time. #2 Parkinson's disease-complicates care, medical course, recovery, and p rognosis, patient will remain on his current medications #3 chronic depression-patient remains on his current medications #4 cerebrovascular disease-patient is currently on 81 mg aspirin daily Total clinical time spent by myself addressing the patient's medical issues, reviewing all of the data, and collaborating with patient's care team: 25 minutes Charges/Coding Visit Charges Inpatient E&M: [id number] [facility] Hosp L1
[2022-10-20] MEDS: Pregabalin 25 MG Capsule PO (20:32)
[2022-10-20] MEDS: Doxazosin 4 MG Tablet PO (20:33)
[2022-10-20] MEDS: 0.9% Saline Lock 10 ML Syringe IV ×2 (20:36→20:58)
[2022-10-21 02:18] VITALS: BP 132/68; PULSE 74; RESP 20; TEMP 36.3; O2SAT 93
[2022-10-21 06:13] VITALS: BP 131/70; PULSE 80; RESP 20; TEMP 36.7; O2SAT 94
[2022-10-21] MEDS: Glycerin/Hypromellose/PEG400 15 ml Bottle 1 DRP EACH EYE (06:15)
[2022-10-21 08:00] VITALS: BP 137/71; PULSE 78; RESP 16; TEMP 36.3; O2SAT 92
[2022-10-21 08:19] VITALS: BP 132/66; PULSE 84; RESP 16; TEMP 36.8; O2SAT 93
--- NOTE | 2022-10-21 08:21 | PCM.TXEXTCAR ---
Diet Diet Order/Speech Therapy: 10/15/22 17:02 Diet: Regular - General Food consistency:: Regular Liquid Consistency:: Regular/Thin Routine Orders/Code Status Code Status: DNRCC-A (no intubation) Therapies Weight Bearing: Full weight bearing Physical Therapy: Eval and Treat Occupational Therapy: Eval and Treat Problem/Diagnosis (1) Debility: Status: Acute Code(s): R53.81 - Other malaise Plan 1. Acute debility-PT and OT will continue to see the patient, we are awaiting approval for the patient to go to an extended care facility for short-term rehab services. There are no changes in his medical care including his medications at this time. #2 Parkinson's disease-complicates care, medical course, recovery, and prognosis, patient will remain on his current medications #3 chronic depression-patient remains on his current medications #4 cerebrovascular disease-patient is currently on 81 mg aspirin daily Total clinical time spent by myself addressing the patient's medical issues, reviewing all of the data, and collaborating with patient's care team: 25 minutes Allergies/Procedures Done in Hospital Allergies propoxyphene napsylate [From Darvocet-N 100] Adverse Reaction (Verified 09/17/22 13:01) Vomiting Procedures: None Type of Care/Length of Stay Estimated LOS: Convalescent Care Less Than 30 days Type of Care Needed: Skilled Rehab Potential: Good Prognosis: Good Additional Orders/Day of Discharge H&P will serve as current which was dated: 10/15/22 Day of Discharge: 10/21/22 Discharge Plan Admission Admit Date/Time: 10/15/22 15:13 Primary Reason for Your Visit: debility, Parkinson's disease Attending Provider: Reji Hobbs Primary Care Provider: Reji Piper Consulting Providers: Homer Spann David Discharge Orders/Prescriptions Prescriptions: Continued doxazosin 4 mg tablet 4 mg PO QHS sennosides-docusate sodium [Stool Softener-Stimulant Laxat] 8.6-50 mg tablet 2 tab-cap PO DAILY bupropion HCl 300 mg tablet extended release 24 hr 300 mg PO DAILY 30 Days Qty: 30 2RF fluticasone propionate 1 SPRAY spray,suspension 2 spray NASAL DAILY guaifenesin 600 MG tablet 600 mg PO BID multivitamin Tablet 1 tab PO DAILY pregabalin 50 mg capsule 50 mg PO DAILY Rytary 23.75-95 mg capsule, extended release 4 cap PO TID@0900,1400,2100 acetaminophen 650 mg Tablet Extended Release 650 mg PO DAILY Systane (PF) 0.4-0.3 % Dropperette 1 drp EACH EYE TID pregabalin 25 mg capsule 25 mg PO QHS aspirin 81 mg Tablet,Delayed Release (Dr/Ec) 81 mg PO DAILY acetaminophen 500 mg Tablet 500 mg PO QPM ropinirole 1 mg Tablet 1 mg PO BID@0900,1400 Senna Plus 8.6-50 mg Capsule 1 tab-cap PO QHS duloxetine 60 mg capsule,delayed release(DR/EC) 60 mg PO DAILY Referrals / Follow Up: Reji Piper DO [Primary Care Provider] - Within 2 Weeks Reji Piper [[facility]] - Disposition Disposition (needs filled in before D/C Order can be placed): Inpatient Rehab Unit/Facility
--- NOTE | 2022-10-21 08:25 | PCM.DC.SUM ---
Providers Date of Admission: 10/15/22 Date of Discharge: 10/21/22 Primary Care Physician: Dr. Reji Piper DO Reason For Visit: DEBILITY AND WEAKNESS Diagnosis Discharge Diagnosis (1) Debility: Status: Acute Code(s): R53.81 - Other malaise Plan 1. Acute debility-PT and OT will continue to see the patient, we are awaiting approval for the patient to go to an extended care facility for short-term rehab services. There are no changes in his medical care including his medications at this time. #2 Parkinson's disease-complicates care, medical course, recovery, and prognosis, patient will remain on his current medications #3 chronic depression-patient remains on his current medications #4 cerebrovascular disease-patient is currently on 81 mg aspirin daily Total clinical time spent by myself addressing the patient's medical issues, reviewing all of the data, and collaborating with patient's care team: 25 minutes Medications at Discharge Home Medications fluticasone propionate 50 mcg/actuation nasal spray,suspension 2 spray NASAL DAILY allergies 01/23/20 guaifenesin 600 mg tablet, extended release 12 hr 600 mg PO BID nasal congestion 01/23/20 doxazosin 4 mg tablet 4 mg PO QHS blood pressure 02/22/20 acetaminophen 650 mg tablet,extended release 650 mg PO DAILY arthritis 03/14/22 carbidopa ER 23.75 mg-levodopa 95 mg capsule,extended release (Rytary) 4 cap PO TID@0900,1400,2100 parkinsons 03/14/22 multivitamin 1 tab PO DAILY supplement 03/14/22 pregabalin 50 mg capsule 50 mg PO DAILY pain 03/14/22 peg 400-propylene glycol (PF) 0.4 %-0.3 % eye drops in a dropperette (Systane (PF)) 1 drp EACH EYE TID dry eyes 03/17/22 acetaminophen 500 mg tablet 500 mg PO QPM arthritis 07/07/22 aspirin 81 mg tablet,delayed release 81 mg PO DAILY heart health 07/07/22 ropinirole 1 mg tablet 1 mg PO BID@0900,1400 RLS 09/04/22 pregabalin 25 mg capsule 25 mg PO QHS Pain 09/17/22 sennosides 8.6 mg-docusate sodium 50 mg tablet (Stool Softener-Stimulant Laxative) 2 tab-cap PO DAILY STOOL SOFTNER 09/17/22 duloxetine 60 mg capsule,delayed release 60 mg PO DAILY NERVE PAIN 10/15/22 sennosides 8.6 mg-docusate sodium 50 mg capsule (Senna Plus) 1 tab-cap PO QHS Stool softner 10/15/22 bupropion HCl 300 mg 24 hr tablet, extended release 300 mg PO DAILY Mood 10/21/22 Hospital Course Operations None Procedures None Summary of Care Provided Minutes Spent on Discharge: 31 Hospital Course: Old white male was seen in the emergency room at [facility] with complaints of generalized weakness, he has a history of Parkinson's disease and his family was unable to care for him at home. Patient was admitted to [place] [id number], he was seen by PT and OT, a request was placed [place] [facility] and a intermediate excepted the patient. On 10/21/2022, patient was seen and examined: On examination he appeared in good health and spirits. Vital signs as documented. Skin warm and dry and without overt rashes. Neck without JVD, neck was supple, trachea midline, thyroid was normal. Lungs clear bilaterally, normal air movement was noted. Heart exam notable for regular rhythm, normal sounds and absence of murmurs, rubs or gallops. Abdomen unremarkable and without evidence of organomegaly, masses, or abdominal aortic enlargement. Bowel sounds are present, abdomen is not distended. Extremities nonedematous, no cyanosis was noted, no clubbing was noted. Neuro: Cranial nerves II through XII are grossly intact, no focal motor deficits were noted, sensation to light touch and pinprick intact, motor exam 5/5 throughout. Psych: Patient is alert and oriented x3, he does not appear anxious or depressed, he does not appear agitated. Patient appears stable for discharge to TCU on 10/21/2022 for inpatient rehab services. Weight / BMI Weight Weight: 103.6 kg Body Mass Index (BMI) 30.9 ABG / Lab / Microbiology Data Result Diagrams: 10/16/22 04:51 10/16/22 04:51 D/C Instructions Discharge Diet: No restrictions Call your doctor if you observe: Fever of 101 or Higher, Shortness of breath, Fainting spells and Chest pain Meaningful Use Info Meaningful Use Diagnoses (Choose all that apply): None applicable Discharge Plan Admission Admit Date/Time: 10/15/22 15:13 Primary Reason for Your Visit: debility, Parkinson's disease Attending Provider: Reji Hobbs Primary Care Provider: Reji Piper Consulting Providers: Homer Spann David Discharge Orders/Prescriptions Prescriptions: Continued doxazosin 4 mg tablet 4 mg PO QHS sennosides-docusate sodium [Stool Softener-Stimulant Laxat] 8.6-50 mg tablet 2 tab-cap PO DAILY fluticasone propionate 1 SPRAY spray,suspension 2 spray NASAL DAILY guaifenesin 600 MG tablet 600 mg PO BID multivitamin Tablet 1 tab PO DAILY pregabalin 50 mg capsule 50 mg PO DAILY Rytary 23.75-95 mg capsule, extended release 4 cap PO TID@0900,1400,2100 acetaminophen 650 mg Tablet Extended Release 650 mg PO DAILY Systane (PF) 0.4-0.3 % Dropperette 1 drp EACH EYE TID pregabalin 25 mg capsule 25 mg PO QHS aspirin 81 mg Tablet,Delayed Release (Dr/Ec) 81 mg PO DAILY acetaminophen 500 mg Tablet 500 mg PO QPM ropinirole 1 mg Tablet 1 mg PO BID@0900,1400 Senna Plus 8.6-50 mg Capsule 1 tab-cap PO QHS duloxetine 60 mg capsule,delayed release(DR/EC) 60 mg PO DAILY No Action bupropion HCl 300 mg tablet extended release 24 hr 300 mg PO DAILY Referrals / Follow Up: Reji Piper DO [Primary Care Provider] - Within 2 Weeks Reji Piper [[facility]] - Disposition Disposition (needs filled in before D/C Order can be placed): Inpatient Rehab Unit/Facility Charges/Coding Visit Charges Inpatient E&M: 37408 Disch Hosp >30min
[2022-10-21] MEDS: Pramipexole Di-HCl 0.5 MG Tablet PO (08:40)
[2022-10-21] MEDS: CARBIDOPA/LEVODOPA 1 EACH CAPSULE.ER 4 EACH PO (08:40)
[2022-10-21] MEDS: Aspirin E.C. 81 MG Tablet PO (08:40)
--- NOTE | 2022-10-21 10:23 | CASEMGMT ---
Social Work? ALONDRA notified pt and pt , Jenni, of discharge to TCU today. Jenni was notified via phone and voiced understanding. Pt presented with slight confusion but also voiced understanding. ALONDRA faxed all discharge orders to TCU.? SW made copies of discharge orders and placed on pt chart. Sent original orders in envelope with pt upon discharge.? Disposition: TCU, skilled, convalescent, level of care?? AYLIN Wolfe? ?
[2022-10-21] MEDS: DULoxetine Hcl 60 MG Capsule PO (10:39)
[2022-10-21] MEDS: Fluticasone 0.05% 1 SPRAY NASAL.SRY 2 SPRAY NASAL (10:39)
[2022-10-21] MEDS: Pregabalin 50 MG Capsule PO (10:39)
[2022-10-21] MEDS: Enoxaparin 40 MG/0.4 ML Syringe SC (10:40)
[2022-10-21] MEDS: Acetaminophen 500 MG Tablet PO (10:41)
[2022-10-21] MEDS: guaiFENesin 600 MG Tablet PO (10:41)
[2022-10-21] MEDS: buPROPion (XL) 300 MG TABLET.XL PO (10:42)
--- NOTE | 2022-10-21 10:56 | PHA.DC.MR ---
Pharmacy Service has performed discharge medication reconciliation for this patient. The patient's discharge medication list was reviewed for discrepancies and discrepancies were resolved. Home Medications fluticasone propionate 50 mcg/actuation nasal spray,suspension 2 spray NASAL DAILY allergies 01/23/20 guaifenesin 600 mg tablet, extended release 12 hr 600 mg PO BID nasal congestion 01/23/20 doxazosin 4 mg tablet 4 mg PO QHS blood pressure 02/22/20 acetaminophen 650 mg tablet,extended release 650 mg PO DAILY arthritis 03/14/22 carbidopa ER 23.75 mg-levodopa 95 mg capsule,extended release (Rytary) 4 cap PO TID@0900,1400,2100 parkinsons 03/14/22 multivitamin 1 tab PO DAILY supplement 03/14/22 pregabalin 50 mg capsule 50 mg PO DAILY pain 03/14/22 peg 400-propylene glycol (PF) 0.4 %-0.3 % eye drops in a dropperette (Systane (PF)) 1 drp EACH EYE TID dry eyes 03/17/22 acetaminophen 500 mg tablet 500 mg PO QPM arthritis 07/07/22 aspirin 81 mg tablet,delayed release 81 mg PO DAILY heart health 07/07/22 ropinirole 1 mg tablet 1 mg PO BID@0900,1400 09/04/22 bupropion HCl 300 mg 24 hr tablet, extended release 300 mg PO DAILY 30 days #30 tabs 09/17/22 pregabalin 25 mg capsule 25 mg PO QHS Pain 09/17/22 sennosides 8.6 mg-docusate sodium 50 mg tablet (Stool Softener-Stimulant Laxative) 2 tab-cap PO DAILY STOOL SOFTNER 09/17/22 duloxetine 60 mg capsule,delayed release 60 mg PO DAILY NERVE PAIN 10/15/22 sennosides 8.6 mg-docusate sodium 50 mg capsule (Senna Plus) 1 tab-cap PO QHS 10/15/22
== END 2022-10-21 11:33 ==
LOC: ED 15:37 → PCU 15:55 → MS3 10-19 19:34
PROVIDERS: Admitting Provider Family Medicine; Emergency Provider Student in an Organized Health Care Education/Training Program; PCP Family Medicine; Visit Provider Internal Medicine
DX: R53.81 Other malaise (principal); G20 Parkinson's disease; Z87.891 Personal history of nicotine dependence; E78.5 Hyperlipidemia, unspecified; R53.1 Weakness; R30.0 Dysuria; N40.0 Benign prostatic hyperplasia without lower urinary tract symptoms; F32.A Depression, unspecified; Z79.899 Other long term (current) drug therapy; Z79.82 Long term (current) use of aspirin; R29.6 Repeated falls; G89.4 Chronic pain syndrome; F41.9 Anxiety disorder, unspecified
CPT/HCPCS: 36415; 71045; 80048; 80053; 81001; 85025; 87426; 93005; 94668; 96372; 97110; 97116; 97162; 97166; 97530; 97535; 99221; 99252; 99283; A4216; G0378; G0463

== ENCOUNTER 2022-10-21 12:00 | Inpatient (IN) | payer MEDICARE, SELFPAY ==
[2022-10-21 12:05] VITALS: BP 135/57; PULSE 89; RESP 18; RESP 21; TEMP 36.5; O2SAT 94; BMI 30.5
--- NOTE | 2022-10-21 12:23 | HP.PCM_ITS ---
HPI - General General Date of Admission: 10/21/22 Date of Service: 10/21/22 Chief Complaint: Here for rehabilitation. HPI Narrative 10/15/2022 ADALBERTO SANCHEZ, is a 82 Male who presents to [facility] Emergency Department with complaint. 10/15/2022 EKG normal sinus rhythm, left axis deviation, minimal voltage criteria LVH, maybe normal variant. Multiple falls, dysuria. UA negative for infection. unable to care for him at home. 10/15/2022 Admit to Hospital. PT/OT for SNF. 10/16/2022 Progressive weakness, Failure to Thrive. PT/OT for SNF. 10/17/2022 Plan for RU. 10/18/2022 TCU versus RU. 10/19/2022 Medically stable. 10/20/2022 Awaiting placement. 10/21/2022 Admit to TCU with debility, here for rehabilitation, strengthening, prior to disposition determination. [facility] Medical History Alcohol abuse Allergic rhinitis Anxiety Basal cell carcinoma BPH (benign prostatic hyperplasia) BPH (benign prostatic hyperplasia) Debility Depressive disorder due to another medical condition with depressive features Former smoker GERD (gastroesophageal reflux disease) Hyperlipidemia Impotence of non-organic origin Insomnia Late effect of lacunar infarction Lightheadedness Loss of balance Neuropathic pain Parkinson disease Sinus disease TIA (transient ischemic attack) (01/23/20) Home Medications fluticasone propionate 50 mcg/actuation nasal spray,suspension 2 spray NASAL DAILY allergies 01/23/20 [History Last Taken 10/15/22] guaifenesin 600 mg tablet, extended release 12 hr 600 mg PO BID nasal congestion 01/23/20 [History Last Taken 10/15/22] doxazosin 4 mg tablet 4 mg PO QHS blood pressure 02/22/20 [History Last Taken 10/14/22] acetaminophen 650 mg tablet,extended release 650 mg PO DAILY arthritis 03/14/22 [History Last Taken 10/15/22] carbidopa ER 23.75 mg-levodopa 95 mg capsule,extended release (Rytary) 4 cap PO TID@0900,1400,2100 parkinsons 03/14/22 [History Last Taken 10/15/22] multivitamin 1 tab PO DAILY supplement 03/14/22 [History Last Taken 10/15/22] pregabalin 50 mg capsule 50 mg PO DAILY pain 03/14/22 [History Last Taken 10/14/22] peg 400-propylene glycol (PF) 0.4 %-0.3 % eye drops in a dropperette (Systane (PF)) 1 drp EACH EYE TID dry eyes 03/17/22 [History Last Taken 10/14/22] acetaminophen 500 mg tablet 500 mg PO QPM arthritis 07/07/22 [History Last Taken 10/14/22] aspirin 81 mg tablet,delayed release 81 mg PO DAILY heart health 07/07/22 [History Last Taken 10/15/22] ropinirole 1 mg tablet 1 mg PO BID@0900,1400 RLS 09/04/22 [History Last Taken 10/15/22] pregabalin 25 mg capsule 25 mg PO QHS Pain 09/17/22 [History Last Taken 10/14/22] sennosides 8.6 mg-docusate sodium 50 mg tablet (Stool Softener-Stimulant Laxative) 2 tab-cap PO DAILY STOOL SOFTNER 09/17/22 [History Last Taken 10/15/22] duloxetine 60 mg capsule,delayed release 60 mg PO DAILY NERVE PAIN 10/15/22 [History Last Taken 10/15/22] sennosides 8.6 mg-docusate sodium 50 mg capsule (Senna Plus) 1 tab-cap PO QHS Stool softner 10/15/22 [History Last Taken 10/14/22] bupropion HCl 300 mg 24 hr tablet, extended release 300 mg PO DAILY Mood 10/21/22 [History Last Taken Unknown] Allergy/AdvReac Type Severity Reaction Status Date / Time propoxyphene napsylate AdvReac Vomiting Verified 09/17/22 13:01 [From Darvocet-N 100] Family History Brother Heart disease Father Heart disease Surgical History History of back surgery Social History household members: spouse Smoking Status: Former smoker quit date: 07/27/82 alcohol intake: current alcohol intake frequency: 0-2 drinks per day Alcohol type: wine substance use type: does not use ROS Constitutional Constitutional: Denies chills, fever(s) or weight gain ENT HEENT: Denies headache(s), nasal congestion or nasal discharge Cardiovascular Cardiovascular: Denies chest pain or palpitations Respiratory/Chest Respiratory/Chest: Denies cough, excessive phlegm production or shortness of breath with exertion Gastrointestinal Gastrointestinal: Denies abdominal pain, nausea or vomiting Genitourinary Genitourinary: Denies dysuria Musculoskeletal Musculoskeletal: Denies joint pain or joint swelling Integumentary Integumentary: Denies rash or wounds Neurologic Neurologic: Denies focal weakness, numbness or tingling Psychiatric Psychiatric: Denies anxiety, auditory hallucinations, depression, homicidal ideation or suicidal ideation Physical Exam Const alert General Appearance: cooperative HEENT normocephalic Eyes PERRL and EOMs intact bilaterally Neck supple, no JVD and no carotid bruits Resp normal respiratory effort, normal air movement and clear to auscultation bilaterally Cardio regular rate and regular rhythm GI normal to inspection, nondistended, normoactive bowel sounds, non-tender and non-distended Extremity normal capillary refill General Extremity: Negative for edema Skin no rashes or lesions noted General Skin Exam: no breakdown Psych affect normal Appearance: appropriate Assessment & Plan Assessment/Plan (1) Debility: (2) Multiple falls: (3) Parkinson disease: (4) Allergic rhinitis: (5) BPH (benign prostatic hyperplasia): PLAN: Plan 82 year old male with below past medical history hospitalized for multiple falls, admitted to TCU with debility, here for rehabilitation, strengthening, prior to disposition determination. * Debility - PT/OT. * Cognition - ST. * Pain - Tylenol 650mg am, 500mg pm. * Bowel - senna/colace 2 tablets am, 1 tablet qhs. * Adult immunization - Administer pneumonia vaccine, covid19 vaccine, flu vaccine as appropriate. * DVT prophylaxis - Hold, monitor. * CV prophylaxis - Aspirin 81mg daily. * Depression - Bupropion XL 300mg daily, Duloxetine 60mg daily, stable chronic skilled nursing use, GDR not recommended. * Parkinson Disease - Sinemet 25/100mg 4 tablets tidac, Mirapex 0.5mg bid. * BPH - Doxazosin 4mg qhs. * Nutrition - Ensure Plus 120ml tidcm. * Allergic rhinitis - Fluticasone nasal spray 2 sprays daily. * Congestion - Mucinex 600mg bid. * Nutrition - MVI daily. * Dry eyes - Artificial 1gtt ou tid. * Neuropathic pain - Lyrica 50mg am, 25mg qhs.
[2022-10-21] MEDS: Glycerin/Hypromellose/PEG400 15 ml Bottle 1 DRP EACH EYE ×2 (13:49→21:58)
[2022-10-21] MEDS: Pramipexole Di-HCl 0.5 MG Tablet PO (15:00)
[2022-10-21] MEDS: CARBIDOPA/LEVODOPA 1 EACH CAPSULE.ER 4 EACH PO (15:18)
--- NOTE | 2022-10-21 16:32 | CASEMGMT ---
Social Work Met with patient to complete initial assessment. Pt known to this worker from previous RU stay. Discussed code status and MOLST form. Pt confirmed full code. MOLST signed by and placed in chart. Educated to [facility] insurance and continued stay is not guaranteed with each review. Pt's goal is to return home with and dtr assistance. However, pt reports to falling 39 times in 37 days. Dtrs stays overnight with pt/ 4x/wk. SW broached briefly that a safe DC plan will need to be in place and maybe home is no longer safe. However, pt will work with therapy and determine increase in strength. to also assess if pt can return home and she can continue caring him. SW to continue to follow for safe discharge planning. Stephanie Casas, MANAGER REVIEW PIE BOTTOMER
[2022-10-21] MEDS: guaiFENesin 600 MG Tablet PO (18:24)
[2022-10-21] MEDS: Carbidopa/Levodopa 25/100 Tablet PO (18:24)
[2022-10-21] MEDS: Ensure Plus High Protein 120 ML LIQUID PO (18:25)
[2022-10-21] MEDS: Doxazosin 4 MG Tablet PO (21:56)
[2022-10-21] MEDS: Acetaminophen 500 MG Tablet PO (21:56)
[2022-10-21] MEDS: Senna/Docusate Sodium 1 Tablet PO (21:58)
[2022-10-21] MEDS: Pregabalin 25 MG Capsule PO (22:06)
[2022-10-22 05:50] LABS: Absolute Lymphocyte Count 1.35 X10^3/uL (0.83-4.51); Basophil# 0.09 X10^3/uL; Basophil% 1.3 % (0-1); Eosinophil# 0.33 X10^3/uL; Eosinophils% 4.9 % (0-5); Hematocrit 40.2 % (40-54); Hemoglobin 13.3 g/dL (13.0-16.5); Lymphocyte # 1.35 X10^3/ul (0.83-4.51); Lymphocyte % 20.2 % (19-41); Mean Corp Hgb Conc 33.1 g/dL (32-36); Mean Corpuscular Hgb 30.7 pg (27.0-32.0); Mean Corpuscular Volume 92.8 fL (80-94); Mean Platelet Vol. 10.2 fl (6.2-12.0); Monocyte% 13.5 % (0-10); NRBC Flagged by Analyzer 0 % (0-5); Neutrophil # 3.96 X10^3/uL (2.7-7.7); Neutrophil % 59.5 % (47-70); Platelet Count 216 K/mm3 (150-450); RBC Distribution Width CV 13.2 % (11.6-14.6); RBC Distribution Width SD 45.1 fl (35.1-43.9); Red Blood Count 4.33 M/mm3 (4.6-6.2); White Blood Count 6.7 K/mm3 (4.4-11.0)
[2022-10-22] MEDS: Pregabalin 50 MG Capsule PO (05:58)
[2022-10-22] MEDS: Glycerin/Hypromellose/PEG400 15 ml Bottle 1 DRP EACH EYE ×3 (05:59→21:34)
[2022-10-22] MEDS: Fluticasone 0.05% 1 SPRAY NASAL.SRY 2 SPRAY NASAL (06:00)
[2022-10-22] MEDS: DULoxetine Hcl 60 MG Capsule PO (06:00)
[2022-10-22] MEDS: guaiFENesin 600 MG Tablet PO ×2 (06:01→17:22)
[2022-10-22] MEDS: Senna/Docusate Sodium 1 Tablet 2 TABLET PO (06:01)
[2022-10-22] MEDS: Acetaminophen 325 MG Tablet 650 MG PO (06:02)
[2022-10-22] MEDS: buPROPion (XL) 300 MG TABLET.XL PO (06:03)
[2022-10-22] MEDS: Carbidopa/Levodopa 25/100 Tablet PO ×3 (06:03→17:22)
[2022-10-22 06:06] LABS: Anion Gap 5 (5-15); BUN 27 mg/dL (7-18); BUN/Creat Ratio 26.7 RATIO (10-20); Calcium,Total 8.7 mg/dL (8.5-10.1); Chloride 106 mmol/L (98-107); Creatinine, Serum 1.01 mg/dL (0.70-1.30); EST Glomerular Filtration Rate 76 mL/min (>60); Est Glom Filt Rate - Afr Amer 91 mL/min (>60); Estimated Creatinine Clearance 64.03 ml/min; Glucose 112 mg/dL (74-106); Sodium Level 138 mmol/L (136-145)
[2022-10-22] MEDS: Ensure Plus High Protein 120 ML LIQUID PO ×3 (08:55→17:22)
[2022-10-22] MEDS: Aspirin E.C. 81 MG Tablet PO (08:55)
[2022-10-22] MEDS: Multivitamins,Therapeutic Tablet 1 TABLET PO (08:55)
[2022-10-22 09:00] VITALS: PULSE 94
[2022-10-22] MEDS: Pramipexole Di-HCl 0.5 MG Tablet PO ×2 (09:01→13:37)
[2022-10-22] MEDS: Tuberculin,Purif.prot.deriv. 50 TU/ML Vial 0.1 ML ID (09:07)
--- NOTE | 2022-10-22 11:33 | PHA.CONS_ITS ---
TCU RX Drug Regimen Review Subjective: TCU Admission. 82 YOM presented to the ER with complaint, negative for infection. Hospitalized for multiple falls. Admitted to TCU with debility for strengthening and rehabilitation. Objective: Allergies propoxyphene napsylate [From Darvocet-N 100] Adverse Reaction (Verified 09/17/22 13:01) Vomiting Current Medications Generic Name Dose Route Start Last Admin Trade Name Douglasq PRN Reason Stop Dose Admin Acetaminophen 650 mg 10/22/22 06:00 10/22/22 06:02 Acetaminophen 325 Mg Tablet PO 650 mg DAILY CORIN Administration Acetaminophen 500 mg 10/21/22 21:00 10/21/22 21:56 Acetaminophen 500 Mg Tablet PO 500 mg QPM CORIN Administration Aspirin 81 mg 10/22/22 08:00 10/22/22 08:55 Aspirin E.C. 81 Mg Tablet PO 81 mg BREAKFAST CORIN Administration Bupropion HCl 300 mg 10/22/22 06:00 10/22/22 06:03 Bupropion (Xl) 300 Mg Tablet.Xl PO 300 mg DAILY CORIN Administration Carbidopa/Levodopa 4 tablet 10/21/22 16:45 10/22/22 06:03 Carbidopa/Levodopa 25/100 Tablet PO 4 tablet TIDAC CORIN Administration Doxazosin Mesylate 4 mg 10/21/22 22:00 10/21/22 21:56 Doxazosin 4 Mg Tablet PO 4 mg QHS CORIN Administration Duloxetine HCl 60 mg 10/22/22 06:00 10/22/22 06:00 Duloxetine Hcl 60 Mg Capsule PO 60 mg DAILY CORIN Administration Fluticasone Propionate 2 spray 10/22/22 06:00 10/22/22 06:00 Fluticasone 0.05% 1 [place] Nasal.Sry NASAL 2 spray DAILY CORIN Administration Glycerin/Hypromellose/Polyethylene 1 drp 10/21/22 14:00 10/22/22 05:59 Glycerin/Hypromellose/[id number] 15 Ml Bottle EACH EYE 1 drp TID CORIN Administration Guaifenesin 600 mg 10/21/22 18:00 10/22/22 06:01 Guaifenesin 600 Mg Tablet PO 600 mg BID CORIN Administration Multivitamins 1 tablet 10/22/22 08:00 10/22/22 08:55 Multivitamins,Therapeutic Tablet PO 1 tablet BREAKFAST CORIN Administration Nutritional Formula (Lactose Free) 120 ml 10/21/22 17:45 10/22/22 08:55 Ensure Plus High Protein 120 Ml Liquid PO 120 ml TIDCM CORIN Administration Pramipexole Dihydrochloride 0.5 mg 10/21/22 14:00 10/22/22 09:01 Pramipexole Di-Hcl 0.5 Mg Tablet PO 0.5 mg BID@0900,1400 CORIN Administration Pregabalin 25 mg 10/21/22 22:00 10/21/22 22:06 Pregabalin 25 Mg Capsule PO 25 mg QHS CORIN Administration Pregabalin 50 mg 10/22/22 06:00 10/22/22 05:58 Pregabalin 50 Mg Capsule PO 50 mg DAILY CORIN Administration Senna/Docusate Sodium 1 tablet 10/21/22 22:00 10/21/22 21:58 Senna/Docusate Sodium 1 Tablet PO 1 tablet QHS CORIN Administration Senna/Docusate Sodium 2 tablet 10/22/22 06:00 10/22/22 06:01 Senna/Docusate Sodium 1 Tablet PO 2 tablet DAILY CORIN Administration Sodium Chloride 10 - 40 ml 10/21/22 13:47 0.9% Saline Lock 10 Ml Syringe IV UD PRN SALINE FLUSH Tuberculin PPD 0.1 ml 10/29/22 10:00 Tuberculin,Purif.Prot.Deriv. 50 Tu/Ml Vial ID 10/29/22 10:01 X1 ONE Problem List (Last Reviewed 10/21/22 @ 12:[address] Jose Izquierdo MD) BPH (benign prostatic hyperplasia) (Acute) Allergic rhinitis (Acute) Parkinson disease (Acute) Multiple falls (Acute) Debility (Acute) Vital Signs Temp Pulse Resp BP Pulse Ox O2 Del Method 97.7 F L 94 21 H 135/57 H 94 Room Air 10/21/22 12:05 10/22/22 09:00 10/21/22 12:05 10/21/22 12:05 10/21/22 12:05 10/22/22 09:00 Oxygen Delivery Method Room Air Weight: 102.2 kg Body Mass Index (BMI) 30.5 Sodium 138 mmol/L (136-145) 10/22/22 05:21 Potassium 4.0 mmol/L (3.5-5.1) 10/22/22 05:21 Chloride 106 mmol/L (98-107) 10/22/22 05:21 Carbon Dioxide 27.0 mmol/L (21.0-32.0) 10/22/22 05:21 Anion Gap 5 (5-15) 10/22/22 05:21 BUN 27 mg/dL (7-18) H 10/22/22 05:21 Creatinine 1.01 mg/dL (0.70-1.30) 10/22/22 05:21 Est GFR (MDRD) Af Amer 91 mL/min (>60) 10/22/22 05:21 Est GFR (MDRD) Non-Af 76 mL/min (>60) 10/22/22 05:21 BUN/Creatinine Ratio 26.7 RATIO (10-20) H 10/22/22 05:21 Glucose 112 mg/dL (74-106) H 10/22/22 05:21 Assessment/Plan: 1. Pain: acetaminophen 650mg PO daily and 500mg PO QPM. Please continue to monitor for increased pain. 2. Bowel: senna/docusate 2T PO daily and 1T PO QHS. Last documented bowel movement 10/22. Please continue to monitor for constipation and diarrhea. 3. CV prophylaxis: aspirin 81mg PO daily. Please continue to monitor for S/S of bleeding and hemoglobin (last 13.3g/dL). 4. Parkinson disease: Sinemet 25/100mg 4T PO TIDAC and pramipexole 0.5mg PO BID. Please continue to monitor for dyskinesias, GI reactions and dizziness. 5. BPH: doxazosin 4mg PO QHS. Please continue to monitor for BP (last 135/57, BEERs list due to increased risk of orthostatic hypotension). 6. Allergic rhinitis: fluticasone 0.05% nasal spray 2 sprays nasal daily. Please continue to monitor for S/S of allergies. 7. Congestion: guaifenesin 600mg PO BID. Please continue to monitor for congestion. 8. Dry eyes: artificial tears 1gtt OU TID. Please continue to monitor for dry eyes. 9. Nutrition: multivitamin 1T PO daily. Please continue to monitor. Assessment/Plan for indications treated with psychotropic medications: 1. Depression: bupropion XL 300mg PO daily and duloxetine 60mg PO daily. Please see physician note regarding GDR. Please continue to monitor for suicidal ideation (BEERs criteria), falls/fractures (BEERs criteria) and sodium (last 138mmol/L). 2. Neuropathic pain: pregabalin 50mg PO QAM and 25mg PO QHS. GDR not appropriate as this medication is being used for neuropathic pain. Please continue to monitor for falls/fractures (BEERs medication) and renal function (CrCl 72.1 ml/min using adjusted BW). Medical chart and medication regimen reviewed. The following medication irregularities or issues were identified: *1. Resident was hospitalized due to multiple falls at home. Resident is on 3 medications that can increase the risk of falls. Please consider decreased doses to help decrease the risk of falls. Thanks. Date of Note:: 10/22/22
--- NOTE | 2022-10-22 11:56 | NURSING ---
Watch Supervisor Note; Activity Asset: Luna Sharpe is independent in his choice of daily activities. Dell enjoys reading [employer] magazines and working on [employer] and watch TV. Family will visit daily and bring him other items he may need or want.
[2022-10-22 13:44] VITALS: BP 136/65; PULSE 88; RESP 18; TEMP 36.2; O2SAT 92
[2022-10-22] MEDS: Pregabalin 25 MG Capsule PO (21:30)
[2022-10-22] MEDS: Senna/Docusate Sodium 1 Tablet PO (21:33)
[2022-10-22] MEDS: Doxazosin 4 MG Tablet PO (21:33)
[2022-10-22] MEDS: Acetaminophen 500 MG Tablet PO (21:33)
[2022-10-22 21:45] VITALS: BP 131/70; PULSE 89
[2022-10-23] MEDS: Pregabalin 50 MG Capsule PO (06:12)
[2022-10-23] MEDS: Carbidopa/Levodopa 25/100 Tablet PO ×3 (06:12→17:38)
[2022-10-23] MEDS: Acetaminophen 325 MG Tablet 650 MG PO (06:12)
[2022-10-23] MEDS: DULoxetine Hcl 60 MG Capsule PO (06:12)
[2022-10-23] MEDS: guaiFENesin 600 MG Tablet PO ×2 (06:12→17:38)
[2022-10-23] MEDS: buPROPion (XL) 300 MG TABLET.XL PO (06:12)
[2022-10-23] MEDS: Senna/Docusate Sodium 1 Tablet 2 TABLET PO (06:13)
[2022-10-23] MEDS: Fluticasone 0.05% 1 SPRAY NASAL.SRY 2 SPRAY NASAL (06:14)
[2022-10-23] MEDS: Glycerin/Hypromellose/PEG400 15 ml Bottle 1 DRP EACH EYE ×3 (06:15→20:17)
[2022-10-23] MEDS: Ensure Plus High Protein 120 ML LIQUID PO ×3 (07:57→17:38)
[2022-10-23] MEDS: Pramipexole Di-HCl 0.5 MG Tablet PO ×2 (07:58→13:31)
[2022-10-23] MEDS: Aspirin E.C. 81 MG Tablet PO (07:58)
[2022-10-23] MEDS: Multivitamins,Therapeutic Tablet 1 TABLET PO (07:58)
[2022-10-23 14:00] VITALS: BP 132/69; PULSE 87; RESP 18; TEMP 36.3; O2SAT 92
[2022-10-23] MEDS: Acetaminophen 500 MG Tablet PO (20:17)
[2022-10-23] MEDS: Pregabalin 25 MG Capsule PO (20:17)
[2022-10-23] MEDS: Doxazosin 4 MG Tablet PO (20:18)
[2022-10-23] MEDS: Senna/Docusate Sodium 1 Tablet PO (20:18)
[2022-10-24] MEDS: Glycerin/Hypromellose/PEG400 15 ml Bottle 1 DRP EACH EYE ×3 (06:26→21:01)
[2022-10-24] MEDS: Pregabalin 50 MG Capsule PO (06:26)
[2022-10-24] MEDS: guaiFENesin 600 MG Tablet PO ×2 (06:27→16:36)
[2022-10-24] MEDS: DULoxetine Hcl 60 MG Capsule PO (06:27)
[2022-10-24] MEDS: buPROPion (XL) 300 MG TABLET.XL PO (06:27)
[2022-10-24] MEDS: Acetaminophen 325 MG Tablet 650 MG PO (06:27)
[2022-10-24] MEDS: Senna/Docusate Sodium 1 Tablet 2 TABLET PO (06:27)
[2022-10-24] MEDS: Fluticasone 0.05% 1 SPRAY NASAL.SRY 2 SPRAY NASAL (06:28)
[2022-10-24] MEDS: Carbidopa/Levodopa 25/100 Tablet PO ×3 (06:29→16:35)
[2022-10-24] MEDS: Ensure Plus High Protein 120 ML LIQUID PO ×2 (09:04→16:37)
[2022-10-24] MEDS: Aspirin E.C. 81 MG Tablet PO (09:05)
[2022-10-24] MEDS: Pramipexole Di-HCl 0.5 MG Tablet PO ×2 (09:05→13:43)
[2022-10-24] MEDS: Multivitamins,Therapeutic Tablet 1 TABLET PO (09:05)
[2022-10-24 14:00] VITALS: BP 136/72; PULSE 88; RESP 18; TEMP 36.3; O2SAT 93
[2022-10-24] MEDS: Pregabalin 25 MG Capsule PO (20:58)
[2022-10-24] MEDS: Acetaminophen 500 MG Tablet PO (21:01)
[2022-10-24] MEDS: Doxazosin 4 MG Tablet PO (21:02)
[2022-10-24] MEDS: Senna/Docusate Sodium 1 Tablet PO (21:02)
[2022-10-24 22:00] VITALS: PULSE 97; RESP 18
[2022-10-25] MEDS: Pregabalin 50 MG Capsule PO (05:45)
[2022-10-25] MEDS: Carbidopa/Levodopa 25/100 Tablet PO ×3 (05:45→17:05)
[2022-10-25] MEDS: Glycerin/Hypromellose/PEG400 15 ml Bottle 1 DRP EACH EYE ×3 (05:45→20:53)
[2022-10-25] MEDS: guaiFENesin 600 MG Tablet PO ×2 (05:46→17:05)
[2022-10-25] MEDS: buPROPion (XL) 300 MG TABLET.XL PO (05:46)
[2022-10-25] MEDS: Acetaminophen 325 MG Tablet 650 MG PO (05:46)
[2022-10-25] MEDS: DULoxetine Hcl 60 MG Capsule PO (05:47)
[2022-10-25] MEDS: Fluticasone 0.05% 1 SPRAY NASAL.SRY 2 SPRAY NASAL (05:47)
[2022-10-25] MEDS: Senna/Docusate Sodium 1 Tablet 2 TABLET PO (05:47)
[2022-10-25] MEDS: Aspirin E.C. 81 MG Tablet PO (08:15)
[2022-10-25] MEDS: Multivitamins,Therapeutic Tablet 1 TABLET PO (08:15)
[2022-10-25] MEDS: Pramipexole Di-HCl 0.5 MG Tablet PO ×2 (08:15→13:39)
[2022-10-25] MEDS: Ensure Plus High Protein 120 ML LIQUID PO ×3 (08:15→17:05)
[2022-10-25 13:41] VITALS: BP 116/76; PULSE 106; RESP 16; TEMP 36.6; O2SAT 96
[2022-10-25 20:50] VITALS: BP 152/74; PULSE 85; O2SAT 97
[2022-10-25] MEDS: Senna/Docusate Sodium 1 Tablet PO (20:52)
[2022-10-25] MEDS: Doxazosin 4 MG Tablet PO (20:52)
[2022-10-25] MEDS: Acetaminophen 500 MG Tablet PO (20:52)
[2022-10-25] MEDS: Pregabalin 25 MG Capsule PO (20:52)
[2022-10-25 21:07] VITALS: O2SAT 97
[2022-10-26] MEDS: Pregabalin 50 MG Capsule PO (06:26)
[2022-10-26] MEDS: Carbidopa/Levodopa 25/100 Tablet PO ×3 (06:26→17:14)
[2022-10-26] MEDS: guaiFENesin 600 MG Tablet PO ×2 (06:27→17:14)
[2022-10-26] MEDS: DULoxetine Hcl 60 MG Capsule PO (06:27)
[2022-10-26] MEDS: Senna/Docusate Sodium 1 Tablet 2 TABLET PO (06:27)
[2022-10-26] MEDS: Glycerin/Hypromellose/PEG400 15 ml Bottle 1 DRP EACH EYE ×3 (06:27→21:42)
[2022-10-26] MEDS: Fluticasone 0.05% 1 SPRAY NASAL.SRY 2 SPRAY NASAL (06:27)
[2022-10-26] MEDS: buPROPion (XL) 300 MG TABLET.XL PO (06:27)
[2022-10-26] MEDS: Acetaminophen 325 MG Tablet 650 MG PO (06:30)
[2022-10-26] MEDS: Multivitamins,Therapeutic Tablet 1 TABLET PO (08:00)
[2022-10-26] MEDS: Pramipexole Di-HCl 0.5 MG Tablet PO ×2 (08:00→13:37)
[2022-10-26] MEDS: Ensure Plus High Protein 120 ML LIQUID PO ×3 (08:00→17:13)
[2022-10-26] MEDS: Aspirin E.C. 81 MG Tablet PO (08:00)
--- NOTE | 2022-10-26 09:04 | NURSING ---
shift production associate reported pt snoring loudly, has periods of apnea and history of long covid. Dr huntley udpated, new order for overnight pulse ox, resp therapy notified.
[2022-10-26 10:05] VITALS: PULSE 83; O2SAT 94
[2022-10-26 14:00] VITALS: BP 134/75; PULSE 80; RESP 16; TEMP 36.1; O2SAT 97
--- NOTE | 2022-10-26 16:32 | NURSING ---
patient c/o GI upset prior to lunch. denied needs for intervention. will continue to monitor.
[2022-10-26 21:35] VITALS: PULSE 80; O2SAT 96
[2022-10-26] MEDS: Acetaminophen 500 MG Tablet PO (21:39)
[2022-10-26] MEDS: Pregabalin 25 MG Capsule PO (21:39)
[2022-10-26] MEDS: Doxazosin 4 MG Tablet PO (21:39)
[2022-10-26] MEDS: Senna/Docusate Sodium 1 Tablet PO (21:40)
[2022-10-26 21:48] VITALS: BP 132/70; PULSE 76; O2SAT 97
[2022-10-27] MEDS: Senna/Docusate Sodium 1 Tablet 2 TABLET PO (05:05)
[2022-10-27] MEDS: Pregabalin 50 MG Capsule PO (05:05)
[2022-10-27] MEDS: Carbidopa/Levodopa 25/100 Tablet PO ×3 (05:05→17:44)
[2022-10-27] MEDS: guaiFENesin 600 MG Tablet PO ×2 (05:06→17:44)
[2022-10-27] MEDS: buPROPion (XL) 300 MG TABLET.XL PO (05:06)
[2022-10-27] MEDS: Acetaminophen 325 MG Tablet 650 MG PO (05:06)
[2022-10-27] MEDS: Fluticasone 0.05% 1 SPRAY NASAL.SRY 2 SPRAY NASAL (05:07)
[2022-10-27] MEDS: Glycerin/Hypromellose/PEG400 15 ml Bottle 1 DRP EACH EYE ×3 (05:07→20:34)
[2022-10-27] MEDS: DULoxetine Hcl 60 MG Capsule PO (05:07)
[2022-10-27] MEDS: Ensure Plus High Protein 120 ML LIQUID PO ×2 (08:09→11:50)
[2022-10-27] MEDS: Aspirin E.C. 81 MG Tablet PO (08:09)
[2022-10-27] MEDS: Pramipexole Di-HCl 0.5 MG Tablet PO ×2 (08:09→14:06)
[2022-10-27] MEDS: Multivitamins,Therapeutic Tablet 1 TABLET PO (08:09)
--- NOTE | 2022-10-27 11:49 | CASEMGMT ---
BIMS () and PHQ9 (12/20) interviews completed on this date for MDS assessment. SW explored positive responses. Pt contributes difficulty concentrating and feelings of tiredness to previous bout of Covid and current diagnosis of Parkinsons. Pt states he does occasionally feel bad about self due to not being able to care for home like he once did and his now needs to do his share of the work. SW provided emotional support. Pt denies feelings of depression at this time. AYLIN Hawkins
[2022-10-27 14:00] VITALS: BP 116/72; PULSE 89; RESP 18; TEMP 36.1; O2SAT 94
[2022-10-27] MEDS: Acetaminophen 500 MG Tablet PO (20:27)
[2022-10-27] MEDS: Pregabalin 25 MG Capsule PO (20:32)
[2022-10-27] MEDS: Doxazosin 4 MG Tablet PO (20:32)
[2022-10-27] MEDS: Senna/Docusate Sodium 1 Tablet PO (20:35)
[2022-10-28] MEDS: DULoxetine Hcl 60 MG Capsule PO (05:25)
[2022-10-28] MEDS: Glycerin/Hypromellose/PEG400 15 ml Bottle 1 DRP EACH EYE ×3 (05:25→22:00)
[2022-10-28] MEDS: Acetaminophen 325 MG Tablet 650 MG PO (05:25)
[2022-10-28] MEDS: buPROPion (XL) 300 MG TABLET.XL PO (05:25)
[2022-10-28] MEDS: Pregabalin 50 MG Capsule PO (05:25)
[2022-10-28] MEDS: guaiFENesin 600 MG Tablet PO ×2 (05:25→17:39)
[2022-10-28] MEDS: Senna/Docusate Sodium 1 Tablet PO (05:26)
[2022-10-28] MEDS: Carbidopa/Levodopa 25/100 Tablet PO ×3 (05:26→17:40)
[2022-10-28] MEDS: Fluticasone 0.05% 1 SPRAY NASAL.SRY 2 SPRAY NASAL (05:30)
[2022-10-28] MEDS: Senna/Docusate Sodium 1 Tablet 2 TABLET PO (05:30)
[2022-10-28] MEDS: Ensure Plus High Protein 120 ML LIQUID PO ×2 (08:03→17:39)
[2022-10-28] MEDS: Aspirin E.C. 81 MG Tablet PO (08:04)
[2022-10-28] MEDS: Multivitamins,Therapeutic Tablet 1 TABLET PO (08:04)
[2022-10-28] MEDS: Pramipexole Di-HCl 0.5 MG Tablet PO ×2 (08:04→12:20)
[2022-10-28 10:30] VITALS: BMI 31.7
[2022-10-28 11:13] VITALS: BP 126/56; PULSE 87; RESP 18; TEMP 36.6; O2SAT 95
--- NOTE | 2022-10-28 16:13 | CASEMGMT ---
Social Work SW was passing pt's room when overheard COM WRITER discussing with pt and recommendation for safety of two person assist and does not forsee pt returning to a level of independence or being alone. COM WRITER and welcomed this worker to enter. SW offered assistance with discussing discharge plans and options. COM WRITER excused self. knows this worker from previous RU stay and expressed appreciation for assistance. This worker spoke with at length to review safety, home going, and DC recommendations. agrees she is no longer able to care for pt at home, although not completely ruling out pt returning home in the future, but aware pt needs more assistance then she can provide currently. acknowledge's pt's cognition and the lack of safety insight. agreeable to pursue SNF placement. SW educated to private pay cost, part B therapy benefits, and local SNFs in network with [facility]. prefers pt remain in [facility],but unsure if she wants him in the [address]. SW educated to making referrals to any SNF of 's choice and the SNF to verify the insurance benefits for part B therapy coverage. would like to tour the SNFs and then notify this worker of choices. SW agrees. Educated to next insurance update on 11/03 and continued stay is not guaranteed. expressed understanding. SW provided printed list of SNFs with quality and resource data via [employer]. SW to continue to follow. YORDNA PhillipsW
[2022-10-28 21:50] VITALS: BP 114/57; PULSE 87
[2022-10-28] MEDS: Doxazosin 4 MG Tablet PO (22:00)
[2022-10-28] MEDS: Pregabalin 25 MG Capsule PO (22:05)
[2022-10-28] MEDS: Acetaminophen 500 MG Tablet PO (22:05)
[2022-10-29 05:33] LABS: Absolute Lymphocyte Count 2.43 X10^3/uL (0.83-4.51); Absolute Neutrophil Count 6.8 X10^3/uL (2.0-7.7); Basophil# 0.15 X10^3/uL; Basophil% 1.3 % (0-1); Eosinophil# 0.87 X10^3/uL; Eosinophils% 7.8 % (0-5); Hemoglobin 12.2 g/dL (13.0-16.5); Lymphocyte # 2.43 X10^3/ul (0.83-4.51); Lymphocyte % 21.8 % (19-41); Mean Corp Hgb Conc 32.1 g/dL (32-36); Mean Corpuscular Hgb 30.2 pg (27.0-32.0); Mean Corpuscular Volume 94.1 fL (80-94); Mean Platelet Vol. 9.7 fl (6.2-12.0); Monocyte# 0.86 X10^3/uL; Monocyte% 7.7 % (0-10); NRBC Flagged by Analyzer 0 % (0-5); Neutrophil # 6.76 X10^3/uL (2.7-7.7); Neutrophil % 60.8 % (47-70); Platelet Count 261 K/mm3 (150-450); RBC Distribution Width CV 13.2 % (11.6-14.6); RBC Distribution Width SD 45.1 fl (35.1-43.9); Red Blood Count 4.04 M/mm3 (4.6-6.2); White Blood Count 11.1 K/mm3 (4.4-11.0)
[2022-10-29] MEDS: Senna/Docusate Sodium 1 Tablet 2 TABLET PO (06:12)
[2022-10-29] MEDS: Acetaminophen 325 MG Tablet 650 MG PO (06:12)
[2022-10-29] MEDS: buPROPion (XL) 300 MG TABLET.XL PO (06:12)
[2022-10-29] MEDS: Carbidopa/Levodopa 25/100 Tablet PO ×3 (06:12→17:02)
[2022-10-29] MEDS: guaiFENesin 600 MG Tablet PO ×2 (06:12→17:02)
[2022-10-29] MEDS: DULoxetine Hcl 60 MG Capsule PO (06:12)
[2022-10-29] MEDS: Pregabalin 50 MG Capsule PO (06:12)
[2022-10-29 06:13] LABS: Anion Gap 5 (5-15); BUN 29 mg/dL (7-18); Calcium,Total 8.6 mg/dL (8.5-10.1); Chloride 107 mmol/L (98-107); EST Glomerular Filtration Rate 76 mL/min (>60); Est Glom Filt Rate - Afr Amer 92 mL/min (>60); Estimated Creatinine Clearance 64.67 ml/min; Glucose 109 mg/dL (74-106); Potassium 4.2 mmol/L (3.5-5.1); Sodium Level 142 mmol/L (136-145)
[2022-10-29] MEDS: Fluticasone 0.05% 1 SPRAY NASAL.SRY 2 SPRAY NASAL (06:13)
[2022-10-29] MEDS: Glycerin/Hypromellose/PEG400 15 ml Bottle 1 DRP EACH EYE ×3 (06:13→20:54)
[2022-10-29] MEDS: Ensure Plus High Protein 120 ML LIQUID PO ×2 (08:14→11:04)
[2022-10-29] MEDS: Aspirin E.C. 81 MG Tablet PO (08:14)
[2022-10-29] MEDS: Pramipexole Di-HCl 0.5 MG Tablet PO ×2 (08:14→13:15)
[2022-10-29] MEDS: Multivitamins,Therapeutic Tablet 1 TABLET PO (08:14)
--- NOTE | 2022-10-29 08:41 | NURSING ---
Drop Worker Note; MDS for 10/28
[2022-10-29] MEDS: Tuberculin,Purif.prot.deriv. 50 TU/ML Vial 0.1 ML ID (09:52)
--- NOTE | 2022-10-29 10:27 | CASEMGMT ---
Social Work IDT met with patient and for care plan meeting. Discussed patient's progress in PT/OT/ST/SN. Educated to [facility] insurance with [employer] 11/03 and continued stay is not guaranteed with each review. SW followed up on SNF choices. requesting list for [facility]. Pt's LILY in the independent living at [place] and is interested in that. SW offered to make referrals to any SNFs. [facility] SW to continue to follow for DC planning. Stephanie Casas, HAND ASSEMBLER ELEVATOR TENDER
[2022-10-29 13:58] VITALS: BP 137/82; PULSE 88; RESP 16; TEMP 36.2; O2SAT 97
[2022-10-29] MEDS: Pregabalin 25 MG Capsule PO (20:54)
[2022-10-29] MEDS: Doxazosin 4 MG Tablet PO (20:55)
[2022-10-29] MEDS: Senna/Docusate Sodium 1 Tablet PO (20:55)
[2022-10-29] MEDS: Acetaminophen 500 MG Tablet PO (20:55)
[2022-10-29 21:46] VITALS: PULSE 84; RESP 16; O2SAT 95
[2022-10-30] MEDS: Fluticasone 0.05% 1 SPRAY NASAL.SRY 2 SPRAY NASAL (06:13)
[2022-10-30] MEDS: Glycerin/Hypromellose/PEG400 15 ml Bottle 1 DRP EACH EYE ×3 (06:13→23:19)
[2022-10-30] MEDS: Carbidopa/Levodopa 25/100 Tablet PO ×3 (06:14→16:51)
[2022-10-30] MEDS: buPROPion (XL) 300 MG TABLET.XL PO (06:14)
[2022-10-30] MEDS: DULoxetine Hcl 60 MG Capsule PO (06:15)
[2022-10-30] MEDS: Senna/Docusate Sodium 1 Tablet 2 TABLET PO (06:15)
[2022-10-30] MEDS: Pregabalin 50 MG Capsule PO (06:15)
[2022-10-30] MEDS: guaiFENesin 600 MG Tablet PO ×2 (06:15→16:51)
[2022-10-30] MEDS: Acetaminophen 325 MG Tablet 650 MG PO ×2 (06:15→19:55)
[2022-10-30] MEDS: Aspirin E.C. 81 MG Tablet PO (07:47)
[2022-10-30] MEDS: Pramipexole Di-HCl 0.5 MG Tablet PO ×2 (07:47→13:37)
[2022-10-30] MEDS: Multivitamins,Therapeutic Tablet 1 TABLET PO (07:47)
[2022-10-30 09:01] VITALS: RESP 16
[2022-10-30 14:00] VITALS: BP 139/70; PULSE 78; RESP 16; TEMP 36.2; O2SAT 95
--- NOTE | 2022-10-30 16:58 | NURSING ---
daughter & asking to speak with director social welfare, message left for agnes. They are also wanting a list of nursing homes in [facility] that accepts [facility] insurance.
--- NOTE | 2022-10-30 17:45 | CASEMGMT ---
Social Work Note ALONDRA was contacted by RN Susy explaining patient and patient's family were requesting a SNF list in network with patient's insurance located in [facility]. ALONDRA provided RN with a list of SNF?providers including quality and resource use data and consistent with patient?s preferred geographic region, medical needs, and insurance network were provided from the [employer] Guide with contact information for ALONDRA Casas for further assistance. Eveline FARR, TJ
--- NOTE | 2022-10-30 19:20 | NURSING ---
NO SLEEP STUDY PER DR CAMPBELL
[2022-10-30] MEDS: Senna/Docusate Sodium 1 Tablet PO (23:19)
[2022-10-30] MEDS: Doxazosin 4 MG Tablet PO (23:19)
[2022-10-30] MEDS: Acetaminophen 500 MG Tablet PO (23:20)
[2022-10-30] MEDS: Pregabalin 25 MG Capsule PO (23:40)
[2022-10-31] MEDS: Carbidopa/Levodopa 25/100 Tablet PO ×3 (06:22→18:43)
[2022-10-31] MEDS: DULoxetine Hcl 60 MG Capsule PO (06:23)
[2022-10-31] MEDS: guaiFENesin 600 MG Tablet PO ×2 (06:23→18:44)
[2022-10-31] MEDS: buPROPion (XL) 300 MG TABLET.XL PO (06:24)
[2022-10-31] MEDS: Fluticasone 0.05% 1 SPRAY NASAL.SRY 2 SPRAY NASAL (06:24)
[2022-10-31] MEDS: Glycerin/Hypromellose/PEG400 15 ml Bottle 1 DRP EACH EYE ×3 (06:24→21:21)
[2022-10-31] MEDS: Senna/Docusate Sodium 1 Tablet 2 TABLET PO (06:24)
[2022-10-31] MEDS: Pregabalin 50 MG Capsule PO (06:27)
[2022-10-31] MEDS: Pramipexole Di-HCl 0.5 MG Tablet PO ×2 (08:36→14:05)
[2022-10-31] MEDS: Aspirin E.C. 81 MG Tablet PO (08:37)
[2022-10-31] MEDS: Multivitamins,Therapeutic Tablet 1 TABLET PO (08:37)
--- NOTE | 2022-10-31 09:53 | CASEMGMT ---
Addendum entered by Stephanie Casas 10/31/22 16:19: SW spoke with Laura at [facility] and pt is accepted. A nurse to assess pt Thursday. Family updated. Addendum entered by Stephanie Casas 10/31/22 13:37: Dtr and presented to this worker's office and requested referral to [facility]. SW cautioned typically AL does not accept x2 assist, but will place referral. Family appreciative. SW placed referral to [facility] via [facility]. Original Note: Social Work Received voicemail from RN that is requesting list of SNFs that are in network with [facility] in [facility] and had other questions, to contact . SW utilized [facility] website to generate a list of in network providers between [facility] and [facility] in [facility] with quality and resource data. SW printed list and saved PDF copy. ALONDRA spoke with and dtr whom provided email addresses for list to be sent for their review. Emails sent. Family touring facilities today and will notify this worker of choices. Will continue to follow. YORDAN Phillips
[2022-10-31 14:00] VITALS: BP 124/67; PULSE 81; RESP 14; TEMP 36.9; O2SAT 97
--- NOTE | 2022-10-31 19:15 | NURSING ---
dr. audi castillo from 11-2 family will pickle solution maker
[2022-10-31 21:15] VITALS: O2SAT 95
[2022-10-31] MEDS: Acetaminophen 500 MG Tablet PO (21:22)
[2022-10-31] MEDS: Doxazosin 4 MG Tablet PO (21:23)
[2022-10-31] MEDS: Senna/Docusate Sodium 1 Tablet PO (21:23)
[2022-10-31] MEDS: Pregabalin 25 MG Capsule PO (21:26)
[2022-11-01] MEDS: Pregabalin 50 MG Capsule PO (06:10)
[2022-11-01] MEDS: guaiFENesin 600 MG Tablet PO ×2 (06:11→17:11)
[2022-11-01] MEDS: Acetaminophen 325 MG Tablet 650 MG PO (06:11)
[2022-11-01] MEDS: DULoxetine Hcl 60 MG Capsule PO (06:11)
[2022-11-01] MEDS: Senna/Docusate Sodium 1 Tablet 2 TABLET PO (06:11)
[2022-11-01] MEDS: buPROPion (XL) 300 MG TABLET.XL PO (06:12)
[2022-11-01] MEDS: Fluticasone 0.05% 1 SPRAY NASAL.SRY 2 SPRAY NASAL (06:12)
[2022-11-01] MEDS: Carbidopa/Levodopa 25/100 Tablet PO ×3 (06:12→17:11)
[2022-11-01] MEDS: Glycerin/Hypromellose/PEG400 15 ml Bottle 1 DRP EACH EYE ×3 (06:14→21:36)
[2022-11-01] MEDS: Aspirin E.C. 81 MG Tablet PO (08:30)
[2022-11-01] MEDS: Multivitamins,Therapeutic Tablet 1 TABLET PO (08:30)
[2022-11-01] MEDS: Pramipexole Di-HCl 0.5 MG Tablet PO ×2 (08:31→11:07)
[2022-11-01 14:00] VITALS: BP 159/60; PULSE 96; RESP 18; TEMP 36.2; O2SAT 98
--- NOTE | 2022-11-01 16:03 | NURSING ---
Pt was off unit with family and returned approx 1500, settled pt in recliner and left room. HOT BOX SPOTTER was walking in the crowell and looked into pt room and saw pt kneeling on right side of bed. HOT BOX SPOTTER called for help and 3 of us answered. We assisted pt to wheelchair. Assessed pt knees. Gathered vital signs. Pt was assisted to bathroom and returned to recliner with the chair alarm on.
[2022-11-01] MEDS: Acetaminophen 500 MG Tablet PO (21:37)
[2022-11-01] MEDS: Doxazosin 4 MG Tablet PO (21:37)
[2022-11-01] MEDS: Senna/Docusate Sodium 1 Tablet PO (21:37)
[2022-11-01] MEDS: Pregabalin 25 MG Capsule PO (21:37)
[2022-11-01 21:42] VITALS: BP 146/68; PULSE 85
[2022-11-02] MEDS: Glycerin/Hypromellose/PEG400 15 ml Bottle 1 DRP EACH EYE ×3 (05:35→20:56)
[2022-11-02] MEDS: Pregabalin 50 MG Capsule PO (05:35)
[2022-11-02] MEDS: Fluticasone 0.05% 1 SPRAY NASAL.SRY 2 SPRAY NASAL (05:35)
[2022-11-02] MEDS: Carbidopa/Levodopa 25/100 Tablet PO ×3 (05:36→17:18)
[2022-11-02] MEDS: Senna/Docusate Sodium 1 Tablet 2 TABLET PO (05:36)
[2022-11-02] MEDS: guaiFENesin 600 MG Tablet PO ×2 (05:37→17:18)
[2022-11-02] MEDS: Acetaminophen 325 MG Tablet 650 MG PO (05:37)
[2022-11-02] MEDS: buPROPion (XL) 300 MG TABLET.XL PO (05:37)
[2022-11-02] MEDS: DULoxetine Hcl 60 MG Capsule PO (05:38)
[2022-11-02 05:41] VITALS: BP 138/82; PULSE 74
[2022-11-02] MEDS: Aspirin E.C. 81 MG Tablet PO (07:44)
[2022-11-02] MEDS: Multivitamins,Therapeutic Tablet 1 TABLET PO (07:44)
[2022-11-02] MEDS: Pramipexole Di-HCl 0.5 MG Tablet PO ×2 (07:45→14:51)
[2022-11-02 14:00] VITALS: BP 135/75; PULSE 83; RESP 20; TEMP 36.2; O2SAT 96
[2022-11-02] MEDS: Doxazosin 4 MG Tablet PO (20:56)
[2022-11-02] MEDS: Acetaminophen 500 MG Tablet PO (20:56)
[2022-11-02] MEDS: Pregabalin 25 MG Capsule PO (20:56)
[2022-11-02] MEDS: Senna/Docusate Sodium 1 Tablet PO (20:57)
[2022-11-02 21:14] VITALS: BP 140/82; PULSE 87
[2022-11-02 21:30] VITALS: O2SAT 95
[2022-11-03 06:00] VITALS: BP 107/68; PULSE 75
[2022-11-03] MEDS: Fluticasone 0.05% 1 SPRAY NASAL.SRY 2 SPRAY NASAL (06:01)
[2022-11-03] MEDS: Glycerin/Hypromellose/PEG400 15 ml Bottle 1 DRP EACH EYE ×3 (06:02→21:03)
[2022-11-03] MEDS: Pregabalin 50 MG Capsule PO (06:03)
[2022-11-03] MEDS: Carbidopa/Levodopa 25/100 Tablet PO ×3 (06:03→17:08)
[2022-11-03] MEDS: guaiFENesin 600 MG Tablet PO ×2 (06:03→17:08)
[2022-11-03] MEDS: Senna/Docusate Sodium 1 Tablet 2 TABLET PO (06:04)
[2022-11-03] MEDS: buPROPion (XL) 300 MG TABLET.XL PO (06:04)
[2022-11-03] MEDS: Acetaminophen 325 MG Tablet 650 MG PO (06:04)
[2022-11-03] MEDS: DULoxetine Hcl 60 MG Capsule PO (06:05)
[2022-11-03] MEDS: Multivitamins,Therapeutic Tablet 1 TABLET PO (08:03)
[2022-11-03] MEDS: Aspirin E.C. 81 MG Tablet PO (08:03)
[2022-11-03] MEDS: Pramipexole Di-HCl 0.5 MG Tablet PO ×2 (08:03→13:00)
[2022-11-03 09:00] VITALS: PULSE 98; O2SAT 92
--- NOTE | 2022-11-03 09:06 | NURSING ---
[facility] pharmacy sales representative here to assess pt.
--- NOTE | 2022-11-03 10:22 | MDS.RN ---
Information for the mds was obtained from review of the medical record, interview of resident, staff, and direct observation of resident's care.
--- NOTE | 2022-11-03 11:57 | NURSING ---
Addendum entered by Susy Carlos 11/03/22 15:39: wine bottle given to daughter & . explained that Dr Izquierdo did not want pt drinking on unit. Original Note: TAX INTERN found bottle of wine in pt top medical appointment scheduler room. TAX INTERN opened drawer because pt likes his call light in there when sitting in his recliner chair. Wine removed from room, Dr Izquierdo aware. will send home with /family.
[2022-11-03 13:36] VITALS: BP 132/76; PULSE 76; RESP 18; TEMP 36.2; O2SAT 96
--- NOTE | 2022-11-03 15:50 | CASEMGMT ---
Addendum entered by Stephanie Casas 11/05/22 14:19: stated dtr is going to assist with transporting pt via car. SW canceled transport through [facility]. Addendum entered by Stephanie Casas 11/04/22 15:48: received call from requesting SW schedule w/c transport for DC after dinner/1900 SW scheduled transport for 1900 through [facility]. Original Note: Social Work Insurance issued LCD 11/05, DC 11/06. and dtr arriving on unit. SW spoke with both and they secured an apartment at [facility] for pt at DC. Both agreeable to DC 11/06 with [facility] PT/OT/ST. SW phoned referral to [facility]. also requesting w/c. SW sent referral to [facility] via [facility]. to transport. Plan: DC 11/06, [facility] PT/OT/ST, w/c Stephanie Casas, YORDAN STANLEYW
--- NOTE | 2022-11-03 18:20 | RAD_ITS ---
STUDY: XR Chest 2 Views 11/03/2022 6:20 PM REASON FOR EXAM: Male, 82 years old. CHEST PAIN Left lower lobe crackles. COMPARISON: 10/15/2022 TECHNIQUE: XR Chest 2 Views FINDINGS: There is no demonstrated pleural abnormality. Normal heart size. Normal mediastinum. Normal mello. Prominent appearing increased interstitial lung markings. Normal visualized pulmonary arteries. There is atherosclerotic calcification of the aortic arch with tortuosity. There are diffuse degenerative changes of the visualized thoracic spine. There is degenerative osteoarthritis of the bilateral shoulders. There is no demonstrated abnormality of the visualized soft tissue structures of the upper abdomen. RAD/Chest PA and Lateral IMPRESSION: There are no acute findings. Electronically Signed: Matt Green MD at 18:46 EDT ,
--- NOTE | 2022-11-03 19:02 | DS.PCM_ITS ---
Providers Date of Admission: 10/21/22 Primary Care Physician: Dr. Reji Piper, Reason For Visit: DEBILITY, WEAKNESS Diagnosis Discharge Diagnosis (1) Debility: Status: Acute Code(s): R53.81 - Other malaise (2) Multiple falls: Status: Acute Code(s): R29.6 - Repeated falls (3) Parkinson disease: Status: Acute Code(s): G20 - Parkinson's disease (4) Allergic rhinitis: Status: Acute Code(s): J30.9 - Allergic rhinitis, unspecified (5) BPH (benign prostatic hyperplasia): Status: Acute Code(s): N40.0 - Benign prostatic hyperplasia without lower urinary tract symptoms Plan 82 year old male with below past medical history hospitalized for multiple falls, admitted to TCU with debility, here for rehabilitation, strengthening, prior to disposition determination. * Debility - PT/OT. * Cognition - ST. * Pain - Tylenol 650mg am, 500mg pm. * Bowel - senna/colace 2 tablets am, 1 tablet qhs. * Adult immunization - Administer pneumonia vaccine, covid19 vaccine, flu vaccine as appropriate. * DVT prophylaxis - Hold, monitor. * CV prophylaxis - Aspirin 81mg daily. * Depression - Bupropion XL 300mg daily, Duloxetine 60mg daily, stable chronic extermination inspector use, GDR not recommended. * Parkinson Disease - Sinemet 25/100mg 4 tablets tidac, Mirapex 0.5mg bid. * BPH - Doxazosin 4mg qhs. * Nutrition - Ensure Plus 120ml tidcm. * Allergic rhinitis - Fluticasone nasal spray 2 sprays daily. * Congestion - Mucinex 600mg bid. * Nutrition - MVI daily. * Dry eyes - Artificial 1gtt ou tid. * Neuropathic pain - Lyrica 50mg am, 25mg qhs. Medications at Discharge Home Medications fluticasone propionate 50 mcg/actuation nasal spray,suspension 2 spray NASAL DAILY allergies 01/23/20 guaifenesin 600 mg tablet, extended release 12 hr 600 mg PO BID nasal congestion 01/23/20 doxazosin 4 mg tablet 4 mg PO QHS blood pressure 02/22/20 acetaminophen 650 mg tablet,extended release 650 mg PO DAILY arthritis 03/14/22 multivitamin 1 tab PO DAILY supplement 03/14/22 pregabalin 50 mg capsule 50 mg PO DAILY pain 03/14/22 peg 400-propylene glycol (PF) 0.4 %-0.3 % eye drops in a dropperette (Systane (PF)) 1 drp EACH EYE TID dry eyes 03/17/22 acetaminophen 500 mg tablet 500 mg PO QPM arthritis 07/07/22 aspirin 81 mg tablet,delayed release 81 mg PO DAILY heart health 07/07/22 ropinirole 1 mg tablet 1 mg PO BID@0900,1400 RLS 09/04/22 pregabalin 25 mg capsule 25 mg PO QHS Pain 09/17/22 sennosides 8.6 mg-docusate sodium 50 mg tablet (Stool Softener-Stimulant Laxative) 2 tab-cap PO DAILY STOOL SOFTNER 09/17/22 duloxetine 60 mg capsule,delayed release 60 mg PO DAILY NERVE PAIN 10/15/22 sennosides 8.6 mg-docusate sodium 50 mg capsule (Senna Plus) 1 tab-cap PO QHS Stool softner 10/15/22 bupropion HCl 300 mg 24 hr tablet, extended release 300 mg PO DAILY Mood 10/21/22 carbidopa 25 mg-levodopa 100 mg tablet 4 tab PO TIDAC 30 days #360 tabs 11/03/22 Hospital Course Operations None Procedures None Summary of Care Provided Minutes Spent on Discharge: 35 Hospital Course: 82 year old male with below past medical history hospitalized for multiple falls, admitted to TCU with debility, here for rehabilitation, strengthening, prior to disposition determination. Discharge to [facility] 11/06/2022, [facility] PT/OT/ST, wheelchair. Physical Exam Const alert General Appearance: cooperative HEENT normocephalic Eyes PERRL and EOMs intact bilaterally Neck supple, no JVD and no carotid bruits Resp normal respiratory effort, normal air movement and clear to auscultation bilaterally Cardio regular rate and regular rhythm GI normal to inspection, nondistended, normoactive bowel sounds, non-tender and non-distended Extremity normal capillary refill General Extremity: Negative for edema Skin no rashes or lesions noted General Skin Exam: no breakdown Psych affect normal Appearance: appropriate Weight / BMI Weight Weight: 106.367 kg Body Mass Index (BMI) 31.7 ABG / Lab / Microbiology Data Result Diagrams: 10/29/22 05:13 10/29/22 05:13 Microbiology: Microbiology 10/28/22 05:45 Nasal Secretion SARS-CoV-2 Antigen (Rapid) - Final 10/25/22 14:05 Nasal Secretion SARS-CoV-2 Antigen (Rapid) - Final 10/23/22 06:30 Nasal Secretion SARS-CoV-2 Antigen (Rapid) - Final Radiography Diagnostic Testing: Radiology Impression Chest X-Ray 11/03/22 18:20 IMPRESSION: There are no acute findings. Electronically Signed: Matt Green MD at 18:46 EDT Reading Location ID and State: [facility] / MD , Service support , D/C Instructions Discharge Diet: No restrictions Discharge Activity: Return to Normal Activity, May Shower and Use Walker Weight Bearing Status: Weight bearing as tolerated Call your doctor if you observe: Fever of 101 or Higher, Inability to urinate, Inability to have a bowel movement, Shortness of breath, Dizziness, Fainting spells, Swelling in the ankles, Chest pain and Uncontrolled pain Additional Instructions: Discharge to [facility] 11/06/2022, [facility] PT/OT/ST, wheelchair. Meaningful Use Info Meaningful Use Diagnoses (Choose all that apply): None applicable Discharge Plan Admission Admit Date/Time: 10/21/22 12:00 Primary Reason for Your Visit: Debility. Attending Provider: Jose Izquierdo Chi Primary Care Provider: Reji Piper Instructions Additional Instructions / Restrictions: Discharge to [facility] 11/06/2022, [facility] PT/OT/ST, wheelchair. Discharge Orders/Prescriptions Prescriptions: New carbidopa-levodopa 25-100 mg Tablet 4 tab PO TIDAC 30 Days Qty: 360 0RF Continued doxazosin 4 mg tablet 4 mg PO QHS sennosides-docusate sodium [Stool Softener-Stimulant Laxat] 8.6-50 mg tablet 2 tab-cap PO DAILY fluticasone propionate 1 SPRAY spray,suspension 2 spray NASAL DAILY guaifenesin 600 MG tablet 600 mg PO BID multivitamin Tablet 1 tab PO DAILY pregabalin 50 mg capsule 50 mg PO DAILY acetaminophen 650 mg Tablet Extended Release 650 mg PO DAILY Systane (PF) 0.4-0.3 % Dropperette 1 drp EACH EYE TID pregabalin 25 mg capsule 25 mg PO QHS aspirin 81 mg Tablet,Delayed Release (Dr/Ec) 81 mg PO DAILY acetaminophen 500 mg Tablet 500 mg PO QPM ropinirole 1 mg Tablet 1 mg PO BID@0900,1400 Senna Plus 8.6-50 mg Capsule 1 tab-cap PO QHS duloxetine 60 mg capsule,delayed release(DR/EC) 60 mg PO DAILY bupropion HCl 300 mg tablet extended release 24 hr 300 mg PO DAILY Discontinued Rytary 23.75-95 mg capsule, extended release 4 cap PO TID@0900,1400,2100 Referrals / Follow Up: Reji Piper DO [Primary Care Provider] - Disposition Disposition (needs filled in before D/C Order can be placed): Assisted Living
--- NOTE | 2022-11-03 19:06 | TREXTCAR_ITS ---
Diet Diet Order/Speech Therapy: 10/21/22 12:05 Diet: Regular - General Food consistency:: Regular Liquid Consistency:: Regular/Thin Routine Orders/Code Status Code Status: Full Code Wound(s) Left knee: Wound Type: Abrasion Dressing Change: Bandaid Left knee 2: Wound Type: scab Therapies Weight Bearing: Weight bearing as tolerated Extremity Affected:: Bilateral Lower Physical Therapy: Eval and Treat Occupational Therapy: Eval and Treat Speech Therapy: Eval and Treat Problem/Diagnosis (1) Debility: Status: Acute Code(s): R53.81 - Other malaise (2) Multiple falls: Status: Acute Code(s): R29.6 - Repeated falls (3) Parkinson disease: Status: Acute Code(s): G20 - Parkinson's disease (4) Allergic rhinitis: Status: Acute Code(s): J30.9 - Allergic rhinitis, unspecified (5) BPH (benign prostatic hyperplasia): Status: Acute Code(s): N40.0 - Benign prostatic hyperplasia without lower urinary tract symptoms Plan 82 year old male with below past medical history hospitalized for multiple falls, admitted to TCU with debility, here for rehabilitation, strengthening, prior to disposition determination. * Debility - PT/OT. * Cognition - ST. * Pain - Tylenol 650mg am, 500mg pm. * Bowel - senna/colace 2 tablets am, 1 tablet qhs. * Adult immunization - Administer pneumonia vaccine, covid19 vaccine, flu vaccine as appropriate. * DVT prophylaxis - Hold, monitor. * CV prophylaxis - Aspirin 81mg daily. * Depression - Bupropion XL 300mg daily, Duloxetine 60mg daily, stable chronic medical terminologist use, GDR not recommended. * Parkinson Disease - Sinemet 25/100mg 4 tablets tidac, Mirapex 0.5mg bid. * BPH - Doxazosin 4mg qhs. * Nutrition - Ensure Plus 120ml tidcm. * Allergic rhinitis - Fluticasone nasal spray 2 sprays daily. * Congestion - Mucinex 600mg bid. * Nutrition - MVI daily. * Dry eyes - Artificial 1gtt ou tid. * Neuropathic pain - Lyrica 50mg am, 25mg qhs. Allergies/Procedures Done in Hospital Allergies propoxyphene napsylate [From Darvocet-N 100] Adverse Reaction (Verified 09/17/22 13:01) Vomiting Procedures: None Type of Care/Length of Stay Estimated LOS: More Than 30 Days Type of Care Needed: Long Term/Assisted Living Rehab Potential: Fair Prognosis: Fair Additional Orders/Day of Discharge Day of Discharge: 11/06/22 Dietary and Speech Recommendations Dietitian Recommendations/Changes: Continue liberal regular diet Will d/c ensure plus high protein w/ medpass as no longer indicated Discharge Plan Admission Admit Date/Time: 10/21/22 12:00 Primary Reason for Your Visit: Debility. Attending Provider: Jose Izquierdo Chi Primary Care Provider: Reji Piper Instructions Additional Instructions / Restrictions: Discharge to [facility] 11/06/2022, [facility] PT/OT/ST, wheelchair. Discharge Orders/Prescriptions Prescriptions: New carbidopa-levodopa 25-100 mg Tablet 4 tab PO TIDAC 30 Days Qty: 360 0RF Continued doxazosin 4 mg tablet 4 mg PO QHS sennosides-docusate sodium [Stool Softener-Stimulant Laxat] 8.6-50 mg tablet 2 tab-cap PO DAILY fluticasone propionate 1 SPRAY spray,suspension 2 spray NASAL DAILY guaifenesin 600 MG tablet 600 mg PO BID multivitamin Tablet 1 tab PO DAILY pregabalin 50 mg capsule 50 mg PO DAILY acetaminophen 650 mg Tablet Extended Release 650 mg PO DAILY Systane (PF) 0.4-0.3 % Dropperette 1 drp EACH EYE TID pregabalin 25 mg capsule 25 mg PO QHS aspirin 81 mg Tablet,Delayed Release (Dr/Ec) 81 mg PO DAILY acetaminophen 500 mg Tablet 500 mg PO QPM ropinirole 1 mg Tablet 1 mg PO BID@0900,1400 Senna Plus 8.6-50 mg Capsule 1 tab-cap PO QHS duloxetine 60 mg capsule,delayed release(DR/EC) 60 mg PO DAILY bupropion HCl 300 mg tablet extended release 24 hr 300 mg PO DAILY Discontinued Rytary 23.75-95 mg capsule, extended release 4 cap PO TID@0900,1400,2100 Referrals / Follow Up: Reji Piper DO [Primary Care Provider] - Disposition Disposition (needs filled in before D/C Order can be placed): Assisted Living
[2022-11-03] MEDS: Pregabalin 25 MG Capsule PO (21:06)
[2022-11-03] MEDS: Doxazosin 4 MG Tablet PO (21:07)
[2022-11-03] MEDS: Senna/Docusate Sodium 1 Tablet PO (21:07)
[2022-11-03] MEDS: Acetaminophen 500 MG Tablet PO (21:09)
[2022-11-04] MEDS: Glycerin/Hypromellose/PEG400 15 ml Bottle 1 DRP EACH EYE ×3 (06:27→21:35)
[2022-11-04] MEDS: DULoxetine Hcl 60 MG Capsule PO (06:28)
[2022-11-04] MEDS: guaiFENesin 600 MG Tablet PO ×2 (06:28→17:38)
[2022-11-04] MEDS: buPROPion (XL) 300 MG TABLET.XL PO (06:28)
[2022-11-04] MEDS: Pregabalin 50 MG Capsule PO (06:28)
[2022-11-04] MEDS: Senna/Docusate Sodium 1 Tablet 2 TABLET PO (06:28)
[2022-11-04] MEDS: Acetaminophen 325 MG Tablet 650 MG PO (06:28)
[2022-11-04] MEDS: Carbidopa/Levodopa 25/100 Tablet PO ×3 (06:28→17:38)
[2022-11-04] MEDS: Fluticasone 0.05% 1 SPRAY NASAL.SRY 2 SPRAY NASAL (06:30)
[2022-11-04] MEDS: Multivitamins,Therapeutic Tablet 1 TABLET PO (08:50)
[2022-11-04] MEDS: Aspirin E.C. 81 MG Tablet PO (08:50)
[2022-11-04] MEDS: Pramipexole Di-HCl 0.5 MG Tablet PO ×2 (08:50→15:11)
[2022-11-04 09:32] VITALS: BMI 32.8
[2022-11-04 13:23] VITALS: BP 141/84; PULSE 94; RESP 18; TEMP 36.3; O2SAT 93
[2022-11-04 21:30] VITALS: BP 129/50; PULSE 79
[2022-11-04] MEDS: Senna/Docusate Sodium 1 Tablet PO (21:35)
[2022-11-04] MEDS: Acetaminophen 500 MG Tablet PO (21:35)
[2022-11-04] MEDS: Doxazosin 4 MG Tablet PO (21:35)
[2022-11-04] MEDS: Pregabalin 25 MG Capsule PO (21:35)
[2022-11-04 21:43] VITALS: PULSE 79; RESP 16; O2SAT 94
[2022-11-05 05:34] LABS: Absolute Lymphocyte Count 2.07 X10^3/uL (0.83-4.51); Absolute Neutrophil Count 5.9 X10^3/uL (2.0-7.7); Basophil# 0.12 X10^3/uL; Basophil% 1.2 % (0-1); Eosinophil# 0.84 X10^3/uL; Eosinophils% 8.6 % (0-5); Hematocrit 40.7 % (40-54); Hemoglobin 12.9 g/dL (13.0-16.5); Lymphocyte # 2.07 X10^3/ul (0.83-4.51); Lymphocyte % 21.1 % (19-41); Mean Corp Hgb Conc 31.7 g/dL (32-36); Mean Corpuscular Hgb 30.3 pg (27.0-32.0); Mean Corpuscular Volume 95.5 fL (80-94); Mean Platelet Vol. 9.8 fl (6.2-12.0); Monocyte# 0.85 X10^3/uL; Monocyte% 8.7 % (0-10); NRBC Flagged by Analyzer 0 % (0-5); Neutrophil # 5.86 X10^3/uL (2.7-7.7); Neutrophil % 59.9 % (47-70); Platelet Count 228 K/mm3 (150-450); RBC Distribution Width CV 13.2 % (11.6-14.6); RBC Distribution Width SD 46.8 fl (35.1-43.9); Red Blood Count 4.26 M/mm3 (4.6-6.2); White Blood Count 9.8 K/mm3 (4.4-11.0)
[2022-11-05 05:57] LABS: Anion Gap 2 (5-15); BUN 25 mg/dL (7-18); Calcium,Total 8.6 mg/dL (8.5-10.1); Chloride 105 mmol/L (98-107); Creatinine, Serum 1.04 mg/dL (0.70-1.30); EST Glomerular Filtration Rate 73 mL/min (>60); Est Glom Filt Rate - Afr Amer 88 mL/min (>60); Estimated Creatinine Clearance 62.18 ml/min; Glucose 98 mg/dL (74-106); Potassium 4.4 mmol/L (3.5-5.1); Sodium Level 139 mmol/L (136-145)
[2022-11-05] MEDS: Glycerin/Hypromellose/PEG400 15 ml Bottle 1 DRP EACH EYE ×3 (07:27→21:44)
[2022-11-05] MEDS: Fluticasone 0.05% 1 SPRAY NASAL.SRY 2 SPRAY NASAL (07:27)
[2022-11-05] MEDS: Pregabalin 50 MG Capsule PO (07:28)
[2022-11-05] MEDS: buPROPion (XL) 300 MG TABLET.XL PO (07:28)
[2022-11-05] MEDS: Carbidopa/Levodopa 25/100 Tablet PO ×3 (07:29→18:01)
[2022-11-05] MEDS: guaiFENesin 600 MG Tablet PO ×2 (07:29→18:01)
[2022-11-05] MEDS: Senna/Docusate Sodium 1 Tablet 2 TABLET PO (07:29)
[2022-11-05] MEDS: DULoxetine Hcl 60 MG Capsule PO (07:29)
[2022-11-05] MEDS: Acetaminophen 325 MG Tablet 650 MG PO (07:29)
[2022-11-05] MEDS: Multivitamins,Therapeutic Tablet 1 TABLET PO (08:17)
[2022-11-05] MEDS: Aspirin E.C. 81 MG Tablet PO (08:17)
[2022-11-05] MEDS: Pramipexole Di-HCl 0.5 MG Tablet PO ×2 (08:18→13:07)
[2022-11-05] MEDS: Polyethylene Glycol 3350 17 GM PACKET PO (08:22)
[2022-11-05 08:36] VITALS: BP 111/57; PULSE 82; RESP 18; TEMP 36.2; O2SAT 92
[2022-11-05] MEDS: Doxazosin 4 MG Tablet PO (21:42)
[2022-11-05] MEDS: Senna/Docusate Sodium 1 Tablet PO (21:44)
[2022-11-05] MEDS: Acetaminophen 500 MG Tablet PO (21:47)
[2022-11-05] MEDS: Pregabalin 25 MG Capsule PO (21:47)
[2022-11-05 21:49] VITALS: BP 140/68; PULSE 79
[2022-11-06] MEDS: Polyethylene Glycol 3350 17 GM PACKET PO (06:56)
[2022-11-06] MEDS: Senna/Docusate Sodium 1 Tablet 2 TABLET PO (06:56)
[2022-11-06] MEDS: Carbidopa/Levodopa 25/100 Tablet PO ×3 (06:56→17:13)
[2022-11-06] MEDS: Pregabalin 50 MG Capsule PO (06:56)
[2022-11-06] MEDS: buPROPion (XL) 300 MG TABLET.XL PO (06:56)
[2022-11-06] MEDS: Acetaminophen 325 MG Tablet 650 MG PO (06:56)
[2022-11-06] MEDS: guaiFENesin 600 MG Tablet PO ×2 (06:56→17:13)
[2022-11-06] MEDS: DULoxetine Hcl 60 MG Capsule PO (06:56)
[2022-11-06] MEDS: Fluticasone 0.05% 1 SPRAY NASAL.SRY 2 SPRAY NASAL (07:04)
[2022-11-06] MEDS: Glycerin/Hypromellose/PEG400 15 ml Bottle 1 DRP EACH EYE ×2 (07:05→14:45)
[2022-11-06] MEDS: Aspirin E.C. 81 MG Tablet PO (07:58)
[2022-11-06] MEDS: Multivitamins,Therapeutic Tablet 1 TABLET PO (07:58)
[2022-11-06] MEDS: Pramipexole Di-HCl 0.5 MG Tablet PO ×2 (07:59→14:45)
--- NOTE | 2022-11-06 10:55 | CASEMGMT ---
Social Work BIMS () and PHQ-9 (01/20) completed for MDS assessment. Stephanie Casas MSW CUTTING MACHINE TENDER HELPER
[2022-11-06 14:00] VITALS: BP 144/70; PULSE 79; RESP 14; TEMP 37.3; O2SAT 95
[2022-11-06 17:18] VITALS: BP 143/69; PULSE 84; RESP 16; TEMP 36.9; O2SAT 93
== END 2022-11-06 17:30 | disposition home health service (06) | DRG 57 ==
PROVIDERS: Admitting Provider Family Medicine Geriatric Medicine; PCP Family Medicine; Visit Provider Family Medicine Geriatric Medicine
DX: G20 Parkinson's disease (principal); F32.A Depression, unspecified; F41.9 Anxiety disorder, unspecified; G62.9 Polyneuropathy, unspecified; J30.9 Allergic rhinitis, unspecified; Z87.891 Personal history of nicotine dependence; N40.0 Benign prostatic hyperplasia without lower urinary tract symptoms; Z79.899 Other long term (current) drug therapy; Z79.51 Long term (current) use of inhaled steroids; Z79.82 Long term (current) use of aspirin; R29.6 Repeated falls
CPT/HCPCS: 36415; 71046; 80048; 85025; 87811; 92507; 92522; 92523; 94667; 97110; 97116; 97162; 97166; 97530; 97535; 97802

== ENCOUNTER → 2023-01-22 | Outpatient (CLI) | payer MEDICARE, SELFPAY ==
[2023-01-22 17:57] LABS: AST(SGOT) 18 U/L (15-37); Alanine Aminotransfer ALT/SGPT 7 U/L (16-61); Albumin, Serum 3.7 g/dL (3.2-5.0); Alkaline Phosphatase 76 U/L (45-117); Anion Gap 5 (5-15); BUN 20 mg/dL (7-18); BUN/Creat Ratio 18.5 RATIO (10-20); Calcium,Total 8.7 mg/dL (8.5-10.1); Chloride 107 mmol/L (98-107); Creatinine, Serum 1.08 mg/dL (0.70-1.30); EST Glomerular Filtration Rate 70 mL/min (>60); Est Glom Filt Rate - Afr Amer 85 mL/min (>60); Globulin 3.6 g/dL (2.2-4.2); Glucose 84 mg/dL (74-106); Potassium 4.3 mmol/L (3.5-5.1); Protein, Total 7.3 g/dL (6.4-8.2); Sodium Level 141 mmol/L (136-145); Thyroid Stim Hormone (TSH) 1.08 uIU/mL (0.358-3.74)
[2023-01-22 18:35] LABS: BNP,B-Type NATRIURETIC PEPTIDE 17.4 pg/mL (0-100)
== END | disposition home or self-care (01) ==
LOC: BFHLAB 15:53
PROVIDERS: PCP Family Medicine; Referring Provider Family Medicine; Visit Provider Family Medicine
DX: R60.9 Edema, unspecified (principal); R06.00 Dyspnea, unspecified
CPT/HCPCS: 36415; 80053; 83880; 84443

== ENCOUNTER → 2023-02-02 | Outpatient (CLI) | payer MEDICARE, SELFPAY ==
--- NOTE | 2023-02-02 10:44 | ECHOCS_ITS ---
Reason For Study: SOB Procedure This was a 2D Doppler, Color Flow transthoracic echocardiogram. Exam performed in department. Left Ventricle Normal LV size. Left ventricular systolic function is normal. The estimated ejection fraction is 65 %. Stage 1 diastolic dysfunction. No regional wall motion abnormalities noted. Right Ventricle Normal RV size. Normal systolic function. Atria Normal left atrium. Normal right atrium. Mitral Valve Normal mitral valve. Tricuspid Valve Normal tricuspid valve. Aortic Valve The aortic valve is not well visualized. Pulmonic Valve The pulmonic valve is not well visualized. Great Vessels Normal aortic root. The pulmonary artery is normal size. Normal inferior vena cava. Pericardium/Pleural No pericardial effusion. Medication 22 gauge I.V. with prn adaptor inserted into left arm. Diluted definity 1.5ml given slow IV push to enhance endocardial definition. MMode/2D Measurements & Calculations LVIDd: 5.7 cm IVSd: 1.1 cm Ao root diam: 3.4 cm LVIDs: 4.2 cm LVPWd: 1.2 cm FS: 25.6 % LAV(MOD-bp): 49.4 ml LVAd ap4: 38.0 cm2 SV(MOD-sp4): 81.8 ml LAV(MOD-bp) Indexed: 21.7 ml/m2 LVLd ap4: 9.2 cm LAV(MOD-sp2): 54.3 ml EDV(MOD-sp4): 130.6 ml LAV(MOD-sp4): 43.7 ml EDV(sp4-el): 133.9 ml LVAs ap4: 21.8 cm2 LVLs ap4: 8.3 cm ESV(MOD-sp4): 48.7 ml ESV(sp4-el): 48.8 ml EF(MOD-sp4): 62.7 % EF(sp4-el): 63.6 % SV(sp4-el): 85.1 ml LA A4 area: 17.3 cm2 LA dimension(2D): 4.0 cm RA A4 area: 17.1 cm2 TAPSE: 3.0 cm Time Measurements MV dec time: 0.20 sec Doppler Measurements & Calculations MV E max logan: 72.9 cm/sec Lat Peak E' Logan: 15.9 cm/sec Med Peak E' Logan: 8.6 cm/sec MV A max logan: 89.2 cm/sec E/E' lat: 4.6 E/E' med: 8.5 MV E/A: 0.82 MV V2 max: 91.9 cm/sec MV dec slope: 379.2 cm/sec2 Ao V2 max: 165.3 cm/sec MV max P.4 mmHg Ao max P.9 mmHg MV V2 mean: 58.0 cm/sec Ao V2 mean: 115.8 cm/sec MV mean P.5 mmHg Ao mean P.1 mmHg MV V2 VTI: 26.6 cm Ao V2 VTI: 38.2 cm AV (velocity ratio): 0.61 LV V1 max: 96.2 cm/sec PA V2 max: 107.4 cm/sec LV V1 max P.7 mmHg PA V2 mean: 74.9 cm/sec LV V1 mean P.4 mmHg LV V1 mean: 73.2 cm/sec LV V1 VTI: 23.2 cm ECHO/Echo Complete W/ Contrast Interpretation Summary Normal LV size. Left ventricular systolic function is normal. The estimated ejection fraction is 65 %. Stage 1 diastolic dysfunction. Contrast injection was performed. Ordering Physician: Kojo Adams Referring Physician: Kojo Adams Performed By: Belia López RCS
--- NOTE | 2023-02-03 08:43 | PFT ---
INTRODUCTION: The patient is an 82-year-old male who presents for pulmonary function studies secondary to a diagnosis of shortness of breath. Respiratory therapy reported good patient effort. Bronchodilators were used during testing. INTERPRETATION: Forced expiration spirometry demonstrates no evidence of a large airways obstructive ventilatory defect. There was no significant response to aerosolized bronchodilators. Spirograms are of good quality and plateau gradually indicating slow emptying of the lungs. Body plus tomography was performed and revealed lung volumes to be within normal limits. Diffusing capacity by single breath CO was also within normal limits. IMPRESSION: Grossly normal PFTs.
== END | disposition home or self-care (01) ==
PROVIDERS: PCP Family Medicine; Referring Provider Internal Medicine Critical Care Medicine; Visit Provider Internal Medicine Critical Care Medicine
DX: R06.02 Shortness of breath (principal)
CPT/HCPCS: 93306; 94060; 94726; 94729; Q9957; A4216; C8929

== ENCOUNTER 2023-04-30 07:14 | Inpatient (IN) | payer MEDICARE, SELFPAY ==
[2023-04-30] VITALS (20 sets, daily range): BP systolic 132–175; BP diastolic 56–91; PULSE 62–93; RESP 10–25; TEMP 36.4–37; O2SAT 93–99; BMI 34.4; BMI 33.3
--- NOTE | 2023-04-30 07:16 | EKG12_ITS ---
Test Reason : POSS STROKE Blood Pressure : / mmHG Vent. Rate : 067 BPM Atrial Rate : 067 BPM P-R Int : 172 ms QRS Dur : 086 ms QT Int : 404 ms P-R-T Axes : 041 -29 068 degrees QTc Int : 426 ms Normal sinus rhythm Minimal voltage criteria for LVH, may be normal variant ( R in aVL ) Cannot rule out Anterior infarct , age undetermined Abnormal ECG Confirmed by SANDER CORADO MD ([id number]), editor managing newspaper NATHANAEL SANCHEZ ([id number]) on 05/05/2023 12:34:13 PM Referred By: Confirmed By:SANDER CORADO MD
--- NOTE | 2023-04-30 07:16 | CT_ITS ---
We are attempting to reach an attending provider to discuss findings. An addendum with communication details will be sent when the communication is complete. EXAM: CT HEAD WITHOUT INTRAVENOUS CONTRAST CLINICAL INDICATION: Neuro deficit, acute, stroke suspected TECHNIQUE: Multiple axial images were obtained of the head without intravenous contrast. This CT exam was performed using one or more of the following dose reduction techniques: automated exposure control, adjustment of the mA and/or kV according to patient size, and/or use of iterative reconstruction technique. COMPARISON: Head CT 07/07/2022 FINDINGS: BRAIN AND EXTRA-AXIAL SPACES: Diffuse cerebral volume loss. Periventricular small vessel ischemic changes. Chronic right nasal ganglia lacunar infarct. No intra- or extra-axial hemorrhage. No intracranial mass or mass effect. Posterior fossa structures are unremarkable. No hydrocephalus. Basal cisterns are patent. BONES/JOINTS: Unremarkable. No discrete lytic or blastic abnormalities. VASCULATURE: Vascular calcifications. SINUSES: Bilateral ethmoid, maxillary and sphenoid sinus disease. MASTOID AIR CELLS: Unremarkable. Clear. ORBITS: Visualized globes, extraocular muscles, optic nerves and retrobulbar fat appear unremarkable. ASPECTS: 10 CT/STROKE Brain/Head without Cont IMPRESSION: 1. No acute intracranial abnormalities. 2. Age-related changes. 3. Bilateral ethmoid, maxillary and sphenoid sinus disease. Electronically Signed: Matt Chung MD at 7:32 EDT ,
--- NOTE | 2023-04-30 07:16 | CT_ITS ---
We are attempting to reach an attending provider to discuss findings. An addendum with communication details will be sent when the communication is complete. EXAM: CT ANGIOGRAPHY HEAD AND NECK WITH INTRAVENOUS CONTRAST CLINICAL INDICATION: Neuro deficit, acute, stroke suspected TECHNIQUE: [place] [facility] [place]/head and neck CT angiography protocol performed with intravenous contrast. This CT exam was performed using one or more of the following dose reduction techniques: automated exposure control, adjustment of the mA and/or kV according to patient size, and/or use of iterative reconstruction technique. MIP reconstructed images were created and reviewed. CONTRAST: IV 100mL Isovue-370 RADIATION DOSE: CTDIvol = 20.22 mGy, DLP = 753.57 mGy-cm COMPARISON: No relevant prior studies available. FINDINGS: HEAD: RIGHT ANTERIOR CEREBRAL ARTERY: Unremarkable. No significant stenosis at the visualized segments. Anterior communicating artery is present. No aneurysm. RIGHT MIDDLE CEREBRAL ARTERY: Unremarkable. No significant stenosis at the visualized segments. No aneurysm. RIGHT POSTERIOR CEREBRAL ARTERY: Unremarkable. No occlusion or significant stenosis. No aneurysm. RIGHT INTRACRANIAL INTERNAL CAROTID ARTERY: Unremarkable. No significant stenosis. No dissection or occlusion. RIGHT INTRACRANIAL VERTEBRAL ARTERY: Unremarkable. No significant stenosis. No dissection or occlusion. LEFT ANTERIOR CEREBRAL ARTERY: Unremarkable. No significant stenosis at the visualized segments. No aneurysm. LEFT MIDDLE CEREBRAL ARTERY: Unremarkable. No significant stenosis at the visualized segments. No aneurysm. LEFT POSTERIOR CEREBRAL ARTERY: Unremarkable. No occlusion or significant stenosis. No aneurysm. LEFT INTRACRANIAL INTERNAL CAROTID ARTERY: Unremarkable. No significant stenosis. No dissection or occlusion. LEFT INTRACRANIAL VERTEBRAL ARTERY: Unremarkable. No significant stenosis. No dissection or occlusion. BASILAR ARTERY: Unremarkable. No significant stenosis. No aneurysm. OTHER VASCULATURE: No vascular malformation. NECK: RIGHT COMMON CAROTID ARTERY: Unremarkable. No significant stenosis. No dissection or occlusion. RIGHT EXTRACRANIAL INTERNAL CAROTID ARTERY: Unremarkable. No significant stenosis. No dissection or occlusion. RIGHT EXTERNAL CAROTID ARTERY: Unremarkable. No occlusion. RIGHT EXTRACRANIAL VERTEBRAL ARTERY: Unremarkable. No significant stenosis. No dissection or occlusion. LEFT COMMON CAROTID ARTERY: Unremarkable. No significant stenosis. No dissection or occlusion. LEFT EXTRACRANIAL INTERNAL CAROTID ARTERY: Unremarkable. No significant stenosis. No dissection or occlusion. LEFT EXTERNAL CAROTID ARTERY: Unremarkable. No occlusion. LEFT EXTRACRANIAL VERTEBRAL ARTERY: Unremarkable. No significant stenosis. No dissection or occlusion. BRACHIOCEPHALIC AND SUBCLAVIAN ARTERIES: Unremarkable as visualized. No occlusion or significant stenosis. LUNG APICES: Unremarkable as visualized. HEAD and NECK: BONES/JOINTS: Degenerative changes of the cervical spine. No discrete lytic or blastic abnormalities. SOFT TISSUES: Unremarkable. CAROTID STENOSIS REFERENCE USING NASCET CRITERIA: % ICA stenosis = (1 - narrowest ICA diameter/diameter of distal cervical ICA) x 100. Mild - <50% stenosis. Moderate - 50-69% stenosis. Severe - 70-94% stenosis. Near occlusion - 95-99% stenosis. Occluded - 100% stenosis. CT/STROKE CTA Head AND Neck W/Con IMPRESSION: No large vessel occlusion, dissection, or other acute arterial abnormalities identified on this CTA head/neck exam. Electronically Signed: Matt Chung MD at 7:47 EDT ,
--- NOTE | 2023-04-30 07:16 | EDS_ITS ---
HPI History of Present Illness Chief Complaint: Stroke Alert [facility] Medical History (Reviewed 03/31/23 @ 14:34 by Sammie Gallagher CLINICAL NURSING INTERN, CLINICAL NURSING INTERN-C) Alcohol abuse Allergic rhinitis Anxiety Basal cell carcinoma BPH (benign prostatic hyperplasia) BPH (benign prostatic hyperplasia) Debility Depressive disorder due to another medical condition with depressive features Former smoker GERD (gastroesophageal reflux disease) Hyperlipidemia Impotence of non-organic origin Insomnia Late effect of lacunar infarction Lightheadedness Loss of balance Neuropathic pain Parkinson disease Sinus disease TIA (transient ischemic attack) (01/23/20) Home Medications fluticasone propionate 50 mcg/actuation nasal spray,suspension 2 spray NASAL DAILY allergies 01/23/20 [History Last Taken 10/15/22] doxazosin 4 mg tablet 4 mg PO QHS blood pressure 02/22/20 [History Last Taken 10/14/22] acetaminophen 650 mg tablet,extended release 650 mg PO DAILY arthritis 03/14/22 [History Last Taken 10/15/22] multivitamin 1 tab PO DAILY supplement 03/14/22 [History Last Taken 10/15/22] pregabalin 50 mg capsule 50 mg PO DAILY pain 03/14/22 [History Last Taken 10/14/22] acetaminophen 500 mg tablet 500 mg PO QPM arthritis 07/07/22 [History Last Taken 10/14/22] aspirin 81 mg tablet,delayed release 81 mg PO DAILY heart health 07/07/22 [History Last Taken 10/15/22] pregabalin 25 mg capsule 25 mg PO QHS Pain 09/17/22 [History Last Taken 10/14/22] sennosides 8.6 mg-docusate sodium 50 mg tablet (Stool Softener-Stimulant Laxative) 2 tab-cap PO DAILY STOOL SOFTNER 09/17/22 [History Last Taken 10/15/22] duloxetine 60 mg capsule,delayed release 60 mg PO DAILY NERVE PAIN 10/15/22 [History Last Taken 10/15/22] sennosides 8.6 mg-docusate sodium 50 mg capsule (Senna Plus) 1 tab-cap PO QHS Stool softner 10/15/22 [History Last Taken 10/14/22] bupropion HCl 300 mg 24 hr tablet, extended release 300 mg PO DAILY Mood 10/21/22 [History Last Taken Unknown] carbidopa 25 mg-levodopa 100 mg tablet 4 tab PO TIDAC 30 days #360 tabs 11/03/22 [Rx Last Taken Unknown] albuterol sulfate 90 mcg/actuation aerosol inhaler 2 puff inhalation Q4H PRN shortness of breath or wheezing #8.5 grams 12/29/22 [Rx Last Taken Unknown] ropinirole 1 mg tablet 0.5 mg PO BID@0900,1400 RLS 02/10/23 [History Last Taken Unknown] budesonide-formoterol HFA 160 mcg-4.5 mcg/actuation aerosol inhaler (Symbicort) 2 inh inhalation BID #1 ea 03/31/23 [Rx Last Taken Unknown] guaifenesin 1,200 mg tablet, extended release 12 hr (Mucus Relief ER) 1,200 mg PO Q12H 04/30/23 [History Last Taken Unknown] inhalational spacing device (E[employer]ent [employer] Chamber) 04/30/23 [History Last Taken Unknown] loperamide 2 mg capsule (Anti-Diarrheal (loperamide)) 4 mg PO Q6H PRN diarrhea 04/30/23 [History Last Taken Unknown] magnesium hydroxide 400 mg/5 mL oral suspension (Milk of Magnesia) 5 ml PO DAILY PRN constipation 04/30/23 [History Last Taken Unknown] trazodone 50 mg tablet 50 mg PO .HS 04/30/23 [History Last Taken Unknown] Allergy/AdvReac Type Severity Reaction Status Date / Time propoxyphene napsylate AdvReac Vomiting Verified 03/31/23 14:24 [From Darcet-N 100] Family History (Reviewed 03/31/23 @ 14:34 by Sammie Gallagher CLINICAL NURSING INTERN, CLINICAL NURSING INTERN-C) Brother Heart disease Father Heart disease Surgical History (Reviewed 03/31/23 @ 14:34 by Sammie Gallagher CLINICAL NURSING INTERN, CLINICAL NURSING INTERN-C) History of back surgery Social History (Reviewed 03/31/23 @ 14:34 by Sammie Gallagher CLINICAL NURSING INTERN, CLINICAL NURSING INTERN-C) household members: spouse Smoking Status: Former smoker quit date: 07/27/82 Tobacco: How many years used: 20 alcohol intake: current alcohol intake frequency: 0-2 drinks per day Alcohol type: wine substance use type: does not use EXAM Physical Exam Const Vital Signs: 04/30/23 07:29 04/30/23 07:44 04/30/23 08:13 Temperature 98.6 F Temperature Source Temporal Pulse Rate 93 68 Respiratory Rate 16 25 H Blood Pressure 150/56 H 139/68 H Blood Pressure Mean 87 91 Pulse Ox 94 95 Oxygen Delivery Method Room Air Room Air Room Air [facility] Narrative Medical decision making narrative: HISTORY OF PRESENT ILLNESS: 82-year-old male here with concern for left-sided deficits in the setting of recent fall. Patient states he is unsure when he is able to move his left arm last states it was normal for he went to bed at approximately 1 AM. Per EMS patient's last known well was approximately 3:30 AM however they state someone walked into his room and he was sleeping there is no assessment of his neurologic status at the time. REVIEW OF SYSTEMS: Pertinent positives: Left-sided weakness Pertinent negatives: Chest pain, shortness of breath PHYSICAL EXAM: Nursing triage notes reviewed, Vital signs reviewed Constitutional: please see mdm HENT: MMM Eyes: Pupils equal round and reactive to light, Extraocular muscles intact Neck: No stridor, no JVD, full neck ROM Lungs: Clear to auscultation, No wheezing or rales. No increased work of breathing, no conversational dyspnea, no accessory muscle use, no nasal flaring. No respiratory distress noted Heart: Regular rate and rhythm, No murmurs, No rubs and No gallops, 2+ distal pulses (radial, femoral, posterior tibial) in all extremities Abdomen: Soft, there is no tenderness, rigidity, rebound or guarding, no obvious peritoneal signs, no palpable pulsatile abdominal masses, no auscultated abdominal bruit : No CVAT Extremities: No edema Neuro: Alert, oriented, slight left facial droop, left upper extremity weakness, left lower extremity weakness, obvious aphasia and dysarthria (at baseline per patient's ), answers correctly to age but not month. No extinction. NIH of 8 Skin: No rash or lesions noted MEDICAL DECISION MAKING: Chief Complaint: Stroke alert External records reviewed: Last ED visit in September 2022, CT scan of the head from June 2022 shows chronic involutional changes of the brain. Factors affecting care: Parkinson's disease, BPH, hyperlipidemia, history of alcohol abuse, TIA Social determinants of health: Alcohol abuse, elderly, half-way resident History obtained from others: EMS Consults: Stroke neurology, Radiology, Internal Medicine [facility] Narrative: Patient was assessed in the hallway on EMS cot. He initially displayed an obvious left upper extremity weakness given report of last known well within the 4 and half hour tPA window he is taken directly to CT scanner. Upon further questioning I considered the following differential diagnosis: CVA, TIA, ICH, hypoglycemia, focal seizure, complex migraine CT of the brain, CTA of the head and neck was obtained immediately. Imaging showed no evidence of bleed or large vessel occlusion. Patient was not a TNK candidate given last known well outside of the 4 and half hour window. Additional labs were obtained per code stroke protocol. ALL IMAGES (IF OBTAINED) HAVE BEEN PERSONALLY REVIEWED AND INTERPRETED BY MYSELF. EKG with normal sinus rhythm, left axis deviation, no STEMI CBC with leukocytosis suggestive of systemic inflammation, no anemia or thrombocytopenia Coagulation studies within normal limits BMP without evidence of significant electrolyte abnormalities, no anion gap, no acute kidney injury. Troponin is negative, no evidence of myocardial ischemia The amalgamation of the patient's clinical exam, labs, and images are consistent with likely acute CVA. Patient was not a candidate for TNK or thrombectomy. ASA given. He appropriate for admission to telemetry for MRI and further risk factor modification. Discussed with hospitalist Dr. Escobar. The patient and/or family, caregivers express understanding. The patient and/or family, caregivers agrees with the plan. Shared decision making: I will have a discussion with the patient and or visitors regarding risk/benefits of further testing or admission. They will be made aware of of the risk/benefits inherent in this decision they will be given the opportunity to voice understanding. Total critical care time today provided was at least 35 minutes. This excludes separately billable procedures. Critical care time (if documented) is secondary to the patient having high probability of clinically significant/life threatening deterioration in the patient's condition which required my urgent intervention. Impression: 1. Acute CVA 2. Left-sided weakness 3. History of Parkinson disease 4. History of cognitive dysfunction Dispo: Admit Lab Data Attestation: I reviewed the patient's lab results. Labs: Laboratory Results - last 24 hr 04/30/23 07:20 WBC 11.3 H RBC 4.47 L Hgb 13.4 Hct 42.3 MCV 94.6 H MCH 30.0 MCHC 31.7 L RDW Std Deviation 43.5 RDW Coeff of Boom 12.6 Plt Count 214 MPV 9.7 Immature Gran % (Auto) 0.400 Neut % (Auto) 72.6 H Lymph % (Auto) 13.8 L [place] % (Auto) 8.1 Eos % (Auto) 4.2 Baso % (Auto) 0.9 Absolute Neuts (auto) 8.2 H Absolute Lymphs (auto) 1.56 Nucleated RBC % 0 PT 14.1 INR 1.1 APTT 27.6 Sodium 140 Potassium 4.0 Chloride 107 Carbon Dioxide 29.0 Anion Gap 4 L BUN 17 Creatinine 1.10 Estim Creat Clear Calc 58.79 Est GFR (MDRD) Af Amer 83 Est GFR (MDRD) Non-Af 68 BUN/Creatinine Ratio 15.5 Glucose 115 H Calcium 8.8 Troponin I High Sens 7 Radiography Diagnostic Testing: Clinical Impression(s) from Imaging Studies Brain CT 04/30/23 07:16 IMPRESSION: 1. No acute intracranial abnormalities. 2. Age-related changes. 3. Bilateral ethmoid, maxillary and sphenoid sinus disease. Electronically Signed: Matt Chung MD at 7:32 EDT Reading Location ID and State: [facility] / [place] Tel , Service support , ADDENDUM: 04/30/23 0741 IMPRESSION: 1. No acute intracranial abnormalities. 2. Age-related changes. 3. Bilateral ethmoid, maxillary and sphenoid sinus disease. N.B. : The above Results were Read Back by Matt Chung MD to Jimmy Santos DO, and understanding confirmed on 04/30/2023 07:34:26 (ET). Electronically Signed: Matt Chung MD at 7:32 EDT Reading Location ID and State: [facility] [employer] / [place] Tel , Service support , Head/Neck CTA 04/30/23 07:16 IMPRESSION: No large vessel occlusion, dissection, or other acute arterial abnormalities identified on this CTA head/neck exam. Electronically Signed: Matt Chung MD at 7:47 EDT Reading Location ID and State: [facility] / [place] Tel , Service support , ADDENDUM: 04/30/23 0757 IMPRESSION: No large vessel occlusion, dissection, or other acute arterial abnormalities identified on this CTA head/neck exam. N.B. : The above Results were Read Back by Matt Chung MD to Carloz Babcock MD, and understanding confirmed on 04/30/2023 07:51:00 (ET). Electronically Signed: Matt Chung MD at 7:47 EDT , Discharge Plan Triage Chief Complaint: Stroke Alert ED Provider: Jimmy Santos Dx/Rx/DC Orders Prescriptions: No Action doxazosin 4 mg tablet 4 mg PO QHS sennosides-docusate sodium [Stool Softener-Stimulant Laxat] 8.6-50 mg tablet 2 tab-cap PO DAILY albuterol sulfate 90 mcg/actuation HFA aerosol inhaler 2 puff inhalation Q4H PRN (Reason: shortness of breath or wheezing) Qty: 8.5 6RF Rx Instructions: administer with spacer budesonide-formoterol [Symbicort] 160-4.5 mcg/actuation HFA aerosol inhaler 2 inh inhalation BID Qty: 1 3RF Rx Instructions: administer with spacer, rinse mouth after each use fluticasone propionate 1 SPRAY spray,suspension 2 spray NASAL DAILY multivitamin Tablet 1 tab PO DAILY pregabalin 50 mg capsule 50 mg PO DAILY acetaminophen 650 mg Tablet Extended Release 650 mg PO DAILY pregabalin 25 mg capsule 25 mg PO QHS aspirin 81 mg Tablet,Delayed Release (Dr/Ec) 81 mg PO DAILY acetaminophen 500 mg Tablet 500 mg PO QPM ropinirole 1 mg tablet 0.5 mg PO BID@0900,1400 Senna Plus 8.6-50 mg Capsule 1 tab-cap PO QHS duloxetine 60 mg capsule,delayed release(DR/EC) 60 mg PO DAILY bupropion HCl 300 mg tablet extended release 24 hr 300 mg PO DAILY carbidopa-levodopa 25-100 mg Tablet 4 tab PO TIDAC 30 Days Qty: 360 0RF trazodone 50 mg tablet 50 mg PO .HS (DME) [employer] Chamber Spacer MISCELLANEOUS Patient Comments: use as directed loperamide [Anti-Diarrheal (loperamide)] 2 mg capsule 4 mg PO Q6H PRN (Reason: diarrhea) magnesium hydroxide [Milk of Magnesia] 400 mg/5 mL suspension 5 ml PO DAILY PRN (Reason: constipation) guaifenesin [Mucus Relief ER] 1,200 mg tablet extended release 12hr 1,200 mg PO Q12H Primary Care Provider: Reji Piper Referrals: Reji Piper DO [Primary Care Provider] -
[2023-04-30 07:33] LABS: Absolute Lymphocyte Count 1.56 X10^3/uL (0.83-4.51); Absolute Neutrophil Count 8.2 X10^3/uL (2.0-7.7); Basophil% 0.9 % (0-1); Eosinophil# 0.47 X10^3/uL; Eosinophils% 4.2 % (0-5); Hematocrit 42.3 % (40-54); Hemoglobin 13.4 g/dL (13.0-16.5); Lymphocyte # 1.56 X10^3/ul (0.83-4.51); Lymphocyte % 13.8 % (19-41); Mean Corp Hgb Conc 31.7 g/dL (32-36); Mean Corpuscular Volume 94.6 fL (80-94); Mean Platelet Vol. 9.7 fl (6.2-12.0); Monocyte# 0.92 X10^3/uL; Monocyte% 8.1 % (0-10); NRBC Flagged by Analyzer 0 % (0-5); Neutrophil # 8.19 X10^3/uL (2.7-7.7); Neutrophil % 72.6 % (47-70); Platelet Count 214 K/mm3 (150-450); RBC Distribution Width CV 12.6 % (11.6-14.6); RBC Distribution Width SD 43.5 fl (35.1-43.9); Red Blood Count 4.47 M/mm3 (4.6-6.2); White Blood Count 11.3 K/mm3 (4.4-11.0)
[2023-04-30 07:45] LABS: International Normalized Ratio 1.1; Prothrombin Time (Protime)PT. 14.1 SECONDS (11.7-14.9)
[2023-04-30 07:46] LABS: Partial Thromboplast Time 27.6 Seconds (24.1-36.2)
[2023-04-30 08:04] LABS: Anion Gap 4 (5-15); BUN 17 mg/dL (7-18); BUN/Creat Ratio 15.5 RATIO (10-20); Calcium,Total 8.8 mg/dL (8.5-10.1); Chloride 107 mmol/L (98-107); EST Glomerular Filtration Rate 68 mL/min (>60); Est Glom Filt Rate - Afr Amer 83 mL/min (>60); Estimated Creatinine Clearance 58.79 ml/min; Glucose 115 mg/dL (74-106); Sodium Level 140 mmol/L (136-145); Troponin-I HS 7 pg/mL (3.0-78.0)
--- NOTE | 2023-04-30 08:28 | HP.PCM_ITS ---
HPI - General General Date of Admission: 04/30/23 Date of Service: 04/30/23 Chief Complaint: left sided weakness HPI Narrative ADALBERTO SANCHEZ, is a 82 M with a PMH as outlined who presents via the ED On 04/30/2023 with a complaint of left sided weakness. Last known well was about 1am when he went to bed. In his SNF, someone did check on him in his room at ~ 3:30pm. He appeared fine and was asleep; no neurological exam was done at that time. He was brought in to the ED. Vitals in the ED were BP of 139/68, NH of 68, RR of 25 and he was saturating at 95% on room air. CBC showed Hb of 13.4, wbc of 11.3 and platelets of 214. INR was 1.1. Chemistry was unremarkable. Initial troponin was negative. CT of the brain showed diffuse volume loss, and no acute intracranial pathology as well as bilateral ethmoid, maxillary and sphenoid sinus disease. CTA of the head and neck showed no large vessel occlusion, dissection or other acute arterial abnormalities. He is being admitted to be managed for probable stroke [facility] Medical History (Reviewed 03/31/23 @ 14:34 by Sammie Gallagher SYSTEMS PROTECTION TECHNICIAN, SYSTEMS PROTECTION TECHNICIAN-C) Alcohol abuse Allergic rhinitis Anxiety Basal cell carcinoma BPH (benign prostatic hyperplasia) BPH (benign prostatic hyperplasia) Debility Depressive disorder due to another medical condition with depressive features Former smoker GERD (gastroesophageal reflux disease) Hyperlipidemia Impotence of non-organic origin Insomnia Late effect of lacunar infarction Lightheadedness Loss of balance Neuropathic pain Parkinson disease Sinus disease TIA (transient ischemic attack) (01/23/20) Home Medications fluticasone propionate 50 mcg/actuation nasal spray,suspension 2 spray NASAL DAILY allergies 01/23/20 [History Last Taken 10/15/22] doxazosin 4 mg tablet 4 mg PO QHS blood pressure 02/22/20 [History Last Taken 10/14/22] acetaminophen 650 mg tablet,extended release 650 mg PO DAILY arthritis 03/14/22 [History Last Taken 10/15/22] multivitamin 1 tab PO DAILY supplement 03/14/22 [History Last Taken 10/15/22] pregabalin 50 mg capsule 50 mg PO DAILY pain 03/14/22 [History Last Taken 10/14/22] acetaminophen 500 mg tablet 500 mg PO QPM arthritis 07/07/22 [History Last Taken 10/14/22] aspirin 81 mg tablet,delayed release 81 mg PO DAILY heart health 07/07/22 [History Last Taken 10/15/22] pregabalin 25 mg capsule 25 mg PO QHS Pain 09/17/22 [History Last Taken 10/14/22] sennosides 8.6 mg-docusate sodium 50 mg tablet (Stool Softener-Stimulant L axative) 2 tab-cap PO DAILY STOOL SOFTNER 09/17/22 [History Last Taken 10/15/22] duloxetine 60 mg capsule,delayed release 60 mg PO DAILY NERVE PAIN 10/15/22 [History Last Taken 10/15/22] sennosides 8.6 mg-docusate sodium 50 mg capsule (Senna Plus) 1 tab-cap PO QHS Stool softner 10/15/22 [History Last Taken 10/14/22] bupropion HCl 300 mg 24 hr tablet, extended release 300 mg PO DAILY Mood 10/21/22 [History Last Taken Unknown] carbidopa 25 mg-levodopa 100 mg tablet 4 tab PO TIDAC 30 days #360 tabs 11/03/22 [Rx Last Taken Unknown] albuterol sulfate 90 mcg/actuation aerosol inhaler 2 puff inhalation Q4H PRN shortness of breath or wheezing #8.5 grams 12/29/22 [Rx Last Taken Unknown] ropinirole 1 mg tablet 0.5 mg PO BID@0900,1400 RLS 02/10/23 [History Last Taken Unknown] budesonide-formoterol HFA 160 mcg-4.5 mcg/actuation aerosol inhaler (Symbicort) 2 inh inhalation BID #1 ea 03/31/23 [Rx Last Taken Unknown] guaifenesin 1,200 mg tablet, extended release 12 hr (Mucus Relief ER) 1,200 mg PO Q12H 04/30/23 [History Last Taken Unknown] inhalational spacing device ([employer] Chamber) 04/30/23 [History Last Taken Unknown] loperamide 2 mg capsule (Anti-Diarrheal (loperamide)) 4 mg PO Q6H PRN diarrhea 04/30/23 [History Last Taken Unknown] magnesium hydroxide 400 mg/5 mL oral suspension (Milk of Magnesia) 5 ml PO DAILY PRN constipation 04/30/23 [History Last Taken Unknown] trazodone 50 mg tablet 50 mg PO .HS 04/30/23 [History Last Taken Unknown] Allergy/AdvReac Type Severity Reaction Status Date / Time propoxyphene napsylate AdvReac Vomiting Verified 03/31/23 14:24 [From Zunilda-N 100] Family History (Reviewed 03/31/23 @ 14:34 by Sammie Gallagher SYSTEMS PROTECTION TECHNICIAN, SYSTEMS PROTECTION TECHNICIAN-C) Brother Heart disease Father Heart disease Surgical History (Reviewed 03/31/23 @ 14:34 by Sammie Gallagher SYSTEMS PROTECTION TECHNICIAN, SYSTEMS PROTECTION TECHNICIAN-C) History of back surgery Social History (Reviewed 03/31/23 @ 14:34 by Sammie Gallagher SYSTEMS PROTECTION TECHNICIAN, SYSTEMS PROTECTION TECHNICIAN-C) household members: spouse Smoking Status: Former smoker quit date: 07/27/82 Tobacco: How many years used: 20 alcohol intake: current alcohol intake frequency: 0-2 drinks per day Alcohol type: wine substance use type: does not use ROS Constitutional Constitutional: Reports fatigue, malaise and weakness; Denies anorexia, chills or fever(s) Eyes Eyes: Denies change in vision ENT HEENT: Reports throat swelling; Denies dysphagia or headache(s) Cardiovascular Cardiovascular: Denies chest pain, edema, orthopnea, palpitations, paroxysmal nocturnal dyspnea or syncope Respiratory/Chest Respiratory/Chest: Denies cough, shortness of breath at rest or shortness of breath with exertion Gastrointestinal Gastrointestinal: Denies abdominal pain, nausea or vomiting Genitourinary Genitourinary: Denies dysuria Musculoskeletal Musculoskeletal: Denies joint swelling Integumentary Integumentary: Denies dry skin Neurologic Neurologic: Reports abnormal speech, focal weakness and weakness; Denies confusion, dizziness, headache(s), lack of coordination, numbness or seizures Psychiatric Psychiatric: Denies anxiety Endocrine Endocrinology: Denies change in body appearance Vital Signs Vital Signs Vital Signs: 04/30/23 07:29 04/30/23 07:44 04/30/23 08:13 Temperature 98.6 F Temperature Source Temporal Pulse Rate 93 68 Respiratory Rate 16 25 H Blood Pressure 150/56 H 139/68 H Blood Pressure Mean 87 91 Pulse Ox 94 95 Oxygen Delivery Method Room Air Room Air Room Air Weight Weight: 253 lb 12.033 oz Body Mass Index (BMI) 34.4 Physical Exam Const alert, oriented x3 and no apparent distress Constitutional Narrative: frail HEENT normocephalic, head/scalp atraumatic, moist oral mucous membranes and oropharynx normal Eyes PERRL and EOMs intact bilaterally Neck no lymphadenopathy and supple Lymph Lymphatic: no lymphadenopathy noted Resp normal respiratory effort, normal air movement and clear to auscultation bilaterally Cardio regular rate, regular rhythm, S1 normal heart sound, S2 normal heart sound and no murmurs GI normal to inspection, nondistended, normoactive bowel sounds, soft to palpation, non-tender and non-distended Extremity normal capillary refill, no clubbing, cyanosis or edema and no calf tenderness Skin General Skin Exam: no breakdown Neuro CN's II-XII intact bilaterally Neuro Narrative: has mild slurred speech. has profound weakness of the LUE and LLE. No numbness or tingling. Power in LUE and LLE is 3/5. Motor Exam: general weakness Psych thought process normal Appearance: appropriate Results Lab / Micro Data 04/30/23 07:20 04/30/23 07:20 Labs: Laboratory Results - last 24 hr 04/30/23 07:20: WBC 11.3 H, RBC 4.47 L, Hgb 13.4, Hct 42.3, MCV 94.6 H, MCH 30.0, MCHC 31.7 L, RDW Std Deviation 43.5, RDW Coeff of Boom 12.6, Plt Count 214, MPV 9.7, Immature Gran % (Auto) 0.400, Neut % (Auto) 72.6 H, Lymph % (Auto) 13.8 L, Irion % (Auto) 8.1, Eos % (Auto) 4.2, Baso % (Auto) 0.9, Absolute Neuts (auto) 8.2 H, Absolute Lymphs (auto) 1.56, Nucleated RBC % 0, PT 14.1, INR 1.1, APTT 27.6, Sodium 140, Potassium 4.0, Chloride 107, Carbon Dioxide 29.0, Anion Gap 4 L, BUN 17, Creatinine 1.10, Estim Creat Clear Calc 58.79, Est GFR (MDRD) Af Amer 83, Est GFR (MDRD) Non-Af 68, BUN/Creatinine Ratio 15.5, Glucose 115 H, Calcium 8.8, Troponin I High Sens [address] 04/30/23 07:16 IMPRESSION: 1. No acute intracranial abnormalities. 2. Age-related changes. 3. Bilateral ethmoid, maxillary and sphenoid sinus disease. Electronically Signed: Matt Chung MD at 7:32 EDT Reading Location ID and State: [facility] / [place] Tel , Service support , ADDENDUM: 04/30/23 0741 IMPRESSION: 1. No acute intracranial abnormalities. 2. Age-related changes. 3. Bilateral ethmoid, maxillary and sphenoid sinus disease. N.B. : The above Results were Read Back by Matt Chung MD to Jimmy Santos DO, and understanding confirmed on 04/30/2023 07:34:26 (ET). Electronically Signed: Matt Chung MD at 7:32 EDT Reading Location ID and State: [facility] / [place] Tel , Service support , Head/Neck CTA 04/30/23 07:16 IMPRESSION: No large vessel occlusion, dissection, or other acute arterial abnormalities identified on this CTA head/neck exam. Electronically Signed: Matt Chung MD at 7:47 EDT Reading Location ID and State: [facility] / [place] Tel , Service support , ADDENDUM: 04/30/23 0757 IMPRESSION: No large vessel occlusion, dissection, or other acute arterial abnormalities identified on this CTA head/neck exam. N.B. : The above Results were Read Back by Matt Chung MD to Carloz Babcock MD, and understanding confirmed on 04/30/2023 07:51:00 (ET). Electronically Signed: Matt Chung MD at 7:47 EDT Reading Location ID and State: [facility] / [place] Tel , Service support , Assessment & Plan Assessment/Plan (1) Stroke determined by clinical assessment: PLAN: Plan #Acute CVA * Admitted with a complaint of weakness in his left upper extremity and left lower extremity.: Left upper extremity and left lower extremity was 3/5. Last normal was around 3:30 AM on the day of admission. * CT of the brain showed no acute intracranial pathology. CTA of the head and neck showed no significant large vessel occlusion. MRI of the brain ordered and showed focal acute ischemic change of the posterior limb of the right internal capsule and chronic microvascular changes. * On aspirin and high intensity statin. We will add on Plavix. * Will get limited 2D echo as patient had 2D echo just in January 2023 * PT OT consult. Speech therapy consulted. For precautions. * Monitor NIH stroke scale. * 2D echo from January 2023 showed EF of 65% with stage I diastolic dysfunction and normal in the ventricular systolic function with negative bubble study. * Neurology consulted. * allow for permissive hypertension * #Parkinson's disease: on carbidopa levodopa. #Depression; on duloxetine. DVT prophylaxis; SCDs CODE STATUS full code * Patient, and daughter counseled extensively about different types of CODE STATUS including full code, DNR CCA and DNR CCA. Patient elects to be full code. Patient and state they have had DNR's CCA documented previously but in light of him coming to the hospital, he would want to be given a chance to live and so would want to be full code for this admission. * Total [id number]-[id number] time 18 minutes. Charges/Coding Visit Charges Inpatient E&M: 69010 Init Hosp L3 Procedures Hospitalists Procedures: 40757 Advncd Care Plan 30 Min
[2023-04-30] MEDS: Aspirin 325 MG Tablet PO (08:34)
--- NOTE | 2023-04-30 09:00 | RAD_ITS ---
STUDY: X-RAY CHEST REASON FOR EXAM: Male, 82 years old. Neuro deficit, acute, stroke suspected TECHNIQUE: Single AP portable view of the chest. COMPARISON: Comparison is made with prior study dated November 03, 2022. FINDINGS: EKG electrodes are seen. Increased markings are seen at the left lung base suggestive of linear atelectasis and/or scarring. There is no demonstrated pleural abnormality. Normal size heart. Normal mediastinum and mello. Normal visualized pulmonary arteries. There is atherosclerotic calcification of the aortic arch with tortuosity. There are degenerative changes of the visualized thoracic spine. Normal visualized ribs, clavicles, and shoulders. There is no demonstrated abnormality of the visualized soft tissue structures of the upper abdomen. RAD/Chest 1 View IMPRESSION: Increased markings at the left lung base suggestive of atelectasis and/or early infiltrate. Electronically Signed: Torito Wright MD at 9:41 EDT ,
--- NOTE | 2023-04-30 11:00 | ED.RN ---
Patient cleaned of incontinent urine. Adjusted in bed. Awaiting bed assignment.
--- NOTE | 2023-04-30 12:25 | CM.ED ---
Social Work SW introduced self and role to patient. Pt had stroke alert called and is now awaiting a bed. SW provided support to family and pt. Pt currently resides at [facility] in assisted living. Pt's , Jenni, present and daughter, Regina. Pt is to be admitted for further testing an evaluations. Pt may need additional therapy and assistance at discharge. Pt and family aware skilled services may be necessary and are requesting TCU if needed as patient has been there in the past. A list of SNF?providers including quality and resource use data and consistent with patient?s preferred geographic region, medical needs, and insurance network were provided from the [facility] Guide for patient and famlily review. Plan: Follow for patient needs for discharge planning, TCU referral if SNF needed. Adelina Beltran COTTAGE CHEESE MAKER, IRONER OR PRESSER
--- NOTE | 2023-04-30 14:17 | MRI_ITS ---
We are attempting to reach an attending provider to discuss findings. An addendum with communication details will be sent when the communication is complete. EXAM: MR HEAD WITHOUT INTRAVENOUS CONTRAST CLINICAL INDICATION: neuro deficits, LT SIDED WEAKNESS TECHNIQUE: Multiplanar and multisequence MR images of the brain were obtained without intravenous contrast. COMPARISON: CT brain 04/30/2023, MR Head dated 07/08/2022 FINDINGS: BRAIN AND EXTRA-AXIAL SPACES: 11 mm focus of restricted diffusion is noted within the posterior limb of the right internal capsule consistent with acute lacunar infarct. Focal cystic change within the right basal ganglion consistent with old lacunar infarct. Increased T2 signal intensity within the cerebral white matter suggestive of chronic microvascular change. Prominence of the cortical sulci and ventricles related to volume loss change. No intra- or extra-axial hemorrhage. No intracranial mass or mass effect. Posterior fossa structures are unremarkable. Basal cisterns are patent. SELLA: Normal. Normal sella turcica, pituitary gland, infundibular stalk, optic chiasm and hypothalamus. AUDITORY SYSTEM: Normal. The internal auditory canals are patent. BONES/JOINTS: Intact calvarium. SINUSES: Unremarkable as visualized. Clear. MASTOID AIR CELLS: Unremarkable as visualized. Clear. ORBITS: Unremarkable as visualized. Both globes, extraocular muscles, optic nerves and retrobulbar fat appear unremarkable. VASCULATURE: Unremarkable as visualized. Normal flow voids in the major intracranial circulation. MRI/Brain without Contrast IMPRESSION: 1. Focal acute ischemic change of the posterior limb of the right internal capsule. 2. Chronic microvascular changes. Electronically Signed: Amor To MD at 16:22 EDT ,
--- NOTE | 2023-04-30 16:30 | ECHOLC_ITS ---
Reason For Study: TIA/CVA Procedure This was a limited 2D transthoracic echocardiogram. The study was technically difficult. Exam performed portable in patient room. Left Ventricle Normal LV size. Left ventricular systolic function is normal. The estimated ejection fraction is 60 %. No regional wall motion abnormalities noted. Right Ventricle Normal RV size. Normal systolic function. Atria Normal left atrium. Normal right atrium. Mitral Valve Normal mitral valve. Tricuspid Valve Normal tricuspid valve. Mild tricuspid valve insufficiency. Pulmonary artery systolic pressure is 32 mmHg. Pulmonic Valve Normal pulmonic valve. Great Vessels Normal aortic root. Pericardium/Pleural No pericardial effusion. Medication Diluted definity 1.5ml given slow IV push to enhance endocardial definition. Performed a rapid injection of agitated mix of 9 cc saline and 1cc air to assess for atrial septal defect. MMode/2D Measurements & Calculations LVIDd: 4.9 cm IVSd: 1.0 cm Ao root diam: 3.2 cm LVIDs: 3.3 cm LVPWd: 1.0 cm FS: 31.9 % LVAd ap4: 28.8 cm2 SV(MOD-sp4): 53.9 ml SV(sp4-el): 55.5 ml LVLd ap4: 7.7 cm EDV(MOD-sp4): 88.2 ml EDV(sp4-el): 90.8 ml LVAs ap4: 17.0 cm2 LVLs ap4: 6.9 cm ESV(MOD-sp4): 34.3 ml ESV(sp4-el): 35.3 ml EF(MOD-sp4): 61.1 % EF(sp4-el): 61.1 % LA dimension(2D): 2.4 cm Doppler Measurements & Calculations TR max sangita: 264.1 cm/sec TR max P.9 mmHg ECHO/Echo Limited w/Contrast Interpretation Summary Normal LV size. Left ventricular systolic function is normal. The estimated ejection fraction is 60 %. Contrast injection was performed. Ordering Physician: Ami Escobar Referring Physician: TARIQ PRITCHETT Performed By: Jeri Carlos RDCS
[2023-04-30] MEDS: Aspirin E.C. 81 MG Tablet PO (17:00)
[2023-04-30] MEDS: DULoxetine Hcl 60 MG Capsule PO (17:00)
[2023-04-30] MEDS: Senna/Docusate Sodium 1 Tablet 2 TABLET PO (17:00)
[2023-04-30] MEDS: buPROPion (XL) 300 MG TABLET.XL PO (17:00)
[2023-04-30] MEDS: Pregabalin 50 MG Capsule PO (17:07)
[2023-04-30] MEDS: Clopidogrel Bisulfate 75 MG Tablet PO (17:07)
[2023-04-30] MEDS: Carbidopa/Levodopa 25/100 Tablet PO (19:42)
[2023-04-30] MEDS: Albuterol 2.5 MG/3 ML VIAL.NEB. INHALATION (19:59)
[2023-04-30] MEDS: Budesonide Respules 0.5 MG/2 ML AMPUL.NEB. INHALATION (19:59)
[2023-04-30] MEDS: traZODone 50 MG Tablet PO (21:14)
[2023-04-30] MEDS: Doxazosin 4 MG Tablet PO (21:14)
[2023-04-30] MEDS: Pregabalin 25 MG Capsule PO (21:14)
[2023-04-30] MEDS: Atorvastatin Calcium 40 MG Tablet PO (21:14)
[2023-04-30] MEDS: Senna/Docusate Sodium 1 Tablet PO (21:15)
[2023-04-30] MEDS: Fluticasone 0.05% 1 SPRAY NASAL.SRY 2 SPRAY NASAL (21:15)
[2023-04-30] MEDS: guaiFENesin 1,200 MG Tablet 1200 MG PO (21:15)
[2023-04-30 21:22] LABS: Hemoglobin A1c 5.5 % (3.8-5.6)
[2023-05-01] VITALS (9 sets, daily range): BP systolic 120–141; BP diastolic 52–68; PULSE 71–86; RESP 14–20; TEMP 36.3–37; O2SAT 93–98; BMI 33.3
[2023-05-01] MEDS: oxyCODONE 5 MG Tablet PO (01:48)
[2023-05-01] MEDS: Carbidopa/Levodopa 25/100 Tablet PO ×2 (06:06→15:37)
[2023-05-01 06:17] LABS: Absolute Lymphocyte Count 1.99 X10^3/uL (0.83-4.51); Absolute Neutrophil Count 6.4 X10^3/uL (2.0-7.7); Basophil# 0.11 X10^3/uL; Basophil% 1.1 % (0-1); Eosinophil# 0.46 X10^3/uL; Eosinophils% 4.7 % (0-5); Hemoglobin 13.5 g/dL (13.0-16.5); Lymphocyte # 1.99 X10^3/ul (0.83-4.51); Lymphocyte % 20.1 % (19-41); Mean Corp Hgb Conc 32.1 g/dL (32-36); Mean Corpuscular Hgb 30.1 pg (27.0-32.0); Mean Corpuscular Volume 93.5 fL (80-94); Mean Platelet Vol. 10.1 fl (6.2-12.0); Monocyte% 9.1 % (0-10); NRBC Flagged by Analyzer 0 % (0-5); Neutrophil # 6.39 X10^3/uL (2.7-7.7); Neutrophil % 64.6 % (47-70); Platelet Count 213 K/mm3 (150-450); RBC Distribution Width CV 12.7 % (11.6-14.6); Red Blood Count 4.49 M/mm3 (4.6-6.2); White Blood Count 9.9 K/mm3 (4.4-11.0)
[2023-05-01 07:07] LABS: Anion Gap 4 (5-15); BUN 14 mg/dL (7-18); BUN/Creat Ratio 13.3 RATIO (10-20); Calcium,Total 8.7 mg/dL (8.5-10.1); Chloride 106 mmol/L (98-107); Cholesterol 156 mg/dL (200); Creatinine, Serum 1.05 mg/dL (0.70-1.30); EST Glomerular Filtration Rate 72 mL/min (>60); Est Glom Filt Rate - Afr Amer 87 mL/min (>60); Estimated Creatinine Clearance 61.59 ml/min; Glucose 99 mg/dL (74-106); High Density Lipoprotein 49 mg/dL; Sodium Level 139 mmol/L (136-145); Triglycerides 85 mg/dL; Very Low Density Lipoprotein 17 mg/dL (5-40)
[2023-05-01] MEDS: Budesonide Respules 0.5 MG/2 ML AMPUL.NEB. INHALATION ×2 (07:11→19:43)
[2023-05-01] MEDS: Albuterol 2.5 MG/3 ML VIAL.NEB. INHALATION ×2 (07:12→19:43)
--- NOTE | 2023-05-01 09:23 | CASEMGMT ---
Per ED SW if patient needs rehab family would like [facility] TCU. SW reviewed therapy notes and therapy is recommending additional therapy. SW made a referral to [facility] TCU. Milady SPENCER
[2023-05-01] MEDS: Multivitamins,Therapeutic Tablet 1 TABLET PO (09:47)
[2023-05-01] MEDS: Aspirin E.C. 81 MG Tablet PO (09:47)
[2023-05-01] MEDS: buPROPion (XL) 300 MG TABLET.XL PO (09:47)
[2023-05-01] MEDS: Clopidogrel Bisulfate 75 MG Tablet PO (09:47)
[2023-05-01] MEDS: Fluticasone 0.05% 1 SPRAY NASAL.SRY 2 SPRAY NASAL (10:01)
--- NOTE | 2023-05-01 10:49 | CASEMGMT ---
Discharge Planning Updates faxed to [facility]. Jennifer Reese, Discharge Planning Asst.
--- NOTE | 2023-05-01 11:14 | CASEMGMT ---
ALONDRA spoke with Alicia in TCU and she spoke with patient's insurance who is stating they would likely deny patient's request for retirement facility as it appears patient needs penitentiary. ALONDRA will talk with patient's family and [facility]. Milady Gordon MSW TJ
--- NOTE | 2023-05-01 11:22 | PN_ITS ---
Subjective Subjective Patient seen and examined. He still has left sided weakness which hasnt improved much. He is still having some mildly slurred speech. Review of systems is otherwise negative. MRI was positive for a stroke. Objective Data Objective Data Vital Signs: Vital Signs Temp Pulse Resp BP Pulse Ox O2 Del Method 97.6 F L 71 16 127/63 H 94 Room Air 05/01/23 09:00 05/01/23 09:00 05/01/23 09:00 05/01/23 09:00 05/01/23 09:00 05/01/23 09:00 Oxygen Delivery Method Room Air Weight: 245 lb 13.047 oz Body Mass Index (BMI) 33.3 Intake & Output: Intake and Output for Last 24 Hours 04/29/23 04/30/23 05/01/23 23:59 23:59 23:59 Intake Total 100 / 100 Output Total 700 / 2200 1750 / 1750 Balance -600 / -2100 -1750 / -1750 Lab / Micro Data 05/01/23 05:45 05/01/23 05:45 Labs: Laboratory Results - last 24 hr 04/30/23 07:20: Hemoglobin A1c 5.5 05/01/23 05:45: WBC 9.9, RBC 4.49 L, Hgb 13.5, Hct 42.0, MCV 93.5, MCH 30.1, MCHC 32.1, RDW Std Deviation 44.0 H, RDW Coeff of Boom 12.7, Plt Count 213, MPV 10.1, Immature Gran % (Auto) 0.400, Neut % (Auto) 64.6, Lymph % (Auto) 20.1, Rice % (Auto) 9.1, Eos % (Auto) 4.7, Baso % (Auto) 1.1 H, Absolute Neuts (auto) 6.4, Absolute Lymphs (auto) 1.99, Nucleated RBC % 0, Sodium 139, Potassium 4.0, Chloride 106, Carbon Dioxide 29.0, Anion Gap 4 L, BUN 14, Creatinine 1.05, Estim Creat Clear Calc 61.59, Est GFR (MDRD) Af Amer 87, Est GFR (MDRD) Non-Af 72, BUN/Creatinine Ratio 13.3, Glucose 99, Calcium 8.7, Triglycerides 85, Cholesterol 156, LDL Cholesterol 90, VLDL Cholesterol 17, HDL Cholesterol 49 Radiography Diagnostic Testing: Radiology Impression Brain MRI 04/30/23 14:17 IMPRESSION: 1. Focal acute ischemic change of the posterior limb of the right internal capsule. 2. Chronic microvascular changes. Electronically Signed: Amor To MD at 16:22 EDT , ADDENDUM: 04/30/23 1757 IMPRESSION: 1. Focal acute ischemic change of the posterior limb of the right internal capsule. 2. Chronic microvascular changes. N.B. : Jenny Grace RN, confirmed on 04/30/2023 17:50:27 (ET) that the referring physician received the results and does not require a verbal communication. Electronically Signed: Amor To MD at 16:22 EDT , Physical Exam Const alert, oriented x3 and no apparent distress Constitutional Narrative: frail HEENT normocephalic, head/scalp atraumatic, moist oral mucous membranes and oropharynx normal Eyes PERRL and EOMs intact bilaterally Neck no lymphadenopathy and supple Lymph Lymphatic: no lymphadenopathy noted Resp normal respiratory effort, normal air movement and clear to auscultation bilaterally Cardio regular rate, regular rhythm, S1 normal heart sound, S2 normal heart sound and no murmurs GI normal to inspection, nondistended, normoactive bowel sounds, soft to palpation, non-tender and non-distended Extremity normal capillary refill, no clubbing, cyanosis or edema and no calf tenderness Skin General Skin Exam: no breakdown Neuro CN's II-XII intact bilaterally Neuro Narrative: has mild slurred speech. has profound weakness of the LUE and LLE. No numbness o r tingling. Power in LUE and LLE is 3/5. Motor Exam: general weakness Psych thought process normal Appearance: appropriate Assessment & Plan Assessment/Plan (1) Stroke determined by clinical assessment: PLAN: Plan #Acute CVA * Admitted with a complaint of weakness in his left upper extremity and left lower extremity.: Left upper extremity and left lower extremity was 3/5. Last normal was around 3:30 AM on the day of admission. * CT of the brain showed no acute intracranial pathology. CTA of the head and neck showed no significant large vessel occlusion. MRI of the brain ordered and showed focal acute ischemic change of the posterior limb of the right internal capsule and chronic microvascular changes. * On aspirin and high intensity statin. Neurology consulted. Was started on 75mg x 21 days plus aspirin, and continue on aspirin monotherapy and statin. * 2D echo ordered and pending. * PT OT consult. Speech therapy consulted. For precautions. * Monitor NIH stroke scale. * 2D echo from January 2023 showed EF of 65% with stage I diastolic dysfunction and normal in the ventricular systolic function with negative bubble study. * speech therapy on board * #Parkinson's disease: on carbidopa levodopa. #Depression: on duloxetine. DVT prophylaxis; SCDs CODE STATUS full code Disposition: in assisted living at his facility. Will need placement in SNF. PT.OT on board, and case management on board to facilitate placement. Charges/Coding Visit Charges Inpatient E&M: 68556 Subs Hosp L2
--- NOTE | 2023-05-01 12:47 | CASEMGMT ---
ALONDRA spoke with patient's daughter, Regina. Regina explained that patient's was hoping to get patient into TCU for rehab. SW explained that TCU spoke with patient's insurance and insurance is likely not going to approve patient for skilled. 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 ALONDRA explained this would mean back to [facility] if [facility] is okay with him returning or alf private pay. Regina said she is not sure [facility] has the assistance patient needs. Regina said she will talk with patient's and update her on this information. ALONDRA also let Regina know that ALONDRA does keep [facility] updated on patient's stay. Plan: Back to [facility] [place] if [facility] is okay with patient returning vs intermediate at a alf. Milady Gordon DOG BATHER TJ
[2023-05-01] MEDS: Pramipexole Di-HCl 0.25 MG Tablet PO (15:37)
[2023-05-01] MEDS: Acetaminophen 500 MG Tablet PO (15:38)
--- NOTE | 2023-05-01 15:48 | SP.MBSS_ITS ---
Modified Barium Swallow Patient Information Study Date: 05/01/23 Study Time: 13:00 Direct Billable Minutes: 121 Total Minutes procedure & reportin Diagnosis: CVA (163.9), PD (G20), Dysphagia (R13.10) Referring Physician: Ami Escobar Reason for Referral: Objectively assess swallow function, assess risk for aspiration, and determine recommendations for least restrictive diet textures and compensatory strategies to improve safety of swallow. Medical History: Dell Ziegler is a 82 M with PMH including Parkinson's disease, GERD, TIA, Late effect of lacunar infarction, former smoker, debility, and alcohol abuse. He presented to the ED on 04/30/2023 with a complaint of left sided weakness. Last known well was about 1am when he went to bed. In his [facility], someone did check on him in his room at ~3:30pm. He appeared fine and was asleep, no neurological exam was done at that time. He was brought in to the ED and has been admitted for CVA work up. Per RN, he initially passed dysphagia screen; however, swallowing appeared to become worse this morning and patient remained NPO prior to ST consult. Brain MRI 04/30/2023 IMPRESSION: Focal acute ischemic change of the posterior limb of the right internal capsule. Chronic microvascular changes. BSE patient presented with coughing with thin liquids. He was recommended NPO w/ sips and chips by tsp with plans for MBSS prior to diet advancement. Current Diet Ordered: NPO w/ sips and chips by tsp w/ L head turn Mental Status: WNL (Able to follow commands for evaluation; needs cognitive- linguistic assessment s/p CVA) Respiratory Status: Oxygenating on Room Air Penetration-Aspiration Scale Penetration-Aspiration Scale: OBJECTIVE ASSESSMENT OF SWALLOW FUNCTION (QUANTITATIVE ? PER TRIAL): PENETRATION / ASPIRATION SCALE (OTOOLE): 1 = does not enter airway 2 = enters airway/above vocal folds/ejected 3 = enters airway/above vocal folds/not ejected 4 = enters airway/contacts vocal folds/ejected 5 = enters airway/contacts vocal folds/not ejected 6 = enters airway/below vocal folds/ejected 7 = enters airway/below vocal folds/not ejected despite effort 8 = enters airway/below vocal folds/no effort VIDEOFLOROSCOPIC SCALE SCORE (OTOOLE): Grade I = aspiration of material that has penetrated into the laryngeal vestibule, intact cough reflex Grade II = aspiration < 10 % of the bolus, intact cough reflex Grade III = aspiration of < 10 % of the bolus, reduced cough reflex or aspiration of > 10 % of the bolus, intact cough reflex Grade IV = aspiration of > 10 % of the bolus, reduced cough reflex Penetration-Aspiration Scale Score Thin Liquid via teaspoon: Result: 1= does not enter airway Thin Liquid via teaspoon Trial 2: Result: 1= does not enter airway Thin liquids by small single cup sip: Result: 1= does not enter airway [place]/mildly thick by small single cup sip: Result: 1= does not enter airway Pudding via teaspoon: Result: 1= does not enter airway ? Cookie: Result: 1= does not enter airway Thin liquids by small single straw sip: Result: 3= enters airways/above vocal folds/not ejected Thin liquids by small single cup sip Trial 2: Result: 7= enters airways/below vocal folds/not ejected despite effort Thin Liquid via teaspoon Trial 3: Result: 1= does not enter airway Thin liquids by small single cup sip (10cc) with left head turn: Result: 1= does not enter airway Thin liquids by small single cup sip with left head turn: Result: 8= enters airway/below vocal folds/no effort Thin Liquid via teaspoon Effortful swallow: Result: 2= enter airway/above vocal folds/ejected [place]/mildly thick by small single cup sip Trial 2: Result: 2= enter airway/above vocal folds/ejected Oral Phase Labial Seal: No Labial Escape Tongue Control During Bolus Hold: Posterior escape of greater than half of bolus Bolus Preparation/Mastication: Disorganized chewing/mashing with solid pieces of bolus unchewed (small pieces appeared unchewed) Bolus Transport/Lingual Motion: Repetitive/disorganized tongue motion Oral Residue: Trace residue lining oral structures Pharyngeal Phase Initiation of Pharyngeal Swallow: Bolus head in pyriforms Soft Palate Elevation: No bolus between soft palate and pharyngeal wall Laryngeal Elevation: Partial superior movement thyroid cart/partial apprx aryt- epig petiole Anterior Hyoid Excursion: Partial anterior movement Epiglottic Movement: Partial inversion Laryngeal Vestibule Closure at Height of Swallow: Incomplete; narrow column of air/contrast in laryngeal vestibule Pharyngeal Stripping Wave: Present - complete Pharyngoesophageal Segment Opening: Complete distension and complete duration; no obstruction of flow Tongue Base Retraction: Trace column of contrast between tongue base & post. pharyngeal wall Pharyngeal Residue: Trace residue within or on pharyngeal structures Diagnosis/Impression Diagnosis: Moderate oropharyngeal phase dysphagia (R13.12) Impression: The oral phase is primarily marked by... -Decreased bolus control with >1/2 of the bolus spilling posteriorly to the pyriforms prior to swallow onset observed with thin liquids especially. -Lingual pumping for A-P transport, most notable with pudding trial. Patient required extended time for A-P transport of pudding; however, cookie he cleared in a more timely manner. -Prolonged mastication with small pieces of cookie appearing un-chewed. The pharyngeal phase is primarily marked by... -Decreased airway closure during the swallow due to partial anterior hyoid excursion, partial epiglottic inversion, and decreased laryngeal elevation. -Moderately delayed swallow onset. -SILENT aspiration of thin liquids by cup w/ left head turn. Aspiration of thin liquids by cup. Decreased bolus size was most effective in decreasing aspiration risk of thin liquids. Recommendations Diet: Mechanical Soft Textures (Soft and bite size textures (IDDSI Level 6)) and Thin Liquids Comment: STOP MEALS IF INCREASED S/S OF ASPIRATION (patient fatigues quickly), check for L sided pocketing, cue intermittent cough and re-swallow especially if wet vocal quality, oral care after meals Compensatory Strategies: Small Bites, Small Sips (encourage effortful swallows), Liquid by Teaspoon Only, Slow Rate, Sitting upright and Remain sitting upright for 30 minutes after PO intake Supervision: 1:1 Close Supervision (Feeding assistance due to UE weakness, fatiguing, and tremors. Daughter, Regina, is okay to provide feeding assistance and supervision after thorough education. Otherwise, staff should be present to assist feeding at meals.) Recommend Repeat Modified Barium Swallow: Yes (1-3 weeks after implementation of oropharyngeal exercise program) Need for Skilled Speech Therapy Services: Yes Comment: Will recommend the patient for continued dysphagia therapy to address moderate deficits in oropharyngeal swallow function. Will recommend the patient for oropharyngeal strengthening to improve lingual control/coordination and airway closure (lingual resistance and coordination exercises, CTAR, Effortful breath hold and swallow, Oksana). The patient, family, and staff would benefit from thorough education regarding diet recommendations and recommended compensatory strategies. IF POOR DIET TOLERANCE OR DIFFICULTY HYDRATING WITH THIN LIQUIDS BY TSP, consider downgrade to nectar/mildly thick liquids if deemed appropriate by [employer]. Education Completed: 1. Described result of evaluation., 2. Pt understands evaluation & agrees with goals and treatment plan., 4. Family/caregivers understand evaluation & agree w/ goals & tx plan., 6. Family/caregivers demonstrate recommended strategies. (Daughter, Regina, thoroughly educated.), 7. Pt requires further education on strategies & risks. and 8. Family/caregivers require further education on strategies & risks. (Patient's requests further training prior to providing supervision/feeding assistance.) Comment: [employer] thoroughly educated RN, patient, and family in above results and recommendations. [employer] posted recommendations in patient's room and provided RN and patient's family handout for recommendations. Status Active ST Patient: Active Contact Information [facility] Speech Therapy:: Janette Porter M.A. CCC-[employer]CTOR [employer]ANCING Speech-Language Pathologist [facility] [address] [place] [address] [phone]
[2023-05-01] MEDS: guaiFENesin 1,200 MG Tablet 1200 MG PO (22:10)
[2023-05-01] MEDS: Pregabalin 25 MG Capsule PO (22:10)
[2023-05-01] MEDS: Doxazosin 4 MG Tablet PO (22:11)
[2023-05-01] MEDS: Atorvastatin Calcium 40 MG Tablet PO (22:12)
[2023-05-01] MEDS: Senna/Docusate Sodium 1 Tablet PO (22:12)
[2023-05-01] MEDS: traZODone 50 MG Tablet PO (22:13)
[2023-05-02] VITALS (13 sets, daily range): BP systolic 115–167; BP diastolic 56–87; PULSE 74–98; RESP 16–20; TEMP 36.3–36.8; O2SAT 89–95; BMI 33.3
[2023-05-02] MEDS: Carbidopa/Levodopa 25/100 Tablet PO ×2 (06:03→10:14)
[2023-05-02 06:33] LABS: Absolute Lymphocyte Count 0.68 X10^3/uL (0.83-4.51); Basophil# 0.06 X10^3/uL; Basophil% 0.5 % (0-1); Eosinophil# 0.08 X10^3/uL; Eosinophils% 0.7 % (0-5); Hematocrit 42.4 % (40-54); Hemoglobin 13.9 g/dL (13.0-16.5); Lymphocyte # 0.68 X10^3/ul (0.83-4.51); Mean Corp Hgb Conc 32.8 g/dL (32-36); Mean Corpuscular Hgb 30.3 pg (27.0-32.0); Mean Corpuscular Volume 92.6 fL (80-94); Mean Platelet Vol. 10.4 fl (6.2-12.0); Monocyte# 0.42 X10^3/uL; Monocyte% 3.7 % (0-10); NRBC Flagged by Analyzer 0.4 % (0-5); Neutrophil # 10.04 X10^3/uL (2.7-7.7); Neutrophil % 88.7 % (47-70); Platelet Count 218 K/mm3 (150-450); RBC Distribution Width CV 12.4 % (11.6-14.6); RBC Distribution Width SD 42.2 fl (35.1-43.9); Red Blood Count 4.58 M/mm3 (4.6-6.2); White Blood Count 11.3 K/mm3 (4.4-11.0)
[2023-05-02 07:11] LABS: Anion Gap 4 (5-15); BUN 17 mg/dL (7-18); BUN/Creat Ratio 16.8 RATIO (10-20); Calcium,Total 8.6 mg/dL (8.5-10.1); Chloride 103 mmol/L (98-107); Creatinine, Serum 1.01 mg/dL (0.70-1.30); EST Glomerular Filtration Rate 75 mL/min (>60); Est Glom Filt Rate - Afr Amer 91 mL/min (>60); Estimated Creatinine Clearance 64.03 ml/min; Glucose 137 mg/dL (74-106); Potassium 4.6 mmol/L (3.5-5.1); Sodium Level 134 mmol/L (136-145)
[2023-05-02] MEDS: Albuterol 2.5 MG/3 ML VIAL.NEB. INHALATION ×3 (07:25→19:24)
[2023-05-02] MEDS: Budesonide Respules 0.5 MG/2 ML AMPUL.NEB. INHALATION ×2 (07:25→19:24)
[2023-05-02] MEDS: Multivitamins,Therapeutic Tablet 1 TABLET PO (10:14)
[2023-05-02] MEDS: Aspirin E.C. 81 MG Tablet PO (10:14)
[2023-05-02] MEDS: Acetaminophen 500 MG Tablet PO (10:14)
[2023-05-02] MEDS: DULoxetine Hcl 60 MG Capsule PO (10:14)
[2023-05-02] MEDS: Senna/Docusate Sodium 1 Tablet 2 TABLET PO (10:14)
[2023-05-02] MEDS: Pramipexole Di-HCl 0.25 MG Tablet PO (10:14)
[2023-05-02] MEDS: Clopidogrel Bisulfate 75 MG Tablet PO (10:14)
[2023-05-02] MEDS: buPROPion (XL) 300 MG TABLET.XL PO (10:14)
[2023-05-02] MEDS: Ciprofloxacin 0.3% 2.5ml Bottle 1 DRP LEFT EYE ×4 (10:27→22:16)
[2023-05-02] MEDS: Pregabalin 50 MG Capsule PO (10:27)
[2023-05-02] MEDS: Ondansetron 4 MG/2 ML Vial IV (10:50)
--- NOTE | 2023-05-02 11:32 | PN_ITS ---
Subjective Subjective Patient seen and examined. He had no active complaints. He denied any fever, chills, cough, chest pain, palpitations, dizziness, nausea, vomiting or any other symptoms. Review of systems is otherwise negative. He is awaiting placement. Objective Data Objective Data Vital Signs: Vital Signs Temp Pulse Resp BP Pulse Ox O2 Del Method 97.4 F L 79 16 167/87 H 91 Room Air 05/02/23 09:00 05/02/23 09:00 05/02/23 09:00 05/02/23 09:00 05/02/23 09:31 05/02/23 09:00 Oxygen Delivery Method Room Air Weight: 245 lb 13.047 oz Body Mass Index (BMI) 33.3 Intake & Output: Intake and Output for Last 24 Hours 04/30/23 05/01/23 05/02/23 23:59 23:59 23:59 Intake Total 100 / 100 200 / 300 100 / 100 Output Total 700 / 2200 2750 / 3200 1200 / 1200 Balance -600 / -2100 -2550 / -2900 -1100 / -1100 Lab / Micro Data 05/02/23 06:06 05/02/23 06:06 Labs: Laboratory Results - last 24 hr 05/02/23 06:06: WBC 11.3 H, RBC 4.58 L, Hgb 13.9, Hct 42.4, MCV 92.6, MCH 30.3, MCHC 32.8, RDW Std Deviation 42.2, RDW Coeff of Boom 12.4, Plt Count 218, MPV 10.4, Immature Gran % (Auto) 0.400, Neut % (Auto) 88.7 H, Lymph % (Auto) 6.0 L, [place] % (Auto) 3.7, Eos % (Auto) 0.7, Baso % (Auto) 0.5, Absolute Neuts (auto) 10.0 H, Absolute Lymphs (auto) 0.68 L, Nucleated RBC % 0.4, Sodium 134 L, Potassium 4.6, Chloride 103, Carbon Dioxide 27.0, Anion Gap 4 L, BUN 17, Creatinine 1.01, Estim Creat Clear Calc 64.03, Est GFR (MDRD) Af Amer 91, Est GFR (MDRD) Non-Af 75, BUN/Creatinine Ratio 16.8, Glucose 137 H, Calcium 8.6 Radiography Diagnostic Testing: Radiology Impression Echocardiogram 04/30/23 16:30 Interpretation Summary Normal LV size. Left ventricular systolic function is normal. The estimated ejection fraction is 60 %. Contrast injection was performed. Ordering Physician: Ami Escobar Referring Physician: TARIQ PRITCHETT Performed By: Jeri Carlos RDCS Physical Exam Const alert, oriented x3 and no apparent distress Constitutional Narrative: frail HEENT normocephalic, head/scalp atraumatic, moist oral mucous membranes and oropharynx normal Eyes PERRL and EOMs intact bilaterally Neck no lymphadenopathy and supple Lymph Lymphatic: no lymphadenopathy noted Resp normal respiratory effort, normal air movement and clear to auscultation bilaterally Cardio regular rate, regular rhythm, S1 normal heart sound, S2 normal heart sound and no murmurs GI normal to inspection, nondistended, normoactive bowel sounds, soft to palpation, non-tender and non-distended Extremity normal capillary refill, no clubbing, cyanosis or edema and no calf tenderness Skin General Skin Exam: no breakdown Neuro CN's II-XII intact bilaterally Neuro Narrative: has mild slurred speech. has profound weakness of the LUE and LLE. No numbness or tingling. Power in LUE and LLE is 3/5. No facial droop Motor Exam: general weakness Psych thought process normal Appearance: appropriate Assessment & Plan Assessment/Plan (1) Stroke determined by clinical assessment: PLAN: Plan #Acute CVA * Admitted with a complaint of weakness in his left upper extremity and left lower extremity.: Left upper extremity and left lower extremity was 3/5. Last normal was around 3:30 AM on the day of admission. * CT of the brain showed no acute intracranial pathology. CTA of the head and neck showed no significant large vessel occlusion. MRI of the brain ordered and showed focal acute ischemic change of the posterior limb of the right internal capsule and chronic microvascular changes. * On aspirin and high intensity statin. Neurology consulted. Was started on 75mg x 21 days plus aspirin, and continue on aspirin monotherapy and statin. * 2D echo ordered and pending. * PT OT consult. Speech therapy on board. Fall precautions. * Monitor NIH stroke scale. * 2D echo from January 2023 showed EF of 65% with stage I diastolic dysfunction and normal in the ventricular systolic function with negative bubble study. * 2D echo during this admission showed normal LV size and systolic function, with EF of 60%. * speech therapy on board * had modified barium swallow which showed moderate oropharyngeal phase dysphagia. Speech therapy recommends mechanical soft textures and thin liquids for his diet. * Aspiration precautions. * #Dysphagia: As above #Parkinson's disease: on carbidopa levodopa. #Depression: on duloxetine. DVT prophylaxis; SCDs CODE STATUS full code Disposition: awaiting placement Charges/Coding Visit Charges Inpatient E&M: 26284 Subs Hosp L2
[2023-05-02] MEDS: Aspirin 300 MG Suppository RC (20:35)
[2023-05-03] VITALS (9 sets, daily range): BP systolic 129–136; BP diastolic 55–72; PULSE 72–90; RESP 16–22; TEMP 36.4–36.6; O2SAT 92–96; BMI 33.3
[2023-05-03] MEDS: Ciprofloxacin 0.3% 2.5ml Bottle 1 DRP LEFT EYE ×6 (02:07→20:50)
[2023-05-03 06:03] LABS: Absolute Lymphocyte Count 1.45 X10^3/uL (0.83-4.51); Absolute Neutrophil Count 8.8 X10^3/uL (2.0-7.7); Basophil# 0.07 X10^3/uL; Basophil% 0.6 % (0-1); Eosinophil# 0.27 X10^3/uL; Eosinophils% 2.3 % (0-5); Hematocrit 41.7 % (40-54); Hemoglobin 13.3 g/dL (13.0-16.5); Lymphocyte # 1.45 X10^3/ul (0.83-4.51); Lymphocyte % 12.5 % (19-41); Mean Corp Hgb Conc 31.9 g/dL (32-36); Mean Corpuscular Hgb 30.3 pg (27.0-32.0); Mean Platelet Vol. 10.2 fl (6.2-12.0); Monocyte# 1.02 X10^3/uL; Monocyte% 8.8 % (0-10); NRBC Flagged by Analyzer 0 % (0-5); Neutrophil % 75.5 % (47-70); Platelet Count 216 K/mm3 (150-450); RBC Distribution Width CV 12.7 % (11.6-14.6); RBC Distribution Width SD 44.2 fl (35.1-43.9); Red Blood Count 4.39 M/mm3 (4.6-6.2); White Blood Count 11.6 K/mm3 (4.4-11.0)
[2023-05-03 07:41] LABS: Anion Gap 6 (5-15); BUN 22 mg/dL (7-18); BUN/Creat Ratio 20.4 RATIO (10-20); Calcium,Total 8.6 mg/dL (8.5-10.1); Chloride 103 mmol/L (98-107); Creatinine, Serum 1.08 mg/dL (0.70-1.30); EST Glomerular Filtration Rate 70 mL/min (>60); Est Glom Filt Rate - Afr Amer 85 mL/min (>60); Estimated Creatinine Clearance 59.88 ml/min; Glucose 98 mg/dL (74-106); Potassium 4.1 mmol/L (3.5-5.1); Sodium Level 136 mmol/L (136-145)
[2023-05-03 08:14] LABS: Magnesium 2.3 mg/dL (1.6-2.6)
[2023-05-03] MEDS: Budesonide Respules 0.5 MG/2 ML AMPUL.NEB. INHALATION ×2 (08:59→19:37)
[2023-05-03] MEDS: Albuterol 2.5 MG/3 ML VIAL.NEB. INHALATION ×3 (09:00→19:37)
[2023-05-03] MEDS: Aspirin 300 MG Suppository RC (10:06)
[2023-05-03] MEDS: Fluticasone 0.05% 1 SPRAY NASAL.SRY 2 SPRAY NASAL (10:07)
[2023-05-03] MEDS: Dextrose 5%/0.9% NaCl 1,000 ML 75 ML IV ×2 (10:07→23:57)
--- NOTE | 2023-05-03 10:12 | PN_ITS ---
Subjective Subjective Patient seen and examined. He looked more frail and weak today. He is having more difficulty swallowing. He has a more pronounced facial droop. He denied any fever, chills, cough, chest pain, palpitations, dizziness, nausea, vomiting or any other symptoms. Review of systems is otherwise negative. Objective Data Objective Data Vital Signs: Vital Signs Temp Pulse Resp BP Pulse Ox O2 Del Method O2 Flow Rate 97.6 F L 90 18 129/60 H 96 Room Air 2 05/03/23 07:59 05/03/23 09:24 05/03/23 09:24 05/03/23 07:59 05/03/23 07:59 05/03/23 08:26 05/03/23 07:59 Oxygen Flow Rate (L/min) 2 Oxygen Delivery Method Room Air Weight: 245 lb 13.047 oz Body Mass Index (BMI) 33.3 Intake & Output: Intake and Output for Last 24 Hours 05/01/23 05/02/23 05/03/23 23:59 23:59 23:59 Intake Total 200 / 300 160 / 160 0 / 0 Output Total 2750 / 3200 1730 / 1730 0 / 0 Balance -2550 / -2900 -1570 / -1570 0 / 0 Lab / Micro Data 05/03/23 05:09 05/03/23 05:09 Labs: Laboratory Results - last 24 hr 05/03/23 05:09: WBC 11.6 H, RBC 4.39 L, Hgb 13.3, Hct 41.7, MCV 95.0 H, MCH 30.3, MCHC 31.9 L, RDW Std Deviation 44.2 H, RDW Coeff of Boom 12.7, Plt Count 216, MPV 10.2, Immature Gran % (Auto) 0.300, Neut % (Auto) 75.5 H, Lymph % (Auto) 12.5 L, [place] % (Auto) 8.8, Eos % (Auto) 2.3, Baso % (Auto) 0.6, Absolute Neuts (auto) 8.8 H, Absolute Lymphs (auto) 1.45, Nucleated RBC % 0, Sodium 136, Potassium 4.1, Chloride 103, Carbon Dioxide 27.0, Anion Gap 6, BUN 22 H, Creatinine 1.08, Estim Creat Clear Calc 59.88, Est GFR (MDRD) Af Amer 85, Est GFR (MDRD) Non-Af 70, BUN/Creatinine Ratio 20.4 H, Glucose 98, Calcium 8.6, Magnesium 2.3 Physical Exam Const alert, oriented x3 and no apparent distress Constitutional Narrative: very frail and weak. HEENT normocephalic, head/scalp atraumatic, moist oral mucous membranes and oropharynx normal Eyes PERRL and EOMs intact bilaterally Neck no lymphadenopathy and supple Lymph Lymphatic: no lymphadenopathy noted Resp Resp Narrative: diminished breath sounds bilaterally, few crackles. On room air. Cardio regular rate, regular rhythm, S1 normal heart sound, S2 normal heart sound and no murmurs GI normal to inspection, nondistended, normoactive bowel sounds, soft to palpation, non-tender and non-distended Extremity normal capillary refill, no clubbing, cyanosis or edema and no calf tenderness Skin General Skin Exam: no breakdown Neuro CN's II-XII intact bilaterally Neuro Narrative: has mild slurred speech. has profound weakness of the LUE and LLE. No numbness or tingling. Power in LUE and LLE is 3/5.has a left facial droop today. Motor Exam: general weakness Psych thought process normal Psych Narrative: very frail. Assessment & Plan Assessment/Plan (1) Stroke determined by clinical assessment: PLAN: Plan #Acute CVA * Admitted with a complaint of weakness in his left upper extremity and left lower extremity.: Left upper extremity and left lower extremity was 3/5. Last normal was around 3:30 AM on the day of admission. * He is now having a left facial droop. * CT of the brain showed no acute intracranial pathology. CTA of the head and neck showed no significant large vessel occlusion. MRI of the brain showed focal acute ischemic change of the posterior limb of the right internal capsule and chronic microvascular changes. * On aspirin and high intensity statin. Neurology consulted. TO be on plavix x 21 days plus aspirin, and continue on aspirin monotherapy and statin. * PT OT consult. Speech therapy on board. Fall precautions. * much more frail and lethargic today. Has a left facial droop. * swallowing is much worse, and is NPO * 2D echo from January 2023 showed EF of 65% with stage I diastolic dysfunction and normal in the ventricular systolic function with negative bubble study. * 2D echo during this admission showed normal LV size and systolic function, with EF of 60%. * had modified barium swallow which showed moderate oropharyngeal phase dysphagia. Speech therapy recommends mechanical soft textures and thin liquids for his diet. * in light of his severe dysphagia and debility due to stroke, patient has a poor prognosis. I spoke to patient's about consulting hospice in light of how frail and weak he is, and how he has been deteriorating. is amenable to hospice consult. * #Dysphagia: As above #Parkinson's disease: on carbidopa levodopa. #Depression: on duloxetine. DVT prophylaxis; SCDs CODE STATUS full code Disposition: * open to hospice consult; hospice consulted today. * counseled that code status will need to be addressed again once hospice evaluates him, as they will likely not accept him in hospice whilst being full code. * Code status: * I discussed code status with patient's and family at their request. In light of the opting for hospice, and after my explaining the difference penny collado full code, DNR CCA and DNR CCA to the and family, they are opting to switch patient to DNR CCA now as scheduled and states that he will get better. We will therefore switch CODE STATUS to DNR CC. Total time for discussion: 16 minutes. Charges/Coding Visit Charges Inpatient E&M: 44666 Subs Hosp L3 Procedures Hospitalists Procedures: 54554 Advncd Care Plan 30 Min
[2023-05-04] MEDS: Ciprofloxacin 0.3% 2.5ml Bottle 1 DRP LEFT EYE ×3 (03:12→10:49)
[2023-05-04 03:32] VITALS: BP 136/63; PULSE 62; RESP 14; TEMP 36.9; O2SAT 94
[2023-05-04 04:35] LABS: Absolute Lymphocyte Count 1.49 X10^3/uL (0.83-4.51); Absolute Neutrophil Count 9.3 X10^3/uL (2.0-7.7); Basophil# 0.08 X10^3/uL; Basophil% 0.6 % (0-1); Eosinophil# 0.54 X10^3/uL; Eosinophils% 4.3 % (0-5); Hematocrit 40.9 % (40-54); Hemoglobin 13.1 g/dL (13.0-16.5); Lymphocyte # 1.49 X10^3/ul (0.83-4.51); Lymphocyte % 11.9 % (19-41); Mean Corpuscular Hgb 30.4 pg (27.0-32.0); Mean Corpuscular Volume 94.9 fL (80-94); Mean Platelet Vol. 9.6 fl (6.2-12.0); Monocyte# 1.07 X10^3/uL; Monocyte% 8.6 % (0-10); NRBC Flagged by Analyzer 0 % (0-5); Neutrophil # 9.29 X10^3/uL (2.7-7.7); Neutrophil % 74.4 % (47-70); Platelet Count 202 K/mm3 (150-450); RBC Distribution Width CV 12.5 % (11.6-14.6); RBC Distribution Width SD 43.7 fl (35.1-43.9); Red Blood Count 4.31 M/mm3 (4.6-6.2); White Blood Count 12.5 K/mm3 (4.4-11.0)
[2023-05-04 05:51] LABS: Anion Gap 4 (5-15); BUN 21 mg/dL (7-18); BUN/Creat Ratio 21.8 RATIO (10-20); Calcium,Total 8.2 mg/dL (8.5-10.1); Chloride 107 mmol/L (98-107); Creatinine, Serum 0.96 mg/dL (0.70-1.30); EST Glomerular Filtration Rate 80 mL/min (>60); Est Glom Filt Rate - Afr Amer 96 mL/min (>60); Estimated Creatinine Clearance 67.36 ml/min; Glucose 115 mg/dL (74-106); Potassium 3.6 mmol/L (3.5-5.1); Sodium Level 141 mmol/L (136-145)
[2023-05-04] MEDS: Albuterol 2.5 MG/3 ML VIAL.NEB. INHALATION (06:52)
[2023-05-04 06:53] VITALS: PULSE 69; RESP 18; O2SAT 95
[2023-05-04] MEDS: Budesonide Respules 0.5 MG/2 ML AMPUL.NEB. INHALATION (06:53)
[2023-05-04] MEDS: Morphine 2 MG/ML Syringe IV (10:46)
--- NOTE | 2023-05-04 12:02 | PCM.DC.SUM ---
Providers Date of Admission: 04/30/23 Date of Discharge: 05/04/23 Primary Care Physician: Dr. Reji Piper, Consultations 05/03/23 10:25 Consult: Hospice / Palliative Care Routine Consulting Provider: [facility] Reason for Consult: Debility and weakness due to stroke and Parkinson's disease EMERGENT Consult: No MD Notified: Yes Date Notified: 05/03/23 Time Notified: 09:22 Method of Notification: Verbal Reason For Visit: PROBABLE CVA Diagnosis Discharge Diagnosis (1) Stroke determined by clinical assessment: Status: Acute Code(s): I63.9 - Cerebral infarction, unspecified Medications at Discharge Home Medications fluticasone propionate 50 mcg/actuation nasal spray,suspension 2 spray NASAL DAILY allergies 01/23/20 pregabalin 50 mg capsule 50 mg PO DAILY pain 03/14/22 pregabalin 25 mg capsule 25 mg PO QHS Pain 09/17/22 carbidopa 25 mg-levodopa 100 mg tablet 4 tab PO TIDAC 30 days #360 tabs 11/03/22 albuterol sulfate 90 mcg/actuation aerosol inhaler 2 puff inhalation Q4H PRN shortness of breath or wheezing #8.5 grams 12/29/22 ropinirole 1 mg tablet 0.5 mg PO BID@0900,1400 RLS 02/10/23 budesonide-formoterol HFA 160 mcg-4.5 mcg/actuation aerosol inhaler (Symbicort) 2 inh inhalation BID #1 ea 03/31/23 loperamide 2 mg capsule (Anti-Diarrheal (loperamide)) 4 mg PO Q6H PRN diarrhea 04/30/23 Hospital Course Operations None Procedures 2-D Echocardiogram and - (Brain/CTA head neck/chest x-ray/MRI brain/modified barium swallow) Summary of Care Provided Minutes Spent on Discharge: 37 Hospital Course: Mr. Ziegler is an 82-year-old white male who presented to the emergency department at [facility] on 04/30/2023 with left-sided weakness. He was last known well at 1 AM when [facility]. He woke at about 3:30 AM and was noted to have left-sided weakness however in the history there is some discrepancy on the timing and based on the neurology documentation he was outside the window for thrombolytics. Per his he developed some slurred speech after he suffered from a COVID-19 infection but his speech was more slurred on the day of presentation. Stroke team was called on arrival and initial CT was unremarkable. [facility] neurology evaluated the patient and recommended further admission with MRI and appropriate stroke work-up. CTA of the head and neck was performed and demonstrated no large vessel occlusion, dissection or other acute arterial abnormalities. Chest x-ray showed no acute findings. An MRI was done on the day of admission and showed a focal acute ischemic infarct of the posterior limb of the right internal capsule and chronic microvascular changes. An echocardiogram was performed and showed an EF of 60% with normal LV function and was negative for a bubble study. NIH on admission was 10. Thrombolytics were not recommended as the patient was deemed to be outside the window for dosage. Patient was maintained on aspirin and high intensity dose statin. Neurology recommended initiating Plavix as well as this was added. PT/OT/speech therapy were consulted and recommended ongoing therapy. The patient overall had no improvement in his symptoms and had fairly dense left-sided hemiparesis as a result of his stroke. Modified barium swallow was performed and showed moderate oropharyngeal phase dysphagia and speech therapy recommended mechanical soft diet with thin liquids and ongoing therapy with aspiration precautions. With his overall significant findings and severe dysphagia and ongoing debility with baseline medical issues extensive conversation was had with the and family with regards to possible hospice consult and she was amenable to this. Hospice evaluated the patient on 05/04/2023 and felt that he was appropriate for the [facility]. He was able to be discharged in stable condition to the [facility] on 05/04/2023. 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 Left-sided hemiparesis Left-sided facial droop Moderate to severe oropharyngeal phase dysphagia Parkinson's disease Chronic neck pain Asthma Neuropathy Restless leg syndrome BPH History of TIA Anxiety Depression History of tobacco abuse Physical Exam Const alert, oriented x3, no apparent distress, no limitations and well nourished; Negative for average body habitus or healthy appearing Constitutional Narrative: Obese, older, white male, sitting up in bed, family at bedside, patient complaining of some left-sided neck and head pain but otherwise denied any issues, nontoxic-appearing General Appearance: cooperative, well kempt and well developed Orientation / Consciousness: awake, oriented to person, oriented to place and oriented to time Exam Limitations: no limitations Nutritional Appearance: obese HEENT normocephalic, head/scalp atraumatic and moist oral mucous membranes HEENT Narrative: Mild to moderate hearing loss, Mallampati is 2-3, no thrush Eyes PERRL, EOMs intact bilaterally and conjunctivae normal Eyes Narrative: No scleral icterus Neck no lymphadenopathy and supple Neck Narrative: Trachea midline, no thyroid enlargement Resp normal respiratory effort, no retractions and no use of accessory muscles Resp Narrative: Bibasilar crackles noted but otherwise unremarkable Auscultation: crackles; Negative for rhonchi or wheezes Cardio regular rate, regular rhythm, S1 normal heart sound, S2 normal heart sound, no murmurs, no rub, no gallops and no clicks GI normal to inspection, nondistended, normoactive bowel sounds, soft to palpation and non-tender Extremity Extremity Narrative: Edema left lower extremity, no cyanosis or clubbing, no edema right lower extremity Skin no wounds, skin turgor normal and no jaundice Skin Narrative: Skin is thin with scattered ecchymosis Neuro oriented x3, No CN's II-XII intact bilaterally, No moves all extremities, No no focal motor deficits and No no sensory deficits noted Neuro Narrative: Flaccid left hemiparesis, decreased sensation left side Speech: speech normal Psych Psych Narrative: Affect is flat, eye contact is good-appropriate for situation Weight / BMI Weight Weight: 111.5 kg Body Mass Index (BMI) 33.3 ABG / Lab / Microbiology Data 05/04/23 04:15 05/04/23 04:15 Laboratory: Laboratory Results - last 24 hr 05/04/23 04:15: WBC 12.5 H, RBC 4.31 L, Hgb 13.1, Hct 40.9, MCV 94.9 H, MCH 30.4, MCHC 32.0, RDW Std Deviation 43.7, RDW Coeff of Boom 12.5, Plt Count 202, MPV 9.6, Immature Gran % (Auto) 0.200, Neut % (Auto) 74.4 H, Lymph % (Auto) 11.9 L, [place] % (Auto) 8.6, Eos % (Auto) 4.3, Baso % (Auto) 0.6, Absolute Neuts (auto) 9.3 H, Absolute Lymphs (auto) 1.49, Nucleated RBC % 0, Sodium 141, Potassium 3.6, Chloride 107, Carbon Dioxide 30.0, Anion Gap 4 L, BUN 21 H, Creatinine 0.96, Estim Creat Clear Calc 67.36, Est GFR (MDRD) Af Amer 96, Est GFR (MDRD) Non-Af 80, BUN/Creatinine Ratio 21.8 H, Glucose 115 H, Calcium 8.2 L D/C Instructions Discharge Diet: No restrictions Discharge Activity: Return to Normal Activity Meaningful Use Info Meaningful Use Diagnoses (Choose all that apply): None applicable Discharge Plan Admission Admit Date/Time: 04/30/23 16:42 Primary Reason for Your Visit: L Sided Weakness Attending Provider: Silvia Lewis Primary Care Provider: Reji Piper Consulting Providers: Lee Dao; Nancy Barnard; Tatianna Price; Gretchen Piper BOOK CLEANER; Ami Escobar Discharge Orders/Prescriptions Prescriptions: Continued albuterol sulfate 90 mcg/actuation HFA aerosol inhaler 2 puff inhalation Q4H PRN (Reason: shortness of breath or wheezing) Qty: 8.5 6RF Rx Instructions: administer with spacer budesonide-formoterol [Symbicort] 160-4.5 mcg/actuation HFA aerosol inhaler 2 inh inhalation BID Qty: 1 3RF Rx Instructions: administer with spacer, rinse mouth after each use fluticasone propionate 1 SPRAY spray,suspension 2 spray NASAL DAILY pregabalin 50 mg capsule 50 mg PO DAILY pregabalin 25 mg capsule 25 mg PO QHS ropinirole 1 mg tablet 0.5 mg PO BID@0900,1400 carbidopa-levodopa 25-100 mg Tablet 4 tab PO TIDAC 30 Days Qty: 360 0RF loperamide [Anti-Diarrheal (loperamide)] 2 mg capsule 4 mg PO Q6H PRN (Reason: diarrhea) Discontinued doxazosin 4 mg tablet 4 mg PO QHS sennosides-docusate sodium [Stool Softener-Stimulant Laxat] 8.6-50 mg tablet 2 tab-cap PO DAILY multivitamin Tablet 1 tab PO DAILY acetaminophen 650 mg Tablet Extended Release 650 mg PO DAILY aspirin 81 mg Tablet,Delayed Release (Dr/Ec) 81 mg PO DAILY acetaminophen 500 mg Tablet 500 mg PO QPM Senna Plus 8.6-50 mg Capsule 1 tab-cap PO QHS duloxetine 60 mg capsule,delayed release(DR/EC) 60 mg PO DAILY bupropion HCl 300 mg tablet extended release 24 hr 300 mg PO DAILY trazodone 50 mg tablet 50 mg PO .HS (DME) [employer] Chamber 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
[2023-05-04] MEDS: Morphine 4 MG/ML Syringe IV (12:32)
[2023-05-04] MEDS: Ondansetron 4 MG/2 ML Vial IV (12:32)
== END 2023-05-04 13:11 | disposition hospice, inpatient (51) | DRG 65 ==
LOC: ED 08:49 → PCU 13:21
PROVIDERS: Admitting Provider Student in an Organized Health Care Education/Training Program; Emergency Provider Emergency Medicine; PCP Family Medicine; Visit Provider Internal Medicine
DX: I63.9 Cerebral infarction, unspecified (principal); G81.94 Hemiplegia, unspecified affecting left nondominant side; G20.A1 Parkinson's disease without dyskinesia, without mention of fluctuations; M45.2 Ankylosing spondylitis of cervical region; F32.A Depression, unspecified; J45.909 Unspecified asthma, uncomplicated; G25.81 Restless legs syndrome; E78.5 Hyperlipidemia, unspecified; F41.9 Anxiety disorder, unspecified; G62.9 Polyneuropathy, unspecified; E66.9 Obesity, unspecified; G89.29 Other chronic pain; R29.710 NIHSS score 10; R13.12 Dysphagia, oropharyngeal phase; R29.810 Facial weakness; R47.81 Slurred speech; U09.9 Post COVID-19 condition, unspecified; N40.0 Benign prostatic hyperplasia without lower urinary tract symptoms; Z66 Do not resuscitate; Z68.33 Body mass index [BMI] 33.0-33.9, adult; Z79.899 Other long term (current) drug therapy; Z86.73 Personal history of transient ischemic attack (TIA), and cerebral infarction without residual deficits; Z87.891 Personal history of nicotine dependence
CPT/HCPCS: 36415; 70450; 70496; 70498; 70551; 71045; 74230; 80048; 80061; 83036; 83735; 84484; 85025; 85610; 85730; 92610; 92611; 93005; 93308; 94640; 94762; 97110; 97112; 97162; 97166; 97530; 97535; 99285; Q9957; Q9967; A4216; C8924; J2405